=== PATIENT | female | born 1935 | race African-American/Black ===

== ENCOUNTER 2016-11-17 16:37 | Inpatient (IN) | payer OTHER ==
[~2016-11-17] VITALS: Ht 154.9 cm; Wt 58.5 kg
[~2016-11-17 16:37] MED LIST: BRIM5DRO11 EACHEYE; BUPR150T10 PO; INSU100C7 SQ; INSU100I4 SQ; LEVO75TA7 PO; METO-302 PO; RAMI5CAP PO
--- NOTE | 2016-11-17 16:37 | NUR ---
PT BBRA FROM HOME FOR INCREASED WEAKNESS. NAD NOTED. PT AAO X2, FORGETFUL AT TIMES, FOLLOWS COMMANDS. HR NOTED AT 35 AT THIS TIME. MD AT BEDSIDE FOR EVAL. PACER PADS PLACED. PT PLACED IN GOWN AND MONITOR. CONTINUE TO MONITOR CLOSELY
[2016-11-17] MEDS ORDERED: ATROPINE SULFATE INJ 1 MG/ML VIAL ONE (16:56)
[2016-11-17] MEDS ORDERED: IV NS 0.9% 500 ML BAG IV ONE (17:00)
[2016-11-17] MEDS ORDERED: ATROPINE SULFATE 1 MG/10 ML DISP.SYRIN IV ONE (17:00)
[2016-11-17 17:05] LABS: BASOPHILS % (AUTO) 0.3 % (0.0-2.0); EOSINOPHILS % (AUTO) 0.8 % (0.0-6.0); HEMATOCRIT 34 % (33-45); HEMOGLOBIN 11.3 g/dL (11.5-14.8); LYMPHOCYTES # (AUTO) 0.9 /CMM (0.8-4.8); LYMPHOCYTES % (AUTO) 16.5 % (20.0-44.0); MEAN CORPUSCULAR HEMOGLOBIN 29 PG (26.0-33.0); MEAN CORPUSCULAR HGB CONC 34 g/dl (31.0-36.0); MEAN CORPUSCULAR VOLUME 86 fL (82-100); MONOCYTES # (AUTO) 0.3 /CMM (0.1-1.30); MONOCYTES % (AUTO) 6.2 % (2.0-12.0); NEUTROPHILS # (AUTO) 4.4 /CMM (1.8-8.9); NEUTROPHILS % (AUTO) 76.2 % (43.0-81.0); PLATELET COUNT (AUTO) 121 /CMM (150-450); RDW COEFFICIENT OF VARIATION 13.6 (11.5-15.0); RED BLOOD CELL COUNT(AUTO) 3.92 MIL/uL (4.0-5.2); WHITE BLOOD COUNT (AUTO) 5.6 K/uL (4.3-11.0)
--- NOTE | 2016-11-17 17:10 | NUR ---
ATROPINE GIVEN PER MD ORDER, CONTINUE TO MONITOR CLOSELY.
[2016-11-17 17:14] LABS: CALCIUM, SERUM 8.7 mg/dL (8.5-10.1); CARBON DIOXIDE 32 mmol/L (21-32); CHLORIDE 116 mmol/L (98-107); CREATININE 0.8 mg/dL (0.6-1.3); GLUCOSE 163 mg/dL (74-106); POTASSIUM 3.9 mmol/L (3.5-5.1); SODIUM SERUM 150 mmol/L (136-145); UREA NITROGEN, BLOOD 36 mg/dL (7-18)
[2016-11-17 17:20] LABS: INR 0.99 (0.87-1.13); PROTHROMBIN TIME 10.4 SECS (9.5-12.7)
[2016-11-17 17:26] LABS: TROPONIN I < 0.017 ng/mL (0.00-0.056)
[2016-11-17 17:29] LABS: B-TYPE NATRIURETIC PEPTIDE 367 PG/ML (0-125)
--- NOTE | 2016-11-17 17:57 | NUR ---
REPORT GIVEN TO ANI BALDERRAMA RN FOR RUMA
[2016-11-17] MEDS ORDERED: TRAZ-144 PO (18:36)
[2016-11-17] MEDS ORDERED: CLOP75TA2 PO (18:36)
[2016-11-17] MEDS ORDERED: PRED5DRO17 EACHEYE (18:36)
[2016-11-17] MEDS ORDERED: DONE10TA44 PO (18:36)
[2016-11-17] MEDS ORDERED: DORZ10DR11 EACHEYE (18:36)
[2016-11-17] MEDS ORDERED: GABA-532 PO (18:36)
[2016-11-17] MEDS ORDERED: BUPR200T31 PO (18:36)
[2016-11-17] MEDS ORDERED: BRIM5DRO11 EACHEYE (18:36)
[2016-11-17] MEDS ORDERED: LATA2.5D7 EACHEYE (18:36)
[2016-11-17] MEDS ORDERED: BLOO-697 IN (18:38)
[2016-11-17] MEDS ORDERED: INSU10VI SQ ×2 (18:38)
--- NOTE | 2016-11-17 19:00 | NUR ---
REPORT REC'D FROM DIMA GARCIA FOR RUMA. ASSUMED CARE OF PT. PT WAS ON THE BEDPAN. BEDPAN REMOVED AND NEW SHEETS APPLIED. PT IS ON PACER PADS AND IS CURRENTLY ON THE MONITOR/CONTINUOUS PULSE OX.
--- NOTE | 2016-11-17 19:22 | NUR ---
RYLAND PAGED, DR.SAM Wade PROGRAMMER NUMERICAL CONTROL
[2016-11-17] MEDS ORDERED: HYDROCODONE/APAP 5/325MG 1 EACH TABLET PO PRN (20:00)
[2016-11-17] MEDS ORDERED: ATROPINE SULFATE INJ 1 MG/ML VIAL IV PRN (20:00)
[2016-11-17] MEDS ORDERED: Z GUARD REMEDY 2 OZ OINT TP PRN (20:00)
[2016-11-17] MEDS ORDERED: ONDANSETRON HCL/PF 4 MG/2 ML VIAL IVP PRN (20:00)
[2016-11-17] MEDS ORDERED: ZOLPIDEM TARTRATE 5 MG TABLET PO PRN (20:00)
[2016-11-17] MEDS ORDERED: MAGNESIUM HYDROXIDE 30 ML UDC PO PRN (20:00)
[2016-11-17] MEDS ORDERED: MAG HYDROX/AL HYDROX/SIMETH 30 ML UDC PO PRN (20:00)
--- NOTE | 2016-11-17 20:00 | NUR ---
PT PLACED ON 2L O2 VIA NC. PT IS SATURATING AT 92% ON RA.
--- NOTE | 2016-11-17 20:02 | NUR ---
CALLING REPORT TO DIMA GILL
--- NOTE | 2016-11-17 20:02 | NUR ---
RN NOTE RECEIVED REPORT FROM CLIVE CH
--- NOTE | 2016-11-17 20:20 | NUR ---
RN INITIAL NOTE RECEIVED PT WITH BRADYCARDIA ON THE MONITOR. PT IS A/O X 2 AND ABLE TO FOLLOW COMMANDS. PT IS ON O2 VIA NC @ 2LPM AND TOLERATING WELL WITH O2 SAT @ 96%. PT IS ON TELE WITH BRADYCARDIA @ 33 ON THE MONITOR. PT HAS AUDITORY CRACKLES WITH EXCESSIVE PHLEGM THAT WAS SUCTIONED. PT HAS RAC 18G AND LAC 20G THAT ARE BOTH CLEAN DRY INTACT AND PATENT WITH SALINE FLUSH. PT HAS DAUGHTER AT BEDSIDE AND STATED "I AM UPSET THAT SHE ISNT GOING TO ICU". BED IN LOW LOCK POSITION WITH RIALS UP X 2. CALL LIGHT WITHIN REACH AND ALL SAFETY MEASURES ENSURED AND CARRIED OUT. WILL SPEAK WITH DR DE LEON TO GET TRANSFER ORDERS TO ICU.
[2016-11-17] MEDS ORDERED: ATROPINE SULFATE 1 MG/10 ML DISP.SYRIN IV PRN (20:30)
--- NOTE | 2016-11-17 20:33 | NUR ---
RN NOTE SPOKE WITH DR DE LEON AND RECEIVED ORDERS TO TRANSFER TO ICU AND GET A STAT EKG.
[2016-11-17 21:00] VITALS: BP 124/70
--- NOTE | 2016-11-17 21:00 | NUR ---
RN NOTE TRANSFERRED PT TO ICU AND GAVE REPORT TO APPARATUS ENGINEERING TECHNOLOGIST SHANNA FOR CONTINUITY OF CARE.
[2016-11-17] MEDS: ENOXAPARIN SODIUM 40 MG/0.4 ML DISP.SYRIN SQ SCH (21:12)
[2016-11-17] MEDS: GABAPENTIN 100 MG CAPSULE PO SCH (21:13)
[2016-11-17 21:23] VITALS: BP 124/70
[2016-11-17] MEDS ORDERED: DOPamine 400MG/D5W 250ML RTU 250 ML IV ONE (21:40)
[2016-11-17] MEDS ORDERED: IV SET PRIMARY PUMP SET 1 EA INFUS.SET MC ONE (21:40)
--- NOTE | 2016-11-17 21:50 | NUR ---
RELOCATION COORDINATOR DF PT WITH 1 EPISODE OF EMESIS AFTER GIVEN PO MEDICATIONS. PT VOMITED EGGS/RED PEEPERS PER FAMILY PT WAS FED OVER 8 HOURS AGAIN. PT PROTECTED AIRWAY DURING EMESIS ORAL SUCTIONING PROVIDED.NO POST RESPIRATORY DISTRESS NOTED RR OF 18 02 SAT OF 98% ON NASAL CANULA AT 2LPM. PT WITH 1DEGREE HEART BLOCK WITH BRADYCARDIA EKG @ 2048 RESULTS FORWARDED TO MD Isadora LAWSON. PT WITH DECREASED BP (COULD BE 2ND TO CUFF SIZE POSITION/BRADYCARDIA). RATE OF 35BPM TO 43 BPM. PT WITH PACERS PADS CRASH CART AT BEDSIDE WITH EXTERNAL PACING EQUIPMENT. BP NOW 114/56 WITH CORRECT CUFF SIZE POSITION. PT STARTED ON DOPAMINE GTT AT 1MCG/MIN FOR BRADYCARDIA/HYPOTENSION. DAUGHTER AT BEDSIDE UPDATED REGARDING POC. FERNANDEZ CATH INSERTION BY DIMA Arias
[2016-11-17] MEDS ORDERED: DOPamine 400 MG/D5W 250 ML RTU PIGGYBACK IV ONE (22:00)
[2016-11-17 22:01] VITALS: BP 112/47
[2016-11-17] MEDS: BLOOD SUGAR DIAGNOSTIC 1 EACH STRIP IN SCH (22:01)
[2016-11-17] MEDS ORDERED: DOPamine 400 MG/D5W 250 ML RTU PIGGYBACK IV PRN (22:30)
[2016-11-17 22:32] VITALS: BP 124/92
[2016-11-17 23:15] VITALS: BP 111/58
[2016-11-17] MEDS: LATANOPROST EYE DROP 0.005% 2.5 ML BOTTLE EACHEYE SCH (23:15)
--- NOTE | 2016-11-17 23:25 | NUR ---
ADMITTING OFFICER DF PT WITH HX OF DEMENTIA PT AGITATED, RESTLESS OVER LAST HOUR PT ATTEMPTING TO GET OOB THROWING LEGS OVER EDGE OF BED ATTEMPTING TO LIFT BODY OVER SIDE RAILS. PT REMOVING MONITORING EQUIPMENT ATTEMPTING TO REMOVE FERNANDEZ CATH AND IV,S. PT PLACED IN BILATERAL SOFT WRIST RESTRAINTS FOR SAFETY. PT NON COMPLIANT WITH SAFETY INSTRUCTIONS. PER FAMILY PT HAS HX OF DEMENTIA AND PER DAUGHTER JAME PT HASNT SLEPT FOR OVER 24 HOURS AND AGITATION IS INCREASING. I ADMINISTERED 1 AMBIEN 5MG PO FOR INSOMNIA/AGITATION. I WILL MONITOR FOR EFFECT.
[2016-11-17 23:30] VITALS: BP 84/57
[2016-11-18] VITALS (42 sets, daily range): BP systolic 77–148; BP diastolic 25–92
--- NOTE | 2016-11-18 00:47 | NUR ---
PT REMAINS AGITATED DR DE LEON AT BEDSIDE NO ORDERS GIVEN. PT REQUIRED 4 POINT SOFT WRIST RESTRAINTS. PT MOVING BLE OVER SIDE RAIL REPEATEDLY AND ATTEMPTING TO SLIDE SELF OUT OF BED. VSS DOPAMINE AT 4MCG. HEART RATE OF 52BPM.
--- NOTE | 2016-11-18 03:46 | NUR ---
NURSE OBGYN DF BP OF 75/33 DOPAMINE INCREASED TO 6MCG IV.
[2016-11-18 04:48] LABS: BASOPHILS % (AUTO) 0.1 % (0.0-2.0); EOSINOPHILS % (AUTO) 0.1 % (0.0-6.0); HEMATOCRIT 40 % (33-45); HEMOGLOBIN 12.6 g/dL (11.5-14.8); LYMPHOCYTES # (AUTO) 0.5 /CMM (0.8-4.8); LYMPHOCYTES % (AUTO) 9.2 % (20.0-44.0); MEAN CORPUSCULAR HEMOGLOBIN 28 PG (26.0-33.0); MEAN CORPUSCULAR HGB CONC 32 g/dl (31.0-36.0); MEAN CORPUSCULAR VOLUME 87 fL (82-100); MONOCYTES # (AUTO) 0.1 /CMM (0.1-1.30); MONOCYTES % (AUTO) 1.8 % (2.0-12.0); NEUTROPHILS # (AUTO) 4.8 /CMM (1.8-8.9); NEUTROPHILS % (AUTO) 88.8 % (43.0-81.0); PLATELET COUNT (AUTO) 162 /CMM (150-450); RDW COEFFICIENT OF VARIATION 14.4 (11.5-15.0); RED BLOOD CELL COUNT(AUTO) 4.58 MIL/uL (4.0-5.2); WHITE BLOOD COUNT (AUTO) 5.4 K/uL (4.3-11.0)
[2016-11-18 05:12] LABS: CALCIUM, SERUM 9.3 mg/dL (8.5-10.1); CREATININE 0.7 mg/dL (0.6-1.3); MAGNESIUM 2.2 mg/dL (1.8-2.4); PHOSPHORUS 4.3 mg/dL (2.5-4.9)
[2016-11-18 05:13] LABS: THYROID STIMULATING HORMONE 1.862 uIU/mL (0.358-3.74)
--- NOTE | 2016-11-18 05:57 | NUR ---
DEOILING MACHINE OPERATOR DF BP OF 131/55 SINUS MARI RATE OF 55 WITH 1DAVB. DECREASED DOPAMINE TO 4MCG ,PT REMAINS AGITATED PT DOES NOT FOLLOW SAFETY COMMANDS. WHEN UNRESTRAINED PT ATTEMPTS TO REMOVE LINES AND PT IS CONSTANTLY ATTEMPTING TO SLIDE BLE OVER SIDE RAILS AND SLIDE OUT OF THE BED. PT REMAINS WITH BUE/BLE RESTRAINTS FOR SAFETY. AGITATION DISCUSSED WITH MD DE LEON AND NEED FOR 4POINT RESTRAINTS NO ORDERS FOR AGITATION MEDICATION GIVEN. VSS.NAD NOTED.
[2016-11-18] MEDS: PANTOPRAZOLE 40 MG TABLET.DR PO SCH (06:39)
[2016-11-18] MEDS: LEVOTHYROXINE SODIUM 75 MCG TABLET PO SCH (06:39)
[2016-11-18] MEDS ORDERED: DEXTROSE 50%-WATER 50 ML DISP.SYRIN ONE (06:43)
[2016-11-18] MEDS: BLOOD SUGAR DIAGNOSTIC 1 EACH STRIP IN SCH ×4 (06:49→21:45)
--- NOTE | 2016-11-18 06:50 | NUR ---
CUSTOMER RETENTION REPRESENTATIVE DF PT ACCU CHECK OF 55. PT RESPONSIVE AWAKE CONVERSING. 1 AMP D50 ADMIN PER PROTOCOLS/ORDER. PT HAS NO SLIDING SCALE COVERAGE ORDER. PAGED MD DE LEON FOR ORDERS AWAITING CALLBACK.
[2016-11-18] MEDS ORDERED: DOPamine 400 MG in IV D5W 250 ML IV PRN ×2 (07:00→09:00)
[2016-11-18] MEDS ORDERED: DEXTROSE 50%-WATER 50 ML DISP.SYRIN IVP ONE (07:00)
--- NOTE | 2016-11-18 07:15 | NUR ---
RN INITIAL NOTES RECEIVED PT ASLEEP, EASILY AROUSABLE. ON 02 AT 4LPM VIA NC. NO RESPIRATORY DISTRESS NOTED. NO SOB NOTED. HOB ELEVATED. NO SIGNS OF PAIN NOTED. IV LINES IN PLACE. ON DOPAMINE AT 4MCG, HR ON 50S. FC IN PLACE. BLE ELEVATED. WILL CLOSELY MONITOR.
--- NOTE | 2016-11-18 07:15 | NUR ---
DONOR FLOOR TECHNICIAN DF REPORT GIVEN TO DIMA REED. ENDORSED RECHECKING OF GLUCOSE/MIDLINE. NOTED @ 0645 GLUCOSE OF 55 ADMIN 1 AMP D50. PT WILL NEED A MIDLINE IF REMAINS ON DOPAMINE. LEAKING PIV TO RIGHT AC. DOPAMINE INFUSING TO LEFT EXTERNAL JUGULAR IV.
[2016-11-18] MEDS: BRIMONIDINE TARTRATE OPHT SOLN 5 ML BOTTLE EACHEYE SCH ×3 (08:16→17:06)
[2016-11-18] MEDS: INS LISP PROT/INS LISPRO 75/25 100 UNIT/ML VIAL SQ SCH ×3 (08:17→17:28)
--- NOTE | 2016-11-18 08:24 | NUR ---
WOUND CARE CONSULT PATIENT SEEN AND SKIN INTEGRITY ASSESSMENT DONE. PLEASE SEE HOME HOSPICE RN ASSESSMENT IN [facility] FOR TODAY ALONG WITH ALL RECOMMENDATIONS. PATIENT WITH CURRENT CARMINE AT 15, ABLE TO MOVE ALL EXTREMITIES AND TRYING TO GET OOB. PATIENT DOES NOT EASILY FOLLOW COMMANDS. RECOMMEND TURNING SCHED TO ASSIST WITH REPOSITIONING AND BILATERAL HEEL FLOATING. RECOMMEND PODIATRY CONSULT FOR THE BILATERAL LOWER EXTREMITY ULCERATIONS. RECOMMEND CONT USE OF Z GUARD FOR SKIN/MOISTURE MANAGEMENT. ALL DISCUSSED WITH NURSING STAFF AT THE BEDSIDE. PATIENT ON PROSimity COMFORT GEL PRESSURE REDISTRIBUTION MATTRESS AT THIS TIME. Addendum: 11/18/16 at 0829 by RADAMES HICKS WNDNU Amended: Links added.
--- NOTE | 2016-11-18 08:30 | NUR ---
RN NOTES SEEN AND EXAMINED BY DR. CAICEDO. AWARE OF HR ON 50S. SBP 0N 110S. ON DOPAMINE DRIP AT 4MCG. NO ADDITIONAL ORDER.
[2016-11-18] MEDS: prednisoLONE ACETATE 1% SUSP 5 ML BOTTLE RIGHTEYE SCH (08:35)
[2016-11-18] MEDS ORDERED: prednisoLONE ACETATE 1% SUSP 5 ML BOTTLE EACHEYE SCH (09:00)
[2016-11-18] MEDS ORDERED: TIMOLOL MAL/DORZOLAM HCL OPHTH 10 ML BOTTLE EACHEYE SCH (09:00)
[2016-11-18] MEDS ORDERED: BRIMONIDINE TARTRATE OPHT SOLN 5 ML BOTTLE EACHEYE SCH (09:00)
[2016-11-18] MEDS: buPROPion SR 100 MG TABLET.ER PO SCH (09:39)
[2016-11-18] MEDS: HYDROGEL DRESSING 90 GM TUBE TP SCH (09:39)
[2016-11-18] MEDS: RAMIPRIL 5 MG CAPSULE PO SCH (09:39)
--- NOTE | 2016-11-18 10:00 | NUR ---
RN NOTES SEEN AND EXAMINED BY DR. VALLECILLO. AWARE OF OF LAB RESULTS. ON DOPAMINE DRIP AT 4MCG. HR ON 50S AND SBP ON 110S. NOTIFIED THAT PT WAS SEEN BY DR. CAICEDO. PER , KEEP DOPAMINE DRIP FOR NOW.
[2016-11-18] MEDS ORDERED: IV SET PRIMARY PUMP SET 1 EA INFUS.SET MC ONE (10:09)
[2016-11-18] MEDS: IV D5/0.45 NACL 1,000 ML IV PRN ×2 (10:12→20:28)
[2016-11-18] MEDS: CLOPIDOGREL BISULFATE 75 MG TABLET PO SCH (17:05)
--- NOTE | 2016-11-18 18:49 | NUR ---
RN CLOSING NOTES NO SIGNIFICANT CHANGE NOTED. KEPT COMFORTABLE. NO RESPIRATORY DISTRESS NOTED. NO SOB NOTED. NO SIGNS OF PAIN NOTED. IV LINES IN PLACE. ON IVF. ON DOPAMINE DRIP. BP AND HR CLOSELY MONITORED. FC IN PLACE. KEPT CLEAN AND DRY. REPOSITIONED Q2. WILL ENDORSE FOR CONTINUITY OF CARE.
--- NOTE | 2016-11-18 19:09 | NUR ---
Spoke with daughter Rafael [phone], patient lives with her daughter in a multilevel apartment that has no elevator access.Prior to admission- patient ambulates with a walker. She requires min-mod assist with adl's. Patient was prior getting therapy as outpt. Pamela is requesting SNF placement upon discharge. For any dc planning needs on weekend , need to call and coordinate with [facility] career services manager [phone]. Addendum: 11/18/16 at 1909 by MOLINA MONTESINOS RN Amended: Links added.
--- NOTE | 2016-11-18 19:15 | NUR ---
MED ASST: PT RECEIVED WT EYES CLOSED. ABLE TO OPEN EYES. 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 ON 4L 02 VIA NC WT 02 SAT 94% AND ABOVE. NOTED WT COARSE BREATH SOUNDS AND OCCASIONAL COUGHING. ORALLY SUCTIONED WT MODERATE AMT. OF [place] TO PINK-TINGED SECRETIONS. HOB ON HIGH-BEY'S. TOLERATING D5 1/2 NS AT 100ML/HR AND DOPAMINE DRIP AT 2MCG/KG/MIN WT NO S/S OF IV INFILTRATION. SR ON REAL ESTATE PROFESSOR. CHARGE NURSE ED AND INFORMATION SECURITY CONSULTANT OTILIA MADE AWARE OF MID LINE INSERTION. STILL AWAITING FOR MID LINE NURSE. F/C PATENT AND INTACT DRAINING YELLOW URINE TO GRAVITY. BILAT. SOFT WRIST RESTRAINTS IN PLACE PER PROTOCOL WT NO SKIN BREAKDOWN AND GOOD CIRCULATION WHEN RESTRAINTS WERE RELEASED AND CHECKED. SAFETY PRECAUTION NOTED. WILL CONTINUE TO MONITOR.
[2016-11-18] MEDS: ENOXAPARIN SODIUM 40 MG/0.4 ML DISP.SYRIN SQ SCH (20:32)
[2016-11-18] MEDS: LATANOPROST EYE DROP 0.005% 2.5 ML BOTTLE EACHEYE SCH (21:06)
[2016-11-18] MEDS: GABAPENTIN 100 MG CAPSULE PO SCH (21:40)
[2016-11-19] VITALS (34 sets, daily range): BP systolic 89–191; BP diastolic 36–90
--- NOTE | 2016-11-19 00:30 | NUR ---
RIVER RAFTING GUIDE: PT HAS NO EPISODE OF TRYING TO REMOVE IV TUBINGS FOR THE PAST HOUR. COOPERATIVE WT CARE. BILAT. SOFT WRIST RESTRAINTS COMPLETED AT THIS TIME. DOPAMINE DECREASED TO 1 MCG/KG/MIN WT BP AND HR WNL. ORALLY SUCTIONED DUE TO EPISODES OF WEAK COUGHING AND COARSE BREATH SOUNDS WT MODERATE AMT. OF [place] TO PINK-TINGED SECRETIONS. HOB ON SEMI-BEY'S. SAFETY PRECAUTION NOTED. WILL CONTINUE TO MONITOR.
--- NOTE | 2016-11-19 01:30 | NUR ---
FIELD REVIEWER: GIVEN BED BATH AND ONCE HOB WAS DOWN, TOLERATED POORLY M/B DESATURATION IN THE 80s. PLACED ON SIMPLE MASK AT 6L 02. HOB KEPT AT HIGH BEY'S IMMEDIATELY AFTER BATH AND 02 SAT IMPROVED AT 97%. WILL CONTINUE TO MONITOR.
--- NOTE | 2016-11-19 03:00 | NUR ---
MARKET CONSULTANT: DOPAMINE STOPPED AT THIS TIME WT MM=286/64, HR=85.
[2016-11-19 04:30] LABS: EOSINOPHILS % (AUTO) 0.1 % (0.0-6.0); HEMATOCRIT 34 % (33-45); HEMOGLOBIN 10.9 g/dL (11.5-14.8); LYMPHOCYTES # (AUTO) 0.7 /CMM (0.8-4.8); LYMPHOCYTES % (AUTO) 8.9 % (20.0-44.0); MEAN CORPUSCULAR HEMOGLOBIN 28 PG (26.0-33.0); MEAN CORPUSCULAR HGB CONC 32 g/dl (31.0-36.0); MEAN CORPUSCULAR VOLUME 87 fL (82-100); MONOCYTES # (AUTO) 0.2 /CMM (0.1-1.30); MONOCYTES % (AUTO) 2.3 % (2.0-12.0); NEUTROPHILS # (AUTO) 7.4 /CMM (1.8-8.9); NEUTROPHILS % (AUTO) 88.7 % (43.0-81.0); PLATELET COUNT (AUTO) 132 /CMM (150-450); RDW COEFFICIENT OF VARIATION 14.3 (11.5-15.0); RED BLOOD CELL COUNT(AUTO) 3.94 MIL/uL (4.0-5.2); WHITE BLOOD COUNT (AUTO) 8.3 K/uL (4.3-11.0)
[2016-11-19 04:46] LABS: CALCIUM, SERUM 8.4 mg/dL (8.5-10.1); CREATININE 0.9 mg/dL (0.6-1.3); MAGNESIUM 1.8 mg/dL (1.8-2.4); PHOSPHORUS 3.3 mg/dL (2.5-4.9); POTASSIUM 3.7 mmol/L (3.5-5.1)
--- NOTE | 2016-11-19 05:05 | NUR ---
VIOLIN REPAIRER: GLUCOSE FROM LAB. DRAW CRRNP=512. RECHECKED BS VIA GLUCOMETER WT 334 RESULT. CHARGE NURSE ED MADE AWARE. NO SIGNIFICANT RUMA. REMAINED VERBALLY RESPONSIVE AND ABLE TO FOLLOW SIMPLE COMMANDS. PLACED BACK ON 4L 02 VIA NC WT 02 SAT 96%. WILL CONTINUE TO MONITOR.
[2016-11-19] MEDS: IV D5/0.45 NACL 1,000 ML IV PRN (07:15)
[2016-11-19] MEDS: LEVOTHYROXINE SODIUM 75 MCG TABLET PO SCH (07:30)
[2016-11-19] MEDS: PANTOPRAZOLE 40 MG TABLET.DR PO SCH (07:30)
--- NOTE | 2016-11-19 07:45 | NUR ---
ICU/RN - Initial Notes Received pt in bed attempting to get out of bed, confused. Reorientation provided to pt. Alert and oriented to name. Able to follow simple commands. Legally blind left eye. On O2 @ 4lpm via nasal cannula, with O2 saturation 95%. Congested with productive cough, pink tinged/roberts secretions suctioned out orally. Bilateral breath sounds noted with crackles. On tele reading SR 70's. IVF infusing well. Chaves catheter intact draining urine to gravity. HOB semi oconnor's. Safety and comfort measures in place. Will continue to monitor pt closely.
[2016-11-19] MEDS ORDERED: FUROSEMIDE 20 MG/2 ML VIAL IV SCH (08:00)
[2016-11-19] MEDS: RAMIPRIL 5 MG CAPSULE PO SCH (08:31)
[2016-11-19] MEDS: HYDROGEL DRESSING 90 GM TUBE TP SCH (08:31)
[2016-11-19] MEDS: buPROPion SR 100 MG TABLET.ER PO SCH (08:31)
[2016-11-19] MEDS: BLOOD SUGAR DIAGNOSTIC 1 EACH STRIP IN SCH ×4 (08:31→21:28)
[2016-11-19] MEDS: prednisoLONE ACETATE 1% SUSP 5 ML BOTTLE RIGHTEYE SCH (08:32)
[2016-11-19] MEDS: BRIMONIDINE TARTRATE OPHT SOLN 5 ML BOTTLE EACHEYE SCH ×3 (08:33→16:38)
[2016-11-19] MEDS: INS LISP PROT/INS LISPRO 75/25 100 UNIT/ML VIAL SQ SCH ×2 (08:35→17:18)
[2016-11-19] MEDS ORDERED: IV NS 0.9% 250 ML IV ONE (08:49)
--- NOTE | 2016-11-19 08:50 | NUR ---
ICU/RN - Notes Dr Bailey at bedside for evaluation with new orders. Will carry out MD orders.
--- NOTE | 2016-11-19 11:15 | NUR ---
ICU/RN - Notes Pt seen and examined by Dr Angel. Updates provided to MD with new orders noted. Will carry out MD orders. Pt calm and cooperative at this time. Coughing out thick pink tinged secretions, orally suctioned.
[2016-11-19] MEDS ORDERED: SECONDARY IV SET 1 EA INFUS.SET MC ONE (11:56)
[2016-11-19] MEDS ORDERED: CLINDAMYCIN IV RTU IN D5W 900 MG/50 ML PIGGYBACK IV SCH (12:00)
[2016-11-19] MEDS: CLINDAMYCIN 900 MG in IV D5W 50 ML IV SCH ×2 (12:19→21:31)
[2016-11-19] MEDS: LEVOFLOXACIN 750 MG /D5W 150ML 750 MG in PREMIX 1 EA IV SCH (12:53)
[2016-11-19 13:48] LABS: ABG BASE EXCESS 1.7 mmol/L; ABG OXYGEN SATURATION 94.6 % (92.0-98.5); ABG PH 7.382 (7.350-7.450); ABG PO2 85.7 mmHg (75.0-100.0); ABG TOTAL HEMOGLOBIN 11.3 G/dL (12.0-16.0); AaDO2 116.5 mmHg; COHb 0.2 % (0.5-1.5); MetHb 0.2 % (0.0-1.5); O2Hb 94.2 % (94.0-97.0); SITE, ABG Right Radial; VENT MODE, BG NASAL CANNULA
[2016-11-19] MEDS: IPRATROPIUM NEB FS 0.5 MG/2.5 ML AMPUL.NEB NEB SCH ×2 (15:22→19:20)
[2016-11-19] MEDS: ALBUTEROL HALF STRENGTH 1.25 MG/3 ML VIAL.NEB NEB SCH ×2 (15:22→19:20)
--- NOTE | 2016-11-19 16:25 | NUR ---
ICU/RN - Notes Oral care and bed bath provided for pt. Pt orally suctioned as pt cough and expectorates sputum. Pt calm and cooperative with daughter, Rafael at bedside.
[2016-11-19] MEDS: CLOPIDOGREL BISULFATE 75 MG TABLET PO SCH (16:38)
--- NOTE | 2016-11-19 20:00 | NUR ---
RAMP AGENT - NOTES - PT RECEIVED AWAKE ALERT, CONFUSED. 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 ON 4L 02 VIA NC WT 02 SAT 94% AND ABOVE. NOTED WT COARSE BREATH SOUNDS AND OCCASIONAL COUGHING. ORALLY SUCTIONED WT MODERATE AMT. OF [place] TO PINK-TINGED SECRETIONS. HOB IN HIGH-BEY'S. NO S/S OF IV INFILTRATION. SR ON PAID INTERNSHIP. F/C PATENT AND INTACT DRAINING YELLOW URINE TO GRAVITY. SAFETY PRECAUTION NOTED. WILL CONTINUE TO MONITOR.
--- NOTE | 2016-11-19 20:30 | NUR ---
PT HAD A LARGE FORMED BOWEL MOVEMENT ON THE BED MURPHY
[2016-11-19] MEDS: LATANOPROST EYE DROP 0.005% 2.5 ML BOTTLE EACHEYE SCH (21:32)
[2016-11-19] MEDS: GABAPENTIN 100 MG CAPSULE PO SCH (21:33)
[2016-11-19] MEDS: ENOXAPARIN SODIUM 40 MG/0.4 ML DISP.SYRIN SQ SCH (21:37)
[2016-11-20] VITALS (33 sets, daily range): BP systolic 108–171; BP diastolic 55–98
[2016-11-20] MEDS: ALBUTEROL HALF STRENGTH 1.25 MG/3 ML VIAL.NEB NEB SCH ×4 (02:41→19:39)
[2016-11-20] MEDS: IPRATROPIUM NEB FS 0.5 MG/2.5 ML AMPUL.NEB NEB SCH ×4 (02:41→19:39)
--- NOTE | 2016-11-20 04:00 | NUR ---
PT NT SUCTIONED. PT SOUNDS VERY CONGESTED, 02SAT DROPPED TO 90%, PT HAS VERY WEAK COUGH. LARGE AMOUNT OF THINK STRAW COLORED SECRETIONS. O2SAT GOES UP TO 99%, PT SOUNDS AND STATES SHE FEELS BETTER
[2016-11-20 04:40] LABS: BASOPHILS % (AUTO) 0.3 % (0.0-2.0); EOSINOPHILS % (AUTO) 0.2 % (0.0-6.0); HEMATOCRIT 34 % (33-45); HEMOGLOBIN 10.9 g/dL (11.5-14.8); LYMPHOCYTES # (AUTO) 0.8 /CMM (0.8-4.8); LYMPHOCYTES % (AUTO) 11.6 % (20.0-44.0); MEAN CORPUSCULAR HEMOGLOBIN 28 PG (26.0-33.0); MEAN CORPUSCULAR HGB CONC 32 g/dl (31.0-36.0); MEAN CORPUSCULAR VOLUME 86 fL (82-100); MONOCYTES # (AUTO) 0.3 /CMM (0.1-1.30); MONOCYTES % (AUTO) 4.3 % (2.0-12.0); NEUTROPHILS # (AUTO) 5.7 /CMM (1.8-8.9); NEUTROPHILS % (AUTO) 83.6 % (43.0-81.0); PLATELET COUNT (AUTO) 127 /CMM (150-450); RED BLOOD CELL COUNT(AUTO) 3.92 MIL/uL (4.0-5.2); WHITE BLOOD COUNT (AUTO) 6.8 K/uL (4.3-11.0)
[2016-11-20 04:55] LABS: MAGNESIUM 1.6 mg/dL (1.8-2.4); PHOSPHORUS 2.6 mg/dL (2.5-4.9); POTASSIUM 3.8 mmol/L (3.5-5.1)
[2016-11-20] MEDS: CLINDAMYCIN 900 MG in IV D5W 50 ML IV SCH ×3 (05:29→20:30)
--- NOTE | 2016-11-20 08:00 | NUR ---
NEAR EAST ARCHEOLOGY PROFESSOR; ASSESSMENT RECEIVED PT AWAKE AND ORIENTED TO SELF. PT ON NASAL CANULA 5L/MIN. PT RHONCHI THROUGH OUT. NASAL-TRACHEAL SUCTION DONE MOD AMOUNT OF THICK [place] WITH BLOOD TINGE SECRETIONS NOTED. FERNANDEZ CATH INTACT DRAINING TO GRAVITY. CLEAR YELLOW URINE NOTED. NO ACUTE DISTRESS NOTED WILL CONTINUE TO MONITOR CLOSELY.
[2016-11-20] MEDS: BLOOD SUGAR DIAGNOSTIC 1 EACH STRIP IN SCH ×4 (08:19→22:02)
[2016-11-20] MEDS: buPROPion SR 100 MG TABLET.ER PO SCH (08:20)
[2016-11-20] MEDS: PANTOPRAZOLE 40 MG TABLET.DR PO SCH (08:20)
[2016-11-20] MEDS: LEVOTHYROXINE SODIUM 75 MCG TABLET PO SCH (08:20)
[2016-11-20] MEDS: RAMIPRIL 5 MG CAPSULE PO SCH (08:20)
[2016-11-20] MEDS: prednisoLONE ACETATE 1% SUSP 5 ML BOTTLE RIGHTEYE SCH (08:21)
[2016-11-20] MEDS: BRIMONIDINE TARTRATE OPHT SOLN 5 ML BOTTLE EACHEYE SCH ×3 (08:22→18:23)
[2016-11-20] MEDS: INS LISP PROT/INS LISPRO 75/25 100 UNIT/ML VIAL SQ SCH ×2 (08:23→18:21)
[2016-11-20] MEDS: HYDROGEL DRESSING 90 GM TUBE TP SCH (08:24)
[2016-11-20] MEDS: FUROSEMIDE 20 MG/2 ML VIAL IV SCH ×2 (11:08→18:14)
[2016-11-20] MEDS ORDERED: IV SET PRIMARY PUMP SET 1 EA INFUS.SET MC ONE (11:35)
[2016-11-20] MEDS: Magnesium 1GM/D5W 100ML PREMIX 100 ML IV SCH ×2 (11:42→12:32)
[2016-11-20] MEDS: ACETYLCYSTEINE 10% SOLN 400 MG/4 ML VIAL NEB SCH ×2 (13:18→15:30)
[2016-11-20] MEDS ORDERED: FUROSEMIDE 20 MG/2 ML VIAL IV SCH (17:00)
[2016-11-20] MEDS: IV NS 0.9% 250 ML IV PRN (18:14)
[2016-11-20] MEDS: CLOPIDOGREL BISULFATE 75 MG TABLET PO SCH (18:14)
--- NOTE | 2016-11-20 20:00 | NUR ---
MICROBIOLOGY INSTRUCTOR - NOTES - PT RECEIVED AWAKE ALERT, CONFUSED. DAUGHTER AQUILINO AT BEDSIDE. PT IS ON NASAL CANULA 3L/MIN, RHONCHI THROUGH OUT WT 02 SAT 94% AND ABOVE. NOTED WT COARSE BREATH SOUNDS AND OCCASIONAL COUGHING. ORALLY SUCTIONED WT MODERATE AMT. OF [place] TO PINK-TINGED SECRETIONS. HOB IN HIGH-BEY'S. NO S/S OF IV INFILTRATION. SR ON DROP WIRE ALIGNER. F/C PATENT AND INTACT DRAINING YELLOW URINE TO GRAVITY. SAFETY PRECAUTION NOTED. WILL CONTINUE TO MONITOR.
[2016-11-20] MEDS: ENOXAPARIN SODIUM 40 MG/0.4 ML DISP.SYRIN SQ SCH (20:31)
[2016-11-20] MEDS: GABAPENTIN 100 MG CAPSULE PO SCH (21:24)
[2016-11-20] MEDS: LATANOPROST EYE DROP 0.005% 2.5 ML BOTTLE EACHEYE SCH (21:25)
[2016-11-21] VITALS (26 sets, daily range): BP systolic 102–154; BP diastolic 32–89
[2016-11-21] MEDS: IPRATROPIUM NEB FS 0.5 MG/2.5 ML AMPUL.NEB NEB SCH ×4 (01:10→19:31)
[2016-11-21] MEDS: ALBUTEROL HALF STRENGTH 1.25 MG/3 ML VIAL.NEB NEB SCH ×4 (01:10→19:31)
[2016-11-21] MEDS: ACETYLCYSTEINE 10% SOLN 400 MG/4 ML VIAL NEB SCH ×4 (01:10→22:59)
[2016-11-21] MEDS: CLINDAMYCIN 900 MG in IV D5W 50 ML IV SCH ×3 (04:07→21:15)
[2016-11-21 04:49] LABS: BASOPHILS % (AUTO) 0.1 % (0.0-2.0); EOSINOPHILS % (AUTO) 0.2 % (0.0-6.0); HEMATOCRIT 33 % (33-45); HEMOGLOBIN 10.6 g/dL (11.5-14.8); LYMPHOCYTES # (AUTO) 1.1 /CMM (0.8-4.8); MEAN CORPUSCULAR HEMOGLOBIN 28 PG (26.0-33.0); MEAN CORPUSCULAR HGB CONC 32 g/dl (31.0-36.0); MEAN CORPUSCULAR VOLUME 86 fL (82-100); MONOCYTES # (AUTO) 0.4 /CMM (0.1-1.30); MONOCYTES % (AUTO) 5.9 % (2.0-12.0); NEUTROPHILS # (AUTO) 4.8 /CMM (1.8-8.9); NEUTROPHILS % (AUTO) 76.8 % (43.0-81.0); PLATELET COUNT (AUTO) 131 /CMM (150-450); RDW COEFFICIENT OF VARIATION 14.5 (11.5-15.0); RED BLOOD CELL COUNT(AUTO) 3.84 MIL/uL (4.0-5.2); WHITE BLOOD COUNT (AUTO) 6.2 K/uL (4.3-11.0)
[2016-11-21 05:13] LABS: CALCIUM, SERUM 8.7 mg/dL (8.5-10.1); CREATININE 1.1 mg/dL (0.6-1.3); MAGNESIUM 1.8 mg/dL (1.8-2.4); PHOSPHORUS 3.2 mg/dL (2.5-4.9); POTASSIUM 3.5 mmol/L (3.5-5.1)
[2016-11-21] MEDS: PANTOPRAZOLE 40 MG TABLET.DR PO SCH (07:30)
[2016-11-21] MEDS: LEVOTHYROXINE SODIUM 75 MCG TABLET PO SCH (07:30)
--- NOTE | 2016-11-21 07:40 | NUR ---
ICU/RN: PT RECEIVED IN BED EYES CLOSED, EASY TO AROUSE, RESPONDS TO NAME AND TOUCH, REFUSES TO ANSWER QUESTIONS AND ATTEMPTS TO HIT STAFF WHEN TURNED AND REPOSITIONED FOR ASSESSMENT. L EJ FLUSHED, PATENT AND INTACT. TELE READING NSR 90'S. REMAINS OFF PRESSORS.
[2016-11-21] MEDS: RAMIPRIL 5 MG CAPSULE PO SCH (08:06)
[2016-11-21] MEDS: BLOOD SUGAR DIAGNOSTIC 1 EACH STRIP IN SCH ×4 (08:06→22:36)
[2016-11-21] MEDS: buPROPion SR 100 MG TABLET.ER PO SCH (08:07)
[2016-11-21] MEDS: prednisoLONE ACETATE 1% SUSP 5 ML BOTTLE RIGHTEYE SCH (08:08)
[2016-11-21] MEDS: HYDROGEL DRESSING 90 GM TUBE TP SCH (08:10)
[2016-11-21] MEDS: INS LISP PROT/INS LISPRO 75/25 100 UNIT/ML VIAL SQ SCH ×2 (08:12→17:35)
[2016-11-21] MEDS: BRIMONIDINE TARTRATE OPHT SOLN 5 ML BOTTLE EACHEYE SCH ×3 (08:13→16:08)
--- NOTE | 2016-11-21 08:50 | NUR ---
ICU/RN: DR SHERRIE ODEN, NOTIFIED OF MENTAL STATUS, PT IS FEBRILE, OFF PRESSORS. NEW ORDERS NOTED AND CARRIED OUT. PER MD OK TO DOWNGRADE TO KELI IF CLEARED BY PULMO AND CARDIO.
[2016-11-21] MEDS: ACETAMINOPHEN 650 MG/SUPP.RECT RC PRN ×2 (09:18→15:58)
--- NOTE | 2016-11-21 09:20 | NUR ---
ICU/RN: DR LLOYD AT THE BEDSIDE; UPDATED ON PT STATUS, RESP STATUS, PLAN FOR SWALLOW EVAL AND ABN LABS DISCUSSED. PT MORE LETHARGIC COMPARED TO BASELINE AND FEBRILE. ORDERS FOR ABG NOTED AND CARRIED OUT.
--- NOTE | 2016-11-21 09:30 | NUR ---
ICU/RN: NT SUCTIONING PERFORMED, RT AT THE BEDSIDE. WITH MODERATE AMOUNT OF THICK WHITE SECRETIONS NOTED. HOB ELEVATED. WILL CONT TO MONITOR PT
[2016-11-21 09:55] LABS: ABG BASE EXCESS 4.4 mmol/L; ABG OXYGEN SATURATION 92.6 % (92.0-98.5); ABG PCO2 39.3 mmHg (35.0-45.0); ABG PH 7.474 (7.350-7.450); ABG PO2 68.2 mmHg (75.0-100.0); ABG TOTAL HEMOGLOBIN 10.8 G/dL (12.0-16.0); AaDO2 91.9 mmHg; COHb 0.2 % (0.5-1.5); MetHb 0.2 % (0.0-1.5); O2Hb 92.2 % (94.0-97.0); SITE, ABG Right Radial
[2016-11-21] MEDS: LEVOFLOXACIN 750 MG /D5W 150ML 750 MG in PREMIX 1 EA IV SCH (10:32)
--- NOTE | 2016-11-21 11:00 | NUR ---
ICU/RN: PT REMAINS PASSIVE TO CARE, PT AND ST IN TO SEE PT HOWEVER REFUSES TO FOLLOW COMMANDS AND ATTEMPTS TO STRIKE AT STAFF SAYING "LEAVE ME ALONE. I WANT TO SLEEP." WILL ATTEMPT AGAIN AT LATER TIME.
[2016-11-21 11:53] LABS: APPEARANCE,URINE CLEAR (CLEAR); BILIRUBIN,URINE NEGATIVE (NEGATIVE); BLOOD, URINE 3+ Ery/uL (NEGATIVE); COLOR,URINE YELLOW (YELLOW); KETONES,URINE 1+ (NEGATIVE); LEUKOCYTE ESTERASE ,URINE NEGATIVE (NEGATIVE); NITRITE, URINE NEGATIVE (NEGATIVE); PROTEIN,URINE TRACE mg/dl (NEGATIVE); UGLUCOSE NEGATIVE (NEGATIVE); UROBILINOGEN,URINE 0.2 EU/dL (0.2)
[2016-11-21 12:04] LABS: ADD URINE CULTURE NO; BACTERIA,URINE Few /HPF (None Seen); HYALINE CASTS, URINE Moderate /LPF (None Seen); MUCUS,URINE Moderate /LPF (None Seen); RBC,URINE TOO NUMEROUS TO COUN /HPF (0-2); SQUAMOUS EPITHELIAL CELL,UR Moderate /HPF (None Seen); WBC,URINE 0-2 /HPF (0-3)
--- NOTE | 2016-11-21 13:00 | NUR ---
ICU/RN: BLOOD CX, RESPIRATORY AND URINE CX COLLECTED. LAB NOTIFIED FOR SPECIMEN TENNIS CENTRE MANAGER.
[2016-11-21] MEDS: CLOPIDOGREL BISULFATE 75 MG TABLET PO SCH (16:08)
--- NOTE | 2016-11-21 19:14 | NUR ---
ICU/RN: PT REMAINS COMFORTABLE ON O2 3L/MIN VIA NC; AIRWAYS CLEARED FOR SECRETION, HOB ELEVATED, DR MARTINS AT THE BEDSIDE, UPDATED ON PT STATUS. PT DENIES PAIN AND DISCOMFORT. FC DRAINING WELL TO GRAVITY. IV HL PATENT AND INTACT. CARE ENDORSED TO PM RN FOR RUMA.
--- NOTE | 2016-11-21 20:00 | NUR ---
LANDSCAPE PHOTOGRAPHER: RECEIVED PT AAO X 1, LETHARGIC, LUNG SOUNDS ARE VERY CONGESTED NEEDS FREQUENT SUCTIONING FOR CLEARING UP. ON 3 L NASAL CANNULA SATURATING 99%. NO DISTRESS. NPO , SWALLOW TET IN AM. TURN AND REPOSITIONED FOR COMFORT. PT'S DAUGHTER AT BEDSIDE, CONDITION UPDATED. ONGOING MONITORING..
[2016-11-21] MEDS: ENOXAPARIN SODIUM 40 MG/0.4 ML DISP.SYRIN SQ SCH (21:16)
[2016-11-21] MEDS: GABAPENTIN 100 MG CAPSULE PO SCH (21:16)
[2016-11-21] MEDS: LATANOPROST EYE DROP 0.005% 2.5 ML BOTTLE EACHEYE SCH (22:37)
--- NOTE | 2016-11-21 22:40 | NUR ---
COLLECTIONS AGENT:" PT COMFORTABLY SLEEPING, NO DISTRESS, NO S/S OF PAIN. V/S STABLE. KEEP MONITORING.
[2016-11-22] VITALS (26 sets, daily range): BP systolic 100–139; BP diastolic 51–86
[2016-11-22] MEDS: IPRATROPIUM NEB FS 0.5 MG/2.5 ML AMPUL.NEB NEB SCH ×4 (01:36→19:28)
[2016-11-22] MEDS: ALBUTEROL HALF STRENGTH 1.25 MG/3 ML VIAL.NEB NEB SCH ×4 (01:36→19:28)
[2016-11-22 04:38] LABS: BASOPHILS % (AUTO) 0.1 % (0.0-2.0); HEMATOCRIT 32 % (33-45); HEMOGLOBIN 10.3 g/dL (11.5-14.8); LYMPHOCYTES # (AUTO) 0.9 /CMM (0.8-4.8); LYMPHOCYTES % (AUTO) 12.6 % (20.0-44.0); MEAN CORPUSCULAR HEMOGLOBIN 28 PG (26.0-33.0); MEAN CORPUSCULAR HGB CONC 32 g/dl (31.0-36.0); MEAN CORPUSCULAR VOLUME 86 fL (82-100); MONOCYTES # (AUTO) 0.4 /CMM (0.1-1.30); MONOCYTES % (AUTO) 6.3 % (2.0-12.0); NEUTROPHILS # (AUTO) 5.6 /CMM (1.8-8.9); PLATELET COUNT (AUTO) 128 /CMM (150-450); RDW COEFFICIENT OF VARIATION 14.4 (11.5-15.0); RED BLOOD CELL COUNT(AUTO) 3.72 MIL/uL (4.0-5.2); WHITE BLOOD COUNT (AUTO) 6.9 K/uL (4.3-11.0)
[2016-11-22 05:09] LABS: CALCIUM, SERUM 8.6 mg/dL (8.5-10.1); CREATININE 1.2 mg/dL (0.6-1.3); PHOSPHORUS 4.3 mg/dL (2.5-4.9); POTASSIUM 3.6 mmol/L (3.5-5.1)
[2016-11-22] MEDS: CLINDAMYCIN 900 MG in IV D5W 50 ML IV SCH ×3 (05:19→21:30)
[2016-11-22] MEDS: IV NS 0.9% 250 ML IV PRN (06:06)
--- NOTE | 2016-11-22 07:10 | NUR ---
RN INITIAL NOTES RECEIVED PT ASLEEP, LETHARGIC. AROUSABLE BY LIGHT TO DEEP PAIN. ON 02 AT 2LPM VIA NC. NO RESPIRATORY DISTRESS NOTED. HOB ELEVATED. NO SIGNS OF PAIN NOTED. PT KEPT ON NPO. FOR SWALLOW EVAL TODAY. IV LINES IN PLACE. FLUSHED WITH NS. FC IN PLACE. WILL MONITOR FOR OUTPUT. WILL CONTINUE TO MONITOR
[2016-11-22] MEDS: LEVOTHYROXINE SODIUM 75 MCG TABLET PO SCH (07:30)
[2016-11-22] MEDS: PANTOPRAZOLE 40 MG TABLET.DR PO SCH (07:30)
[2016-11-22] MEDS: BLOOD SUGAR DIAGNOSTIC 1 EACH STRIP IN SCH ×4 (08:03→23:25)
[2016-11-22] MEDS: buPROPion SR 100 MG TABLET.ER PO SCH (08:04)
[2016-11-22] MEDS: INS LISP PROT/INS LISPRO 75/25 100 UNIT/ML VIAL SQ SCH (08:04)
[2016-11-22] MEDS: RAMIPRIL 5 MG CAPSULE PO SCH (08:04)
[2016-11-22] MEDS: HYDROGEL DRESSING 90 GM TUBE TP SCH (08:05)
[2016-11-22] MEDS: prednisoLONE ACETATE 1% SUSP 5 ML BOTTLE RIGHTEYE SCH (08:06)
[2016-11-22] MEDS: BRIMONIDINE TARTRATE OPHT SOLN 5 ML BOTTLE EACHEYE SCH ×3 (08:07→17:01)
[2016-11-22] MEDS: ACETYLCYSTEINE 10% SOLN 400 MG/4 ML VIAL NEB SCH ×3 (08:25→23:58)
--- NOTE | 2016-11-22 08:45 | NUR ---
RN NOTES SEEN AND EXAMINE BY DR. LLOYD. AWARE OF CURRENT LAB RESULTS. PT LETHARGIC, AROUSABLE TO PAIN. EYES OPEN WHEN NAME IS CALLED. MD ORDERED ABG. PT ON 02 AT 2LPM VIA NC. NOTED AND CARRIED OUT.
[2016-11-22 09:29] LABS: ABG BASE EXCESS -5.2 mmol/L; ABG OXYGEN SATURATION 92.9 % (92.0-98.5); ABG PCO2 31.2 mmHg (35.0-45.0); ABG PH 7.396 (7.350-7.450); ABG PO2 73.9 mmHg (75.0-100.0); ABG TOTAL HEMOGLOBIN 11.2 G/dL (12.0-16.0); AaDO2 88.9 mmHg; MetHb 0.1 % (0.0-1.5); O2Hb 91.9 % (94.0-97.0); SITE, ABG Right Radial; VENT MODE, BG NASAL CANNULA
--- NOTE | 2016-11-22 12:55 | NUR ---
RN NOTES SEEN AND EXAMINED BY DR. BALDERAS. AWARE OF CURRENT LAB AND ABG RESULTS. AWARE THAT PT ON NPO. MD ORDERED D5 AT 70ML/HR, INSULIN ORDER ADJUSTED AND LABS IN AM. NOTED AND CARRIED OUT.
[2016-11-22] MEDS ORDERED: IV D5W 1,000 ML IV ONE (13:00)
--- NOTE | 2016-11-22 13:30 | NUR ---
RN NOTES SEEN AND EXAMINED BY DR. CHRISTIAN JUAN. AWARE OF CURRENT LAB RESULT. ORDERED D5 AT 40ML/HR. NOTIFIED THAT DR. BALDERAS ORDERED D5 AT 70ML/HR. PER , FOLLOW D5 AT 40ML/HR PER [facility] RECOMMENDATION. DR. BALDERAS AWARE.
[2016-11-22] MEDS: CLOPIDOGREL BISULFATE 75 MG TABLET PO SCH (16:32)
[2016-11-22] MEDS ORDERED: INS LISP PROT/INS LISPRO 75/25 100 UNIT/ML VIAL SQ SCH (18:00)
--- NOTE | 2016-11-22 18:55 | NUR ---
RN CLOSING NOTES PT ASLEEP, AROUSABLE. NO RESPIRATORY DISTRESS NOTED. NO SIGNS OF PAIN NOTED. NO CONGESTION NOTED. KEPT HOB ELEVATED. IV LINES IN PLACE. ON IVF. FC IN PLACE. KEPT CLEAN AND DRY. TX PROVIDED ORDERED. REPOSITIONED Q2. KEPT COMFORTABLE. WILL ENDORSE FOR CONTINUITY OF CARE.
[2016-11-22] MEDS: IV D5W 1,000 ML IV PRN (19:35)
--- NOTE | 2016-11-22 20:00 | NUR ---
TIME CYCLE OPERATOR: RECEIVED PT ASLEEP, LETHARGIC. AROUSAL BY LIGHT TO DEEP PAIN. ON 02 AT 2LPM VIA NC. NO RESPIRATORY DISTRESS NOTED. HOB ELEVATED. NO SIGNS OF PAIN NOTED. PT KEPT ON NPO. . IV LINES IN PLACE ONGOING D5W AT 40 CC/HR DUE TO HYPERNATREMIA. FC IN PLACE. V/S STABLE. ONGOING MONITORING...
[2016-11-22] MEDS: LATANOPROST EYE DROP 0.005% 2.5 ML BOTTLE EACHEYE SCH (21:31)
[2016-11-22] MEDS: ENOXAPARIN SODIUM 40 MG/0.4 ML DISP.SYRIN SQ SCH (21:31)
[2016-11-22] MEDS: GABAPENTIN 100 MG CAPSULE PO SCH (21:31)
[2016-11-23] VITALS (27 sets, daily range): BP systolic 88–139; BP diastolic 34–75
[2016-11-23] MEDS: ALBUTEROL HALF STRENGTH 1.25 MG/3 ML VIAL.NEB NEB SCH ×4 (01:47→19:44)
[2016-11-23] MEDS: IPRATROPIUM NEB FS 0.5 MG/2.5 ML AMPUL.NEB NEB SCH ×4 (01:47→19:44)
[2016-11-23] MEDS: CLINDAMYCIN 900 MG in IV D5W 50 ML IV SCH ×3 (05:00→20:46)
[2016-11-23 05:04] LABS: BASOPHILS % (AUTO) 0.3 % (0.0-2.0); EOSINOPHILS % (AUTO) 0.1 % (0.0-6.0); HEMATOCRIT 31 % (33-45); HEMOGLOBIN 10.2 g/dL (11.5-14.8); LYMPHOCYTES # (AUTO) 1.1 /CMM (0.8-4.8); LYMPHOCYTES % (AUTO) 9.6 % (20.0-44.0); MEAN CORPUSCULAR HEMOGLOBIN 28 PG (26.0-33.0); MEAN CORPUSCULAR HGB CONC 32 g/dl (31.0-36.0); MEAN CORPUSCULAR VOLUME 87 fL (82-100); MONOCYTES # (AUTO) 0.6 /CMM (0.1-1.30); MONOCYTES % (AUTO) 5.3 % (2.0-12.0); NEUTROPHILS # (AUTO) 9.9 /CMM (1.8-8.9); NEUTROPHILS % (AUTO) 84.7 % (43.0-81.0); PLATELET COUNT (AUTO) 129 /CMM (150-450); RDW COEFFICIENT OF VARIATION 14.2 (11.5-15.0); RED BLOOD CELL COUNT(AUTO) 3.61 MIL/uL (4.0-5.2); WHITE BLOOD COUNT (AUTO) 11.7 K/uL (4.3-11.0)
[2016-11-23 05:33] LABS: CALCIUM, SERUM 8.3 mg/dL (8.5-10.1); CREATININE 1.2 mg/dL (0.6-1.3); MAGNESIUM 1.8 mg/dL (1.8-2.4); PHOSPHORUS 3.2 mg/dL (2.5-4.9); POTASSIUM 3.6 mmol/L (3.5-5.1)
[2016-11-23] MEDS: BLOOD SUGAR DIAGNOSTIC 1 EACH STRIP IN SCH ×3 (05:34→17:31)
[2016-11-23 06:07] LABS: BAND % (MANUAL) 4 % (0.0-5.0); LYMPHOCYTES % (MANUAL) 10 % (16-48); MONOCYTES % (MANUAL) 5 % (0-11.0); NEUTROPHILS % (MANUAL) 81 (42-76)
[2016-11-23 06:08] LABS: PLATELET ESTIMATE DECREASED
[2016-11-23] MEDS: PANTOPRAZOLE 40 MG TABLET.DR PO SCH (07:30)
[2016-11-23] MEDS: LEVOTHYROXINE SODIUM 75 MCG TABLET PO SCH (07:30)
--- NOTE | 2016-11-23 08:00 | NUR ---
SALES REPRESENTATIVE MEATS NOTE: RECEIVED PATIENT SLEEPING LETHARGIC SR ON MONITOR WITH 1ST DEGREE AV BLOCK. ON 2L O2 VIA NC. NO DISTRESS NOTED. PATIENT NOTED WITH FERNANDEZ, LEAKING NOTED. PATIENT CLEANED, FERNANDEZ CATHETER ADJUSTED AND NOTED TO BE DRAINING WELL. PATIENT NOTED WITH BILATERAL LOWER EXTREMITY ULCERS AND SACRAL SKIN ISSUES. RAC 20g AND LEJ 20G PATENT AND INTACT INFUSING D5W AT 40ML/HR. DR. BALDERAS AT BEDSIDE, INFORMED THAT BS ARE RANGING IN 300'S RECEIVED ORDER FOR MODERATE SLIDING SCALE AND Q6H ACCUCHECK. PATIENT CLEANED, TURNED AND REPOSITIONED AND EXTREMITIES OFFLOADED. ONGOING MONITORING
[2016-11-23] MEDS: ACETYLCYSTEINE 10% SOLN 400 MG/4 ML VIAL NEB SCH ×3 (08:25→23:27)
[2016-11-23] MEDS ORDERED: INS LISP PROT/INS LISPRO 75/25 100 UNIT/ML VIAL SQ SCH (09:00)
[2016-11-23] MEDS: buPROPion SR 100 MG TABLET.ER PO SCH (09:00)
[2016-11-23] MEDS: RAMIPRIL 5 MG CAPSULE PO SCH (09:00)
[2016-11-23] MEDS: prednisoLONE ACETATE 1% SUSP 5 ML BOTTLE RIGHTEYE SCH (09:45)
[2016-11-23] MEDS: INS LISP PROT/INS LISPRO 75/25 100 UNIT/ML VIAL SQ SCH ×2 (09:47→17:33)
[2016-11-23] MEDS: BRIMONIDINE TARTRATE OPHT SOLN 5 ML BOTTLE EACHEYE SCH ×3 (09:48→16:15)
[2016-11-23] MEDS: HYDROGEL DRESSING 90 GM TUBE TP SCH (09:49)
--- NOTE | 2016-11-23 11:30 | NUR ---
FIRST LEVELER NOTE: DR. CHRISTIAN JUAN AT BEDSIDE, RECEIVED ORDER TO INCREASE D5W TO 70ML/HR. ORDERS VERIFIED AND CARRIED OUT. NO FLUID OVERLOAD NOTED. ONGOING MONITORING
[2016-11-23] MEDS: LEVOFLOXACIN 750 MG /D5W 150ML 750 MG in PREMIX 1 EA IV SCH (11:59)
[2016-11-23] MEDS: INSULIN REGULAR, HUMAN 100 UNIT/ML 3 ML VIAL SQ PRN ×2 (12:06→17:33)
--- NOTE | 2016-11-23 14:30 | NUR ---
COMPACTING MACHINE OPERATOR/TENDER NOTE: PATIENT TOLERATED PT EVAL, HOWEVER DURING SWALLOW EVAL SHE BECAME VERY LETHARGIC. DAUGHTER AT BEDSIDE. UNABLE TO PERFORM SWALLOW EVAL. DR. BALDERAS MADE AWARE AND RECEIVED TELEPHONE ORDER TO INSERT NGTUBE AND START GLYTROL FEEDING AT 20ML/HR WITH GOAL OF 50ML/HR. ORDERS READ BACK AND VERIFIED. ONGOING MONITORING
[2016-11-23] MEDS: IV D5W 1,000 ML IV PRN (16:14)
[2016-11-23] MEDS: CLOPIDOGREL BISULFATE 75 MG TABLET PO SCH (17:31)
[2016-11-23] MEDS: GLYTROL 1,000 ML BAG GT PRN (17:35)
--- NOTE | 2016-11-23 18:00 | NUR ---
IRON PELLET TESTER NOTE: NGTUBE PLACED IN RIGHT NARE, PATIENT TOLERATED WELL, PLACEMENT CHECK VIA CHEST XRAY, GLYTROL STARTED AT 20ML/HR PER ORDER WILL ENDORSE TO RECHECK RESIDUAL AND . PATIENT NOTED ATTEMPTING TO PULL NGTUBE, DAUGHTER AT BEDSIDE, REORIENTED PATIENT. HOWEVER DAUGHTER EXPRESSED THAT SHE WOULD LIKE PATIENT IN RESTRAINTS IF SHE ATTEMPTS TO PULL NGTUBE AGAIN. CLOSE MONITORING.
--- NOTE | 2016-11-23 19:00 | NUR ---
MODEL TECHNICIAN NOTE: PATIENT KEPT CLEAN AND DRY, WOUND CARE RENDERED. NO DISTRESS NOTED. VS STABLE. ALL MEDS ADMINISTERED ALL NEEDS RENDERED. ONGOING MONITORING.
--- NOTE | 2016-11-23 20:00 | NUR ---
PROJECT MANAGER: RECEIVED PT LETHARGIC, ON 2 L NC SATURATING 99%, NO DISTRESS. NGT FEEDING ONGOING AT 20 CC/HR. REPOSITIONED FOR COMFORT. ALL NEEDS ATTENDED. ONGOING MONITORING...
[2016-11-23] MEDS: GABAPENTIN 100 MG CAPSULE PO SCH (20:46)
[2016-11-23] MEDS: LATANOPROST EYE DROP 0.005% 2.5 ML BOTTLE EACHEYE SCH (20:47)
[2016-11-23] MEDS: ENOXAPARIN SODIUM 40 MG/0.4 ML DISP.SYRIN SQ SCH (20:47)
--- NOTE | 2016-11-23 23:34 | NUR ---
SPEECH AND LANGUAGE SPECIALIST: PT COMFORTABLY SLEEPING, NO DISTRESS, V/S STABLE. NGT FEEDING RUNNING INCREASED TO 30 ML/HR, THE GOAL RATE IS 50 ML/HR WILL INCREASE LITTLE BY LITTLE DEPENDS ON TOLERANCE. NO RESIDUAL NOTED.
[2016-11-24] VITALS (23 sets, daily range): BP systolic 83–108; BP diastolic 30–59
[2016-11-24] MEDS: BLOOD SUGAR DIAGNOSTIC 1 EACH STRIP IN SCH ×5 (00:49→23:38)
[2016-11-24] MEDS: INSULIN REGULAR, HUMAN 100 UNIT/ML 3 ML VIAL SQ PRN ×5 (00:51→23:43)
[2016-11-24] MEDS: ALBUTEROL HALF STRENGTH 1.25 MG/3 ML VIAL.NEB NEB SCH ×4 (01:30→20:00)
[2016-11-24] MEDS: IPRATROPIUM NEB FS 0.5 MG/2.5 ML AMPUL.NEB NEB SCH ×4 (01:30→20:00)
[2016-11-24 05:08] LABS: BASOPHILS % (AUTO) 0.1 % (0.0-2.0); EOSINOPHILS # (AUTO) 0.1 /CMM (0.0-0.7); EOSINOPHILS % (AUTO) 0.7 % (0.0-6.0); HEMATOCRIT 31 % (33-45); LYMPHOCYTES # (AUTO) 1.2 /CMM (0.8-4.8); LYMPHOCYTES % (AUTO) 9.2 % (20.0-44.0); MEAN CORPUSCULAR HEMOGLOBIN 28 PG (26.0-33.0); MEAN CORPUSCULAR HGB CONC 32 g/dl (31.0-36.0); MEAN CORPUSCULAR VOLUME 87 fL (82-100); MONOCYTES # (AUTO) 0.5 /CMM (0.1-1.30); NEUTROPHILS # (AUTO) 10.9 /CMM (1.8-8.9); PLATELET COUNT (AUTO) 129 /CMM (150-450); RDW COEFFICIENT OF VARIATION 14.1 (11.5-15.0); RED BLOOD CELL COUNT(AUTO) 3.52 MIL/uL (4.0-5.2); WHITE BLOOD COUNT (AUTO) 12.6 K/uL (4.3-11.0)
[2016-11-24 05:13] LABS: CALCIUM, SERUM 8.4 mg/dL (8.5-10.1); CREATININE 1.1 mg/dL (0.6-1.3); MAGNESIUM 1.9 mg/dL (1.8-2.4); PHOSPHORUS 2.8 mg/dL (2.5-4.9); POTASSIUM 3.5 mmol/L (3.5-5.1)
[2016-11-24] MEDS: CLINDAMYCIN 900 MG in IV D5W 50 ML IV SCH ×3 (05:20→21:09)
[2016-11-24] MEDS: IV D5W 1,000 ML IV PRN (06:46)
[2016-11-24] MEDS: ACETYLCYSTEINE 10% SOLN 400 MG/4 ML VIAL NEB SCH ×2 (07:47→14:49)
--- NOTE | 2016-11-24 08:00 | NUR ---
fire fighter crash fire and rescue NOTE: RECEIVED PATIENT SLEEPING LETHARGIC SR ON MONITOR. ON 2L O2 VIA NC. NO DISTRESS NOTED. PATIENT NOTED WITH FERNANDEZ, NOTED TO BE DRAINING WELL TO GRAVITY. PATIENT NOTED WITH BILATERAL LOWER EXTREMITY ULCERS AND SACRAL SKIN ISSUES, PHOTO WILL BE TAKEN AND WOUND CARE CONSULT ORDERED. RAC 20g AND LEJ 20G PATENT AND INTACT INFUSING D5W AT 70ML/HR. NO OVERLOAD NOTED. RIGHT NARE NGT PLACEMENT CHECKED AND VERIFIED. RUNNING GLYTROL AT 40ML/HR NO RESIDUAL NOTED INCREASED TO 50ML/HR GOAL RATE. PATIENT CLEANED, TURNED AND REPOSITIONED AND EXTREMITIES OFFLOADED. CALL LIGHT WITHIN REACH. ONGOING MONITORING
[2016-11-24] MEDS: PANTOPRAZOLE 40 MG/PACK PACK GT SCH (08:10)
[2016-11-24] MEDS: LEVOTHYROXINE SODIUM 75 MCG TABLET PO SCH (08:10)
[2016-11-24] MEDS: buPROPion SR 100 MG TABLET.ER PO SCH (08:11)
[2016-11-24] MEDS: RAMIPRIL 5 MG CAPSULE PO SCH (08:11)
[2016-11-24] MEDS: BRIMONIDINE TARTRATE OPHT SOLN 5 ML BOTTLE EACHEYE SCH ×3 (08:12→17:49)
[2016-11-24] MEDS: prednisoLONE ACETATE 1% SUSP 5 ML BOTTLE RIGHTEYE SCH (08:12)
[2016-11-24] MEDS: HYDROGEL DRESSING 90 GM TUBE TP SCH (08:12)
[2016-11-24] MEDS: INS LISP PROT/INS LISPRO 75/25 100 UNIT/ML VIAL SQ SCH ×2 (08:13→17:32)
[2016-11-24] MEDS ORDERED: INS LISP PROT/INS LISPRO 75/25 100 UNIT/ML VIAL SQ SCH (09:00)
--- NOTE | 2016-11-24 12:00 | NUR ---
TITLE I PARAPROFESSIONAL NOTE: DR. BALDERAS AT BEDSIDE. MD MADE AWARE OF BORDERLINE BP IN HIGH 80'S. RECEIVED ORDER FOR TRANSFER TO TELEMETRY, PATIENT IN STABLE CONDITION, VS STABLE. OK TO TRANSFER TO TELE PER DR. LLOYD AND DR. BALDERAS.
--- NOTE | 2016-11-24 12:30 | NUR ---
WARDROBE ATTENDANT NOTE: PATIENT NOTED WITH NEW ISSUE IN SACRUM, PHOTO TAKEN, CHARTING UPDATED. WOUND CARE NURSE RADAMES MADE AWARE. WOUND CARE CONSULT ORDERED. PHOTO TAKEN AND PLACED IN CHART. ALSO INFORMED DAUGHTER AQUILINO WHO IS AWARE. PATIENT KEPT CLEAN AND DRY, TURNED AND REPOSITIONED Q2H, EXTREMITIES OFFLOADED. ORAL CARE RENDERED.
[2016-11-24] MEDS: ENOXAPARIN SODIUM 30 MG/0.3 ML DISP.SYRIN SQ SCH (15:31)
[2016-11-24] MEDS: CLOPIDOGREL BISULFATE 75 MG TABLET PO SCH (17:31)
[2016-11-24] MEDS: GLYTROL 1,000 ML BAG GT PRN (17:31)
[2016-11-24] MEDS: LACTOBACILLUS RHAMNOSUS GG 1 EACH CAP.SPRINK PO SCH (17:31)
--- NOTE | 2016-11-24 18:37 | NUR ---
MIDDLE SCHOOL TUTOR NOTE: PATIENT ABLE TO SIT UP AND INTERACT WITH DAUGHTER OPENING EYES AND PERFORMING RANGE OF MOTION EXERCISES. RIGHT NARE NGT RUNNING GLYTROL AT 50ML/HR NO RESIDUAL NOTED. IV SITES PATENT AND INTACT RUNNING D5W AT 70ML/HR. NO OVERLOAD NOTED. FERNANDEZ DRAINING TO GRAVITY. PATIENT KEPT CLEAN AND DRY, TURNED AND REPOSITIONED AND EXTREMITIES OFFLOADED. SKIN CARE RENDERED. PATIENT COMFORTABLE. ALL MEDS GIVEN, ALL CARE RENDERED. ONGOING MONITORING.
--- NOTE | 2016-11-24 19:21 | NUR ---
SENIOR SOLUTIONS ARCHITECT NOTE: CALL MADE TO DIMA SWAN IN [facility] TO TRANSFER PATIENT TO [facility] FOR TELEMETRY. PATIENT ENDORSED FOR CONTINUITY OF CARE. WILL BE TRANSFERED BY AIRPLANE PILOT HELPER POLYSILICON PREPARATION WORKER.
--- NOTE | 2016-11-24 19:30 | NUR ---
WATCH ENGINEERPUBLIC HEALTH NUTRITIONIST NOTE RECEIVED PT COMING FROM ICU, AWAKE BUT NON VERBAL WHICH IS PT'S BASELINE, NO GRIMACING OR RESPIRATORY DISTRESS NOTED DURING PHYSICAL ASSESSMENT, RECEIVING ENTERAL FEEDING (GLYTROL AT 50ML/HR), WELL TOLERATED WITH NO RESIDUAL FOUND, FERNANDEZ CATHETER IN PLACE AND INTACT, DRAINING ADEQUATELY, RIGHT AC 20G INTACT AND INFUSING D5NS@70ML/HR, MEDS TO BE CRUSHED AND GIVEN THROUGH NGT, WOUND CONSULT REQUESTED PER ICU NURSE, WILL BE PERFORMED TOMORROW, PT TO SEE PT TOMORROW WELL, SAFETY MEASURES IN PLACE, NEEDS WILL BE ANTICIPATED AND ATTENDED TO DURING HOURLY ROUNDS AND NEEDED.
[2016-11-24] MEDS: GABAPENTIN 100 MG CAPSULE PO SCH (21:09)
[2016-11-24] MEDS: LATANOPROST EYE DROP 0.005% 2.5 ML BOTTLE EACHEYE SCH (21:13)
[2016-11-25] VITALS (8 sets, daily range): BP systolic 104–120; BP diastolic 49–68
[2016-11-25] MEDS: ACETYLCYSTEINE 10% SOLN 400 MG/4 ML VIAL NEB SCH ×4 (00:29→23:30)
[2016-11-25] MEDS: IPRATROPIUM NEB FS 0.5 MG/2.5 ML AMPUL.NEB NEB SCH ×4 (00:31→19:16)
[2016-11-25] MEDS: ALBUTEROL HALF STRENGTH 1.25 MG/3 ML VIAL.NEB NEB SCH ×4 (00:31→19:16)
[2016-11-25] MEDS: IV D5W 1,000 ML IV PRN ×2 (02:04→21:24)
[2016-11-25] MEDS: CLINDAMYCIN 900 MG in IV D5W 50 ML IV SCH ×3 (04:00→21:09)
[2016-11-25] MEDS: BLOOD SUGAR DIAGNOSTIC 1 EACH STRIP IN SCH ×4 (05:17→21:09)
[2016-11-25] MEDS: INSULIN REGULAR, HUMAN 100 UNIT/ML 3 ML VIAL SQ PRN ×4 (05:25→21:13)
--- NOTE | 2016-11-25 06:55 | NUR ---
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
--- NOTE | 2016-11-25 07:25 | NUR ---
RN OPEN NOTES PATIENT IS IN BED. NO VERBAL. OPEN HER EYES FOR LIGHT TOUCH. NG TUBE IS CURRENTLY RUNNING GLYTROL AT 50ML/HR. IV SITE IS PATENT AND INTACT CURRENTLY RUNNING AT 70 ML/HR. BED IS LOW AND IN LOCKED POSITION, 2 SIDE RAILS ARE UP. WILL CONTINUE TO ASSESS AND MONITOR THE PATIENT
[2016-11-25 08:15] LABS: BASOPHILS % (AUTO) 0.1 % (0.0-2.0); EOSINOPHILS # (AUTO) 0.2 /CMM (0.0-0.7); HEMATOCRIT 29 % (33-45); HEMOGLOBIN 9.5 g/dL (11.5-14.8); MEAN CORPUSCULAR HEMOGLOBIN 28 PG (26.0-33.0); MEAN CORPUSCULAR HGB CONC 32 g/dl (31.0-36.0); MEAN CORPUSCULAR VOLUME 86 fL (82-100); MONOCYTES # (AUTO) 0.6 /CMM (0.1-1.30); MONOCYTES % (AUTO) 5.4 % (2.0-12.0); NEUTROPHILS # (AUTO) 9.7 /CMM (1.8-8.9); NEUTROPHILS % (AUTO) 83.5 % (43.0-81.0); PLATELET COUNT (AUTO) 129 /CMM (150-450); RDW COEFFICIENT OF VARIATION 13.9 (11.5-15.0); WHITE BLOOD COUNT (AUTO) 11.6 K/uL (4.3-11.0)
[2016-11-25 08:26] LABS: CALCIUM, SERUM 7.9 mg/dL (8.5-10.1); CREATININE 0.9 mg/dL (0.6-1.3); MAGNESIUM 1.8 mg/dL (1.8-2.4); PHOSPHORUS 3.4 mg/dL (2.5-4.9); POTASSIUM 3.4 mmol/L (3.5-5.1)
[2016-11-25] MEDS ORDERED: METHYLPHENIDATE HCL (10MG) 10 MG TABLET PO SCH (09:00)
[2016-11-25] MEDS ORDERED: SECONDARY IV SET 1 EA INFUS.SET MC ONE ×3 (09:28→12:04)
[2016-11-25] MEDS: Magnesium 1GM/D5W 100ML PREMIX 100 ML IV SCH ×2 (09:35→11:26)
[2016-11-25] MEDS: buPROPion 100 MG TABLET NG SCH (09:36)
[2016-11-25] MEDS: LEVOTHYROXINE SODIUM 75 MCG TABLET PO SCH (09:36)
[2016-11-25] MEDS: METHYLPHENIDATE HCL (10MG) 10 MG TABLET PO SCH (09:36)
[2016-11-25] MEDS: LACTOBACILLUS RHAMNOSUS GG 1 EACH CAP.SPRINK PO SCH ×2 (09:36→16:49)
[2016-11-25] MEDS: HYDROGEL DRESSING 90 GM TUBE TP SCH (09:39)
[2016-11-25] MEDS: PANTOPRAZOLE 40 MG/PACK PACK GT SCH (09:51)
[2016-11-25] MEDS: prednisoLONE ACETATE 1% SUSP 5 ML BOTTLE RIGHTEYE SCH (09:52)
[2016-11-25] MEDS: BRIMONIDINE TARTRATE OPHT SOLN 5 ML BOTTLE EACHEYE SCH ×3 (09:53→16:49)
[2016-11-25] MEDS: INS LISP PROT/INS LISPRO 75/25 100 UNIT/ML VIAL SQ SCH ×2 (10:00→17:41)
[2016-11-25] MEDS ORDERED: IV SET PRIMARY PUMP SET 1 EA INFUS.SET MC ONE ×2 (10:25→10:27)
[2016-11-25] MEDS ORDERED: IV NS 0.9% 250 ML IV ONE (10:26)
[2016-11-25] MEDS: POTASSIUM CL. PREMIX PERIPHER. 50 ML IV SCH ×2 (10:31→11:45)
[2016-11-25] MEDS: LEVOFLOXACIN 750 MG /D5W 150ML 750 MG in PREMIX 1 EA IV SCH (12:41)
[2016-11-25] MEDS: ENOXAPARIN SODIUM 30 MG/0.3 ML DISP.SYRIN SQ SCH (15:57)
[2016-11-25] MEDS: GLYTROL 1,000 ML BAG GT PRN (16:43)
[2016-11-25] MEDS: CLOPIDOGREL BISULFATE 75 MG TABLET PO SCH (16:49)
[2016-11-25] MEDS: ACETAMINOPHEN 325 MG TABLET PO PRN (17:14)
--- NOTE | 2016-11-25 19:00 | NUR ---
NEEDLE GRADER OPENING NOTES RECEIVED PATIENT IN BED AWAKE AND EASILY AWAKEN. IN STABLE CONDITION, NO S/S OF DISTRESS, IV SITE INTACT WITH S/S OF INFILTRATION. NO S/S OF DISTRESS NO SOB, NO CHEST PAIN. NO COMPLAINS OF PAIN, SAFE FREE ENVIRONMENT PROVIDED FREE OF CLUTTERS, WILL CONTINUE TO MONITOR, ON LOW BED TO ENSURE SAFETY, CALL LIGHT WITHIN REACH..
--- NOTE | 2016-11-25 19:07 | NUR ---
SUPERVISOR CHEMICAL CLOSING NOTE GAVE REPORT TO ADMINISTRATIVE SUPERVISOR NURSE. PATIENT REMAINED STABLE DURING DAY SHIFT. PER DAUGHTER, PATIENT IS MORE ALERT AND ORIENTED TODAY. PATIENT PASSED SWALLOW TEST AND ADVANCED TO PUREE DIET. PUREE DIET WAS GIVEN FOR DINNER AND TOLERATED VERY WELL. MADE AWARE, WAITING FOR INSTRUCTION HOW TO CONTINUE WITH THE NG TUBE. CURRENTLY GLYTEROL IS RUNNING AT 50ML/HR. PT REPOSITIONED EVERY 2 HOURS TO PREVENT SKIN BREAK DOWN. SACRAL DRESSING CHANGED. LEGS ULCER DRESSING CHANGED. SR ON THE TELE MONITOR, RIGHT AC RUNNING D5W AT 70ML/HR AND TOLERATED WELL. IV IS POTENT AND INTACT. BED IS IN LOW POSITION AND LOCKED, SIDE RAILS X2 UP. DAUGHTER IS AT THE BEDSIDE.
--- NOTE | 2016-11-25 19:30 | NUR ---
PATIENT FEEDING NOT ON HOLD PER FAMILY, PATIENT NOT EATING FOR NOW. MD MADE AWARE.
[2016-11-25] MEDS: LATANOPROST EYE DROP 0.005% 2.5 ML BOTTLE EACHEYE SCH (21:09)
[2016-11-25] MEDS: GABAPENTIN 100 MG CAPSULE PO SCH (21:10)
[2016-11-26] VITALS: BP 104/50
[2016-11-26] MEDS: ALBUTEROL HALF STRENGTH 1.25 MG/3 ML VIAL.NEB NEB SCH ×4 (01:01→19:50)
[2016-11-26] MEDS: IPRATROPIUM NEB FS 0.5 MG/2.5 ML AMPUL.NEB NEB SCH ×4 (01:01→19:50)
--- NOTE | 2016-11-26 01:30 | NUR ---
RT WAS NOT AWARE OF PT Q8 TX MUCOMYST. WILL CONTINUE ON FOLLOWING SCHEDULED TIME. NO SOB OR RESP DISTRESS NOTED AT TIME OF Q6 TX.
[2016-11-26 04:00] VITALS: BP 114/47
[2016-11-26] MEDS: CLINDAMYCIN 900 MG in IV D5W 50 ML IV SCH ×3 (04:48→21:01)
[2016-11-26] MEDS: BLOOD SUGAR DIAGNOSTIC 1 EACH STRIP IN SCH ×4 (05:10→23:24)
--- NOTE | 2016-11-26 05:10 | NUR ---
MANAGER RADIATION NOTES BLOOD SUGAR WAS TAKEN AT 0510 RESULT WAS 410 MG/DL PROTOCOL INITIATED MD WAS NOTIFIED 15 UNITS INSULIN WAS GIVEN, NNO, PATIENT HAD 2 APPLE SAUCE AND SNACKS 3 AM PER PATIENT SHE WAS HUNGRY, HEALTH EDUCATION PROVIDED. WILL RE CHECK BLOOD SUGAR IN FEW MINUTES
[2016-11-26] MEDS: INSULIN REGULAR, HUMAN 100 UNIT/ML 3 ML VIAL SQ PRN ×3 (05:16→23:29)
--- NOTE | 2016-11-26 06:28 | NUR ---
BRUISE TRIMMER CLOSING NOTES PATIENT COMFORTABLY IN BED ASLEEP AND EASILY AWAKEN, ON ATB WITH NO A/R NOTED. ALERT AND VERBALLY X 1 RESPONSIVE DENIES PAIN OR DISTRESS, RESPONDS APPROPRIATELY TO VERBAL STIMULI, RESPIRATIONS EVEN UNLABORED BREATH SOUNDS. GT FEEDING INFUSING WITH NO COMPLICATIONS TOLERATED WELL. APICAL PULSE REGULAR; NO S/S OF HYPO/HYPERGLYCEMIA. RECHECKED BLOOD SUGAR 0559 389 MG/DL NO INSULIN WAS GIVEN PER MD. MD AWARE OF THE RESULT. FAMILY MADE AWARE. NO S/S OF BLEEDING NOTED. TREATMENT ORDERED. GOOD SKIN CARE PROVIDED. PATIENT IN STABLE CONDITION WITH NO SOB NO S/S OF DISTRESS NO NAUSEA AND VOMITING NO HEADACHE NO PAIN, NO COMPLAIN OF CHEST PAIN SAFETY ENVIRONMENT PROVIDED. FREE OF CLUTTERS, SAFE HAZARD FREE ENVIRONMENT. NEEDS ATTENDED AND ANTICIPATED, NURSING CARE RENDERED, KEPT CLEAN AND DRY AND COMFORTABLE. ALL DUE MEDS WAS GIVEN. STRICTLY REPOSITIONED Q2H FOR COMFORT AND SKIN MGT. CALL LIGHT IN REACH, BED LOWERED AND LOCKED, SR X2 FOR SAFETY AND WILL ENDORSE CONTINUE PLAN OF CARE.
[2016-11-26 06:34] LABS: EOSINOPHILS # (AUTO) 0.1 /CMM (0.0-0.7); HEMATOCRIT 28 % (33-45); HEMOGLOBIN 9.1 g/dL (11.5-14.8); LYMPHOCYTES # (AUTO) 0.9 /CMM (0.8-4.8); LYMPHOCYTES % (AUTO) 7.3 % (20.0-44.0); MEAN CORPUSCULAR HEMOGLOBIN 28 PG (26.0-33.0); MEAN CORPUSCULAR HGB CONC 33 g/dl (31.0-36.0); MEAN CORPUSCULAR VOLUME 87 fL (82-100); MONOCYTES # (AUTO) 0.7 /CMM (0.1-1.30); MONOCYTES % (AUTO) 5.4 % (2.0-12.0); NEUTROPHILS # (AUTO) 10.4 /CMM (1.8-8.9); NEUTROPHILS % (AUTO) 86.3 % (43.0-81.0); PLATELET COUNT (AUTO) 133 /CMM (150-450); RDW COEFFICIENT OF VARIATION 13.4 (11.5-15.0); RED BLOOD CELL COUNT(AUTO) 3.23 MIL/uL (4.0-5.2); WHITE BLOOD COUNT (AUTO) 12.1 K/uL (4.3-11.0)
[2016-11-26 07:01] LABS: CALCIUM, SERUM 7.7 mg/dL (8.5-10.1); CREATININE 0.9 mg/dL (0.6-1.3); MAGNESIUM 2.1 mg/dL (1.8-2.4); POTASSIUM 4.4 mmol/L (3.5-5.1)
--- NOTE | 2016-11-26 07:28 | NUR ---
RN OPEN NOTES RECEIVED REPORT FROM HEAD REFRIGERATION ENGINEER NURSE. PATIENT IS IN BED, ALERT AND ORIENTED X 3. BED IS LOCKED, IN LOW POSITION. 2 SIDE RAILS ARE UP. NO SIGN AND SYMPTOMS OF DISTRESS. IV SITES ARE POTENT AND INTACT, D5W IS CURRENTLY RUNNING AT 70ML/HR. NG FEEDING IS ON HOLD. PATIENT PULLED OUT HER NG TUBE, WILL NOTIFY THE DOCTOR IF PATIENT CAN TOLERATE PUREE BREAKFAST. BLOOD SUGAR WAS ELEVATED DUE TO NG TUBE FEEDING AT 50ML/HR. PATIENT DENIED PAIN. WILL CONTINUE TO MONITOR AND ASSESS PATIENT.
[2016-11-26] MEDS: ACETYLCYSTEINE 10% SOLN 400 MG/4 ML VIAL NEB SCH ×3 (07:44→22:46)
--- NOTE | 2016-11-26 08:00 | NUR ---
DIMA NOTES NG TUBE PATIENT PULLED UP HER NG TUBE. PATIENT CONSUME 75% OF HER MORNING BREAKFAST. WILL NOTIFY ALTHEA DE LA ROSA Addendum: 11/26/16 at 1013 by PRIYA SOSA RN NO RJ MADE AWARE OF HER NG TUBE DC'S BY PATIENT. PER RJ, NO NEEDS FOR NG TUBE
[2016-11-26 08:11] VITALS: BP 120/56
[2016-11-26] MEDS: buPROPion 100 MG TABLET NG SCH (08:19)
[2016-11-26] MEDS: LEVOTHYROXINE SODIUM 75 MCG TABLET PO SCH (08:19)
[2016-11-26] MEDS: PANTOPRAZOLE 40 MG/PACK PACK GT SCH (08:19)
[2016-11-26] MEDS: METHYLPHENIDATE HCL (10MG) 10 MG TABLET PO SCH (08:20)
[2016-11-26] MEDS: LACTOBACILLUS RHAMNOSUS GG 1 EACH CAP.SPRINK PO SCH ×2 (08:20→17:34)
[2016-11-26] MEDS: BRIMONIDINE TARTRATE OPHT SOLN 5 ML BOTTLE EACHEYE SCH ×3 (08:21→17:33)
[2016-11-26] MEDS: HYDROGEL DRESSING 90 GM TUBE TP SCH (08:21)
[2016-11-26] MEDS: prednisoLONE ACETATE 1% SUSP 5 ML BOTTLE RIGHTEYE SCH (08:22)
[2016-11-26] MEDS: INS LISP PROT/INS LISPRO 75/25 100 UNIT/ML VIAL SQ SCH ×2 (08:27→17:36)
--- NOTE | 2016-11-26 10:13 | NUR ---
RN NOTE DRESSING CHANGE SACRAL DRESSING CHANGED. WOUNDS IS HEALING.
--- NOTE | 2016-11-26 10:14 | NUR ---
RN NOTES D5W AVIATION ENGINEER RJ MADE AWARE OF THE PATIENT FLUID D5W AND HER BLOOD GLUCOSE LEVEL BEING HIGH. NEW ORDERS RECEIVED AND CARRY OUT. DC'S D5W FLUID
--- NOTE | 2016-11-26 10:15 | NUR ---
RN NOTE TELE DC'S TELE PER ORDERS
[2016-11-26] MEDS ORDERED: IV D5W 1,000 ML IV PRN (10:16)
[2016-11-26] MEDS: ENOXAPARIN SODIUM 30 MG/0.3 ML DISP.SYRIN SQ SCH (15:00)
[2016-11-26 16:00] VITALS: BP 112/62
[2016-11-26] MEDS: CLOPIDOGREL BISULFATE 75 MG TABLET PO SCH (17:33)
--- NOTE | 2016-11-26 19:00 | NUR ---
MS RN OPENING NOTES RECEIVED PATIENT IN BED AWAKE AND EASILY AWAKEN. NO G TUBE IN PLACE. FAMILY AT BEDSIDE. IN STABLE CONDITION, NO S/S OF DISTRESS, IV SITE INTACT WITH S/S OF INFILTRATION. NO S/S OF DISTRESS NO SOB, NO CHEST PAIN. NO COMPLAINS OF PAIN, SAFE FREE ENVIRONMENT PROVIDED FREE OF CLUTTERS, WILL CONTINUE TO MONITOR, ON LOW BED TO ENSURE SAFETY, CALL LIGHT WITHIN REACH.
[2016-11-26 20:00] VITALS: BP 133/63
--- NOTE | 2016-11-26 20:14 | NUR ---
RN CLOSING NOTES GAVE REPORT TO NIGHT NURSE SHIFT. PATIENT IS IN STABLE CONDITION. NO SIGN AND SYMPTOMS OF DISTRESS. LOW IS IN LOW POSITION, LOCKED, 2 SIDE RAILS ARE UP. NO RUNNING FLUID. IV SITE IS INTACT AND POTENT. WAITING ON CONFIRMATION FROM PPA TEACHER RJ TO START D5W 70 ML/HR. FERNANDEZ OUTPUT IS YELLOW AND CLEAR.
[2016-11-26] MEDS ORDERED: IV D5W 1,000 ML IV ONE ×2 (21:00→21:04)
[2016-11-26] MEDS: LATANOPROST EYE DROP 0.005% 2.5 ML BOTTLE EACHEYE SCH (21:01)
[2016-11-26] MEDS: GABAPENTIN 100 MG CAPSULE PO SCH (21:02)
[2016-11-26] MEDS: IV D5W 1,000 ML IV PRN (21:08)
[2016-11-27] MEDS: IPRATROPIUM NEB FS 0.5 MG/2.5 ML AMPUL.NEB NEB SCH ×4 (01:11→20:12)
[2016-11-27] MEDS: ALBUTEROL HALF STRENGTH 1.25 MG/3 ML VIAL.NEB NEB SCH ×4 (01:11→20:12)
[2016-11-27] MEDS: CLINDAMYCIN 900 MG in IV D5W 50 ML IV SCH ×3 (04:05→20:33)
[2016-11-27] MEDS: BLOOD SUGAR DIAGNOSTIC 1 EACH STRIP IN SCH ×3 (05:25→17:38)
[2016-11-27] MEDS: INSULIN REGULAR, HUMAN 100 UNIT/ML 3 ML VIAL SQ PRN ×2 (05:28→12:24)
--- NOTE | 2016-11-27 06:35 | NUR ---
MS RN CLOSING NOTES PATIENT COMFORTABLY IN BED ASLEEP AND EASILY AWAKEN, BREATHING TREATMENT TOLERATED WELL. ON ATB WITH NO A/R NOTED. ALERT AND VERBALLY X 1 RESPONSIVE DENIES PAIN OR DISTRESS, RESPONDS APPROPRIATELY TO VERBAL STIMULI, RESPIRATIONS EVEN UNLABORED BREATH SOUNDS. APICAL PULSE REGULAR; NO S/S OF HYPO/HYPERGLYCEMIA. TREATMENT ORDERED. GOOD SKIN CARE PROVIDED. PATIENT IN STABLE CONDITION WITH NO SOB NO S/S OF DISTRESS NO NAUSEA AND VOMITING NO HEADACHE NO PAIN, NO COMPLAIN OF CHEST PAIN SAFETY ENVIRONMENT PROVIDED. FREE OF CLUTTERS, SAFE HAZARD FREE ENVIRONMENT. NEEDS ATTENDED AND ANTICIPATED, NURSING CARE RENDERED, KEPT CLEAN AND DRY AND COMFORTABLE. ALL DUE MEDS WAS GIVEN. STRICTLY REPOSITIONED Q2H FOR COMFORT AND SKIN MGT. CALL LIGHT IN REACH, BED LOWERED AND LOCKED, SR X2 FOR SAFETY AND WILL ENDORSE CONTINUE PLAN OF CARE.
--- NOTE | 2016-11-27 07:20 | NUR ---
RN OPEN NOTES RECEIVED REPORT FROM CARDIAC CATHETERIZATION TECHNOLOGIST NURSE. PATIENT WAS STABLE DURING THE NIGHT. PATIENT S CURRENTLY IN BED. DENIED PAIN. NO SIGNS AND SYMPTOMS OF DISTRESS. BED IS LOCKED IN LOW POSITION, 2 SIDE RAILS ARE UP. IV SITE IS POTENT AND INTACT. D5W IS CURRENTLY RUNNING AT 70ML/HR. WILL CONTINUE TO MONITOR AND ASSESS PATIENT THROUGH OUT MY SHIFT
[2016-11-27 08:00] VITALS: BP 133/58
[2016-11-27] MEDS: HYDROGEL DRESSING 90 GM TUBE TP SCH (09:00)
[2016-11-27] MEDS: ACETYLCYSTEINE 10% SOLN 400 MG/4 ML VIAL NEB SCH ×3 (09:24→22:42)
[2016-11-27] MEDS: BRIMONIDINE TARTRATE OPHT SOLN 5 ML BOTTLE EACHEYE SCH ×3 (10:00→17:43)
[2016-11-27] MEDS: LACTOBACILLUS RHAMNOSUS GG 1 EACH CAP.SPRINK PO SCH ×2 (10:01→17:43)
[2016-11-27] MEDS: buPROPion 100 MG TABLET NG SCH (10:01)
[2016-11-27] MEDS: METHYLPHENIDATE HCL (10MG) 10 MG TABLET PO SCH (10:01)
[2016-11-27] MEDS: prednisoLONE ACETATE 1% SUSP 5 ML BOTTLE RIGHTEYE SCH (10:01)
[2016-11-27] MEDS: PANTOPRAZOLE 40 MG/PACK PACK GT SCH (10:01)
[2016-11-27] MEDS: LEVOTHYROXINE SODIUM 75 MCG TABLET PO SCH (10:01)
[2016-11-27] MEDS: HYDROGEL DRESSING 90 GM TUBE TP PRN (10:02)
[2016-11-27] MEDS: INS LISP PROT/INS LISPRO 75/25 100 UNIT/ML VIAL SQ SCH ×2 (10:05→17:53)
[2016-11-27] MEDS ORDERED: SECONDARY IV SET 1 EA INFUS.SET MC ONE ×2 (10:39→12:10)
[2016-11-27] MEDS: LEVOFLOXACIN 750 MG /D5W 150ML 750 MG in PREMIX 1 EA IV SCH (10:44)
--- NOTE | 2016-11-27 13:19 | NUR ---
RT Patient is on 2L, NC and SpO2 95%. Breath sounds equal. Patient received breathing Tx. as ordered. No adverse reactions . Ambu bag at the bed side.
[2016-11-27] MEDS ORDERED: IV SET PRIMARY PUMP SET 1 EA INFUS.SET MC ONE (14:39)
[2016-11-27] MEDS: IV D5W 1,000 ML IV PRN (14:53)
[2016-11-27 16:00] VITALS: BP 107/47
--- NOTE | 2016-11-27 16:00 | NUR ---
RN NOTES DRESSING CHANGED PER HOSPITAL POLICY AND WOUND CONSULT.
[2016-11-27] MEDS: CLOPIDOGREL BISULFATE 75 MG TABLET PO SCH (17:43)
[2016-11-27] MEDS: ENOXAPARIN SODIUM 30 MG/0.3 ML DISP.SYRIN SQ SCH (17:46)
--- NOTE | 2016-11-27 19:02 | NUR ---
RN CLOSING NOTES PATIENT IS IN BED. ALERT AND ORIENTED X3. PATIENT'S IV SITE IS INTACT AND POTENT. D5W IS CURRENTLY RUNNING AT 70 ML/HR. BED IS IN LOW POSITION, LOCKED AND 2 SIDE RAILS ARE UP. TANDEM MILL ROLLER RJ SAW THE PATIENT TODAY, PATIENT IS POSSIBLE DISCHARGE TOMORROW. DAUGHTER, AQUILINO, IS ACTIVELY LOOKING FOR A REHAB PLACEMENT FOR HER MOTHER. PATIENT VITAL SIGNS ARE WITHIN ACCEPTABLE LEVEL. CBC, BNP ORDERS FOR 11/28. WILL ENDORSE TO BRAKE DRUM MOLDER NURSE.
--- NOTE | 2016-11-27 19:30 | NUR ---
MS RN INITIAL NOTE RECEIVED PT SLEEPING BUT EASILY AROUSED, DAUGHTER AT BEDSIDE, NO PAIN OR RESPIRATORY DISTRESS NOTED DURING PHYSICAL ASSESSMENT, FERNANDEZ CATHETER IS INTACT AND DRAINING ADEQUATELY, ON PUREED DIET AND TOLERATING IT WELL, WILL REPOSITION EVERY 2 HOURS TO PREVENT SKIN BREAKDOWN, DAUGHTER OF PT SPOKE TO RJ PUGH AND THEY AGREED ON WAITING FOR D/C UNTIL SHE FINDS PLACEMENT WHICH SHE IS ACTIVELY LOOKING FOR, PT IS CLEAN/DRY AND COMFORTABLE, SAFETY MEASURES ARE IN PLACE, WILL MONITOR HOURLY AND NEEDED.
[2016-11-27 20:00] VITALS: BP 111/54
[2016-11-27] MEDS: GABAPENTIN 100 MG CAPSULE PO SCH (21:17)
[2016-11-27] MEDS: LATANOPROST EYE DROP 0.005% 2.5 ML BOTTLE EACHEYE SCH (21:17)
[2016-11-27 22:06] VITALS: BP 111/54
[2016-11-28] MEDS: IPRATROPIUM NEB FS 0.5 MG/2.5 ML AMPUL.NEB NEB SCH ×4 (00:34→19:22)
[2016-11-28] MEDS: ALBUTEROL HALF STRENGTH 1.25 MG/3 ML VIAL.NEB NEB SCH ×4 (00:34→19:22)
[2016-11-28] MEDS: BLOOD SUGAR DIAGNOSTIC 1 EACH STRIP IN SCH ×5 (01:12→23:35)
[2016-11-28] MEDS: CLINDAMYCIN 900 MG in IV D5W 50 ML IV SCH ×3 (04:03→21:11)
[2016-11-28] MEDS: INSULIN REGULAR, HUMAN 100 UNIT/ML 3 ML VIAL SQ PRN ×4 (05:15→23:54)
--- NOTE | 2016-11-28 06:53 | NUR ---
MS RN CLOSING NOTE PT REMAINED STABLE DURING JACKHAMMER SPLITTER OPERATOR, NO SIGNIFICANT CHANGES NOTED DURING NIGHT, NO PAIN OR RESPIRATORY DISTRESS NOTED, PT REPOSITIONED EVERY TWO HOURS TO PREVENT SKIN BREAKDOWN, WOUND CONSULT INITIATED DUE TO PT SHOWING SOME CHANGES ON SACRAL WOUND, PT KEPT CLEAN/DRY AND COMFORTABLE, ALL NEEDS ANTICIPATED AND ATTENDED TO, SAFETY MEASURES KEPT IN PLACE, WILL ENDORSE TO INCOMING NURSE FOR RUMA.
[2016-11-28] MEDS: ACETYLCYSTEINE 10% SOLN 400 MG/4 ML VIAL NEB SCH ×3 (07:20→23:30)
[2016-11-28 07:35] LABS: EOSINOPHILS # (AUTO) 0.2 /CMM (0.0-0.7); EOSINOPHILS % (AUTO) 1.8 % (0.0-6.0); HEMATOCRIT 28 % (33-45); HEMOGLOBIN 9.1 g/dL (11.5-14.8); LYMPHOCYTES # (AUTO) 0.7 /CMM (0.8-4.8); MEAN CORPUSCULAR HEMOGLOBIN 28 PG (26.0-33.0); MEAN CORPUSCULAR HGB CONC 33 g/dl (31.0-36.0); MEAN CORPUSCULAR VOLUME 86 fL (82-100); MONOCYTES # (AUTO) 0.6 /CMM (0.1-1.30); MONOCYTES % (AUTO) 5.5 % (2.0-12.0); NEUTROPHILS # (AUTO) 9.9 /CMM (1.8-8.9); NEUTROPHILS % (AUTO) 86.7 % (43.0-81.0); PLATELET COUNT (AUTO) 287 /CMM (150-450); RDW COEFFICIENT OF VARIATION 13.1 (11.5-15.0); RED BLOOD CELL COUNT(AUTO) 3.21 MIL/uL (4.0-5.2); WHITE BLOOD COUNT (AUTO) 11.4 K/uL (4.3-11.0)
[2016-11-28 07:55] LABS: CALCIUM, SERUM 7.7 mg/dL (8.5-10.1); CREATININE 0.8 mg/dL (0.6-1.3); POTASSIUM 4.2 mmol/L (3.5-5.1)
[2016-11-28 08:00] VITALS: BP 110/47
--- NOTE | 2016-11-28 08:20 | NUR ---
MS RN RECEIVED ON BED, AWAKE,ALERT,ORIENTED X3,NOT IN ANY FORM OF DISTRESS, RESPIRATIONS EVEN AND UNLABORED,NO SOB NOTED.
--- NOTE | 2016-11-28 08:24 | NUR ---
WOUND CARE CONSULT: PT SEEN FOR SACRAL AREA WHICH HAS DEEP TISSUE INJURY IN EVOLUTION OVER SACRAL SCARRING. SACRAL SCARRING WAS NOTED TO BE PRESENT ON ADMISSION. RECOMMENDATIONS MADE FOR WOUND CARE AND SKIN PROTECTION. DISCUSSED WITH NURSING STAFF. PT ON ISOFLEX LOW AIRLOSS BED AT THIS TIME. RECOMMEND FIRST STEP MATTRESS. IN AGREEMENT WITH PLAN OF CARE. Addendum: 11/28/16 at 3402 by RAVINDRA GAMEZ WNDNU Amended: Links added.
--- NOTE | 2016-11-28 08:35 | NUR ---
MS RN WAS SEEN BY DR. BALDERAS W/ ORDERS MADE AND CARRIED OUT.
[2016-11-28] MEDS: INS LISP PROT/INS LISPRO 75/25 100 UNIT/ML VIAL SQ SCH ×2 (09:00→17:18)
[2016-11-28] MEDS: HYDROGEL DRESSING 90 GM TUBE TP SCH (09:00)
--- NOTE | 2016-11-28 09:00 | NUR ---
MS RN BREAKFAST SERVED,DUE MEDS GIVEN,TOLERATED WELL. HUMALOG 12 UNITS,NOT GIVEN,DUE TO PATIENT HAS BS OF 62 LAST NIGHT.
[2016-11-28] MEDS: buPROPion 100 MG TABLET NG SCH (10:09)
[2016-11-28] MEDS: LEVOTHYROXINE SODIUM 75 MCG TABLET PO SCH (10:10)
[2016-11-28] MEDS: LACTOBACILLUS RHAMNOSUS GG 1 EACH CAP.SPRINK PO SCH ×2 (10:10→17:03)
[2016-11-28] MEDS: PANTOPRAZOLE 40 MG/PACK PACK GT SCH (10:10)
[2016-11-28] MEDS: METHYLPHENIDATE HCL (10MG) 10 MG TABLET PO SCH (10:35)
[2016-11-28] MEDS: prednisoLONE ACETATE 1% SUSP 5 ML BOTTLE RIGHTEYE SCH (10:37)
[2016-11-28] MEDS: HYDROGEL DRESSING 90 GM TUBE TP PRN (10:39)
[2016-11-28] MEDS: BRIMONIDINE TARTRATE OPHT SOLN 5 ML BOTTLE EACHEYE SCH ×3 (10:50→17:04)
--- NOTE | 2016-11-28 12:40 | NUR ---
MS RN BS - 434 - 15 UNITS OF REGULAR INSULIN GIVEN,CALLED TO DR. BALDERAS ,NO ORDER AT THIS TIME, JUST GIVE COVERAGE.
--- NOTE | 2016-11-28 15:00 | NUR ---
MS RN WAS SEEN BY PT,SEATED ON A CHAIR,DAUGHTER AT BEDSIDE.
[2016-11-28 16:00] VITALS: BP_SYST 118; BP_DIAS 50; BP_DIAS 59
[2016-11-28] MEDS: CLOPIDOGREL BISULFATE 75 MG TABLET PO SCH (17:03)
[2016-11-28] MEDS: ENOXAPARIN SODIUM 30 MG/0.3 ML DISP.SYRIN SQ SCH (17:05)
--- NOTE | 2016-11-28 18:00 | NUR ---
MS CH BS - 255- 9 UNITS OF REGULAR INSULIN GIVEN.
--- NOTE | 2016-11-28 19:35 | NUR ---
MS RN ON BED, NO CHANGE OF CONDITION.
--- NOTE | 2016-11-28 19:40 | NUR ---
RN OPENING NOTES RECEIVED REPORT FROM MARSHA RN. FOUND Pt ASLEEP, RESTING IN BED, WITH BREATHING TREATMENT ON. DTR AQUILINO VISITING AT BEDSIDE. A/OX3. NO S/S OF ACUTE DISTRESS OR SOB NOTED. NO SIGNS OF PAIN. IV ACCESS ON LAC #22G. IVF D5W @70ML/HR. SAFETY MEASURES IN PLACE. BED LOW, LOCKED, HOB ELEVATED, SIDE RAILS UP, BED ALARM ON, CALL LIGHT WITHIN REACH. WILL CONTINUE TO MONITOR Pt THROUGHOUT THE NIGHT.
[2016-11-28 20:00] VITALS: BP 96/50
[2016-11-28 22:00] VITALS: BP 96/50
[2016-11-28] MEDS: LATANOPROST EYE DROP 0.005% 2.5 ML BOTTLE EACHEYE SCH (23:34)
[2016-11-28] MEDS: GABAPENTIN 100 MG CAPSULE PO SCH (23:34)
--- NOTE | 2016-11-29 | NUR ---
ACCUCHECK @0000 BG 188. ADMINISTERED 3UN OF INSULIN PER SLIDING SCALE.
[2016-11-29] MEDS ORDERED: diphenhydrAMINE HCL 25 MG CAPSULE PO PRN (00:30)
[2016-11-29] MEDS: IPRATROPIUM NEB FS 0.5 MG/2.5 ML AMPUL.NEB NEB SCH ×4 (01:20→20:39)
[2016-11-29] MEDS: ALBUTEROL HALF STRENGTH 1.25 MG/3 ML VIAL.NEB NEB SCH ×4 (01:20→20:39)
[2016-11-29] MEDS: CLINDAMYCIN 900 MG in IV D5W 50 ML IV SCH ×3 (05:01→21:10)
[2016-11-29] MEDS: BLOOD SUGAR DIAGNOSTIC 1 EACH STRIP IN SCH ×4 (05:01→23:25)
[2016-11-29] MEDS: INSULIN REGULAR, HUMAN 100 UNIT/ML 3 ML VIAL SQ PRN ×5 (05:21→23:27)
--- NOTE | 2016-11-29 05:27 | NUR ---
ACCUCHECK BG 147. ADMINISTERED 2UN OF INSULIN PER SLIDING SCALE.
--- NOTE | 2016-11-29 06:28 | NUR ---
RN CLOSING NOTES NO SIGNIFICANT CHANGES DURING THE SHIFT. NO S/S OF ACUTE DISTRESS OR SOB NOTED. ALL NEEDS MET AND ATTENDED TO. SAFETY MEASURES IN PLACE. WILL ENDORSE TO DAYSHIFT RN FOR Pt's RUMA.
[2016-11-29] MEDS: IV D5W 1,000 ML IV PRN (06:47)
[2016-11-29 07:01] LABS: BASOPHILS % (AUTO) 0.2 % (0.0-2.0); EOSINOPHILS # (AUTO) 0.3 /CMM (0.0-0.7); EOSINOPHILS % (AUTO) 2.3 % (0.0-6.0); HEMATOCRIT 26 % (33-45); HEMOGLOBIN 8.6 g/dL (11.5-14.8); MEAN CORPUSCULAR HEMOGLOBIN 28 PG (26.0-33.0); MEAN CORPUSCULAR HGB CONC 33 g/dl (31.0-36.0); MEAN CORPUSCULAR VOLUME 86 fL (82-100); MONOCYTES # (AUTO) 0.8 /CMM (0.1-1.30); MONOCYTES % (AUTO) 6.4 % (2.0-12.0); NEUTROPHILS # (AUTO) 10.5 /CMM (1.8-8.9); NEUTROPHILS % (AUTO) 83.1 % (43.0-81.0); PLATELET COUNT (AUTO) 392 /CMM (150-450); RDW COEFFICIENT OF VARIATION 13.4 (11.5-15.0); RED BLOOD CELL COUNT(AUTO) 3.04 MIL/uL (4.0-5.2); WHITE BLOOD COUNT (AUTO) 12.6 K/uL (4.3-11.0)
[2016-11-29 07:21] LABS: CALCIUM, SERUM 7.8 mg/dL (8.5-10.1); CREATININE 0.8 mg/dL (0.6-1.3); POTASSIUM 4.1 mmol/L (3.5-5.1)
[2016-11-29] MEDS: LEVOTHYROXINE SODIUM 75 MCG TABLET PO SCH ×2 (07:30→09:25)
[2016-11-29 08:00] VITALS: BP 107/69
--- NOTE | 2016-11-29 08:00 | NUR ---
MS/RN AM NOTES RECEIVED PATIENT IN BED, SLEEPING COMFORTABLY, WITHOUT SOB. NO S/SX OF PAIN, BED IN LOW POSITION BOTH SIDE RAILS UP, CALL LIGHT WITHIN EASY REACH. WILL CONTINUE TO MONITOR ACCORDINGLY
[2016-11-29] MEDS: ACETYLCYSTEINE 10% SOLN 400 MG/4 ML VIAL NEB SCH ×2 (08:08→14:30)
[2016-11-29] MEDS: buPROPion 100 MG TABLET NG SCH ×2 (09:00→09:26)
[2016-11-29] MEDS: PANTOPRAZOLE 40 MG/PACK PACK GT SCH ×2 (09:00→09:40)
[2016-11-29] MEDS: METHYLPHENIDATE HCL (10MG) 10 MG TABLET PO SCH ×2 (09:00→09:26)
[2016-11-29] MEDS: INS LISP PROT/INS LISPRO 75/25 100 UNIT/ML VIAL SQ SCH ×2 (09:00→18:36)
[2016-11-29] MEDS: LACTOBACILLUS RHAMNOSUS GG 1 EACH CAP.SPRINK PO SCH ×3 (09:00→16:21)
--- NOTE | 2016-11-29 09:18 | NUR ---
UNABLE TO GIVE MORNING MEDICATIONS, PATIENT REMAINS SLEEPING. ROUTINE INSULIN COVERAGE NOT GIVEN. PATIENT DID NOT EAT BREAKFAST
[2016-11-29] MEDS: BRIMONIDINE TARTRATE OPHT SOLN 5 ML BOTTLE EACHEYE SCH ×3 (09:21→16:23)
[2016-11-29] MEDS: prednisoLONE ACETATE 1% SUSP 5 ML BOTTLE RIGHTEYE SCH (09:25)
[2016-11-29] MEDS: HYDROGEL DRESSING 90 GM TUBE TP SCH (09:46)
[2016-11-29] MEDS ORDERED: NITROGLYCERIN 0.4 MG/TAB BOTTLE SL PRN (11:00)
[2016-11-29] MEDS: LEVOFLOXACIN 750 MG /D5W 150ML 750 MG in PREMIX 1 EA IV SCH (12:16)
[2016-11-29] MEDS: ENOXAPARIN SODIUM 30 MG/0.3 ML DISP.SYRIN SQ SCH (15:23)
[2016-11-29 16:00] VITALS: BP 110/71
--- NOTE | 2016-11-29 16:00 | NUR ---
PT APPEARS LETHARGIC AND PALE.REFUSED TO EAT LUNCH AND BREAKFAST INSPITE OF ENCOURAGEMENTS.RECHECKED BLOOD SUGAR AND WAS 401.NOTIFIED DR BALDERAS AND GAVE SLIDING SCALE ORDERED AND CARRIED OUT ORDERS TO DC DEXTROSE IV WHICH INCREASES PT'S BLOOD SUGAR IN ADDITION TO HER POOR FOOD INTAKE OF 20-30%.GLYTROL GT FEEDING HAS BEEN DC'D WELL.
[2016-11-29] MEDS: CLOPIDOGREL BISULFATE 75 MG TABLET PO SCH (16:21)
--- NOTE | 2016-11-29 16:28 | NUR ---
RECHECKED PT'S BLOOD SUGAR AND WAS 421.DR BALDERAS AWARE.HUMULIN SL SCALE OF 15 UNITS WAS GIVEN EARLIER.WILL RECHECK BLOOD SUGAR AGAIN LATER.
[2016-11-29] MEDS ORDERED: IV NS 0.9% 1,000 ML BAG IV SCH (17:30)
--- NOTE | 2016-11-29 17:48 | NUR ---
RECHECKED BLOOD SUGAR PRIOR TO DINNER WITH 372 RESULT.WILL GIVE NOVOLOG AND HUMULIN SLIDING SCALE ORDERED.
[2016-11-29] MEDS ORDERED: IV SET PRIMARY PUMP SET 1 EA INFUS.SET MC ONE (17:57)
[2016-11-29] MEDS: IV NS 0.9% 1,000 ML IV PRN (18:20)
--- NOTE | 2016-11-29 18:50 | NUR ---
MS/RN CLOSING NOTES PATIENT IS IN BED, AWAKE, ALERT, DAUGHTER AT THE BEDSIDE, NO SOB, NO CHEST PAIN, O2 IN PLACE VIA NASAL CANULA 2L/M M PATIENT RESTING COMFORTABLY, IV LINE PATENT WITH NS ORDERED. KEPT CLEAN DRY, COMFORTABLE PT AND FAMILY NEEDS MET IN TIMELY MANNER, WITH CALL LIGHT WITHIN EASY REACH. WILL ENDORSE TO THE MANNEQUIN COLORING ARTIST NURSE ACCORDINGLY
--- NOTE | 2016-11-29 19:30 | NUR ---
MS RN INITIAL NOTE RECEIVED PT CURRENTLY SLEEPING BUT EASILY AROUSED, ORIENTED X3, NO COMPLAIN OF PAIN OR RESPIRATORY DISTRESS NOTED DURING PHYSICAL ASSESSMENT, PT'S BLOOD SUGAR LEVEL WERE HIGH DURING AM SHIFT, D5W WAS D/C CURRENTLY RECEIVING NS @ 50ML/HR, WILL MONITOR CLOSELY FOR S/S OF HYPO OR HYPERGLYCEMIA, PT'S DAUGHTER ACTIVELY LOOKING FOR PLACEMENT, SCIENTIFIC INFORMATICS LEADER RJ HULL AWARE AND IN AGREEMENT WITH SITUATION, PT IS CLEAN/DRY AND COMFORTABLE, SAFETY MEASURES WILL BE MAINTAINED, PT WILL BE REPOSITIONED EVERY TWO HOURS TO PREVENT SKIN BREAKDOWN, NEEDS WILL BE ANTICIPATED AND ATTENDED TO DURING HOURLY ROUNDS AND NEEDED.
[2016-11-29 19:55] VITALS: BP 107/45
[2016-11-29 20:00] VITALS: BP 107/45
[2016-11-29] MEDS: GABAPENTIN 100 MG CAPSULE PO SCH (22:16)
[2016-11-29] MEDS: LATANOPROST EYE DROP 0.005% 2.5 ML BOTTLE EACHEYE SCH (22:16)
[2016-11-30] MEDS: IPRATROPIUM NEB FS 0.5 MG/2.5 ML AMPUL.NEB NEB SCH ×4 (01:46→19:29)
[2016-11-30] MEDS: ACETYLCYSTEINE 10% SOLN 400 MG/4 ML VIAL NEB SCH ×3 (01:46→14:16)
[2016-11-30] MEDS: ALBUTEROL HALF STRENGTH 1.25 MG/3 ML VIAL.NEB NEB SCH ×4 (01:46→19:29)
[2016-11-30] MEDS: ACETAMINOPHEN 325 MG TABLET PO PRN (02:29)
--- NOTE | 2016-11-30 03:00 | NUR ---
PT HAS A LEFT AC #22, PT UNABLE TO MAINTAIN ARM STRAIGHT IV FLUIDS NOT RUNNING ADEQUATELY, NEW IV ACCESS STARTED ON LEFT FOREARM TO ENSURE ADEQUATE HYDRATION,WILL CONTINUE TO MONITOR.
[2016-11-30] MEDS: CLINDAMYCIN 900 MG in IV D5W 50 ML IV SCH ×2 (05:02→12:30)
[2016-11-30] MEDS: BLOOD SUGAR DIAGNOSTIC 1 EACH STRIP IN SCH ×4 (05:02→23:09)
[2016-11-30] MEDS: INSULIN REGULAR, HUMAN 100 UNIT/ML 3 ML VIAL SQ PRN ×3 (05:07→23:13)
--- NOTE | 2016-11-30 07:05 | NUR ---
MS RN CLOSING NOTE PT REMAINED STABLE DURING ACREAGE REPORTER, COMPLAINT OF MILD PAIN ON BILATERAL UPPER EXTREMITIES, TYLENOL PROVIDED FOR THE PAIN, FERNANDEZ CATHETER INTACT AND DRAINING ADEQUATELY, PT CLEAN/DRY AND COMFORTABLE, SAFETY MEASURES MAINTAINED, WILL ENDORSE TO INCOMING NURSE FOR RUMA.
[2016-11-30 08:00] VITALS: BP_SYST 101; BP_SYST 110; BP_DIAS 52
--- NOTE | 2016-11-30 08:10 | NUR ---
MS/RN AM NOTES RECEIVED PATIENT IN BED, AWAKE ALERT, WITHOUT SOB, O2 IN PLACE VIA N/C DELIVERING 2L/M, TOLERATING WELL. NO S/SX OF PAIN, I LINE PATENT ON LAC, WITH NO REDNESS NOTED. BED IN LOW POSITION, 2 SR UP FOR SAFETY, WITH CALL LIGHT WITHIN EASY REACH. WILL CONTINUE TO MONITOR ACCORDINGLY
[2016-11-30] MEDS: PANTOPRAZOLE 40 MG/PACK PACK GT SCH (08:34)
[2016-11-30] MEDS: BRIMONIDINE TARTRATE OPHT SOLN 5 ML BOTTLE EACHEYE SCH ×3 (08:34→17:29)
[2016-11-30] MEDS: prednisoLONE ACETATE 1% SUSP 5 ML BOTTLE RIGHTEYE SCH (08:34)
[2016-11-30] MEDS: METHYLPHENIDATE HCL (10MG) 10 MG TABLET PO SCH (08:35)
[2016-11-30] MEDS: LACTOBACILLUS RHAMNOSUS GG 1 EACH CAP.SPRINK PO SCH ×2 (08:35→17:28)
[2016-11-30] MEDS: LEVOTHYROXINE SODIUM 75 MCG TABLET PO SCH (08:35)
[2016-11-30] MEDS: buPROPion 100 MG TABLET NG SCH (08:35)
[2016-11-30] MEDS: INS LISP PROT/INS LISPRO 75/25 100 UNIT/ML VIAL SQ SCH ×2 (08:36→17:37)
[2016-11-30] MEDS: HYDROGEL DRESSING 90 GM TUBE TP SCH (08:38)
--- NOTE | 2016-11-30 14:01 | NUR ---
PATIENT SEEN AND EXAMINED BY DR. MATA. PATIENT IS AWAKE, ALERT, BREAKFAST AND LUNCH TOLERATED WELL. WILL CONTINUE TO MONITOR ACCORDINGLY
[2016-11-30] MEDS: ENOXAPARIN SODIUM 30 MG/0.3 ML DISP.SYRIN SQ SCH (15:05)
[2016-11-30] MEDS: IV NS 0.9% 1,000 ML IV PRN (15:20)
[2016-11-30 15:57] VITALS: BP 98/48
[2016-11-30 16:00] VITALS: BP 99/48
[2016-11-30] MEDS: SOD FERRIC GLUC 125 MG in IV NS 0.9% 100 ML IV SCH (17:15)
[2016-11-30] MEDS ORDERED: SECONDARY IV SET 1 EA INFUS.SET MC ONE (17:16)
[2016-11-30] MEDS: CLOPIDOGREL BISULFATE 75 MG TABLET PO SCH (17:28)
--- NOTE | 2016-11-30 18:55 | NUR ---
MS/RN CLOSING NOTES PATIENT IN BED, WITHOUT SOB, NO CHEST PAIN, WITH OXYGEN 2L/M N/C, TOLERATING WELL. IV LINE LAC INTACT NO REDNESS, NO S/SX INFILTRATION, NO REDNESS. HOB 35 DEGREE ELEVATED FOR COMFORT, TURNED AND REPOSITIONED PATIENT ACCORDINGLY, WOUND CLEANED AND DRESSING APPLIED, DENIES PAIN. BREAKFAST, LUNCH AND DINNER TOLERATED WELL, MEDS GIVEN WITH NO SIDE EFFECTS NOTED. KEPT CLEAN DRY COMFORTABLE, WITH CALL LIGHT WITHIN EASY REACH. WILL ENDORSE TO FURNACE FIRER NURSE
--- NOTE | 2016-11-30 19:00 | NUR ---
MS RN OPENING NOTES RECEIVED PATIENT IN BED AWAKE AND EASILY AWAKEN. HEAD OF BED ELEVATED FOR BETTER CIRCULATION AND LUNG EXPANSION. IN STABLE CONDITION, NO S/S OF DISTRESS, IV SITE INTACT WITH S/S OF INFILTRATION. NO S/S OF DISTRESS NO SOB, NO CHEST PAIN. NO COMPLAINS OF PAIN, SAFE FREE ENVIRONMENT PROVIDED FREE OF CLUTTERS, WILL CONTINUE TO MONITOR, ON LOW BED TO ENSURE SAFETY, CALL LIGHT WITHIN REACH.
[2016-11-30 20:00] VITALS: BP 95/41
[2016-11-30] MEDS: LATANOPROST EYE DROP 0.005% 2.5 ML BOTTLE EACHEYE SCH (21:01)
[2016-11-30] MEDS: GABAPENTIN 100 MG CAPSULE PO SCH (21:01)
[2016-12-01] MEDS: ALBUTEROL HALF STRENGTH 1.25 MG/3 ML VIAL.NEB NEB SCH ×4 (00:53→19:46)
[2016-12-01] MEDS: ACETYLCYSTEINE 10% SOLN 400 MG/4 ML VIAL NEB SCH ×3 (00:53→14:32)
[2016-12-01] MEDS: IPRATROPIUM NEB FS 0.5 MG/2.5 ML AMPUL.NEB NEB SCH ×4 (00:53→19:46)
[2016-12-01] MEDS: BLOOD SUGAR DIAGNOSTIC 1 EACH STRIP IN SCH ×4 (05:30→23:21)
--- NOTE | 2016-12-01 06:39 | NUR ---
MS RN CLOSING NOTES PATIENT COMFORTABLY IN BED ASLEEP AND EASILY AWAKEN, HEAD OF BED ELEVATED FOR BETTER LUNG EXPANSION AND BETTER CIRCULATION, ALERT AND VERBALLY X 2 RESPONSIVE DENIES PAIN OR DISTRESS, RESPONDS APPROPRIATELY TO VERBAL STIMULI, RESPIRATIONS EVEN UNLABORED BREATH SOUNDS. APICAL PULSE REGULAR; NO S/S OF HYPO/HYPERGLYCEMIA. TREATMENT ORDERED. GOOD SKIN CARE PROVIDED. PATIENT IN STABLE CONDITION WITH NO SOB NO S/S OF DISTRESS NO NAUSEA AND VOMITING NO HEADACHE NO PAIN, NO COMPLAIN OF CHEST PAIN SAFETY ENVIRONMENT PROVIDED. FREE OF CLUTTERS, SAFE HAZARD FREE ENVIRONMENT. NEEDS ATTENDED AND ANTICIPATED, NURSING CARE RENDERED, KEPT CLEAN AND DRY AND COMFORTABLE. ALL DUE MEDS WAS GIVEN. STRICTLY REPOSITIONED Q2H FOR COMFORT AND SKIN MGT. ABLE TO GIVE SNACKS AT 06:00 AM WITH ORANGE JUICE. CONSUMED 8 OZ OF OJ. CALL LIGHT IN REACH, BED LOWERED AND LOCKED, SR X2 FOR SAFETY AND WILL ENDORSE CONTINUE PLAN OF CARE.
[2016-12-01 06:49] LABS: BASOPHILS # (AUTO) 0.1 /CMM (0.0-0.2); BASOPHILS % (AUTO) 0.8 % (0.0-2.0); EOSINOPHILS # (AUTO) 0.3 /CMM (0.0-0.7); EOSINOPHILS % (AUTO) 3.1 % (0.0-6.0); HEMATOCRIT 26 % (33-45); HEMOGLOBIN 8.4 g/dL (11.5-14.8); LYMPHOCYTES # (AUTO) 1.4 /CMM (0.8-4.8); LYMPHOCYTES % (AUTO) 14.8 % (20.0-44.0); MEAN CORPUSCULAR HEMOGLOBIN 28 PG (26.0-33.0); MEAN CORPUSCULAR HGB CONC 32 g/dl (31.0-36.0); MEAN CORPUSCULAR VOLUME 87 fL (82-100); MONOCYTES # (AUTO) 0.8 /CMM (0.1-1.30); MONOCYTES % (AUTO) 8.4 % (2.0-12.0); NEUTROPHILS # (AUTO) 6.8 /CMM (1.8-8.9); NEUTROPHILS % (AUTO) 72.9 % (43.0-81.0); PLATELET COUNT (AUTO) 555 /CMM (150-450); RDW COEFFICIENT OF VARIATION 13.5 (11.5-15.0); RED BLOOD CELL COUNT(AUTO) 3.04 MIL/uL (4.0-5.2); WHITE BLOOD COUNT (AUTO) 9.3 K/uL (4.3-11.0)
[2016-12-01 07:00] LABS: CALCIUM, SERUM 7.7 mg/dL (8.5-10.1); CREATININE 0.7 mg/dL (0.6-1.3); POTASSIUM 4.1 mmol/L (3.5-5.1)
--- NOTE | 2016-12-01 07:29 | NUR ---
RN AM NOTES PATIENT RECEIVED ASLEEP, BUT AROUSABLE. RESTING IN BED, NO SOB, DISTRESS OR COMPLAINTS OF PAIN. DAUGHTER WILL BE COMING TO VISIT LATER TODAY. WILL CONTINUE TO MONITOR.
[2016-12-01 07:55] VITALS: BP 113/51
--- NOTE | 2016-12-01 08:00 | NUR ---
BLOOD GTZNO=[id number], COVERAGE GIVEN 12UNITS ROUTINE ORDERED. BLOOD SUGAR ESPERANZAE TURNED OFF TOO QUICKLY.
[2016-12-01] MEDS: HYDROGEL DRESSING 90 GM TUBE TP SCH (08:09)
[2016-12-01] MEDS: LACTOBACILLUS RHAMNOSUS GG 1 EACH CAP.SPRINK PO SCH ×2 (08:10→16:16)
[2016-12-01] MEDS: prednisoLONE ACETATE 1% SUSP 5 ML BOTTLE RIGHTEYE SCH (08:10)
[2016-12-01] MEDS: buPROPion 100 MG TABLET NG SCH (08:10)
[2016-12-01] MEDS: PANTOPRAZOLE 40 MG/PACK PACK GT SCH (08:10)
[2016-12-01] MEDS: LEVOTHYROXINE SODIUM 75 MCG TABLET PO SCH (08:10)
[2016-12-01] MEDS: METHYLPHENIDATE HCL (10MG) 10 MG TABLET PO SCH (08:26)
[2016-12-01] MEDS: INS LISP PROT/INS LISPRO 75/25 100 UNIT/ML VIAL SQ SCH ×2 (08:32→17:37)
[2016-12-01] MEDS: BRIMONIDINE TARTRATE OPHT SOLN 5 ML BOTTLE EACHEYE SCH ×3 (08:39→16:16)
--- NOTE | 2016-12-01 09:35 | NUR ---
SPOKE TO DAUGHTER JAME, SHE WILL BE BY THIS AFTERNOON, CALLED PT TO FOLLOW UP ON PT TIMES, NO ANSWER, WILL CALL BACK LATER
--- NOTE | 2016-12-01 11:00 | NUR ---
RECONFIRMED WITH PHYSICAL THERAPIST, PATIENT AMBULATED WITH WALKER AND FULL ASSIST 20 FEET. WILL CONTINUE TO MONITOR. DAUGHTER AWARE
[2016-12-01] MEDS: INSULIN REGULAR, HUMAN 100 UNIT/ML 3 ML VIAL SQ PRN ×2 (11:53→23:24)
--- NOTE | 2016-12-01 12:17 | NUR ---
INFORMED DR BALDERAS ABOUT LAB RESULTS, WITH NO NEW ORDER AT THIS TIME. WILL CONTINUE TO MONITOR
--- NOTE | 2016-12-01 13:13 | NUR ---
DISCHARGE ORDER NOTED. COMPLETED DISCHARGE PAPERWORK, WAITING FOR REST OF MD ORDERS TO FINALIZE. DISCHARGE PENDING SNF PLACEMENT. RELIGIOUS ACTIVITIES DIRECTOR WORKING WITH DAUGHTER TO FIND APPROPRIATE SNF COVERED BY INSURANCE. DAUGHTER TO VISIT SNFS TODAY, WILL BE COMING IN LATER IN AFTERNOON
[2016-12-01] MEDS: ENOXAPARIN SODIUM 30 MG/0.3 ML DISP.SYRIN SQ SCH (14:10)
[2016-12-01] MEDS: SOD FERRIC GLUC 125 MG in IV NS 0.9% 100 ML IV SCH (14:27)
--- NOTE | 2016-12-01 14:56 | NUR ---
PATIENT TOLERATING BREATHING TREATMENT AND IV INFUSION WELL. NO DISTRESS NOTED. WILL CONTINUE TO MONITOR.
[2016-12-01 16:00] VITALS: BP 107/51
[2016-12-01] MEDS: CLOPIDOGREL BISULFATE 75 MG TABLET PO SCH (16:17)
--- NOTE | 2016-12-01 18:14 | NUR ---
RN PM NOTES PATIENT RESTING IN BED AWAKE IN STABLE CONDITION, WITH DAUGHTER AT BEDSIDE. DAUGHTER STILL LOOKING FOR A SNF FOR HER MOTHER. PATIENT WITH NO SOB, DISTRESS OR PAIN. DRESSINGS CLEAN AND DRY, BLE OFFLOADED. WILL ENDORSE TO NEXT SHIFT.
[2016-12-01 19:59] VITALS: BP 110/58
[2016-12-01 20:00] VITALS: BP 110/58
--- NOTE | 2016-12-01 20:00 | NUR ---
RECEIVED PATIENT IN BED, ALERT AND ORIENTED X3, CALM, HARD OF HEARING, NO RESPIRATORY DISTRESS, TOLERATING 2LPM VIA NC, 02 SAT 98%, NOT IN APPARENT PAIN, NO FACIAL GRIMACING, NO RESTLESSNESS, LEFT AC #22 GAUGE IS INFUSING WELL WITH NS AT 50 CC/HR, FERNANDEZ CATHETER IS DRAINING WELL OF TEA COLORED URINE, BILATERAL LOWER EXTREMETIES EDEMA AND WOUND, DRESSING INTACT. REPOSITIONED FOR COMFORT, CALL LIGHT WITHIN REACH.
[2016-12-01] MEDS: GABAPENTIN 100 MG CAPSULE PO SCH (21:23)
[2016-12-01] MEDS: LATANOPROST EYE DROP 0.005% 2.5 ML BOTTLE EACHEYE SCH (21:24)
[2016-12-01] MEDS: ACETAMINOPHEN 650 MG/SUPP.RECT RC PRN (22:24)
--- NOTE | 2016-12-01 22:31 | NUR ---
GIVEN TYLENOL 650 MG SUPPOSITORY FOR ORAL TEMP OF 99.1F, AXILLARY TEMP 98.1, REPOSITIONED FOR COMFORT, PROVIDED FLUIDS, WILL CONTINUE TO MONITOR.
--- NOTE | 2016-12-01 23:25 | NUR ---
BG 86 MG/DL, NO INSULIN COVERAGE , PROVIDED SNACKS
[2016-12-02] MEDS: ACETYLCYSTEINE 10% SOLN 400 MG/4 ML VIAL NEB SCH ×3 (01:13→14:30)
[2016-12-02] MEDS: IPRATROPIUM NEB FS 0.5 MG/2.5 ML AMPUL.NEB NEB SCH ×4 (01:13→20:15)
[2016-12-02] MEDS: ALBUTEROL HALF STRENGTH 1.25 MG/3 ML VIAL.NEB NEB SCH ×4 (01:14→20:15)
--- NOTE | 2016-12-02 02:55 | NUR ---
CHECKED TEMPERATURE ORALLY, 98.1F, PERFORMED WOUND CARE TO PREET LOWER EXT. MADE COMFORTABLE, CALL LIGHT WITHIN REACH.
--- NOTE | 2016-12-02 05:00 | NUR ---
BG 73 MG/DL, NO INSULIN COVERAGE, WILL GIVE ORANGE JUICE TO INCREASE BLOOD SUGAR LEVEL
[2016-12-02] MEDS: BLOOD SUGAR DIAGNOSTIC 1 EACH STRIP IN SCH ×4 (05:13→23:17)
--- NOTE | 2016-12-02 06:15 | NUR ---
RE-CHECKED BG 113 MG/DL, NO INSULIN COVERAGE
[2016-12-02] MEDS: INSULIN REGULAR, HUMAN 100 UNIT/ML 3 ML VIAL SQ PRN ×3 (06:17→23:19)
--- NOTE | 2016-12-02 06:20 | NUR ---
PATIENT IS RESTING, AROUSEABLE BY VOICE AND TOUCH. NO SOB, NO DISTRESS NOTED. NO RESTLESSNESS, NO FACIAL GRIMACING. NO ADVERSE CHANGE OF CONDITION DURING SHIFT, SLEPT FOR 5 HOURS. ALL DUE MEDICATIONS GIVEN, CALL LIGHT WITHIN REACH.
[2016-12-02] MEDS: LEVOTHYROXINE SODIUM 75 MCG TABLET PO SCH ×2 (07:30→09:45)
--- NOTE | 2016-12-02 07:30 | NUR ---
m/s business professor: notes received pt in bed with eyes close, appears lethargic, but arousable. no s/s of discomfort. hob elevated. remains on oxygen at 2l/min via n/c. for d'c planning today, awaiting snf placement by family. will continue to monitor.
[2016-12-02 08:00] VITALS: BP 141/64
[2016-12-02] MEDS: BRIMONIDINE TARTRATE OPHT SOLN 5 ML BOTTLE EACHEYE SCH ×3 (08:34→17:37)
[2016-12-02] MEDS: INS LISP PROT/INS LISPRO 75/25 100 UNIT/ML VIAL SQ SCH ×2 (08:35→17:46)
[2016-12-02] MEDS: METHYLPHENIDATE HCL (10MG) 10 MG TABLET PO SCH ×2 (08:35→09:00)
[2016-12-02] MEDS: LACTOBACILLUS RHAMNOSUS GG 1 EACH CAP.SPRINK PO SCH ×3 (08:35→17:37)
[2016-12-02] MEDS: buPROPion 100 MG TABLET NG SCH ×2 (08:35→09:00)
[2016-12-02] MEDS: PANTOPRAZOLE 40 MG/PACK PACK GT SCH ×2 (08:35→09:00)
[2016-12-02] MEDS: prednisoLONE ACETATE 1% SUSP 5 ML BOTTLE RIGHTEYE SCH (08:37)
--- NOTE | 2016-12-02 09:00 | NUR ---
m/s expense clerk: notes pt remains sleepy, but arousable. held am meds due to condition. will continue to monitor.
--- NOTE | 2016-12-02 10:15 | NUR ---
WOUND CARE FOLLOW UP: PATIENT SEEN AND SKIN ASSESSMENT DONE. SEE TODAY'S SKIN ASSESSMENT IN PCS ALONG WITH RECOMMENDATIONS TO CONTINUE CURRENT TREATMENT. SACRAL SCARRING WAS NOTED TO BE PRESENT ON ADMISSION. 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 RECOMMENDATIONS DISCUSSED WITH NURSING STAFF. SKIN PROTECTION AND SKIN CARE IN PLACE. PATIENT CURRENTLY ON BENEDICTO ISOFLEX CIERRA BED. IN AGREEMENT WITH PLAN OF CARE. Addendum: 12/02/16 at 1019 by AMOS COLÓN WNDNU Amended: Links added.
[2016-12-02] MEDS: HYDROGEL DRESSING 90 GM TUBE TP SCH (10:47)
--- NOTE | 2016-12-02 12:05 | NUR ---
m/s interactive web developer: notes dr. grant here and informed md re: swelling right hand/fingers, md at bedside and assessed and per md the nurse told him yesterday about it and just put some ice pack as stated. pt remains sleepy, md aware. will continue to monitor.
--- NOTE | 2016-12-02 13:30 | NUR ---
m/s transport technician: notes p.t. in room with pt for tx at this time.
[2016-12-02] MEDS: IV NS 0.9% 1,000 ML IV PRN (13:31)
--- NOTE | 2016-12-02 14:10 | NUR ---
m/s photo printer: md visit seen and examined by sonido ayala ([facility]) at this time. pt for d'c planning to snf today, awaiting for daughter to make snf choices. case management is involved. will continue to monitor.
[2016-12-02] MEDS: ENOXAPARIN SODIUM 30 MG/0.3 ML DISP.SYRIN SQ SCH (15:15)
[2016-12-02 16:00] VITALS: BP 119/58
[2016-12-02] MEDS ORDERED: SECONDARY IV SET 1 EA INFUS.SET MC ONE (16:20)
--- NOTE | 2016-12-02 16:20 | NUR ---
m/s furniture builder: notes called екатерина (pharmacist) re: ferrlecit 125 ivpb bag here dose #3 is here, but no schedule for today, stated, "just give it unscheduled administration now, it's okay to give." rn covering made aware and dose #3 administered per pharmacist.
[2016-12-02] MEDS: SOD FERRIC GLUC 125 MG in IV NS 0.9% 100 ML IV SCH (16:22)
--- NOTE | 2016-12-02 16:39 | NUR ---
PER SHERRON/DELVIN HE SPOKE TO NATE/RX REGARDING FERRLECIT TIMING OF ADMINISTRATION, PER NATE/RX OK TO GIVE FERRLECIT DOSE TODAY AND SHE WILL FIX TIMING OF FERRLECIT ADMINISTRATION. FERRLECIT 125MG IV 3RD BAG ADMINISTERED PER PHARMACIST/ NATE.
--- NOTE | 2016-12-02 17:30 | NUR ---
m/s offensive coordinator: notes bs check 130. daughter at bedside. assisted pt to chair for dinner, kept comfortable. daughter will assist with meal. held humalog due to bs and poor appetite. will continue to monitor.
[2016-12-02] MEDS: CLOPIDOGREL BISULFATE 75 MG TABLET PO SCH (17:37)
--- NOTE | 2016-12-02 18:16 | NUR ---
m/s purification supervisor: notes pt remains up in chair for dinner. daughter still assisting. needs attended. no apparent distress noted. will continue to monitor. call light within reach.
--- NOTE | 2016-12-02 19:00 | NUR ---
MS RN OPENING NOTES RECEIVED PATIENT IN BED AWAKE AND EASILY AWAKEN. HEAD OF BED ELEVATED FOR BETTER CIRCULATION AND LUNG EXPANSION. DAUGHTER AT BEDSIDE, IN STABLE CONDITION, NO S/S OF DISTRESS, IV SITE INTACT WITH S/S OF INFILTRATION. NO S/S OF DISTRESS NO SOB, NO CHEST PAIN. NO COMPLAINS OF PAIN, SAFE FREE ENVIRONMENT PROVIDED FREE OF CLUTTERS, WILL CONTINUE TO MONITOR, ON LOW BED TO ENSURE SAFETY, CALL LIGHT WITHIN REACH.
[2016-12-02 20:00] VITALS: BP 107/51
[2016-12-02] MEDS: GABAPENTIN 100 MG CAPSULE PO SCH (21:05)
[2016-12-02] MEDS: LATANOPROST EYE DROP 0.005% 2.5 ML BOTTLE EACHEYE SCH (21:05)
--- NOTE | 2016-12-02 21:54 | NUR ---
FAX TO CASE MANAGEMENT AFTER HOURS FACE SHEET AND H/P CURRENT MEDICATIONS BY POPEYE [phone]
[2016-12-03] MEDS: ACETYLCYSTEINE 10% SOLN 400 MG/4 ML VIAL NEB SCH ×4 (01:50→23:59)
[2016-12-03] MEDS: ALBUTEROL HALF STRENGTH 1.25 MG/3 ML VIAL.NEB NEB SCH ×5 (01:50→23:59)
[2016-12-03] MEDS: IPRATROPIUM NEB FS 0.5 MG/2.5 ML AMPUL.NEB NEB SCH ×5 (01:50→23:59)
[2016-12-03] MEDS: BLOOD SUGAR DIAGNOSTIC 1 EACH STRIP IN SCH ×4 (05:26→23:07)
[2016-12-03] MEDS: INSULIN REGULAR, HUMAN 100 UNIT/ML 3 ML VIAL SQ PRN ×2 (05:28→11:52)
--- NOTE | 2016-12-03 06:40 | NUR ---
IN BED ASLEEP AND EASILY AWAKEN, SEMI FOWLERS POSITION, SKIN WARM AND DRY TO TOUCH, AFEBRILE, ALL NURSING CARE NEEDS PROVIDED AND RENDERED, NEEDS ATTENDED AND ANTICIPATED, KEPT CLEAN AND DRY AND COMFORTABLE, BLADDER NOT DISTENDED, CONTINUE WITH CURRENT MEDICATION ORDERED, NO LATE ADVERSE REACTION NOTED/REPORTED. FLUIDS PROVIDED ORDERED. COOPERATIVE TO HER PLAN OF CARE. SAFE HAZARD FREE ENVIRONMENT MAINTAINED. GOOD EYE CARE PROVIDED. REPOSITIONED EVERY 2 HOURS FOR SKIN MANAGEMENT AND COMFORT. TREATMENT ORDERED, GOOD SKIN CARE PROVIDED. ALL DUE MEDS WAS GIVEN. IV FLUIDS ONGOING IV SITE NO S/S OF INFILTRATION NOTED. KEPT AT LOW BED. FREQUENT VISUAL CHECK FOR SAFETY. PLAN OF CARE ORDERED. CALL LIGHT ATTENDED PROMPTLY AND KEPT AT EASY REACH. WILL ENDORSE TO THE NEXT SHIFT CONTINUE PLAN OF CARE. NO S/S OF HYPO/HYPERGLYCEMIA.
--- NOTE | 2016-12-03 07:10 | NUR ---
RN MS NOTES PATIENT IN BED, SLEEPING BUT EASILY AROUSABLE, NO S/SX OF PAIN OR DISCOMFORT AT THIS TIME, PIV ON LAC PATENT AND INTACT WITH NS RUNNING AT 50CC/HR, SAFETY MEASURES IN PLACED, LOW BED/LOCKED POSITION, SIDERAILS X2 UP, CALL LIGHT WITHIN REACH, WILL CONTINUE TO MONITOR.
[2016-12-03 08:00] VITALS: BP 117/58
[2016-12-03] MEDS: LEVOTHYROXINE SODIUM 75 MCG TABLET PO SCH (08:21)
[2016-12-03] MEDS: prednisoLONE ACETATE 1% SUSP 5 ML BOTTLE RIGHTEYE SCH (08:22)
[2016-12-03] MEDS: buPROPion 100 MG TABLET NG SCH (08:23)
[2016-12-03] MEDS: HYDROGEL DRESSING 90 GM TUBE TP SCH (08:23)
[2016-12-03] MEDS: METHYLPHENIDATE HCL (10MG) 10 MG TABLET PO SCH (08:24)
[2016-12-03] MEDS: PANTOPRAZOLE 40 MG/PACK PACK GT SCH (08:24)
[2016-12-03] MEDS: LACTOBACILLUS RHAMNOSUS GG 1 EACH CAP.SPRINK PO SCH ×2 (08:24→16:56)
[2016-12-03] MEDS: INS LISP PROT/INS LISPRO 75/25 100 UNIT/ML VIAL SQ SCH ×2 (08:30→17:29)
--- NOTE | 2016-12-03 08:33 | NUR ---
RN MS NOTES RITALIN 5MG (0.5 TAB) WASTED, WITNESSED BY LALITA CH.
[2016-12-03] MEDS: BRIMONIDINE TARTRATE OPHT SOLN 5 ML BOTTLE EACHEYE SCH ×3 (09:40→16:56)
[2016-12-03] MEDS: IV NS 0.9% 1,000 ML IV PRN (09:40)
[2016-12-03] MEDS ORDERED: SECONDARY IV SET 1 EA INFUS.SET MC ONE (13:44)
[2016-12-03] MEDS: SOD FERRIC GLUC 125 MG in IV NS 0.9% 100 ML IV SCH (14:00)
[2016-12-03] MEDS: ENOXAPARIN SODIUM 30 MG/0.3 ML DISP.SYRIN SQ SCH (14:52)
--- NOTE | 2016-12-03 14:54 | NUR ---
RN MS NOTES ALL DUE MEDICATIONS ADMINISTERED, TURNED AND REPOSITIONED SCHEDULED, WOUND TREATMENT RENDERED, RECEIVED A CALL FROM [facility] AND STATED PATIENT MAY HAVE A SNF PLACEMENT TODAY, CALL LIGHT WITHIN REACH, WILL CONTINUE TO MONITOR.
[2016-12-03 16:00] VITALS: BP 113/50
[2016-12-03] MEDS: CLOPIDOGREL BISULFATE 75 MG TABLET PO SCH (16:56)
--- NOTE | 2016-12-03 18:41 | NUR ---
RN MS NOTES PATIENT ALERT AND ORIENTED, HARD OF HEARING, SITTING ON THE CHAIR, EATING DINNER, NO S/SX OF DISTRESS NOTED, NO SOB, NO S/SX OF HYPO OR HYPERGLYCEMIA NOTED, VITAL SIGNS STABLE, TURNED AND REPOSITIONED, TREATMENT RENDERED, DAUGHTER AT BEDSIDE AND STATED STILL LOOKING FOR SNF PLACEMENT, IV HYDRATION RUNNING AND TOLERATING WELL, SAFETY MEASURES IN PLACED, CALL LIGHT WITHIN REACH, WILL ENDORSE TO EXIT BOOTH AGENT FOR RUMA.
--- NOTE | 2016-12-03 19:00 | NUR ---
MS RN OPENING NOTES RECEIVED PATIENT IN CHAIR. DAUGHTER AT BEDSIDE, IN STABLE CONDITION, NO S/S OF DISTRESS, IV SITE INTACT WITH S/S OF INFILTRATION. NO S/S OF DISTRESS NO SOB, NO CHEST PAIN. NO COMPLAINS OF PAIN, SAFE FREE ENVIRONMENT PROVIDED FREE OF CLUTTERS, WILL CONTINUE TO MONITOR, ON LOW BED TO ENSURE SAFETY, CALL LIGHT WITHIN REACH.
[2016-12-03 20:00] VITALS: BP 102/54
[2016-12-03] MEDS: LATANOPROST EYE DROP 0.005% 2.5 ML BOTTLE EACHEYE SCH (21:26)
[2016-12-03] MEDS: GABAPENTIN 100 MG CAPSULE PO SCH (21:27)
[2016-12-03] MEDS: DEXTROSE 50%-WATER 50 ML DISP.SYRIN IV PRN (23:09)
--- NOTE | 2016-12-03 23:18 | NUR ---
MS RN NOTES ON 2300 BLOOD SUGAR WAS TAKEN RESULT WAS 28 MG/DL PROTOCOL INITIATED, PATIENT STILL AWAKE ALERT AND ORIENTED X 3, STILL SMILING CAN ABLE TO TALK 'PER PATIENT IM OK" DEXTROSE 50% 50 ML INJECTION VIA IV WAS GIVEN ORDERED. WILL RECHECK, CHARGE NURSE MADE AWARE, MADE AWARE. FAMILY DTR MADE AWARE.
--- NOTE | 2016-12-04 00:34 | NUR ---
MS RN NOTES BLOOD SUGAR WAS RE TAKEN AT HOUR 23:35 AT 12/03/16 RESULT WAS 135 MG/DL PATIENT STABLE NO S/S OF DISTRESS NOTED, PATIENT WENT BACK TO SLEEP
[2016-12-04] MEDS: IV NS 0.9% 1,000 ML IV PRN (05:09)
[2016-12-04] MEDS: BLOOD SUGAR DIAGNOSTIC 1 EACH STRIP IN SCH ×4 (05:24→23:07)
[2016-12-04] MEDS: INSULIN REGULAR, HUMAN 100 UNIT/ML 3 ML VIAL SQ PRN ×3 (05:26→17:09)
--- NOTE | 2016-12-04 06:40 | NUR ---
MS RN CLOSING NOTES PATIENT COMFORTABLY ASLEEP AND EASILY AWAKEN, HEAD OF BED 35 FOR BETTER LUNG EXPANSION ON 3L NC, BREATHING TREATMENT TOLERATED WELL. IV HYDRATION ONGOING NS AT 50 CC, IV SITE NO S/S OF INFILTRATED, PATIENT DENIES PAIN AT THIS TIME. 0/10 RESPIRATIONS EVEN AND UNLABORED. LUNG SOUNDS CLEAR UPON AUSCULTATION, NO S/S OF ACUTE DISTRESS, NO SOB, NO COUGH, NO CONGESTION, SKIN WARM AND DRY TO TOUCH, AFEBRILE, ALL NURSING CARE NEEDS PROVIDED AND RENDERED, NEEDS ATTENDED AND ANTICIPATED, KEPT CLEAN AND DRY AND COMFORTABLE, BLADDER NOT DISTENDED, TREATMENT ORDERED. GOOD SKIN ARE PROVIDED. ABDOMEN SOFT AND NON TENDER. NO C/O OF CONSTIPATION. ALL DUE MEDS WAS GIVEN TOLERATED. FREQUENT VISUAL CHECK DONE FOR SAFETY EVERY 2 HOURS. REPOSITIONED EVERY 2 HOURS FOR COMFORT AND SKIN MGT. SAFE HAZARD FREE ENVIRONMENT PROVIDED. CALL LIGHT WITHIN EASY TO REACH, ON LOW BED AT ALL TIMES TO ENSURE SAFETY, WILL ENDORSE TO THE NEXT SHIFT CONTINUE PLAN OF CARE. NO S/S OF HYPO/HYPERGLYCEMIA, F/C INTACT DRAINING YELLOW VIA GRAVITY WITH NO SEDIMENTS, NO HEMATURIA, NO CLOUDINESS. GOOD FC CARE PROVIDED.
[2016-12-04] MEDS: ACETYLCYSTEINE 10% SOLN 400 MG/4 ML VIAL NEB SCH ×2 (07:33→14:30)
[2016-12-04] MEDS: IPRATROPIUM NEB FS 0.5 MG/2.5 ML AMPUL.NEB NEB SCH ×3 (07:33→20:57)
[2016-12-04] MEDS: ALBUTEROL HALF STRENGTH 1.25 MG/3 ML VIAL.NEB NEB SCH ×3 (07:33→19:30)
[2016-12-04] MEDS: LEVOTHYROXINE SODIUM 75 MCG TABLET PO SCH (07:51)
[2016-12-04 08:00] VITALS: BP 144/74
--- NOTE | 2016-12-04 08:00 | NUR ---
MS RN NOTE RECHECKED BLOOD SUGAR, IT WAS 242. PT. ATE BREAKFAST 100%. INSULIN 12UNITS SQ ORDERED. PT. AWAKE, ALERT AND CONFUSED. DENIED PAIN AND SOB. SIDE RAILS UP. CALL LIGHT WITHIN REACH. MONITOR CLOSELY.
[2016-12-04] MEDS: INS LISP PROT/INS LISPRO 75/25 100 UNIT/ML VIAL SQ SCH ×2 (08:27→17:54)
[2016-12-04] MEDS: prednisoLONE ACETATE 1% SUSP 5 ML BOTTLE RIGHTEYE SCH (08:29)
[2016-12-04] MEDS: BRIMONIDINE TARTRATE OPHT SOLN 5 ML BOTTLE EACHEYE SCH ×3 (08:29→17:03)
[2016-12-04] MEDS: LACTOBACILLUS RHAMNOSUS GG 1 EACH CAP.SPRINK PO SCH ×2 (08:30→17:01)
[2016-12-04] MEDS: METHYLPHENIDATE HCL (10MG) 10 MG TABLET PO SCH (08:30)
[2016-12-04] MEDS: buPROPion 100 MG TABLET NG SCH (08:30)
[2016-12-04] MEDS: PANTOPRAZOLE 40 MG/PACK PACK GT SCH (08:30)
[2016-12-04] MEDS: HYDROGEL DRESSING 90 GM TUBE TP SCH (08:32)
--- NOTE | 2016-12-04 10:00 | NUR ---
PT. IS SITTING ON A CHAIR WITHOUT ANY DISTRESS.
[2016-12-04] MEDS: SOD FERRIC GLUC 125 MG in IV NS 0.9% 100 ML IV SCH (14:31)
[2016-12-04] MEDS: ENOXAPARIN SODIUM 30 MG/0.3 ML DISP.SYRIN SQ SCH (14:34)
[2016-12-04 16:00] VITALS: BP 130/61
[2016-12-04] MEDS: CLOPIDOGREL BISULFATE 75 MG TABLET PO SCH (17:01)
--- NOTE | 2016-12-04 18:35 | NUR ---
CLOSING NOTE. PT. WAS SITTING ON A CHAIR DURING HAVING A DINNER. PT. HAD DINNER 100%. PT. AWAKE, ALERT AND CONFUSED. BUT VERY COOPERATED. DENIED PAIN AND SOB. FERNANDEZ CATH IN PLACED.FAMILY AT THE BEDSIDE. SIDE RAILS UP. CALL LIGHT WITHIN REACH. MONITOR CLOSELY.
--- NOTE | 2016-12-04 19:30 | NUR ---
LISA DAUGHTER AT BEDSIDE, SPOKE TO DAUGHTER REGARDING HER CONCERNS ABOUT FINDING PLACEMENT. NO BEDS AVAILABLE AT THIS TIME, DAUGHTER WILL NEED TO SPEAK TO CM TOMORROW FOR FOLLOW UP.. PATIENT FULLY AWAKE, APPEARS TIRED, REPOSITIONED FOR COMFORT. ALL NEEDS MADE. CLOSELY WATCHED.
[2016-12-04 20:00] VITALS: BP 105/53
--- NOTE | 2016-12-04 23:00 | NUR ---
MSRN DUE MEDS ADMINISTERED, SNACKS PROVIDED, ATE 50%. REPOSITIONED FOR COMFORT. 02 MAINTAINED NO SOB. IV SITE RESTARTED 22 GAUGE ON LEFT WRIST WITH GOOD BLOOD RETURN. IVF CONTINUED.
[2016-12-04] MEDS: LATANOPROST EYE DROP 0.005% 2.5 ML BOTTLE EACHEYE SCH (23:07)
[2016-12-04] MEDS: GABAPENTIN 100 MG CAPSULE PO SCH (23:07)
[2016-12-04] MEDS: DEXTROSE 50%-WATER 50 ML DISP.SYRIN IV PRN (23:28)
--- NOTE | 2016-12-04 23:39 | NUR ---
MSRN BS 44, D50 ADMINISTERED. WILL RECHECK BS. PATIENT RESPONSIVE, COOPERATIVE.
--- NOTE | 2016-12-05 00:08 | NUR ---
MSRN BS THIS TIME 126. WENT BACK TO SLEEP.
[2016-12-05] MEDS: IPRATROPIUM NEB FS 0.5 MG/2.5 ML AMPUL.NEB NEB SCH ×4 (01:50→20:09)
[2016-12-05] MEDS: ALBUTEROL HALF STRENGTH 1.25 MG/3 ML VIAL.NEB NEB SCH ×4 (01:50→20:09)
[2016-12-05] MEDS: ACETYLCYSTEINE 10% SOLN 400 MG/4 ML VIAL NEB SCH ×4 (01:50→23:43)
--- NOTE | 2016-12-05 06:54 | NUR ---
LISA BS 96. NO COVERAGE.
[2016-12-05] MEDS: BLOOD SUGAR DIAGNOSTIC 1 EACH STRIP IN SCH ×4 (07:09→23:53)
--- NOTE | 2016-12-05 07:37 | NUR ---
RN OPEN NOTES RECEIVED REPORT FROM PLACE CHANGE ROOF BOLTER NURSE. PATIENT IS IN BED, SLEEPING, EASILY AROUSE WHEN CALLED HER NAME. IN SITE IS INTACT AND POTENT (NEW IV SITE), PER PLACE CHANGE ROOF BOLTER NURSE, THE PREVIOUS IV SITE WAS INFILTRATE. FERNANDEZ IS DRAINING AND URINE COLOR IS YELLOW AND CLEAR. WILL ASSESS SKIN CONDITION AND WILL TAKE PICTURES. WILL MONITOR PATIENT BLOOD SUGAR PER PLACE CHANGE ROOF BOLTER NURSE, HER BLOOD SUGAR WAS LOW LAST NIGHT (44), AND 96 THIS MORNING. WILL CONTINUE TO ASSESS AND MONITOR PATIENT CONDITION.
[2016-12-05 08:00] VITALS: BP 127/57
[2016-12-05] MEDS: HYDROGEL DRESSING 90 GM TUBE TP SCH (08:05)
[2016-12-05] MEDS: LEVOTHYROXINE SODIUM 75 MCG TABLET PO SCH (08:05)
[2016-12-05] MEDS: buPROPion 100 MG TABLET NG SCH (08:06)
[2016-12-05] MEDS: LACTOBACILLUS RHAMNOSUS GG 1 EACH CAP.SPRINK PO SCH ×2 (08:06→16:41)
[2016-12-05] MEDS: METHYLPHENIDATE HCL (10MG) 10 MG TABLET PO SCH (08:06)
[2016-12-05] MEDS: BRIMONIDINE TARTRATE OPHT SOLN 5 ML BOTTLE EACHEYE SCH ×3 (08:06→16:41)
[2016-12-05] MEDS: prednisoLONE ACETATE 1% SUSP 5 ML BOTTLE RIGHTEYE SCH (08:06)
[2016-12-05] MEDS: PANTOPRAZOLE 40 MG/PACK PACK GT SCH (08:09)
[2016-12-05] MEDS: INS LISP PROT/INS LISPRO 75/25 100 UNIT/ML VIAL SQ SCH ×2 (09:00→16:54)
[2016-12-05] MEDS ORDERED: IV SET PRIMARY PUMP SET 1 EA INFUS.SET MC ONE (09:03)
[2016-12-05] MEDS ORDERED: SET RED CAP 1 EA INFUS.SET MC ONE (09:03)
--- NOTE | 2016-12-05 09:28 | NUR ---
RN NOTES 0900 INSULIN INSULIN HELD DUE TO LOW BLOOD SUGAR LAST NIGHT AND THIS MORNING. MD MADE AWARE. WAITING FOR MD REPLY
--- NOTE | 2016-12-05 10:00 | NUR ---
RN NOTES DRESSING CHANGED PER HOSPITAL PROTOCOL. PICTURES WERE TAKEN AND PLACED IN THE CHART.
[2016-12-05] MEDS: IV NS 0.9% 1,000 ML IV PRN (10:46)
[2016-12-05] MEDS: INSULIN REGULAR, HUMAN 100 UNIT/ML 3 ML VIAL SQ PRN (12:03)
[2016-12-05] MEDS: ENOXAPARIN SODIUM 30 MG/0.3 ML DISP.SYRIN SQ SCH (14:58)
[2016-12-05 16:00] VITALS: BP 114/52
[2016-12-05] MEDS: CLOPIDOGREL BISULFATE 75 MG TABLET PO SCH (16:41)
--- NOTE | 2016-12-05 18:49 | NUR ---
RN CLOSING NOTES PATIENT IS IN BED, ALERT AND ORIENTED X2. DAUGHTER IS AT BED SIDE. BLOOD SUGAR WAS NOT LOWER THAN 110 AT 1200 OR 1700 (PLEASE SEE LABS FOR RESULTS). IV SITE IS POTENT AND INTACT, IV IS CURRENTLY RUNNING AT 50 ML/HR. BED IS IN LOW POSITION, LOCKED AND 2 SIDE RAILS ARE UP. WILL ENDORSE TO POLICE ARTIST NURSE FOR CONTINUUM OF CARE.
--- NOTE | 2016-12-05 19:30 | NUR ---
RN NOTES: UPON ENDORSEMENT PATIENT IS LYING COMFORTABLY IN BED WITH HER DAUGHTER AT THE BED SIDE, ALERT AND ORRIENTEDX2, FERNANDEZ CATH IS DRAINING INTO YELLOWISH COLORED URINE. WILL CONTINUE TO ASSESS AND MONITOR FOR SIGN OF HYPER/HYPOGLYCEMIA.ON CLOSE VISUAL CHECK, INSTRUCT MAIL DISTRIBUTION SCHEME EXAMINER TO GIVE SNACK AT AROUND 2200;NO SIGN OF RESPIRATORY DISTRESS OR DISCOMFORT,UNIVERSAL, FALL AND SAFETY PRECAUTION OBSERVE.CALL LIGHT WITH IN REACH, BED LOW AND LOCKED.
[2016-12-05 20:00] VITALS: BP 114/50
[2016-12-05 20:08] VITALS: BP 114/48
[2016-12-05] MEDS: GABAPENTIN 100 MG CAPSULE PO SCH (21:58)
[2016-12-05] MEDS: LATANOPROST EYE DROP 0.005% 2.5 ML BOTTLE EACHEYE SCH (21:58)
--- NOTE | 2016-12-05 22:00 | NUR ---
RN NOTES: DUE MEDICATION GIVEN,PATIENT GIVEN SNACK OF VANILLA PUDDING, KEPT UPRIGHT POSITION, EAT WELL, ASPIRATION PRECAUTION OBSERVE.
[2016-12-06] MEDS: INSULIN REGULAR, HUMAN 100 UNIT/ML 3 ML VIAL SQ PRN ×3 (01:39→17:34)
--- NOTE | 2016-12-06 01:48 | NUR ---
RN NOTES: 0000 BLOOD SUGAR CHECK-143, INSULIN GIVEN PER SCALE, WILL CONTINUE TO MONITOR FOR SIGN OF HYPER/HYPOGLYCEMIA.TURNING AND REPOSITIONING DONE,IVF OF N/S AT 50ML/HR ONGOING VIA PUMP, CALL LIGHT WITHIN REACH.BED LOW AND LOCKED.FALL PRECAUTION OBSERVED.
[2016-12-06] MEDS: IPRATROPIUM NEB FS 0.5 MG/2.5 ML AMPUL.NEB NEB SCH ×4 (02:10→20:49)
[2016-12-06] MEDS: ALBUTEROL HALF STRENGTH 1.25 MG/3 ML VIAL.NEB NEB SCH ×4 (02:10→20:49)
--- NOTE | 2016-12-06 02:50 | NUR ---
RN NOTES: KEEP ON CLOSE VISUAL CHECK, PATIENT ABLE TO REST AND SLEEP, TURNING AND REPOSITIONING DONE, KEEP ON HIGH FOWLERS POSITION.CALL LIGHT WITHIN REACH.
[2016-12-06 04:52] VITALS: BP 132/57
[2016-12-06] MEDS: BLOOD SUGAR DIAGNOSTIC 1 EACH STRIP IN SCH ×3 (05:35→17:30)
--- NOTE | 2016-12-06 05:38 | NUR ---
RN NOTES: BLOOD SUGAR CHECK-100, NO INSULIN GIVEN PER SCALE,MORNING CARE RENDERED,GET BACK TO SLEEP.CALL LIGHT WITHIN REACH.
--- NOTE | 2016-12-06 06:38 | NUR ---
RN NOTES: PATIENT STILL ASLEEP,LATEST V/S T-98.7 UT-76 RR-20 BP-132/57,IV CANNULA IS LEAKING, RECITED TO LEFT HAND G#22.IVF CONTINUE NS AT 50ML/HR.NO SIGN OF RESPIRATORY DISTRESS, SPO2-98%, CALL LIGHT WITHIN REACH, ENDORSE FOR CONTINUITY OF CARE.
[2016-12-06 08:00] VITALS: BP 115/64
--- NOTE | 2016-12-06 08:14 | NUR ---
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 PT WAS NOTED TO HAVE SACRAL SCARRING PRESENT ON ADMISSION. PT ON BENEDICTO ISOFLEX LOW AIRLOSS BED. PT TO BE TURNED AND REPOSITIONED EVERY 2 HRS PT CONDITION PERMITS, HEELS FLOATED. CONTINUE ALL SKIN PROTECTION MEASURES AND WOUND CARE CURRENTLY ORDERED. DISCUSSED WITH NURSING STAFF. IN AGREEMENT WITH PLAN OF CARE. Addendum: 12/06/16 at 0817 by RAVINDRA GAMEZ WNDNU Amended: Links added.
[2016-12-06] MEDS: ACETYLCYSTEINE 10% SOLN 400 MG/4 ML VIAL NEB SCH ×2 (08:15→14:30)
[2016-12-06] MEDS: INS LISP PROT/INS LISPRO 75/25 100 UNIT/ML VIAL SQ SCH ×2 (09:00→17:34)
[2016-12-06] MEDS: PANTOPRAZOLE 40 MG/PACK PACK GT SCH (10:40)
[2016-12-06] MEDS: buPROPion 100 MG TABLET NG SCH (10:41)
[2016-12-06] MEDS: LACTOBACILLUS RHAMNOSUS GG 1 EACH CAP.SPRINK PO SCH ×2 (10:41→17:30)
[2016-12-06] MEDS: LEVOTHYROXINE SODIUM 75 MCG TABLET PO SCH (10:41)
[2016-12-06] MEDS: METHYLPHENIDATE HCL (10MG) 10 MG TABLET PO SCH (10:42)
[2016-12-06] MEDS: prednisoLONE ACETATE 1% SUSP 5 ML BOTTLE RIGHTEYE SCH (10:42)
[2016-12-06] MEDS: HYDROGEL DRESSING 90 GM TUBE TP SCH (10:45)
[2016-12-06] MEDS: BRIMONIDINE TARTRATE OPHT SOLN 5 ML BOTTLE EACHEYE SCH ×3 (11:13→17:30)
--- NOTE | 2016-12-06 11:19 | NUR ---
MS RN NOTE UNABLE TO SCAN [facility] INFORMED.
[2016-12-06] MEDS: IV NS 0.9% 1,000 ML IV PRN (12:31)
[2016-12-06 15:00] VITALS: BP 117/81
[2016-12-06 16:00] VITALS: BP 117/81
[2016-12-06] MEDS: ENOXAPARIN SODIUM 30 MG/0.3 ML DISP.SYRIN SQ SCH (17:35)
[2016-12-06] MEDS: CLOPIDOGREL BISULFATE 75 MG TABLET PO SCH (17:36)
--- NOTE | 2016-12-06 19:00 | NUR ---
RN NOTES PT REMAINED STABLE DURING THE SHIFT, PHYS THERAPY WAS DONE PT WAS OUT OF BED IN CHAIR FOR DINNER, URINE OUTPUT ADEQUATE. SAFETY MAINTAINED, CALL LIGHT WITHIN REACH, WILL ENDORSE TO NETWORK/TELECOM ENGINEER.
--- NOTE | 2016-12-06 19:20 | NUR ---
RN NOTES RECEIVED PATIENT RESTING IN BED WITH DAUGHTER AT BEDSIDE. A/O X2. NO SIGNS OF DISTRESS OR DISCOMFORT. BREATHING EVEN AND UNLABORED. ON 2LPM O2 VIA NC. FERNANDEZ IN INTACT WITH CLEAR YELLOW FLUID NOTED. IV ACCESS IN R HAND PATENT AND INTACT. NO SIGNS OF REDNESS OR INFILTRATION. BED IN LOW LOCKED POSITION WITH SIDE RAILS X2. CALL LIGHT WITHIN REACH. WILL CONTINUE TO MONITOR.
[2016-12-06 20:00] VITALS: BP 116/57
[2016-12-06] MEDS: GABAPENTIN 100 MG CAPSULE PO SCH (22:50)
[2016-12-06] MEDS: LATANOPROST EYE DROP 0.005% 2.5 ML BOTTLE EACHEYE SCH (22:50)
[2016-12-07] MEDS: ALBUTEROL HALF STRENGTH 1.25 MG/3 ML VIAL.NEB NEB SCH ×3 (00:39→15:16)
[2016-12-07] MEDS: ACETYLCYSTEINE 10% SOLN 400 MG/4 ML VIAL NEB SCH ×3 (00:39→15:16)
[2016-12-07] MEDS: IPRATROPIUM NEB FS 0.5 MG/2.5 ML AMPUL.NEB NEB SCH ×3 (00:39→15:16)
--- NOTE | 2016-12-07 01:00 | NUR ---
RN NOTES REPEAT BS 24. PATIENT AWAKE AND ALERT, NO SIGNS OF HYPOGLYCEMIA. ADMINISTERED DEXTROSE 50% 50ML ORDERED. CHARGE NURSE MADE AWARE. WILL CONTINUE TO MONITOR.
[2016-12-07] MEDS: BLOOD SUGAR DIAGNOSTIC 1 EACH STRIP IN SCH ×4 (01:02→17:32)
[2016-12-07] MEDS: DEXTROSE 50%-WATER 50 ML DISP.SYRIN IV PRN (01:13)
--- NOTE | 2016-12-07 01:20 | NUR ---
RN NOTES RECHECK BS NOW 124. PATIENT HAS GONE BACK TO SLEEP BUT EASILY AROUSABLE. WILL CONTINUE TO MONITOR.
[2016-12-07 07:57] LABS: BASOPHILS # (AUTO) 0.1 /CMM (0.0-0.2); BASOPHILS % (AUTO) 0.8 % (0.0-2.0); EOSINOPHILS # (AUTO) 0.2 /CMM (0.0-0.7); HEMATOCRIT 29 % (33-45); HEMOGLOBIN 9.4 g/dL (11.5-14.8); LYMPHOCYTES # (AUTO) 1.9 /CMM (0.8-4.8); LYMPHOCYTES % (AUTO) 25.6 % (20.0-44.0); MEAN CORPUSCULAR HEMOGLOBIN 28 PG (26.0-33.0); MEAN CORPUSCULAR HGB CONC 32 g/dl (31.0-36.0); MEAN CORPUSCULAR VOLUME 88 fL (82-100); MONOCYTES # (AUTO) 0.8 /CMM (0.1-1.30); MONOCYTES % (AUTO) 10.4 % (2.0-12.0); NEUTROPHILS # (AUTO) 4.5 /CMM (1.8-8.9); NEUTROPHILS % (AUTO) 60.2 % (43.0-81.0); PLATELET COUNT (AUTO) 577 /CMM (150-450); RDW COEFFICIENT OF VARIATION 14.4 (11.5-15.0); WHITE BLOOD COUNT (AUTO) 7.5 K/uL (4.3-11.0)
[2016-12-07 07:58] LABS: CALCIUM, SERUM 7.8 mg/dL (8.5-10.1); CREATININE 0.6 mg/dL (0.6-1.3); POTASSIUM 3.8 mmol/L (3.5-5.1)
[2016-12-07 08:00] VITALS: BP 131/62
--- NOTE | 2016-12-07 08:02 | NUR ---
RN CLOSING NOTES PATIENT RESTING IN BED. A/O X2. NO SIGNS OF DISTRESS OR DISCOMFORT. BREATHING EVEN AND UNLABORED. ON 2LPM O2 VIA NC. FERNANDEZ IN INTACT WITH CLEAR YELLOW FLUID NOTED. IV ACCESS IN R HAND PATENT AND INTACT WITH NS INFUSING. NO SIGNS OF REDNESS OR INFILTRATION. NO SIGNIFICANT CHANGES THROUGH THE NIGHT. PATIENT KEPT CLEAN DRY AND COMFORTABLE. BED IN LOW LOCKED POSITION WITH SIDE RAILS X2. CALL LIGHT WITHIN REACH. ENDORSED TO AM SHIFT FOR RUMA.
--- NOTE | 2016-12-07 08:10 | NUR ---
ms rn received on be,very sleepy, arousable,not in any form of distress, received report to night nurse that patient bs was 24 last night, i might as well held the am humalog.
[2016-12-07] MEDS: INS LISP PROT/INS LISPRO 75/25 100 UNIT/ML VIAL SQ SCH (08:46)
[2016-12-07] MEDS: LACTOBACILLUS RHAMNOSUS GG 1 EACH CAP.SPRINK PO SCH ×2 (08:52→17:30)
[2016-12-07] MEDS: buPROPion 100 MG TABLET NG SCH (08:52)
[2016-12-07] MEDS: LEVOTHYROXINE SODIUM 75 MCG TABLET PO SCH (08:52)
[2016-12-07] MEDS: PANTOPRAZOLE 40 MG/PACK PACK GT SCH (08:52)
[2016-12-07] MEDS: BRIMONIDINE TARTRATE OPHT SOLN 5 ML BOTTLE EACHEYE SCH ×3 (08:54→17:27)
[2016-12-07] MEDS: prednisoLONE ACETATE 1% SUSP 5 ML BOTTLE RIGHTEYE SCH (08:55)
[2016-12-07] MEDS: METHYLPHENIDATE HCL (10MG) 10 MG TABLET PO SCH (08:57)
[2016-12-07] MEDS ORDERED: INS LISP PROT/INS LISPRO 75/25 100 UNIT/ML VIAL SQ SCH ×2 (09:00→18:00)
--- NOTE | 2016-12-07 09:00 | NUR ---
ms rn, breakfast served,due meds given,tolerated well.all needs attended, am insulin held.
--- NOTE | 2016-12-07 12:00 | NUR ---
ms toni bs -234 - held insulin per md, decreased humalog at this time w/ order.
--- NOTE | 2016-12-07 14:00 | NUR ---
ms rn patient will be discharge to [facility] today.
[2016-12-07 16:00] VITALS: BP 124/58
[2016-12-07] MEDS: HYDROGEL DRESSING 90 GM TUBE TP SCH (16:42)
[2016-12-07] MEDS: ENOXAPARIN SODIUM 30 MG/0.3 ML DISP.SYRIN SQ SCH (16:45)
--- NOTE | 2016-12-07 17:00 | NUR ---
ms rn bs -374 - 15 units of regular insulin give for coverage, daughter refused humalog as scheduled.
[2016-12-07] MEDS: CLOPIDOGREL BISULFATE 75 MG TABLET PO SCH (17:30)
[2016-12-07] MEDS: INSULIN REGULAR, HUMAN 100 UNIT/ML 3 ML VIAL SQ PRN (17:31)
--- NOTE | 2016-12-07 18:00 | NUR ---
ms rn patient discharged to , report given to Drew muñoz,all needs attended, went w./ gandara cath intact and draining.
== END 2016-12-07 18:44 | DRG 871 ==
LOC: ER 16:38 → ICU 18:09 → TELE-TD 19:55 → ICU 20:59 → MED 11-24 19:30 → TELE 11-24 19:57 → MED 11-26 09:30
PROVIDERS: ADMIT Nurse Practitioner Acute Care; ATTEND Legal Medicine
DX: A41.9 Sepsis, unspecified organism (principal); J69.0 Pneumonitis due to inhalation of food and vomit; N17.0 Acute kidney failure with tubular necrosis; G93.40 Encephalopathy, unspecified; I50.33 Acute on chronic diastolic (congestive) heart failure; J96.01 Acute respiratory failure with hypoxia; R57.1 Hypovolemic shock; E87.0 Hyperosmolality and hypernatremia; Z86.73 Personal history of transient ischemic attack (TIA), and cerebral infarction without residual deficits; F03.90 Unspecified dementia, unspecified severity, without behavioral disturbance, psychotic disturbance, mood disturbance, and anxiety; D64.9 Anemia, unspecified; E03.9 Hypothyroidism, unspecified; E11.65 Type 2 diabetes mellitus with hyperglycemia; R13.10 Dysphagia, unspecified; Z88.0 Allergy status to penicillin; F32.9 Major depressive disorder, single episode, unspecified; H91.10 Presbycusis, unspecified ear; F09 Unspecified mental disorder due to known physiological condition; I95.9 Hypotension, unspecified; R65.20 Severe sepsis without septic shock; I11.0 Hypertensive heart disease with heart failure
CPT/HCPCS: 31720; 36415; 36600; 70450-TC; 71010-TC; 80048-TC; 80061-TC; 81000-TC; 82962-TC; 83540-TC; 83735-TC; 83880; 84100-TC; 84443-TC; 84484-TC; 85025-TC; 85652-TC; 85730-TC; 86850-TC; 87040-TC; 87070-TC; 87081-TC; 92526; 92611-TC; 93307-TC; 94760-TC; 94799-TC; 97001-TC; 97110-TC; 97112-TC; 97116-TC; 97530-TC; A4216; A4606; A4624; A6248; A6402; A6403; J0461; J1265; J1650; J1815; J1940; J1956; J2405; J2916; J3475; J3480; J3490; J7030; J7050; J7060; J7070; Q0163; Z7610

== ENCOUNTER 2017-06-04 00:14 | Inpatient (IN) | payer OTHER ==
[2017-06-04] VITALS (7 sets, daily range): BP systolic 119–131; BP diastolic 54–69
[~2017-06-04] VITALS: Ht 154.9 cm; Wt 44.0 kg
[~2017-06-04 00:14] MED LIST changes: +BLOO-697 IN; -BUPR150T10 PO; +BUPR200T31 PO; +CLOP75TA2 PO; +DONE10TA44 PO; +DORZ10DR11 EACHEYE; +GABA-532 PO; -INSU100C7 SQ; -INSU100I4 SQ; +INSU10VI SQ; +LATA2.5D7 EACHEYE; +PRED5DRO17 EACHEYE; +TRAZ-144 PO
--- NOTE | 2017-06-04 00:24 | NUR ---
LUZ MARINA FROM HOME ST WITNESSED SYNCOPAL EPISODE. PATIENT RECEIVED AAO2. PER PATIENT SHE FELT DIZZY AND WEAK, DTR ASSISTED HER TO THE COUCH. PATIENT APPEARS IN NO APPARENT DISTRESS, RESPIRATION EVEN AND UNLABORED. SKIN IS WARM TO TOUCH AND NON DIAPHORETIC. AFEBRILE. VSS. IV ON LAC 18.
--- NOTE | 2017-06-04 00:27 | NUR ---
EKG IN PROGRESS
--- NOTE | 2017-06-04 00:36 | NUR ---
DAUGHTER AT BEDSIDE
[2017-06-04 00:40] LABS: BASOPHILS % (AUTO) 0.4 % (0.0-2.0); EOSINOPHILS # (AUTO) 0.1 /CMM (0.0-0.7); EOSINOPHILS % (AUTO) 0.6 % (0.0-6.0); HEMATOCRIT 31 % (33-45); HEMOGLOBIN 9.9 g/dL (11.5-14.8); LYMPHOCYTES # (AUTO) 2.4 /CMM (0.8-4.8); LYMPHOCYTES % (AUTO) 28.3 % (20.0-44.0); MEAN CORPUSCULAR HEMOGLOBIN 27 PG (26.0-33.0); MEAN CORPUSCULAR HGB CONC 32 g/dl (31.0-36.0); MEAN CORPUSCULAR VOLUME 86 fL (82-100); MONOCYTES # (AUTO) 0.5 /CMM (0.1-1.30); MONOCYTES % (AUTO) 5.8 % (2.0-12.0); NEUTROPHILS # (AUTO) 5.4 /CMM (1.8-8.9); NEUTROPHILS % (AUTO) 64.9 % (43.0-81.0); PLATELET COUNT (AUTO) 226 /CMM (150-450); RED BLOOD CELL COUNT(AUTO) 3.64 MIL/uL (4.0-5.2); WHITE BLOOD COUNT (AUTO) 8.3 K/uL (4.3-11.0)
[2017-06-04 00:55] LABS: CALCIUM, SERUM 8.5 mg/dL (8.5-10.1); CARBON DIOXIDE 26 mmol/L (21-32); CHLORIDE 113 mmol/L (98-107); CREATININE 0.9 mg/dL (0.6-1.3); GLUCOSE 158 mg/dL (74-106); POTASSIUM 3.6 mmol/L (3.5-5.1); SODIUM SERUM 147 mmol/L (136-145); UREA NITROGEN, BLOOD 26 mg/dL (7-18)
[2017-06-04 01:01] LABS: PROTHROMBIN TIME 10.7 SECS (9.5-12.7)
[2017-06-04 01:02] LABS: ALANINE AMINOTRANSFERASE 31 U/L (12-78); ALBUMIN 3.2 g/dL (3.4-5.0); ALKALINE PHOSPHATASE 68 U/L (46-116); ASPARTATE AMINOTRANSFERASE 17 U/L (15-37); BILIRUBIN,DIRECT 0.1 mg/dL (0.0-0.2); BILIRUBIN,TOTAL 0.2 mg/dL (0.2-1.0); TOTAL PROTEIN, SERUM 6.2 g/dL (6.4-8.2)
[2017-06-04 01:03] LABS: TROPONIN I < 0.017 ng/mL (0.00-0.056)
[2017-06-04] MEDS ORDERED: INSU100V27 SQ (01:25)
[2017-06-04] MEDS ORDERED: LEVO75TA7 PO (01:25)
[2017-06-04] MEDS ORDERED: DORZ10DR8 EACHEYE (01:25)
[2017-06-04] MEDS ORDERED: CLOP75TA2 PO (01:25)
[2017-06-04] MEDS ORDERED: INSU3INS6 SUBCUT (01:25)
[2017-06-04] MEDS ORDERED: METH5TAB16 PO (01:25)
[2017-06-04] MEDS ORDERED: BUPR200T PO (01:25)
[2017-06-04] MEDS ORDERED: FURO20TA4 PO (01:25)
[2017-06-04] MEDS ORDERED: GABA-532 PO (01:25)
[2017-06-04] MEDS ORDERED: RAMI5CAP PO (01:25)
[2017-06-04] MEDS ORDERED: BRIM5DRO11 OP (01:25)
[2017-06-04] MEDS ORDERED: PRED5DRO7 EACHEYE (01:25)
[2017-06-04] MEDS ORDERED: POTA-10 PO (01:25)
[2017-06-04] MEDS ORDERED: DONE10TA44 PO (01:25)
[2017-06-04 01:38] LABS: APPEARANCE,URINE CLEAR (CLEAR); BILIRUBIN,URINE NEGATIVE (NEGATIVE); BLOOD, URINE NEGATIVE Ery/uL (NEGATIVE); COLOR,URINE YELLOW (YELLOW); KETONES,URINE NEGATIVE (NEGATIVE); LEUKOCYTE ESTERASE ,URINE NEGATIVE (NEGATIVE); NITRITE, URINE NEGATIVE (NEGATIVE); PROTEIN,URINE TRACE mg/dl (NEGATIVE); UGLUCOSE 1+ mg/dL (NEGATIVE); UROBILINOGEN,URINE 0.2 EU/dL (0.2)
[2017-06-04 01:53] LABS: RBC,URINE NONE SEEN /HPF (0-2); WBC,URINE 0-2 /HPF (0-3)
[2017-06-04 01:54] LABS: BACTERIA,URINE None seen /HPF (None Seen)
[2017-06-04 01:55] LABS: HYALINE CASTS, URINE Rare /LPF (None Seen); SQUAMOUS EPITHELIAL CELL,UR Rare /HPF (None Seen)
--- NOTE | 2017-06-04 02:20 | NUR ---
REPORT GIVEN TO FLOOR NURSE FOR CONTINUITY OF CARE
--- NOTE | 2017-06-04 02:44 | NUR ---
PATIENT TRANSPORTED TO TELE. S
--- NOTE | 2017-06-04 04:07 | NUR ---
MS RN ADMITTING NOTES RECEIVE PATIENT FROM Sydni TIAN AT 0247 ACLS PROTOCOL, A/OX 2. NO S/S OF DISTRESS OR SOB NOTED. TOLERATING ROOM AIR 100% HEAD TOE ASSESSMENT IS DONE, PATIENT COOPERATIVE WITH HER PLAN OF CARE,. ATTACH TO TELE MONITOR, DAUGHTER AT BEDSIDE, SAFETY MEASURES IN PLACE, ON LOW BED TO ENSURE SAFETY. CALL LIGHT WITHIN REACH. WILL CONTINUE TO MONITOR.
--- NOTE | 2017-06-04 06:43 | NUR ---
ENTRY REP CLOSING NOTES PATIENT COMFORTABLY ASLEEP AND EASILY AWAKEN, HEAD OF BED ELEVATED. NO S/S OF HYPO/HYPERGLYCEMIA. ATTACH TO TELE MONITOR, WITH 60'S HR. D5 1/2 NS RUNNING AND INFUSING AT 75CC/HR. LAC 18 G PATENT AND INTACT WITH NO S/S OF INFILTRATION NOTED. APPEARS NOT IN DISTRESS. RESPIRATIONS EVEN AND UNLABORED, TOLERATING ROOM AIR 02 SAT 100% FREQUENT VISUAL CHECK DONE FOR SAFETY EVERY 2 HOURS. PATIENT ASSISTED REPOSITIONED EVERY 2 HOURS FOR SKIN MGT. NURSING CARE RENDERED, NEEDS ATTENDED AND ANTICIPATED, KEPT CLEAN AND DRY AND COMFORTABLE, GOOD SKIN CARE PROVIDED. OFFLOAD AT ALL TIMES. SAFE HAZARD FREE ENVIRONMENT PROVIDED. CALL LIGHT WITHIN EASY TO REACH, ON LOW BED AT ALL TIMES TO ENSURE SAFETY, WILL ENDORSE TO THE NEXT SHIFT CONTINUE PLAN OF CARE
--- NOTE | 2017-06-04 07:20 | NUR ---
RN NOTES RECEIVED PATIENT AWAKE ALERT AND VERBALLY RESPONSIVE, ABLE TO MAKE NEEDS KNOWN RESPIRATIONS EVEN AND UNLABORED, DENIES ANY PAIN OR DISCOMFORT AT THIS TIME. IV ACCESS PATENT AND INTACT NO REDNESS OR INFILTRATION NOTED. SAFETY MEASURES IN PLACE, CALL LIGHT WITHIN EASY REACH, WILL CONTINUE TO MONITOR
--- NOTE | 2017-06-04 19:35 | NUR ---
RN NOTES PATIENT AWAKE ALERT AND VERBALLY RESPONSIVE, ABLE TO MAKE NEEDS KNOWN RESPIRATIONS EVEN AND UNLABORED, DENIES ANY PAIN OR DISCOMFORT AT THIS TIME. IV ACCESS PATENT AND INTACT NO REDNESS OR INFILTRATION NOTED. SAFETY MEASURES IN PLACE, CALL LIGHT WITHIN EASY REACH, ARMAMENT MECHANIC Juana CAMACHO MADE AWARE OF MED RECON, WILL REVIEW AMMUNITION ASSEMBLY I LABORER MADE AWARE,ENDORSED TO NEXT SHIFT FOR CONTINUITY OF CARE
--- NOTE | 2017-06-04 19:45 | NUR ---
FUR GRADER INITIAL NOTES PT IS OUT OF BED WALKING WITH DAUGHTER WITH THE AID OF A WALKER. NO SIGNS OF SOB OR DISTRESS. BREATHING EVENLY AND UNLABORED ON ROOM AIR. NEW IV ACCESS WAS STARTED ON LEFT FA #22. BED IS IN LOW AND LOCKED POSITION, CALL LIGHT WITHIN REACH. WILL CONTINUE TO MONITOR PT.
[2017-06-05] VITALS (7 sets, daily range): BP systolic 101–134; BP diastolic 50–66
--- NOTE | 2017-06-05 06:46 | NUR ---
TUBE SIZER OPERATOR CLOSING NOTES PT IS RESTING IN BED. NO SIGNS OF SOB OR DISTRESS. IV ACCESS IS INTACT AND PATENT. ORTHOSTATIC BLOOD PRESSURE WAS TAKEN. ALL NEEDS WERE ANTICIPATED AND MET. WILL ENDORSE TO DAY SHIFT
[2017-06-05 07:01] LABS: BASOPHILS % (AUTO) 0.2 % (0.0-2.0); EOSINOPHILS % (AUTO) 0.6 % (0.0-6.0); HEMATOCRIT 34 % (33-45); HEMOGLOBIN 11.2 g/dL (11.5-14.8); LYMPHOCYTES # (AUTO) 2.1 /CMM (0.8-4.8); MEAN CORPUSCULAR HEMOGLOBIN 28 PG (26.0-33.0); MEAN CORPUSCULAR HGB CONC 33 g/dl (31.0-36.0); MEAN CORPUSCULAR VOLUME 85 fL (82-100); MONOCYTES # (AUTO) 0.5 /CMM (0.1-1.30); MONOCYTES % (AUTO) 6.4 % (2.0-12.0); NEUTROPHILS # (AUTO) 4.8 /CMM (1.8-8.9); NEUTROPHILS % (AUTO) 64.8 % (43.0-81.0); PLATELET COUNT (AUTO) 225 /CMM (150-450); RDW COEFFICIENT OF VARIATION 14.1 (11.5-15.0); RED BLOOD CELL COUNT(AUTO) 3.96 MIL/uL (4.0-5.2); WHITE BLOOD COUNT (AUTO) 7.5 K/uL (4.3-11.0)
[2017-06-05 07:04] LABS: INR 0.99 (0.87-1.13); PROTHROMBIN TIME 10.6 SECS (9.5-12.7)
[2017-06-05 07:30] LABS: ALANINE AMINOTRANSFERASE 22 U/L (12-78); ALBUMIN 2.8 g/dL (3.4-5.0); ALKALINE PHOSPHATASE 63 U/L (46-116); ASPARTATE AMINOTRANSFERASE 17 U/L (15-37); BILIRUBIN,TOTAL 0.4 mg/dL (0.2-1.0); CALCIUM, SERUM 8.5 mg/dL (8.5-10.1); CARBON DIOXIDE 24 mmol/L (21-32); CHLORIDE 110 mmol/L (98-107); CREATININE 0.9 mg/dL (0.6-1.3); GLUCOSE 334 mg/dL (74-106); MAGNESIUM 1.9 mg/dL (1.8-2.4); PHOSPHORUS 2.9 mg/dL (2.5-4.9); POTASSIUM 4.5 mmol/L (3.5-5.1); SODIUM SERUM 142 mmol/L (136-145); TOTAL PROTEIN, SERUM 5.7 g/dL (6.4-8.2); UREA NITROGEN, BLOOD 18 mg/dL (7-18)
--- NOTE | 2017-06-05 07:30 | NUR ---
CHIEF I DISPATCHER OPENING RECEIVED PATIENT A/OX2 SLEEPING AWAKE TO LIGHT TOUCH. PATIENT DENIES SOB, DIFFICULTY BREATHING OR PAIN AT THIS TIME. ALL NEEDS IN REACH, BED LOWERED AND LOCKED, RAILS HSY4ISA SAFETY WILL ROUND Q2H OR LESS PER NEEDS
--- NOTE | 2017-06-05 08:01 | NUR ---
MS RN NOTES PATIENT REFUSING ANY PO MEDICATIONS OR SQ INSULIN OR LOVENOX AT THIS TIME. WILL ATTEMPT AGAIN
[2017-06-05 08:56] LABS: IRON, SERUM 128 ug/dl (50-175); TOTAL IRON BINDING CAPACITY 213 ug/dl (250-450)
--- NOTE | 2017-06-05 08:57 | NUR ---
MS RN NOTES PATIENT CONTINUES TO REFUSE PO MEDICATIONS OR SQ SHOTS. WILL NOT EAT BREAKFAST AT THIS TIME. WILL ATTEMPT AGAIN FOR PATIENT
[2017-06-05 09:04] LABS: CHOLESTEROL 217 mg/dL (<200); HDL CHOLESTEROL 80 mg/dL (40-60); LDL 132 mg/dL (0-99); PREALBUMIN 15.2 MG/DL (18.0-35.7); THYROID STIMULATING HORMONE 1.607 uIU/mL (0.358-3.74); TRIGLYCERIDES 47 mg/dL (30-150)
--- NOTE | 2017-06-05 09:51 | NUR ---
MS RN NOTES PATIENT REFUSING ALL PO MEDICATIONS AT THIS TIME. ALLOWED LOVENOX AND SUGAR CHECK PATIENT IS REFUSING TO EAT AT THIS TIME INSULINE NON ADMIN.
--- NOTE | 2017-06-05 10:14 | NUR ---
MS RN NOTES WOUND DIMA WAITE AT BEDSIDE
--- NOTE | 2017-06-05 10:17 | NUR ---
WOUND CARE CONSULT: PT PRESENTS WITH INTACT BLISTER TO LEFT BUTTOCK, PRESENT ON ADMISSION. CURRENT CARMINE SCORE IS 17. SACRAL SCARRING NOTED. ALL SKIN PROTECTION MEASURES IN PLACE AND DISCUSSED WITH NURSING STAFF. WILL SEE PRN. MOORE IN AGREEMENT WITH PLAN OF CARE. Addendum: 06/05/17 at 1019 by RAVINDRA GAMEZ WNDNU Amended: Links added.
--- NOTE | 2017-06-05 13:00 | NUR ---
MS RN NOTES PATIENT BLOOD SUGAR 38 REPEAT 45. PATIENT ABLE TO TOLERATE PO SUGAR AND ACCEPTED. EDUCATED PATIENT ON IMPORTANCE OF BLOOD SUGAR MANAGEMENT AND GOOD ORAL INTAKE. PATIENT IS AGREEING TO EAT LUNCH AT THIS TIME. SANDY CEE AT BEDSIDE FOR ASSISTANCE. PATIENT TOLERATING DIET WELL.
--- NOTE | 2017-06-05 14:30 | NUR ---
MS RN NOTES OT EVAL AT BEDSIDE. PATIENT MIN ASSIST OK FOR HOME PER OT
--- NOTE | 2017-06-05 17:00 | NUR ---
MS RN NOTES PATIENT EYES APPEAR MORE RED AND PUFFY PICTURE TAKEN.
--- NOTE | 2017-06-05 17:13 | NUR ---
MS RN NOTES PATIENT EYE DROPS TIMOLOL NOT ON FLOOR CALLED PHARMACY TO BRING
--- NOTE | 2017-06-05 17:14 | NUR ---
MS RN NOTES GAVE PATIENT SNACKS WITH INSULIN. PATIENT EATING DINNER AT THIS TIME WITH ASSISTANCE
--- NOTE | 2017-06-05 18:30 | NUR ---
MS RN CLOSING PATIENT DAUGHTER AT BEDSIDE AND PATIENT SITTING IN CHAIR AT THIS TIME. ALL DUE MEDS GIVEN AND ALL NEEDS MET. PATIENT STABLE AT THIS TIME. WILL ENDORSE CARE TO RN FOR RUMA
--- NOTE | 2017-06-05 19:32 | NUR ---
MS RN INITIAL NOTES PT IS SITTING UP IN CHAIR WITH DAUGHTER AT BEDSIDE. ALERT AND RESPONSIVE. NO SIGNS OF SOB OR DISTRESS, BREATHING EVENLY AND UNLABORED ON ROOM AIR. DENIES PAIN. BED IS IN LOW AND LOCKED POSITION. WILL CONTINUE TO MONITOR
--- NOTE | 2017-06-06 06:22 | NUR ---
MS RN CLOSING NOTES PT IS RESTING IN BED. NO SIGNS OF SOB OR DISTRESS. BREATHING EVENLY AND UNLABORED. BED IS IN LOW AND LOCKED POSITION, CALL LIGHT IS WITHIN REACH. ALL NEEDS WERE ANTICIPATED AND MET. WILL ENDORSE TO DAY SHIFT
--- NOTE | 2017-06-06 07:30 | NUR ---
MS RN OPENING RECEIVED PATIENT A.OX4 DENIES SOB, DIFFICULTY BREATHING OR PAIN AT THIS TIME. ALL NEEDS IN REACH, PATIENT REPOSITIONED SELF AND ASSISTED WITH OFFLOADING HEELS AND ELBOWS. PATIENT APPEARS STABLE AT THIS TIME. WILL ROUND Q2H OR LESS PER NEEDS. BED LOWERED AND LOCKED, RAILS UPX3 FOR SAFETY AND BED ALARM ON
[2017-06-06 08:00] VITALS: BP 128/56
--- NOTE | 2017-06-06 08:15 | NUR ---
MS RN NOTES PATIENT ASSISTED TO CHAIR FOR BREAKFAST. TOLERATED ALL DUE MEDICATIONS.
[2017-06-06 08:54] VITALS: BP 128/56
--- NOTE | 2017-06-06 11:29 | NUR ---
MS RN NOTES DR BALDERAS AT BEDSIDE. MED RECON PRINTED FOR
--- NOTE | 2017-06-06 12:35 | NUR ---
MS RN NOTES PER PATIENT AND DAUGHTER REQUEST FAXED OVER ECHO AND EKG RESULTS TO PATIENT SIDEWALK REPAIRER
[2017-06-06 16:00] VITALS: BP 97/57
--- NOTE | 2017-06-06 19:31 | NUR ---
MS VOTATOR MACHINE OPERATOR PATIENT DAUGHTER AT BEDSIDE AND EDUCATED ON DISCHARGE MATERIAL AND SIGNED DC PAPERWORK FOR PATIENT. ALL DUE MEDS GIVEN AND ALL NEEDS MET. IV REMOVED WITH PRESSURE AND DRESSING APPLIED NO BLEEDING NOTED. PATIENT ASSISTED TO CAR BY SANDY KINGSLEY IN STABLE CONDITION NO COMPLICATIONS NOTED. ALL QUESTIONS ANSWERED AND ALL BELONGINGS ACCOUNTED FOR.
== END 2017-06-06 19:20 | disposition home or self-care (01) | DRG 73 ==
LOC: ER 00:16 → TELE 02:18 → MED 06-05 08:30
PROVIDERS: ADMIT Internal Medicine; ATTEND Nurse Practitioner Acute Care
DX: G90.8 Other disorders of autonomic nervous system (principal); G93.41 Metabolic encephalopathy; E87.0 Hyperosmolality and hypernatremia; E10.319 Type 1 diabetes mellitus with unspecified diabetic retinopathy without macular edema; F03.90 Unspecified dementia, unspecified severity, without behavioral disturbance, psychotic disturbance, mood disturbance, and anxiety; Z86.73 Personal history of transient ischemic attack (TIA), and cerebral infarction without residual deficits; Z79.4 Long term (current) use of insulin; Z79.899 Other long term (current) drug therapy; Z88.0 Allergy status to penicillin; Z79.84 Long term (current) use of oral hypoglycemic drugs
CPT/HCPCS: 36415; 70450-TC; 71010-TC; 80048-TC; 80053-TC; 80061-TC; 80076-TC; 81000-TC; 82553-TC; 82746; 82962-TC; 83540-TC; 83735-TC; 83880; 84100-TC; 84134-TC; 84443-TC; 84484-TC; 85025-TC; 85652-TC; 85730-TC; 87040-TC; 87081-TC; 90732; 93307-TC; A4606; J1650; J1815; J3490; Z7610

== ENCOUNTER 2018-09-26 01:42 | Inpatient (IN) | payer OTHER ==
[~2018-09-26] VITALS: Ht 167.6 cm; Wt 45.8 kg
[~2018-09-26 01:42] MED LIST changes: +BRIM5DRO11 OP; +BUPR200T PO; +BUPR200T31 GT; -BUPR200T31 PO; +CLOP75TA15 GT; +CLOP75TA15 PO; -CLOP75TA2 PO; +DONE10TA44 GT; +DORZ10DR10 EACHEYE; +FURO20TA4 PO; +GABA-532 GT; +INSU100V27 SQ; +INSU3INS6 SQ; +LEVO75TA7 GT; +METH5TAB16 PO; -METO-302 PO; +POTA-10 PO; +PRED5DRO16 EACHEYE; -PRED5DRO17 EACHEYE; +PRED5DRO17 LEFTEYE; -RAMI5CAP PO; +RAMI5CAP66 GT; +RAMI5CAP66 PO; -TRAZ-144 PO
--- NOTE | 2018-09-26 02:00 | NUR ---
Pt brought in by daughter via ambulance due to cough and congestion. Pt is taking Azithromycin for it without much relief per daughter. daughter also reports slurred speech noting weakness on the pt's right lower extremity. Pt is awake, hard of hearing, verbally responsive, appears weak. Awaiting MD at BS for eval.
--- NOTE | 2018-09-26 02:15 | NUR ---
HL 20g placed by DIMA Miller, to [facility]. Labs were drawn.
[2018-09-26] MEDS ORDERED: ALBUTEROL FS 2.5 MG/0.5 ML VIAL.NEB ONE (02:26)
[2018-09-26] MEDS ORDERED: ALBUTEROL FS 2.5 MG/0.5 ML VIAL.NEB NEB ONE (02:30)
[2018-09-26 03:08] LABS: BASOPHILS # (AUTO) 0.1 /CMM (0.0-0.2); BASOPHILS % (AUTO) 0.9 % (0.0-2.0); EOSINOPHILS % (AUTO) 0.7 % (0.0-6.0); HEMATOCRIT 42 % (33-45); HEMOGLOBIN 13.7 g/dL (11.5-14.8); LYMPHOCYTES # (AUTO) 0.9 /CMM (0.8-4.8); LYMPHOCYTES % (AUTO) 11.4 % (20.0-44.0); MEAN CORPUSCULAR HGB CONC 33 g/dl (31.0-36.0); MEAN CORPUSCULAR VOLUME 86 fL (82-100); MONOCYTES # (AUTO) 0.4 /CMM (0.1-1.30); MONOCYTES % (AUTO) 5.4 % (2.0-12.0); NEUTROPHILS # (AUTO) 6.2 /CMM (1.8-8.9); NEUTROPHILS % (AUTO) 81.6 % (43.0-81.0); PLATELET COUNT (AUTO) 103 /CMM (150-450); WHITE BLOOD COUNT (AUTO) 7.6 K/uL (4.3-11.0)
--- NOTE | 2018-09-26 03:12 | NUR ---
Pt transported to Radiology for Ct of Head.
--- NOTE | 2018-09-26 03:20 | NUR ---
Urine collected and sent to lab
[2018-09-26 03:43] LABS: APPEARANCE,URINE SL CLOUDY (CLEAR); BILIRUBIN,URINE NEGATIVE (NEGATIVE); BLOOD, URINE NEGATIVE Ery/uL (NEGATIVE); COLOR,URINE YELLOW (YELLOW); KETONES,URINE NEGATIVE (NEGATIVE); LEUKOCYTE ESTERASE ,URINE NEGATIVE (NEGATIVE); NITRITE, URINE NEGATIVE (NEGATIVE); PH,URINE 5.5 (5.0-8.0); PROTEIN,URINE NEGATIVE (NEGATIVE); UGLUCOSE 3+ mg/dL (NEGATIVE); UROBILINOGEN,URINE 0.2 EU/dL (0.2)
--- NOTE | 2018-09-26 03:50 | NUR ---
Pt asleep, arousable. Daughter at BS.
[2018-09-26 03:52] LABS: CALCIUM, SERUM 9.4 mg/dL (8.5-10.1); CARBON DIOXIDE 29 mmol/L (21-32); CHLORIDE 113 mmol/L (98-107); CREATININE 0.8 mg/dL (0.6-1.3); GLUCOSE 254 mg/dL (74-106); POTASSIUM 4.1 mmol/L (3.5-5.1); SODIUM SERUM 148 mmol/L (136-145); UREA NITROGEN, BLOOD 33 mg/dL (7-18)
[2018-09-26 03:52] LABS: BACTERIA,URINE Few /HPF (None Seen); SQUAMOUS EPITHELIAL CELL,UR Few /HPF (None Seen)
[2018-09-26 03:58] LABS: ALANINE AMINOTRANSFERASE 409 U/L (12-78); ALBUMIN 2.3 g/dL (3.4-5.0); ALKALINE PHOSPHATASE 313 U/L (46-116); ASPARTATE AMINOTRANSFERASE 155 U/L (15-37); BILIRUBIN,TOTAL 0.2 mg/dL (0.2-1.0); TOTAL PROTEIN, SERUM 6.2 g/dL (6.4-8.2)
[2018-09-26] MEDS ORDERED: FUROSEMIDE 20 MG/2 ML VIAL IV ONE (04:30)
[2018-09-26] MEDS ORDERED: GENTAMICIN 80 MG in IV D5W 50 ML IV ONE (05:00)
[2018-09-26] MEDS ORDERED: AZITHROMYCIN 500 MG in IV D5W 250 ML IV ONE (05:00)
[2018-09-26] MEDS ORDERED: AZTREONAM 2 G in IV NS 0.9% 100 ML IV ONE (05:00)
--- NOTE | 2018-09-26 05:20 | NUR ---
Pt will be admitted to [facility] floor for observation. Daughter notified.
[2018-09-26] MEDS ORDERED: FUROSEMIDE 20 MG/2 ML VIAL ONE (05:31)
[2018-09-26] MEDS ORDERED: GENTAMICIN 80 MG/2 ML VIAL ONE (05:38)
[2018-09-26] MEDS ORDERED: AZITHROMYCIN 500 MG VIAL ONE (05:38)
--- NOTE | 2018-09-26 05:50 | NUR ---
Pt will be admitted to Rm 313. Pt and daughter aware.
[2018-09-26] MEDS ORDERED: AZTREONAM 1 G VIAL ONE (05:51)
--- NOTE | 2018-09-26 06:19 | NUR ---
report given to DIMA Hendricks.
--- NOTE | 2018-09-26 06:45 | NUR ---
COMMUNITY OUTREACH SPECIALIST OPENING NOTES RECEIVED PATIENT FROM ER VIA GURNEY TRANSPORTED TO BED SAFELY, AWAKE ALERT AND ORIENTED X 1-2, RESPIRATIONS EVEN AND UNLABORED WITH EQUAL RISE AND FALL OF CHEST, NO RESPIRATORY DISTRESS PRESENT, APPEARS TO BE COMFORTABLE, DENIES PAIN, IV SITE TO RIGHT FA #20G INTACT AND PATENT, CURRENTLY HAS ZITHROMAX 250ML IN D5W RUNNING WILL CONTINUE TO INFUSE. PLACED ON INSPECTOR GOVERNMENT PROPERTY, SINUS MARI AT 50BPM. NO DISTRESS PRESENT. CURRENT VITAL SIGNS WNL 134/75,98%RA,97.4, HR 50, RESP 18 WARM BLANKETS PLACED, WILL CONTINUE TO MONITOR AND ENDORSE TO NEXT SHIFT FOR ADMISSION AND CONTINUITY OF CARE.
--- NOTE | 2018-09-26 07:30 | NUR ---
MS RN OPENING NOTE RECEIVED PATIENT IN BED. SLEEPING, EASILY AROUSED WITH VERBAL STIMULI. DISORIENTED, CONFUSED. ON ROOM AIR, TOLERATING WELL. IN NO APPARENT DISTRESS OR DISCOMFORT AT THIS TIME. RESPIRATIONS EVEN AND UNLABORED. PATIENT IS UNABLE TO COMMUNICATE NEEDS. RIGHT FA 20G IVC SL, PATENT AND INTACT. KEPT CLEAN AND COMFORTABLE. PATIENT IS STABLE. ADMITTED IN THE UNIT AT 0645. SAFETY MEASURES IN PLACE, BED IN LOW LOCKED POSITION, SIDE RAILS UP X2, ALARM ON, CALL LIGHT WITHIN EASY REACH. WILL CARRY OUT ADMISSION ORDERS AND CONTINUE TO MONITOR.
[2018-09-26 09:00] VITALS: BP 134/61
[2018-09-26] MEDS ORDERED: DEXTROSE 50%-WATER 50 ML DISP.SYRIN IV PRN ×2 (09:00→23:00)
[2018-09-26] MEDS ORDERED: ONDANSETRON HCL/PF 4 MG/2 ML VIAL IV PRN (09:00)
[2018-09-26] MEDS ORDERED: METHYLPHENIDATE HCL (5MG) 5 MG TABLET PO SCH (09:00)
[2018-09-26] MEDS ORDERED: LEVOFLOXACIN 500 MG /D5W 100ML 500 MG in PREMIX 1 EA IV SCH (09:00)
[2018-09-26] MEDS ORDERED: ACETAMINOPHEN 325 MG TABLET PO PRN (09:00)
[2018-09-26] MEDS ORDERED: RAMIPRIL 5 MG CAPSULE PO SCH (09:00)
[2018-09-26] MEDS: prednisoLONE ACETATE 1% SUSP 5 ML BOTTLE LEFTEYE SCH (10:00)
[2018-09-26] MEDS ORDERED: IV NS 0.9% 1,000 ML IV PRN (10:30)
[2018-09-26] MEDS ORDERED: IV NS 0.9% 1,000 ML BAG IV PRN (10:30)
[2018-09-26] MEDS: DORZOLAMIDE OPTH 2% 10 ML BOTTLE EACHEYE SCH ×3 (10:43→16:48)
[2018-09-26] MEDS: BRIMONIDINE TARTRATE OPHT SOLN 5 ML BOTTLE EACHEYE SCH ×3 (10:43→16:48)
[2018-09-26] MEDS: buPROPion SR 100 MG TABLET.ER PO SCH ×2 (10:44→16:47)
[2018-09-26] MEDS: LEVOFLOXACIN 750 MG /D5W 150ML 750 MG in PREMIX 1 EA IV SCH (10:44)
[2018-09-26] MEDS: INSULIN GLARGINE, 100 UNIT/ML CARTRIDGE SQ SCH (10:45)
[2018-09-26] MEDS: ENOXAPARIN SODIUM 30 MG/0.3 ML DISP.SYRIN SQ SCH (10:46)
[2018-09-26] MEDS: PANTOPRAZOLE 40 MG TABLET.DR PO SCH (10:50)
[2018-09-26] MEDS ORDERED: BLOOD SUGAR DIAGNOSTIC 1 EACH STRIP IN SCH (12:00)
[2018-09-26] MEDS ORDERED: ALBUTEROL FS 2.5 MG/0.5 ML VIAL.NEB NEB PRN (12:30)
[2018-09-26] MEDS ORDERED: IPRATROPIUM NEB FS 0.5 MG/2.5 ML AMPUL.NEB NEB PRN (13:00)
--- NOTE | 2018-09-26 13:00 | NUR ---
PATIENT WITH BLOOD SUGAR OF 339. NO COVERAGE ORDERED. REPORTED TO DR. BALDERAS. ORDER RECEIVED FOR MILD SLIDING SCALE COVERAGE AT THIS TIME. NOTED AND CARRIED OUT. Addendum: 09/26/18 at 1506 by BENY URIARTE RN BLOOD SUGAR [id number]
[2018-09-26] MEDS: INSULIN REGULAR, HUMAN 100 UNIT/ML 3 ML VIAL SQ PRN ×2 (15:09→16:53)
[2018-09-26] MEDS: BLOOD SUGAR DIAGNOSTIC 1 EACH STRIP IN SCH ×4 (15:10→22:57)
[2018-09-26 16:01] VITALS: BP 109/63
[2018-09-26] MEDS: DONEPEZIL 5 MG TABLET PO SCH (16:47)
[2018-09-26] MEDS: CLOPIDOGREL BISULFATE 75 MG TABLET PO SCH (16:47)
--- NOTE | 2018-09-26 18:00 | NUR ---
PATIENT WAS TURNED AND REPOSITIONED PER PROTOCOL EVERY 2 HOURS.
--- NOTE | 2018-09-26 19:28 | NUR ---
MS RN CLOSING NOTE PATIENT IN BED. SLEEPING, EASILY AROUSED WITH VERBAL STIMULI. CONFUSED, ORIENTED TO SELF ONLY, ON ROOM AIR, TOLERATING WELL. IN NO APPARENT DISTRESS OR DISCOMFORT AT THIS TIME. RESPIRATIONS EVEN AND UNLABORED. PATIENT IS UNABLE TO COMMUNICATE NEEDS BUT ABLE TO FOLLOW COMMANDS. RIGHT FA 20G IVC WITH FLUIDS RUNNING AT 70ML/HR, PATENT AND INTACT. KEPT CLEAN AND COMFORTABLE. ALL NEEDS ATTENDED, ORDERS RENDERED, PATIENT IS STABLE. SAFETY MEASURES IN PLACE, BED IN LOW LOCKED POSITION, SIDE RAILS UP X2, ALARM ON, CALL LIGHT WITHIN EASY REACH. WILL ENDORSE TO PM NURSE FOR RUMA.
--- NOTE | 2018-09-26 19:30 | NUR ---
RN NOTES PATIENT RECEIVED SLEEPING IN BED. BREATHING EVEN AND UNLABORED. ON ROOM AIR, NOT IN ANY DISTRESS. PERIPHERAL IV ON RFA G20 WITH NS AT 70ML/HR. SAFETY MEASURES IN PLACE: CALL MORSE WITHIN REACH. BED IN LOW, LOCKED POSITION. WILL MONITOR ACCORDINGLY
[2018-09-26 20:00] VITALS: BP 92/46
[2018-09-26] MEDS: IPRATROPIUM NEB FS 0.5 MG/2.5 ML AMPUL.NEB NEB SCH (20:34)
[2018-09-26] MEDS: ALBUTEROL FS 2.5 MG/0.5 ML VIAL.NEB NEB SCH (20:34)
[2018-09-26 20:35] VITALS: BP 97/46
--- NOTE | 2018-09-26 20:40 | NUR ---
RN NOTE PATIENT NOTED HAVING BOUTS OF COUGH, RT AT BEDSIDE. PATIENT SUCTIONED BY RT PATIENT VERY CONGESTED. O2 AT 2LPM VIA NC SATURATING 92%. PATIENT OPENS EYES ON TACTILE STIMULATION. V/S CHECKED: BP- 97/46, HR-72
--- NOTE | 2018-09-26 21:35 | NUR ---
RN NOTES BSL CHECKED, CRITICALLY LOW, <10. RECHECKED AGAIN, BSL 16. DEXTROSE 50% WATER GIVEN. CHARGE NURSE MADE AWARE.
[2018-09-26] MEDS: DEXTROSE 50%-WATER 50 ML DISP.SYRIN IV PRN (21:36)
[2018-09-26 21:50] VITALS: BP 79/41
--- NOTE | 2018-09-26 21:50 | NUR ---
RN NOTES LOW BP- 79/41 MMHG. O2 SAT- 72%, ON 100% NON-REBREATHER- 92%. RAPID RESPONSE CALLED.
--- NOTE | 2018-09-26 21:55 | NUR ---
RN NOTE RAPID RESPONSE TEAM AT BEDSIDE. STAT ORDER ABG's AND CXR, 250ML NS BOLUS GIVEN. DEEP SUCTIONING DONE BY RT, THICK, BLOOD TINGED SECRETIONS NOTED.
[2018-09-26] MEDS: GABAPENTIN 100 MG CAPSULE PO SCH (22:00)
[2018-09-26] MEDS: LATANOPROST EYE DROP 0.005% 2.5 ML BOTTLE EACHEYE SCH (22:00)
[2018-09-26 22:02] LABS: ABG BASE EXCESS -0.7 mmol/L; ABG OXYGEN SATURATION 93.1 % (92.0-98.5); ABG PCO2 45.5 mmHg (35.0-45.0); ABG PH 7.358 (7.350-7.450); ABG PO2 77.8 mmHg (75.0-100.0); AaDO2 589.7 mmHg; COHb 0.5 % (0.5-1.5); MetHb 0.3 % (0.0-1.5); O2Hb 92.4 % (94.0-97.0); SITE, ABG Left Radial; VENT MODE, BG NRB 100%
[2018-09-26 22:15] VITALS: BP 111/54
--- NOTE | 2018-09-26 22:15 | NUR ---
RN NOTES PATIENT MORE RESPONSIVE. O2 SAT ON 100% VIA NC ON 4LPM. BP- 111/54 MMHG
--- NOTE | 2018-09-26 22:18 | NUR ---
RN NOTES NOTIFIED DR. BALDERAS OF THE RAPID RESPONSE. ORDERS ARE THE FOLLOWING: D5NS @ 35ML/HR. DEEP SUCTION Q 4HRS, ACCUCHECK Q2HRS UNTIL STABLE, UPGRADE MS PATIENT TO TELE, 4L O2 TO KEEP SATURATION >92%
[2018-09-26] MEDS ORDERED: IV D5/ 0.9% NACL 1,000 ML IV PRN (22:30)
--- NOTE | 2018-09-26 22:39 | NUR ---
RN NOTES EYEDROPS NOT GIVEN- NOT AVAILABLE IN THE UNIT. GABAPENTIN NOT GIVEN, PATIENT IS LETHARGIC- RISK FOR ASPIRATION.
[2018-09-26] MEDS ORDERED: INSULIN REGULAR, HUMAN 100 UNIT/ML 3 ML VIAL SQ PRN (23:00)
[2018-09-27] VITALS: BP 112/61
[2018-09-27] MEDS: BLOOD SUGAR DIAGNOSTIC 1 EACH STRIP IN SCH ×7 (00:26→22:50)
--- NOTE | 2018-09-27 00:30 | NUR ---
RN NOTES BSL CHECKED, 42MG/DL. D50 Addendum: 09/27/18 at 0101 by KAYODE HERNANDEZ RN ADDITIONAL NOTES DEXTROSE INJECTION IN 50% WATER GIVEN ORDERED. BSL CHECKED- 174MG/DL. VITAL SIGNS CHECKED: BP- 112/61, HR- 61, SPO2-97% VIA NC
[2018-09-27] MEDS: DEXTROSE 50%-WATER 50 ML DISP.SYRIN IV PRN ×2 (00:33→16:55)
[2018-09-27] MEDS: IPRATROPIUM NEB FS 0.5 MG/2.5 ML AMPUL.NEB NEB SCH ×4 (02:23→19:40)
[2018-09-27] MEDS: ALBUTEROL FS 2.5 MG/0.5 ML VIAL.NEB NEB SCH ×4 (02:23→19:40)
[2018-09-27 04:00] VITALS: BP 133/73
[2018-09-27] MEDS: INSULIN REGULAR, HUMAN 100 UNIT/ML 3 ML VIAL SQ PRN (06:35)
--- NOTE | 2018-09-27 06:35 | NUR ---
RN NOTES BSL CHECKED- 81MG/DL. PATIENT STABLE OF THIS TIME.
[2018-09-27 07:14] LABS: BASOPHILS % (AUTO) 0.4 % (0.0-2.0); EOSINOPHILS % (AUTO) 0.1 % (0.0-6.0); HEMATOCRIT 40 % (33-45); HEMOGLOBIN 12.9 g/dL (11.5-14.8); LYMPHOCYTES # (AUTO) 0.9 /CMM (0.8-4.8); MEAN CORPUSCULAR HGB CONC 32 g/dl (31.0-36.0); MEAN CORPUSCULAR VOLUME 87 fL (82-100); MONOCYTES # (AUTO) 0.8 /CMM (0.1-1.30); MONOCYTES % (AUTO) 7.2 % (2.0-12.0); NEUTROPHILS # (AUTO) 9.1 /CMM (1.8-8.9); NEUTROPHILS % (AUTO) 84.3 % (43.0-81.0); PLATELET COUNT (AUTO) 92 /CMM (150-450); RED BLOOD CELL COUNT(AUTO) 4.65 MIL/uL (4.0-5.2); WHITE BLOOD COUNT (AUTO) 10.8 K/uL (4.3-11.0)
[2018-09-27 07:36] LABS: CALCIUM, SERUM 8.6 mg/dL (8.5-10.1); CARBON DIOXIDE 27 mmol/L (21-32); CHLORIDE 116 mmol/L (98-107); CREATININE 1.1 mg/dL (0.6-1.3); GLUCOSE 98 mg/dL (74-106); MAGNESIUM 1.8 mg/dL (1.8-2.4); POTASSIUM 4.1 mmol/L (3.5-5.1); SODIUM SERUM 151 mmol/L (136-145); UREA NITROGEN, BLOOD 31 mg/dL (7-18)
--- NOTE | 2018-09-27 07:43 | NUR ---
RECOVERY COORDINATOR CLOSING NOTES PATIENT IN BED, WITH HEAD OF BED ELEVATED. PATIENT ABLE TO ANSWER QUESTIONS. ON O2 AT 2LPM VIA NC SATURATING 99%. NOT IN ANY DISTRESS. TELE MONITOR IN PLACE, SR 83. PERIPHERAL IV INFUSING AT 35ML/HR. ALL NEEDS ATTENDED TO.ALL DUE MEDS GIVEN ORDERED. PATIENT STABLE OF THIS TIME. ENDORSED RUMA TO AM RN
--- NOTE | 2018-09-27 08:04 | NUR ---
FRONT OFFICE CLERK NOTES PATIENT RECEIVED RESTING INSIDE ROOM. AWAKE, ALERT AND ORIENTED TO SELF, PATIENT CONFUSED, REORIENTED TO PLACE AND PLAN OF CARE. PATIENT BREATHING EVEN AND UNLABORED. NO ACUTE DISTRESS. DENIES ANY PAIN OR DISCOMFORT. ON OXYGEN AT 2L/MIN VIA NC. IVF INFUSING WELL. WILL CONTINUE TO MONITOR. BED LOCKED AND IN LOW POSITION. BILATERAL UPPER SIDE RAILS UP AND LOCKED. CALL LIGHT WITHIN EASY REACH
[2018-09-27 08:10] VITALS: BP 132/63
[2018-09-27] MEDS: INSULIN GLARGINE, 100 UNIT/ML CARTRIDGE SQ SCH (09:00)
[2018-09-27] MEDS: ENOXAPARIN SODIUM 30 MG/0.3 ML DISP.SYRIN SQ SCH (09:02)
[2018-09-27] MEDS: DONEPEZIL 5 MG TABLET PO SCH ×2 (09:03→17:40)
[2018-09-27] MEDS: LISINOPRIL (10MG) 10 MG TABLET PO SCH (09:03)
[2018-09-27] MEDS: LEVOTHYROXINE SODIUM 75 MCG TABLET PO SCH (09:03)
[2018-09-27] MEDS: PANTOPRAZOLE 40 MG TABLET.DR PO SCH (09:03)
[2018-09-27] MEDS: DORZOLAMIDE OPTH 2% 10 ML BOTTLE EACHEYE SCH ×3 (09:05→17:40)
[2018-09-27] MEDS: BRIMONIDINE TARTRATE OPHT SOLN 5 ML BOTTLE EACHEYE SCH ×3 (09:05→17:40)
[2018-09-27] MEDS: buPROPion SR 100 MG TABLET.ER PO SCH ×2 (09:05→17:52)
--- NOTE | 2018-09-27 09:07 | NUR ---
SALES AND SERVICE CONSULTANT NOTES PLACED CALL TO DR. BALDERAS AND MADE AWARE OF PATIENT CONDITION. PATIENT PO INTAKE 25% WITH BREAKFAST. PER DR. BALDERAS, HOLD LANTUS AT THIS TIME. NOTED AND CARRIED OUT. PATIENT MADE AWARE AND VERBALIZED UNDERSTANDING. WILL CONTINUE TO MONITOR
[2018-09-27] MEDS: prednisoLONE ACETATE 1% SUSP 5 ML BOTTLE LEFTEYE SCH (09:50)
[2018-09-27] MEDS: IV D5/0.45 NACL 1,000 ML IV SCH ×3 (12:15→17:39)
[2018-09-27 16:04] VITALS: BP 119/51
--- NOTE | 2018-09-27 17:11 | NUR ---
MS RN NOTES PATIENT WITH FSBS INITIAL RESULT OF 45, RECHECKED WITH RESULT OF 49. PROTOCOL INITIATED. DEXTROSE 50% 50CC IV GIVEN ORDERED PRN. PATIENT ASYMPTOMATIC. CONTINUES TO ANSWER QUESTIONS. VS TAKEN FOLLOWS: BP 113/52, HR 92, RR 18, T 98.8, 97% IN 2L/MIN VIA NC. DR. BALDERAS MADE AWARE. WITH NEW ORDER TO INCREASE IVF OF D5 1/2 NS TO 65CC/HR. ORDER NOTED AND CARRIED OUT, CHARGE NURSE AWARE. WILL CONTINUE TO MONITOR
[2018-09-27] MEDS: CLOPIDOGREL BISULFATE 75 MG TABLET PO SCH (17:40)
--- NOTE | 2018-09-27 17:45 | NUR ---
MS RN NOTES FSBS RECHECKED WITH RESULT OF 155. DR. BALDERAS MADE AWARE. NO NEW ORDERS AT THIS TIME. WILL CONTINUE TO MONITOR
--- NOTE | 2018-09-27 18:57 | NUR ---
MS RN NOTES PATIENT RESTING INSIDE ROOM. AWAKE, ALERT AND ORIENTED, VERBALLY RESPONSIVE AND RESPONDS TO VERBAL AND TACTILE STIMULI. BREATHING EVEN AND UNLABORED. NO ACUTE DISTRESS. DENIES ANY PAIN OR DISCOMFORT. DAUGHTER, AQUILINO, AT BEDSIDE. ALL NURSING NEEDS ATTENDED AND MET. PATIENT KEPT CLEAN, DRY AND COMFORTABLE. IVF INFUSING WELL. WILL ENDORSE TO INCOMING SHIFT FOR RUMA. BED LOCKED AND IN LOW POSITION. BILATERAL UPPER SIDE RAILS UP AND LOCKED. CALL LIGHT WITHIN EASY REACH
--- NOTE | 2018-09-27 19:20 | NUR ---
TELE/RN OPENING NOTES PT RECEIVED WITH HOB ELEVATED FOR ASPIRATION PRECAUTIONS. HARD OF HEARING. ABLE TO NOD YES/NO, OPENS EYES. ON 2L O2 VIA NC, BREATHING EVEN AND UNLABORED. NO S/S OF SOB OR PAIN, IN NO ACUTE DISTRESS. IV TO RFA PATENT AND INTACT RUNNING D5 1/2NS @ 65ML/HR. ON TELE MONITOR SHOWING SR WITH SLIGHT ST DEPRESSION, HR 85. BED IN LOW/LOCKED POSITION WITH CALL LIGHT IN REACH, SIDE RAILS UPX3. BED ALARM ON FOR SAFETY. WILL CONTINUE TO MONITOR
[2018-09-27 20:00] VITALS: BP_SYST 101; BP_SYST 143; BP_DIAS 48; BP_DIAS 75
[2018-09-27] MEDS: GABAPENTIN 100 MG CAPSULE PO SCH (21:43)
[2018-09-27] MEDS: LATANOPROST EYE DROP 0.005% 2.5 ML BOTTLE EACHEYE SCH (21:43)
--- NOTE | 2018-09-27 21:50 | NUR ---
TELE/RN NOTES LATANOPROST EYE DROPS NOT AVAILABLE IN CASSETTE.
--- NOTE | 2018-09-27 22:52 | NUR ---
TELE/RN NOTES BLOOD SUGAR AT 2130= 254 NOW 244. HELD INSULIN. PT WITH POOR PO INTAKE.
[2018-09-28] VITALS (7 sets, daily range): BP systolic 117–159; BP diastolic 53–78
[2018-09-28] MEDS: IPRATROPIUM NEB FS 0.5 MG/2.5 ML AMPUL.NEB NEB SCH ×4 (01:08→19:41)
[2018-09-28] MEDS: ALBUTEROL FS 2.5 MG/0.5 ML VIAL.NEB NEB SCH ×4 (01:08→19:42)
--- NOTE | 2018-09-28 01:28 | NUR ---
RT NOTE PT NT SUCTIONED: BLOODY/PALE YELLOW/WHITE THICK SECRETIONS. RN NOTIFIED AND AWARE. PT PLACED BACK ON NC 2L.
[2018-09-28] MEDS: BLOOD SUGAR DIAGNOSTIC 1 EACH STRIP IN SCH ×4 (06:32→22:00)
[2018-09-28] MEDS: IV D5/0.45 NACL 1,000 ML IV SCH ×2 (06:48→08:38)
--- NOTE | 2018-09-28 07:00 | NUR ---
TELE/RN CLOSING NOTES PT WITH EYES CLOSED. HARD OF HEARING. OPENS EYES TO NAME, ABLE TO NOD YES/NO TO SOME QUESTIONS. REMAINS ON 2L O2 VIA NC, BREATHING EVEN AND UNLABORED, WITH CONGESTION AND UNABLE TO EXPEL SECRETIONS. SUCTION AT BEDSIDE. IN NO ACUTE DISTRESS. SPO2 SHOWS 97%. NO FACIAL GRIMACING OR SIGNS OF PAIN. IV TO LFA PATENT AND INTACT RUNNING IVF ORDERED. ACHS ACCUCHECKS DONE WITH NO INSULIN COVERAGE, PT REMAINS WITH POOR PO INTAKE. FEEDER. ASPIRATION PRECAUTIONS IMPLEMENTED, HOB ELEVATED. DEEP SUCTIONS PERFORMED, PT TOLERATED WELL. ON CUTTING MACHINE TENDER HELPER SHOWING SR 80'S. NO SIGNIFICANT CHANGES OVERNIGHT. CLOSE MONITORING. TURNED/ REPOSITIONED Q2H, HEELS OFFLOADED. KEPT CLEAN AND DRY. BED REMAINS IN LOW/LOCKED POSITION WITH CALL LIGHT IN REACH, SIDE RAILS UPX3. ENDORSED TO DAY SHIFT DIMA HENDRIX.
[2018-09-28 07:10] LABS: BASOPHILS % (AUTO) 0.1 % (0.0-2.0); HEMATOCRIT 34 % (33-45); LYMPHOCYTES # (AUTO) 1.1 /CMM (0.8-4.8); LYMPHOCYTES % (AUTO) 11.5 % (20.0-44.0); MEAN CORPUSCULAR HGB CONC 33 g/dl (31.0-36.0); MEAN CORPUSCULAR VOLUME 85 fL (82-100); MONOCYTES # (AUTO) 0.6 /CMM (0.1-1.30); MONOCYTES % (AUTO) 6.1 % (2.0-12.0); NEUTROPHILS # (AUTO) 7.6 /CMM (1.8-8.9); NEUTROPHILS % (AUTO) 82.3 % (43.0-81.0); PLATELET COUNT (AUTO) 88 /CMM (150-450); RED BLOOD CELL COUNT(AUTO) 3.96 MIL/uL (4.0-5.2); WHITE BLOOD COUNT (AUTO) 9.2 K/uL (4.3-11.0)
--- NOTE | 2018-09-28 07:20 | NUR ---
radiotelegraph operator, pt received able to open eyes to touch. pt with o2 via nc at 2lpm, spo2 wnl and cont pulse ox at bedside, pt with audible secretions, auscultated with rhonchi throughout. rt with recent deep suction and bloody secretions. pt without obvious s/s of distress or discomfort. md present for rv- verbal request to hold lantus and lovenox. pt bed in lowest locked position with handrailsx4 and call pelayo within reach. pt assisted with repositioning. pt without obvious distress, will reorientate pt as needed/possible.
[2018-09-28 07:22] LABS: CALCIUM, SERUM 8.3 mg/dL (8.5-10.1); CARBON DIOXIDE 24 mmol/L (21-32); CHLORIDE 114 mmol/L (98-107); CREATININE 1.4 mg/dL (0.6-1.3); GLUCOSE 257 mg/dL (74-106); MAGNESIUM 1.7 mg/dL (1.8-2.4); POTASSIUM 3.5 mmol/L (3.5-5.1); SODIUM SERUM 146 mmol/L (136-145); UREA NITROGEN, BLOOD 29 mg/dL (7-18)
[2018-09-28] MEDS: INSULIN GLARGINE, 100 UNIT/ML CARTRIDGE SQ SCH (08:28)
[2018-09-28] MEDS ORDERED: FUROSEMIDE 20 MG/2 ML VIAL IV ONE (08:30)
[2018-09-28] MEDS: DONEPEZIL 5 MG TABLET PO SCH ×2 (08:39→17:04)
[2018-09-28] MEDS: LISINOPRIL (10MG) 10 MG TABLET PO SCH (08:40)
[2018-09-28] MEDS: ENOXAPARIN SODIUM 30 MG/0.3 ML DISP.SYRIN SQ SCH (08:40)
[2018-09-28] MEDS: buPROPion SR 100 MG TABLET.ER PO SCH ×2 (08:40→17:04)
[2018-09-28] MEDS: prednisoLONE ACETATE 1% SUSP 5 ML BOTTLE LEFTEYE SCH (08:41)
[2018-09-28] MEDS: DORZOLAMIDE OPTH 2% 10 ML BOTTLE EACHEYE SCH ×3 (08:41→17:05)
[2018-09-28] MEDS: LEVOTHYROXINE SODIUM 75 MCG TABLET PO SCH (08:44)
[2018-09-28] MEDS: PANTOPRAZOLE 40 MG TABLET.DR PO SCH (08:44)
[2018-09-28 09:09] LABS: LYMPHOCYTES % (MANUAL) 7 % (16-48); MONOCYTES % (MANUAL) 2 % (0-11.0); NEUTROPHILS % (MANUAL) 91 (42-76)
[2018-09-28] MEDS: Magnesium 1GM/D5W 100ML PREMIX 100 ML IV SCH ×2 (09:12→13:03)
--- NOTE | 2018-09-28 10:00 | NUR ---
pt DTR updated on poc and pt status.
[2018-09-28] MEDS: LEVOFLOXACIN 750 MG /D5W 150ML 750 MG in PREMIX 1 EA IV SCH (10:29)
[2018-09-28] MEDS: BRIMONIDINE TARTRATE OPHT SOLN 5 ML BOTTLE EACHEYE SCH ×2 (12:27→17:05)
--- NOTE | 2018-09-28 12:30 | NUR ---
MSRN. PT WITH POOR PO INTAKE, HELD INSULIN.
--- NOTE | 2018-09-28 16:45 | NUR ---
DTR AT BEDSIDE TO HELP FEED PT.
[2018-09-28] MEDS: INSULIN REGULAR, HUMAN 100 UNIT/ML 3 ML VIAL SQ PRN ×2 (17:01→23:32)
[2018-09-28] MEDS: CLOPIDOGREL BISULFATE 75 MG TABLET PO SCH (17:04)
[2018-09-28] MEDS: GLUCERNA SHAKE 237 ML CAN PO SCH (17:37)
--- NOTE | 2018-09-28 18:19 | NUR ---
MSRN, PT REMAINS EYES OPEN TO LITE TOUCH, PT WITH O23 VIA NC 2LPM, SPO2 STABLE DURING SHIFT >96, REMAINS CONGESTED WITH RHONCHI, NON PRODUCTIVE COUGH AND SIGNIFICANT DIFFICULTY MANAGING SECRETIONS AND CLEARING AIRWAY. PT TELE D/C. PT WITHOUT OBVIOUS S/S OF DISTRESS OR DISCOMFORT. PT REPO AND OFFLOADING Q2HR OR SOONER. PT BED IN LOWEST LOCKED POSITION WITH HANDRILASX3 AND CALL MORSE WITHIN REACH, ALL DAY NURSE DUTIES ATTENDED TO. WILL ENDORSE TO NIGHT NURSE AT BEDSIDE FOR RUMA. PT AND DTR WITHOUT CONCERN OR COMPLAINT AT THIS TIME.
[2018-09-28] MEDS: GABAPENTIN 100 MG CAPSULE PO SCH ×2 (21:38→22:00)
[2018-09-28] MEDS: LATANOPROST EYE DROP 0.005% 2.5 ML BOTTLE EACHEYE SCH (22:00)
[2018-09-29] MEDS: ALBUTEROL FS 2.5 MG/0.5 ML VIAL.NEB NEB SCH ×3 (00:30→13:58)
[2018-09-29] MEDS: IPRATROPIUM NEB FS 0.5 MG/2.5 ML AMPUL.NEB NEB SCH ×3 (00:30→13:58)
--- NOTE | 2018-09-29 07:00 | NUR ---
NO CHANGE IN NUERO STATUS, COMBATIVE AT TIMES WHEN ANY CARE WAS GIVEN. KEPT CLEAN/DRY TURNED Q 2HRS.
[2018-09-29] MEDS: BLOOD SUGAR DIAGNOSTIC 1 EACH STRIP IN SCH ×2 (07:14→11:49)
[2018-09-29] MEDS: INSULIN REGULAR, HUMAN 100 UNIT/ML 3 ML VIAL SQ PRN ×2 (07:15→11:48)
[2018-09-29 07:16] LABS: CALCIUM, SERUM 8.6 mg/dL (8.5-10.1); CARBON DIOXIDE 28 mmol/L (21-32); CHLORIDE 114 mmol/L (98-107); CREATININE 1.1 mg/dL (0.6-1.3); GLUCOSE 102 mg/dL (74-106); MAGNESIUM 2.1 mg/dL (1.8-2.4); POTASSIUM 3.3 mmol/L (3.5-5.1); SODIUM SERUM 148 mmol/L (136-145); UREA NITROGEN, BLOOD 20 mg/dL (7-18)
[2018-09-29 08:00] VITALS: BP 142/55
--- NOTE | 2018-09-29 08:00 | NUR ---
MS RN NOTES PATIENT IN BED SLEEPING NO SOB OR ACUTE DISTRESS NOTED. PATIENT CONFUSED. WITH PERIPHERAL IV ON LEFT FOREARM INTACT PATENT. BED IN LOW LOCKED POSITION. CALL LIGHT WITHIN REACH. WILL CONTINUE TO MONITOR.
[2018-09-29] MEDS: INSULIN GLARGINE, 100 UNIT/ML CARTRIDGE SQ SCH (09:00)
[2018-09-29] MEDS: ENOXAPARIN SODIUM 30 MG/0.3 ML DISP.SYRIN SQ SCH (09:00)
[2018-09-29] MEDS: GLUCERNA SHAKE 237 ML CAN PO SCH ×2 (09:09→11:49)
[2018-09-29] MEDS: buPROPion SR 100 MG TABLET.ER PO SCH (09:09)
[2018-09-29] MEDS: DORZOLAMIDE OPTH 2% 10 ML BOTTLE EACHEYE SCH ×2 (09:10→12:58)
[2018-09-29] MEDS: prednisoLONE ACETATE 1% SUSP 5 ML BOTTLE LEFTEYE SCH (09:11)
[2018-09-29] MEDS: BRIMONIDINE TARTRATE OPHT SOLN 5 ML BOTTLE EACHEYE SCH ×2 (09:11→12:58)
[2018-09-29] MEDS: LEVOTHYROXINE SODIUM 75 MCG TABLET PO SCH (09:13)
[2018-09-29] MEDS: LISINOPRIL (10MG) 10 MG TABLET PO SCH (09:14)
[2018-09-29] MEDS: DONEPEZIL 5 MG TABLET PO SCH (09:14)
[2018-09-29] MEDS: PANTOPRAZOLE 40 MG TABLET.DR PO SCH (09:14)
[2018-09-29] MEDS: IV D5/0.45 NACL 1,000 ML IV SCH (09:27)
[2018-09-29] MEDS ORDERED: POTASSIUM CHLORIDE 20 MEQ TAB.PRT.SR PO SCH (11:00)
[2018-09-29] MEDS: POTASSIUM CL. PREMIX PERIPHER. 50 ML IV SCH ×2 (11:17→12:58)
--- NOTE | 2018-09-29 15:14 | NUR ---
MS RN NOTES PATIENT BEING TRANSFERED TO [facility] DUE TO INSURANCE REPORT GIVEN TO CÉSAR CH AT [facility].
[2018-09-29 16:00] VITALS: BP 116/57
--- NOTE | 2018-09-29 17:30 | NUR ---
MS RN NOTES PATIENT TRANSFERRED TO [facility] ALERT, ORIENTED X1 CONFUSED DAUGHTER AT BEDSIDE. APPEARS IN NO DISTRESS. PATIENT/DAUGHTER REFUSED DISCHARGE PHOTOS. PERIPHERAL IV LEFT IN PLACE, INTACT PATENT. ALL BELONGINGS ACCOUNTED FOR, BELONGING LIST SIGNED. PATIENT TRANSFERRED VIA AMBULANCE.
== END 2018-09-29 17:35 | disposition short-term general hospital (02) | DRG 871 ==
LOC: ER 01:43 → TELE 05:45 → MED 09:39 → TELE 22:35 → MED 09-27 10:31 → TELE 09-28 01:12 → MED 09-28 09:19
PROVIDERS: ADMIT Legal Medicine; ATTEND Legal Medicine
DX: A41.9 Sepsis, unspecified organism (principal); G93.41 Metabolic encephalopathy; J18.9 Pneumonia, unspecified organism; J96.01 Acute respiratory failure with hypoxia; I11.0 Hypertensive heart disease with heart failure; I50.9 Heart failure, unspecified; Z86.73 Personal history of transient ischemic attack (TIA), and cerebral infarction without residual deficits; Z88.0 Allergy status to penicillin; E11.40 Type 2 diabetes mellitus with diabetic neuropathy, unspecified; E11.65 Type 2 diabetes mellitus with hyperglycemia; Z79.4 Long term (current) use of insulin; Z79.899 Other long term (current) drug therapy; Z79.01 Long term (current) use of anticoagulants; F03.90 Unspecified dementia, unspecified severity, without behavioral disturbance, psychotic disturbance, mood disturbance, and anxiety; I10 Essential (primary) hypertension
CPT/HCPCS: 31720; 36415; 36600; 70450-TC; 71045-TC; 80048-TC; 80076-TC; 81000-TC; 82962-TC; 83605-TC; 83735-TC; 83880; 84484-TC; 85025-TC; 85730-TC; 87040-TC; 87081-TC; 87086-TC; 87400; 92521; 94799-TC; 97110-TC; 97530-TC; A4216; G0378; J0456; J1580; J1650; J1815; J1940; J1956; J3475; J3480; J3490; J7030; J7042; J7060

== ENCOUNTER 2018-10-13 02:02 | Inpatient (IN) | payer OTHER ==
[~2018-10-13] VITALS: Ht 154.9 cm; Wt 55.3 kg
[~2018-10-13 02:02] MED LIST changes: -BRIM5DRO11 OP; -BUPR200T PO; -CLOP75TA15 PO; -DONE10TA44 PO; -DORZ10DR11 EACHEYE; -GABA-532 PO; -INSU10VI SQ; -LEVO75TA7 PO; -PRED5DRO16 EACHEYE; -RAMI5CAP66 PO
--- NOTE | 2018-10-13 02:09 | NUR ---
PT BIBRA c/o hypoglycemia in the field of around 20s, pt was given D50 IV enroute to the emergency room. Pt blood sugar en route was 236. Pt responsive to commands, respirations even and unlabored. Pt put on the monitor and pulse ox. Pt HR in the 40s, BP 90/40. ER Aware.
--- NOTE | 2018-10-13 02:10 | NUR ---
BS 216, ER NOTIFIED.
--- NOTE | 2018-10-13 02:20 | NUR ---
Digital Computer Operator at bedside, IV 18G started in R AC. Labs sent.
[2018-10-13 02:38] LABS: BASOPHILS % (AUTO) 0.3 % (0.0-2.0); EOSINOPHILS % (AUTO) 0.3 % (0.0-6.0); HEMATOCRIT 33 % (33-45); HEMOGLOBIN 10.5 g/dL (11.5-14.8); LYMPHOCYTES # (AUTO) 1.1 /CMM (0.8-4.8); LYMPHOCYTES % (AUTO) 7.3 % (20.0-44.0); MEAN CORPUSCULAR HGB CONC 32 g/dl (31.0-36.0); MEAN CORPUSCULAR VOLUME 88 fL (82-100); MONOCYTES # (AUTO) 0.7 /CMM (0.1-1.30); MONOCYTES % (AUTO) 4.8 % (2.0-12.0); NEUTROPHILS # (AUTO) 12.6 /CMM (1.8-8.9); NEUTROPHILS % (AUTO) 87.3 % (43.0-81.0); PLATELET COUNT (AUTO) 312 /CMM (150-450); RED BLOOD CELL COUNT(AUTO) 3.75 MIL/uL (4.0-5.2); WHITE BLOOD COUNT (AUTO) 14.5 K/uL (4.3-11.0)
--- NOTE | 2018-10-13 02:45 | NUR ---
PT taken to CT.
[2018-10-13 02:50] LABS: CALCIUM, SERUM 8.4 mg/dL (8.5-10.1); CARBON DIOXIDE 31 mmol/L (21-32); CHLORIDE 114 mmol/L (98-107); GLUCOSE 210 mg/dL (74-106); POTASSIUM 3.7 mmol/L (3.5-5.1); SODIUM SERUM 148 mmol/L (136-145); UREA NITROGEN, BLOOD 32 mg/dL (7-18)
[2018-10-13 02:51] LABS: APPEARANCE,URINE SL CLOUDY (CLEAR); BILIRUBIN,URINE NEGATIVE (NEGATIVE); BLOOD, URINE NEGATIVE Ery/uL (NEGATIVE); COLOR,URINE YELLOW (YELLOW); KETONES,URINE NEGATIVE (NEGATIVE); LEUKOCYTE ESTERASE ,URINE 1+ (NEGATIVE); NITRITE, URINE NEGATIVE (NEGATIVE); PROTEIN,URINE NEGATIVE (NEGATIVE); UGLUCOSE 1+ mg/dL (NEGATIVE); UROBILINOGEN,URINE 0.2 EU/dL (0.2)
[2018-10-13 02:55] LABS: ALANINE AMINOTRANSFERASE 31 U/L (12-78); ALBUMIN 1.7 g/dL (3.4-5.0); ALKALINE PHOSPHATASE 124 U/L (46-116); ASPARTATE AMINOTRANSFERASE 15 U/L (15-37); BILIRUBIN,DIRECT 0.1 mg/dL (0.0-0.2); BILIRUBIN,TOTAL 0.2 mg/dL (0.2-1.0); TOTAL PROTEIN, SERUM 4.8 g/dL (6.4-8.2)
--- NOTE | 2018-10-13 02:56 | NUR ---
PT back from CT, put on the monitor.
[2018-10-13 02:57] LABS: BACTERIA,URINE Few /HPF (None Seen); RBC,URINE 0-2 /HPF (0-2); SQUAMOUS EPITHELIAL CELL,UR Few /HPF (None Seen); WBC,URINE 21-50 /HPF (0-3); YEAST,URINE Many /HPF (None Seen)
[2018-10-13] MEDS ORDERED: IV NS 0.9% 1,000 ML BAG IV ONE (03:00)
--- NOTE | 2018-10-13 03:02 | NUR ---
Pt family at bedside. Pt being monitored.
--- NOTE | 2018-10-13 03:16 | NUR ---
MARGOT MOORE AT BEDSIDE FOR RE-EVAL.
[2018-10-13] MEDS ORDERED: CIPROFLOXACIN IV RTU 200 ML IV ONE (03:19)
[2018-10-13] MEDS ORDERED: CIPROFLOXACIN IV RTU 400 MG in PREMIX 1 EA IV SCH (03:30)
--- NOTE | 2018-10-13 03:33 | NUR ---
Soapstoner at [facility] for Lab draw.
--- NOTE | 2018-10-13 03:43 | NUR ---
Pt hypotensive in the monitor and bradycardic. ER MD AWARE. Pt easily arousable and oxygen saturation in high 90s. Pt family at bedside.
[2018-10-13] MEDS ORDERED: ARGI1POW13 PO (03:49)
[2018-10-13] MEDS ORDERED: MAGN400O21 PO (03:49)
[2018-10-13] MEDS ORDERED: LEVO750T21 PO (03:49)
[2018-10-13] MEDS ORDERED: HEPA0.5D3 SQ (03:49)
[2018-10-13] MEDS ORDERED: INSU100V7 SQ (03:49)
[2018-10-13] MEDS ORDERED: CHOL200026 PO (03:49)
[2018-10-13] MEDS ORDERED: IPRA3AMP23 IH (03:49)
[2018-10-13] MEDS ORDERED: NA P133E RC (03:49)
[2018-10-13] MEDS ORDERED: [UNRECOGNIZED DRUG - REMARK] PO (03:49)
[2018-10-13] MEDS ORDERED: ZINC220C6 GT (03:49)
[2018-10-13] MEDS ORDERED: BISA10SU61 RC (03:49)
[2018-10-13] MEDS ORDERED: TUBE5VIA2 ID (03:49)
[2018-10-13] MEDS ORDERED: MULT-1185 GT (03:49)
[2018-10-13] MEDS ORDERED: FURO40TA5 PO (03:49)
[2018-10-13] MEDS ORDERED: CHOL200026 GT (03:49)
[2018-10-13] MEDS ORDERED: ASCO500T9 GT (03:49)
[2018-10-13] MEDS ORDERED: PRED5TAB48 PO (03:49)
[2018-10-13] MEDS ORDERED: TYL2T GT (03:49)
[2018-10-13] MEDS ORDERED: CRAN3875 PO (03:49)
[2018-10-13] MEDS ORDERED: PRED20TA PO (03:49)
--- NOTE | 2018-10-13 04:23 | NUR ---
Report given to Carlotta Taylor for RUMA.
--- NOTE | 2018-10-13 04:40 | NUR ---
CHRONOMETER TESTERTALENT DEVELOPMENT DIRECTOR NOTES Patient came to unit via gurney, answers to name. Breathing even and unlabored. Not in any distress. Tolerating room air. On tele monitor, sinus alin 41. Patient's daughter came, history obtained. As per daughter, patient had her pneumonia and flu shot August 2018. Skin assessment done. Multiple discolorations on arms and legs and sacral discoloration and old scar noted. Pictures attached to chart. Wound care consult done. IV site on L wrist intact and patent, S/L. Peripheral IV RAC g#18 infusing at 75mL.hr. Blood sugar checked. Safety measures in place; call pelayo placed within reach. Bed in low, locked position. Will monitor accordingly
[2018-10-13 04:45] VITALS: BP 113/42
[2018-10-13] MEDS ORDERED: ONDANSETRON HCL/PF 4 MG/2 ML VIAL IV PRN (05:30)
[2018-10-13] MEDS ORDERED: ACETAMINOPHEN 325 MG TABLET PO PRN ×2 (05:30→11:00)
[2018-10-13] MEDS: IV D5/ 0.9% NACL 1,000 ML IV PRN (05:37)
--- NOTE | 2018-10-13 07:03 | NUR ---
ASSEMBLY CLEANER NOTES Called Dr. Angel to clarify regarding antibiotic Rocephin- patient is allergic to penicillin, Novolog- patient came in for hypoglycemia, and POLST- DNR but no physician's signature. Waiting for callback
--- NOTE | 2018-10-13 07:47 | NUR ---
SCREW EYE ASSEMBLER CLOSING NOTES Patient resting in bed. Breathing even and unlabored. Not in any distress. Peripheral IV infusing at 75mL/hr. On tele monitor- sinus alin 45. All needs attended to. Safety measures in place. Bed in low, locked position. Endorsed RUMA to DIMA Savage
[2018-10-13] MEDS: BLOOD SUGAR DIAGNOSTIC 1 EACH STRIP IN SCH ×6 (07:53→21:18)
--- NOTE | 2018-10-13 07:53 | NUR ---
RELIGION INSTRUCTOR OPENING NOTES RECEIVED PT RESTING COMFORTABLY IN BED. PT IS A/O X1, AROUSABLE TO TACTILE STIMULI. RESPIRATIONS ARE EVEN AND UNLABORED, NOT IN ANY ACUTE DISTRESS NOTED. NO FACIAL GRIMACING OR MOANING NOTED. IV SITE TO RAC INTACT, NO INFILTRATION NOTED. DRESSING KEPT CLEAN AND DRY. IV FLUIDS RUNNING AT 75ML/HR AND TOLERATING WELL. SAFETY MEASURES ARE IN PLACE. WILL MONITOR THROUGHOUT SHIFT FOR CONTINUITY OF CARE.
[2018-10-13] MEDS ORDERED: POTA10TA15 GT (07:58)
[2018-10-13] MEDS ORDERED: DORZ10DR11 EACHEYE (07:58)
[2018-10-13] MEDS ORDERED: MAGN400O6 GT (07:58)
[2018-10-13] MEDS ORDERED: AMIN30LI27 GT (07:58)
[2018-10-13 08:00] VITALS: BP 116/54
[2018-10-13] MEDS: PANTOPRAZOLE 40 MG TABLET.DR PO SCH (08:40)
[2018-10-13] MEDS ORDERED: INSULIN ASPART/LISPRO 100 UNIT/ML CARTRIDGE SQ SCH (09:00)
[2018-10-13] MEDS ORDERED: MAGNESIUM HYDROXIDE 30 ML UDC PO PRN (11:00)
[2018-10-13] MEDS ORDERED: NA PHOS,M-B/NA PHOS,DI-BA 1 EA ENEMA RC PRN (11:00)
[2018-10-13] MEDS ORDERED: BISACODYL SUPP (10 MG) 10 MG/SUPP.RECT SUPP.RECT RC PRN (11:00)
--- NOTE | 2018-10-13 11:00 | NUR ---
MS RN NOTES-- PT SEEN AND EXAMINED BY DR. BALDERAS, MED RECON REVIEW DONE.
[2018-10-13] MEDS: CHOLECALCIFEROL 1,000 UNIT TABLET (VIT D3) PO SCH (11:56)
[2018-10-13] MEDS ORDERED: BLOOD SUGAR DIAGNOSTIC 1 EACH STRIP IN SCH (12:00)
[2018-10-13] MEDS: BRIMONIDINE TARTRATE OPHT SOLN 5 ML BOTTLE EACHEYE SCH ×2 (12:03→16:21)
[2018-10-13] MEDS: TIMOLOL MAL/DORZOLAM HCL OPHTH 10 ML BOTTLE EACHEYE SCH ×2 (12:03→16:21)
[2018-10-13] MEDS: buPROPion SR 100 MG TABLET.ER PO SCH ×2 (12:17→21:07)
[2018-10-13] MEDS: CEFTRIAXONE 1 G in IV D5W 50 ML IV SCH (13:07)
--- NOTE | 2018-10-13 13:30 | NUR ---
MS RN NOTES-- RECEIVED NEW ORDERS PER DR. BALDERAS FOR MILD SLIDING SCALE ACHS.
[2018-10-13 15:57] VITALS: BP 119/61
[2018-10-13] MEDS: ASCORBIC ACID 500 MG TABLET PO SCH (16:20)
[2018-10-13] MEDS: CLOPIDOGREL BISULFATE 75 MG TABLET PO SCH (16:20)
[2018-10-13] MEDS: FUROSEMIDE 40 MG TABLET PO SCH (16:20)
[2018-10-13] MEDS: DONEPEZIL 5 MG TABLET PO SCH (16:20)
[2018-10-13] MEDS: INSULIN REGULAR, HUMAN 100 UNIT/ML 3 ML VIAL SQ PRN ×2 (16:38→21:21)
--- NOTE | 2018-10-13 18:32 | NUR ---
MS RN CLOSING NOTES ALL DUE MEDS GIVEN, NEEDS MET AND ANTICIPATED. PT IS MORE ALERT, A/O X2, AFEBRILE. RESPIRATIONS ARE EVEN AND UNLABORED, NOT IN ANY ACUTE DISTRESS NOTED. DENIES ANY PAIN AT THIS TIME, NO C/O SOB, N/V. IV SITE TO RAC INTACT, NO INFILTRATION NOTED. DRESSINGS KEPT CLEAN AND DRY. SAFETY MEASURES ARE IN PLACE. DTR AT BEDSIDE. REMINDED PT TO USE CALL LIGHT WHEN ASSISTANCE IS NEEDED, CALL LIGHT IS LEFT WITHIN REACH. WILL ENDORSE TO NEXT SHIFT FOR CONTINUITY OF CARE.
--- NOTE | 2018-10-13 19:48 | NUR ---
RN MS OPENING NOTES RECEIVED PT IN BED, WAKE ALERT ORIENTEDX 2, DAUGHTER AT BED SIDE. BREATHING EVEN AND UNLABORED ON ROOM AIR, NO COB NOTED, NO COUGH OR CONGESTION. IN NO APPARENT PAIN OR DISCOMFORT AT THE MOMENT. IV ACCESS ON THE L WRIST G24 AND R AC 18G WITH D5 NS @35ML/HR. BED IN LOWEST LOCKED POSITION, CALL LIGHT WITHIN REACH AT ALL TIMES. WILL CONTINUE TO MONITOR
[2018-10-13 20:00] VITALS: BP 103/55
[2018-10-13] MEDS: LATANOPROST EYE DROP 0.005% 2.5 ML BOTTLE EACHEYE SCH (21:07)
[2018-10-13] MEDS: GABAPENTIN 100 MG CAPSULE PO SCH (21:07)
[2018-10-14] MEDS: IV D5/ 0.9% NACL 1,000 ML IV PRN (04:42)
--- NOTE | 2018-10-14 06:22 | NUR ---
RN MS CLOSING NOTES PT REMAINS IN BED, WAKE ALERT ORIENTED X 2. BREATHING EVEN AND UNLABORED ON ROOM AIR, NO SOB NOTED, NO COUGH OR CONGESTION. IN NO APPARENT PAIN OR DISCOMFORT AT THE MOMENT. IV ACCESS ON THE L WRIST G24 AND R AC 18G WITH D5 NS @35ML/HR. BED IN LOWEST LOCKED POSITION, CALL LIGHT WITHIN REACH AT ALL TIMES. WILL WILL ENDORSE TO DAY NURSE FOR RUMA
[2018-10-14 06:30] LABS: BASOPHILS % (AUTO) 0.2 % (0.0-2.0); EOSINOPHILS % (AUTO) 0.7 % (0.0-6.0); HEMATOCRIT 33 % (33-45); HEMOGLOBIN 10.5 g/dL (11.5-14.8); LYMPHOCYTES # (AUTO) 1.3 /CMM (0.8-4.8); LYMPHOCYTES % (AUTO) 11.6 % (20.0-44.0); MEAN CORPUSCULAR HGB CONC 32 g/dl (31.0-36.0); MEAN CORPUSCULAR VOLUME 88 fL (82-100); MONOCYTES # (AUTO) 0.7 /CMM (0.1-1.30); MONOCYTES % (AUTO) 5.9 % (2.0-12.0); NEUTROPHILS # (AUTO) 9.2 /CMM (1.8-8.9); NEUTROPHILS % (AUTO) 81.6 % (43.0-81.0); PLATELET COUNT (AUTO) 293 /CMM (150-450); RED BLOOD CELL COUNT(AUTO) 3.74 MIL/uL (4.0-5.2); WHITE BLOOD COUNT (AUTO) 11.2 K/uL (4.3-11.0)
[2018-10-14 06:37] LABS: CALCIUM, SERUM 7.8 mg/dL (8.5-10.1); CARBON DIOXIDE 29 mmol/L (21-32); CHLORIDE 111 mmol/L (98-107); CREATININE 0.8 mg/dL (0.6-1.3); GLUCOSE 55 mg/dL (74-106); MAGNESIUM 2.1 mg/dL (1.8-2.4); POTASSIUM 4.2 mmol/L (3.5-5.1); SODIUM SERUM 144 mmol/L (136-145); UREA NITROGEN, BLOOD 20 mg/dL (7-18)
[2018-10-14] MEDS: DEXTROSE 50%-WATER 50 ML DISP.SYRIN IV PRN (06:37)
--- NOTE | 2018-10-14 07:15 | NUR ---
MS RN Opening Note Patient awake, resting in bed. Alert and oriented x2, able to make needs known verbally. Respirations even and unlabored on room air, no shortness of breath or congestion noted. No complaints of pain or discomfort at this time. Currently without peripheral IV access, multiple attempts at shift change but with no luck of reinsertion. Will ask MD for midline order. Current BS of 107. Fall and Safety precautions in place: bed in lowest and locked position, side rails up x2, bed alarm on, call light and personal possessions within reach. Reviewed plan of care and safety measures with patient, verbalized understanding. Will continue to monitor and intervene as needed.
[2018-10-14] MEDS: BLOOD SUGAR DIAGNOSTIC 1 EACH STRIP IN SCH ×4 (07:28→22:41)
--- NOTE | 2018-10-14 07:31 | NUR ---
BG OF 58, TRIED TO ADMINISTER DEXTROSE, BUT BOTH IV'S PULLED OUT, AFTER MULTIPLE ATTEMPTS, REINSERTION WAS UNSUCCESSFUL, GAVE PT ORANGE JUICE, RECHECK WAS 107. ENDORSE TO DAY NURSE THAT PT MAY REQUIRE MIDLINE, DAY NURSE TO OBTAIN MD ORDER.
[2018-10-14 08:00] VITALS: BP 108/60
[2018-10-14] MEDS: INSULIN GLARGINE, 100 UNIT/ML CARTRIDGE SQ SCH (08:00)
[2018-10-14] MEDS: RAMIPRIL 1.25 MG CAPSULE PO SCH (09:00)
[2018-10-14] MEDS: POTASSIUM CHLORIDE 10 MEQ TABLET.SA PO SCH (09:00)
[2018-10-14] MEDS ORDERED: METHYLPHENIDATE HCL (5MG) 5 MG TABLET PO SCH (09:00)
[2018-10-14] MEDS: BRIMONIDINE TARTRATE OPHT SOLN 5 ML BOTTLE EACHEYE SCH ×3 (09:05→17:39)
[2018-10-14] MEDS: TIMOLOL MAL/DORZOLAM HCL OPHTH 10 ML BOTTLE EACHEYE SCH ×3 (09:05→17:39)
[2018-10-14] MEDS: PANTOPRAZOLE 40 MG TABLET.DR PO SCH (09:06)
[2018-10-14] MEDS: MULTIVIT W/MINERALS 1 TAB TABLET PO SCH (09:06)
[2018-10-14] MEDS: ASCORBIC ACID 500 MG TABLET PO SCH ×2 (09:06→17:40)
[2018-10-14] MEDS: ZINC SULFATE 220 MG CAPSULE PO SCH (09:06)
[2018-10-14] MEDS: LEVOTHYROXINE SODIUM 75 MCG TABLET PO SCH (09:06)
[2018-10-14] MEDS: prednisoLONE ACETATE 1% SUSP 5 ML BOTTLE LEFTEYE SCH (09:13)
[2018-10-14] MEDS: buPROPion SR 100 MG TABLET.ER PO SCH ×2 (09:16→21:25)
[2018-10-14] MEDS: DONEPEZIL 5 MG TABLET PO SCH ×2 (09:16→17:35)
[2018-10-14] MEDS: FUROSEMIDE 40 MG TABLET PO SCH ×2 (09:17→17:35)
[2018-10-14] MEDS: CHOLECALCIFEROL 1,000 UNIT TABLET (VIT D3) PO SCH (09:17)
[2018-10-14] MEDS: INSULIN REGULAR, HUMAN 100 UNIT/ML 3 ML VIAL SQ PRN ×2 (11:57→17:34)
[2018-10-14 16:00] VITALS: BP 115/53
[2018-10-14] MEDS: CLOPIDOGREL BISULFATE 75 MG TABLET PO SCH (17:34)
[2018-10-14] MEDS: CEFTRIAXONE 1 G in IV D5W 50 ML IV SCH (17:56)
--- NOTE | 2018-10-14 18:30 | NUR ---
MS RN Closing Note Patient awake, resting in bed. Alert and oriented x2, able to make needs known verbally. Respirations even and unlabored on room air, no shortness of breath or congestion noted. No complaints of pain or discomfort at this time. Midline to the left upper arm 18 gauge, intact, patent and currently infusing Zosyn as ordered. Mild sliding scale insulin administered AC as ordered, monitored blood sugar throughout shift. Patient on bedpan x 3 this shift, no BM yet. Gave prune juice per the family to help assist in going. Patient currently clean, dry and comfortable. Fall and Safety precautions in place: bed in lowest and locked position, side rails up x2, bed alarm on, call light and personal possessions within reach. Reviewed plan of care and safety measures with patient and family, verbalized understanding. Family present at bedside. Will endorse to mining detail draftsperson RN for continuity of care.
[2018-10-14 20:00] VITALS: BP 117/61
--- NOTE | 2018-10-14 20:15 | NUR ---
RN MS OPENING NOTES RECEIVED PT IN BED, WAKE ALERT ORIENTEDX 2, DAUGHTER AT BED SIDE. BREATHING EVEN AND UNLABORED ON ROOM AIR, NO SOB NOTED, NO COUGH OR CONGESTION. IN NO APPARENT PAIN OR DISCOMFORT AT THE MOMENT. L UA MIDLINE #18 WITH D5 NS @35ML/HR. BED IN LOWEST LOCKED POSITION, CALL LIGHT WITHIN REACH AT ALL TIMES. WILL CONTINUE TO MONITOR
[2018-10-14] MEDS: GABAPENTIN 100 MG CAPSULE PO SCH (21:24)
[2018-10-14] MEDS: LATANOPROST EYE DROP 0.005% 2.5 ML BOTTLE EACHEYE SCH (22:41)
[2018-10-15] MEDS: BLOOD SUGAR DIAGNOSTIC 1 EACH STRIP IN SCH ×4 (06:22→21:50)
[2018-10-15] MEDS: INSULIN REGULAR, HUMAN 100 UNIT/ML 3 ML VIAL SQ PRN ×5 (06:36→22:09)
--- NOTE | 2018-10-15 07:24 | NUR ---
RN MS OPENING NOTES RECEIVED PATIENT AWAKE IN BED IN NO ACUTE SIGNS OF DISTRESS. HOB ELEVATED. A/O X2. [place] OF PICURIS AND THAI SPEAKING, DENIES PAIN OR ANY DISCOMFORTS AT THIS TIME. ON ROOM AIR, BREATHING EVEN AND UNLABORED. FLOR MIDLINE INTACT AND PATENT. ALL SAFETY MEASURES IN PLACE. BED IN LOWEST LOCKED POSITION WITH SR UP X2. CALL LIGHT WITHIN REACH. WILL CONTINUE TO MONITOR ACCORDINGLY
[2018-10-15] MEDS: PANTOPRAZOLE 40 MG TABLET.DR PO SCH (07:38)
[2018-10-15] MEDS: LEVOTHYROXINE SODIUM 75 MCG TABLET PO SCH (07:38)
[2018-10-15 07:46] LABS: BASOPHILS # (AUTO) 0.1 /CMM (0.0-0.2); BASOPHILS % (AUTO) 0.6 % (0.0-2.0); EOSINOPHILS % (AUTO) 0.5 % (0.0-6.0); HEMATOCRIT 34 % (33-45); LYMPHOCYTES # (AUTO) 1.4 /CMM (0.8-4.8); LYMPHOCYTES % (AUTO) 12.1 % (20.0-44.0); MEAN CORPUSCULAR HGB CONC 32 g/dl (31.0-36.0); MEAN CORPUSCULAR VOLUME 88 fL (82-100); MONOCYTES # (AUTO) 0.6 /CMM (0.1-1.30); NEUTROPHILS # (AUTO) 9.5 /CMM (1.8-8.9); NEUTROPHILS % (AUTO) 81.8 % (43.0-81.0); PLATELET COUNT (AUTO) 274 /CMM (150-450); RED BLOOD CELL COUNT(AUTO) 3.92 MIL/uL (4.0-5.2); WHITE BLOOD COUNT (AUTO) 11.6 K/uL (4.3-11.0)
[2018-10-15 08:00] VITALS: BP 98/53
[2018-10-15 08:05] LABS: CALCIUM, SERUM 8.2 mg/dL (8.5-10.1); CARBON DIOXIDE 30 mmol/L (21-32); CHLORIDE 104 mmol/L (98-107); CREATININE 1.1 mg/dL (0.6-1.3); POTASSIUM 4.5 mmol/L (3.5-5.1); SODIUM SERUM 139 mmol/L (136-145); UREA NITROGEN, BLOOD 21 mg/dL (7-18)
[2018-10-15 08:16] LABS: GLUCOSE 380 mg/dL (74-106)
[2018-10-15] MEDS: INSULIN GLARGINE, 100 UNIT/ML CARTRIDGE SQ SCH ×3 (08:18→17:00)
[2018-10-15] MEDS: RAMIPRIL 1.25 MG CAPSULE PO SCH (09:00)
[2018-10-15] MEDS: POTASSIUM CHLORIDE 10 MEQ TABLET.SA PO SCH (09:00)
[2018-10-15] MEDS: ASCORBIC ACID 500 MG TABLET PO SCH ×2 (09:00→16:51)
[2018-10-15] MEDS: DONEPEZIL 5 MG TABLET PO SCH ×2 (09:01→16:51)
[2018-10-15] MEDS: FUROSEMIDE 40 MG TABLET PO SCH ×2 (09:01→16:51)
[2018-10-15] MEDS: MULTIVIT W/MINERALS 1 TAB TABLET PO SCH (09:01)
[2018-10-15] MEDS: CHOLECALCIFEROL 1,000 UNIT TABLET (VIT D3) PO SCH (09:01)
[2018-10-15] MEDS: buPROPion SR 100 MG TABLET.ER PO SCH ×2 (09:02→21:49)
[2018-10-15] MEDS: TIMOLOL MAL/DORZOLAM HCL OPHTH 10 ML BOTTLE EACHEYE SCH ×3 (09:02→16:52)
[2018-10-15] MEDS: BRIMONIDINE TARTRATE OPHT SOLN 5 ML BOTTLE EACHEYE SCH ×3 (09:02→16:51)
[2018-10-15] MEDS: prednisoLONE ACETATE 1% SUSP 5 ML BOTTLE LEFTEYE SCH (09:03)
--- NOTE | 2018-10-15 09:18 | NUR ---
RN NOTES INFORMED DR BALDERAS REGARDING CRITICAL HIGH BLOOD SUGAR LEVEL OF 380. HE CAME TO UNIT TO ASSESSED AND TALKED TO PT WITH ORDER TO GIVE ANOTHER 6U OF LANTUS @ 0900 AND CHECKED BLOOD SUGAR AGAIN AND WAS 288MG/DL. HE SAID TO GIVE COVERAGE PER SLIDING SCALE. 6U OF HUMULIN R ADMINISTERED. WILL CONTINUE TO MONITOR.
[2018-10-15] MEDS: ZINC SULFATE 220 MG CAPSULE PO SCH (09:23)
[2018-10-15] MEDS ORDERED: FEE PK DOSING 1 MIN EA MC ONE (11:45)
[2018-10-15] MEDS: NYSTATIN/TRIAMCIN CREAM 15 GM TUBE TP SCH (12:52)
[2018-10-15] MEDS ORDERED: VANCOMYCIN 0.75 GM in IV D5W 250 ML IV SCH (13:00)
[2018-10-15 16:00] VITALS: BP 101/56
[2018-10-15] MEDS: CLOPIDOGREL BISULFATE 75 MG TABLET PO SCH (16:51)
--- NOTE | 2018-10-15 17:01 | NUR ---
RN NOTES PT FOR DISCHARGE WILTONIGHT TO [facility], CALLED AND REPORT GIVEN TO NURSE TRICOT KNITTER DANIA AND STATED THE PT WILL GO TO RM 22A. PT'S DAUGHTER AQUILINO OLVERA CALLED AND INFORMED THAT HER MOM WILL BE TRANSFERRED BACK TO [facility] AT 1999. WILL CONTINUE TO MONITOR.
[2018-10-15] MEDS: DEXTROSE 50%-WATER 50 ML DISP.SYRIN IV PRN (17:27)
--- NOTE | 2018-10-15 17:57 | NUR ---
RN NOTES PATIENT NIOTED THIS AFTERNOON WITH LOW B/S 25mg/dl, RECHECKED AND WAS 41mg/dL. D 50 IV ADMINISTERED AND GAVE PT'S HER DINNER TRAY. RECCHECKED BS AGAIN AND NOW 275 mg/dl. CALLED AND LEFT MESSAGE TO DR CHACON. AWAITING FOR RESPONSE. PT REMAINS ALERT WITH NO S/S OF HYPOGLYCEMIA. WILL CONTINUE TO MONITOR.
--- NOTE | 2018-10-15 18:33 | NUR ---
RN NOTES DR BALDERAS CALLED BACK AND INFORMED HIM OF PT'S CURRENT B/S AND STATUS WITH ORDER TO HOLD DISCHARGE TONIGHT TO [facility]. DAUGHTER AQUILINO CALLED/INFORMED AND VERBALIZED UNDERSTANDING. WILL CONTINUE TO MONITOR.
--- NOTE | 2018-10-15 18:57 | NUR ---
MS RN CLOSING NOTES PATIENT AWAKE AND RESTING COMFORTABLY AT MODERATE HIGH BACKREST POSITION. A/O X2. [place] AND OCCITAN SPEAKING. DIABETIC STATUS CLOSELY MONITORED. ON ROOM AIR, BREATHING EVEN AND UNLABORED. FLOR MIDLINE INTACT AND PATENT. ALL NEEDS AND CARE ATTENDED WELL. ALL SAFETY MEASURES KEPT IN PLACE. BED IN LOWEST LOCKED POSITION WITH SR UP X2. CALL LIGHT WITHIN REACH. WILL ENDORSE TO RAILROAD REPAIRER NURSE FOR RUMA.
--- NOTE | 2018-10-15 19:30 | NUR ---
MS/RN OPENING NOTES PT RESTING COMFORTABLY IN BED. HOB ELEVATED. DAUGHTER AT BEDSIDE. ON ROOM AIR, BREATHING EVEN AND UNLABORED. IN NO ACUTE DISTRESS. FLOR MIDLINE PATENT AND INTACT. DC HELD TODAY DUE TO BLOOD SUGAR DROPPING IN AFTERNOON. DAUGHTER AWARE. BED IN LOW/LOCKED POSITION WITH CALL LIGHT IN REACH, SIDE RAILS UPX2. WILL CONTINUE TO MONITOR
[2018-10-15 20:00] VITALS: BP_SYST 110; BP_SYST 111; BP_DIAS 50; BP_DIAS 56
--- NOTE | 2018-10-15 21:14 | NUR ---
MS/RN NOTES PT MOVED TO ROOM 321-2 IN STABLE CONDITION. AQUILINO (DAUGHTER) AT BEDSIDE
[2018-10-15] MEDS: LATANOPROST EYE DROP 0.005% 2.5 ML BOTTLE EACHEYE SCH (21:50)
[2018-10-15] MEDS: GABAPENTIN 100 MG CAPSULE PO SCH (21:50)
--- NOTE | 2018-10-15 22:09 | NUR ---
ANITA FROM [facility] CALLING REGARDING PT AND REASON WHY PT IS NOT ANTICIPATED TO BE DISCHARGED THERESE. INFORMED HER THAT PLAN WAS TO DISCHARGE TODAY HOWEVER PT HAD A CHANGE OF CONDITION IN THE AFTERNOON AND WAS ASKED TO BE KEPT OVERNIGHT PER MD.
[2018-10-16] MEDS: NYSTATIN/TRIAMCIN CREAM 15 GM TUBE TP SCH ×2 (00:51→12:12)
--- NOTE | 2018-10-16 05:57 | NUR ---
MS/RN NOTES DR. BALDERAS AT BEDSIDE FOR ASSESSMENT. AWARE OF INSULIN BEING HELD LAST NIGHT. PT OKAY TO BE DISCHARGED TODAY. WILL PRESCRIBE ORAL BACTRIM FOR MRSA URINE AND CHANGE DOSE OF LANTUS.
[2018-10-16] MEDS ORDERED: SULFAMETH/TRIMETH 800/160 MG 1 UDTAB TABLET PO SCH ×2 (06:00→18:00)
[2018-10-16] MEDS: BLOOD SUGAR DIAGNOSTIC 1 EACH STRIP IN SCH ×3 (06:32→17:07)
--- NOTE | 2018-10-16 06:58 | NUR ---
WOUND CARE CONSULT WOUND CARE RECEIVED CONSULT FOR SKIN ISSUES. WOUND CARE WILL DEFER CONSULT AND TREATMENT PLANS TO PLASTIC SURGICAL TEAM WHO ARE CURRENTLY FOLLOWING THIS PATIENT. PATIENT WITH CARMINE AT 14, ALL PRESSURE ULCER PREVENTION MEASURES ARE CURRENTLY IN PLACE. WILL SEE PRN.
[2018-10-16] MEDS ORDERED: Z GUARD REMEDY 2 OZ OINT TP PRN (07:00)
[2018-10-16] MEDS: INSULIN REGULAR, HUMAN 100 UNIT/ML 3 ML VIAL SQ PRN ×3 (07:02→18:00)
--- NOTE | 2018-10-16 07:30 | NUR ---
MS/RN CLOSING NOTES PT RESTING COMFORTABLY IN BED. ON ROOM AIR, BREATHING EVEN AND UNLABORED. IN NO ACUTE DISTRESS. FLOR MIDLINE PATENT AND INTACT. SLEPT WELL DURING SHIFT. NO SIGNIFICANT CHANGES OVERNIGHT. PLAN FOR DC TODAY. BED IN LOW/LOCKED POSITION WITH CALL LIGHT IN REACH, SIDE RAILS UPX2. ENDORSED TO DAY SHIFT RN RUMA.
--- NOTE | 2018-10-16 07:31 | NUR ---
MS/RN OPENING NOTE PATIENT IN BED IN STABLE CONDITION. A/O X 2. NO SIGNS OF ACUTE DISTRESS. NO COMPLAIN OF PAIN OR DISCOMFORT. ALL NEEDS ATTENDED TO. CALL LIGHT WITHIN REACH. WILL CONTINUE TO MONITOR TO ENSURE SAFETY.
[2018-10-16 07:50] LABS: CALCIUM, SERUM 8.3 mg/dL (8.5-10.1); CARBON DIOXIDE 33 mmol/L (21-32); CHLORIDE 105 mmol/L (98-107); GLUCOSE 251 mg/dL (74-106); POTASSIUM 4.2 mmol/L (3.5-5.1); SODIUM SERUM 141 mmol/L (136-145); UREA NITROGEN, BLOOD 17 mg/dL (7-18)
[2018-10-16] MEDS: TIMOLOL MAL/DORZOLAM HCL OPHTH 10 ML BOTTLE EACHEYE SCH ×3 (08:23→17:07)
[2018-10-16] MEDS: BRIMONIDINE TARTRATE OPHT SOLN 5 ML BOTTLE EACHEYE SCH ×3 (08:23→17:06)
[2018-10-16] MEDS: FUROSEMIDE 40 MG TABLET PO SCH ×2 (08:24→17:07)
[2018-10-16] MEDS: DONEPEZIL 5 MG TABLET PO SCH ×2 (08:24→17:07)
[2018-10-16] MEDS: LEVOTHYROXINE SODIUM 75 MCG TABLET PO SCH (08:24)
[2018-10-16] MEDS: CHOLECALCIFEROL 1,000 UNIT TABLET (VIT D3) PO SCH (08:24)
[2018-10-16] MEDS: prednisoLONE ACETATE 1% SUSP 5 ML BOTTLE LEFTEYE SCH (08:24)
[2018-10-16] MEDS: RAMIPRIL 1.25 MG CAPSULE PO SCH (08:24)
[2018-10-16] MEDS: MULTIVIT W/MINERALS 1 TAB TABLET PO SCH (08:25)
[2018-10-16] MEDS: ASCORBIC ACID 500 MG TABLET PO SCH ×2 (08:25→17:07)
[2018-10-16] MEDS: buPROPion SR 100 MG TABLET.ER PO SCH (08:25)
[2018-10-16] MEDS: POTASSIUM CHLORIDE 10 MEQ TABLET.SA PO SCH (08:25)
[2018-10-16] MEDS: PANTOPRAZOLE 40 MG TABLET.DR PO SCH (08:25)
[2018-10-16] MEDS: ZINC SULFATE 220 MG CAPSULE PO SCH (08:25)
[2018-10-16] MEDS: INSULIN GLARGINE, 100 UNIT/ML CARTRIDGE SQ SCH ×2 (08:38→17:19)
[2018-10-16] MEDS ORDERED: Z GUARD REMEDY 2 OZ OINT TP SCH (09:00)
[2018-10-16 17:04] VITALS: BP 117/79
[2018-10-16] MEDS: CLOPIDOGREL BISULFATE 75 MG TABLET PO SCH (17:07)
--- NOTE | 2018-10-16 18:36 | NUR ---
MS/MAILROOM ASSOCIATE PATIENT DISCHARGE TO [facility] IN STABLE CONDITION. A/O X 2, [place]. NO SIGNS OF ACUTE DISTRESS. NO COMPLAIN OF PAIN OR DISCOMFORT. DISCHARGE EDUCATION AND TEACHINGS PROVIDED, UNABLE TO COMPREHEND. REPORT GIVEN TO DANIA CH FROM SNF. NAME BAND AND IV LINE REMOVED. ALL NEEDS ATTENDED TO. DAUGHTER AT BEDSIDE LEFT IN STABLE CONDITION ACCOMPANIED BY 2 ADVERTISING SALES ASSOCIATE [employer]IA [employer].
== END 2018-10-16 18:30 | DRG 637 ==
LOC: ER 02:04 → TELE 04:20 → MED 10:53
PROVIDERS: ADMIT Legal Medicine; ATTEND Legal Medicine
PROC: 05H633Z Insertion of Infusion Device into Left Subclavian Vein, Percutaneous Approach (ICD-10-PCS; principal; 2018-10-14)
PROC: B547ZZA Ultrasonography of Left Subclavian Vein, Guidance (ICD-10-PCS; 2018-10-14)
DX: E11.649 Type 2 diabetes mellitus with hypoglycemia without coma (principal); G93.41 Metabolic encephalopathy; N39.0 Urinary tract infection, site not specified; L30.4 Erythema intertrigo; S50.812A Abrasion of left forearm, initial encounter; F02.80 Dementia in other diseases classified elsewhere, unspecified severity, without behavioral disturbance, psychotic disturbance, mood disturbance, and anxiety; G30.9 Alzheimer's disease, unspecified; E11.40 Type 2 diabetes mellitus with diabetic neuropathy, unspecified; I11.0 Hypertensive heart disease with heart failure; I50.9 Heart failure, unspecified
CPT/HCPCS: 36415; 36569; 70450-TC; 71045-TC; 80048-TC; 80076-TC; 80305; 81000-TC; 82947-TC; 82962-TC; 83605-TC; 83735-TC; 84484-TC; 85025-TC; 87040-TC; 87081-TC; 87086-TC; 97110-TC; 97116-TC; 97530-TC; A4216; G0378; J0696; J0744; J1815; J3370; J7030; J7042; J7060

== ENCOUNTER 2018-11-09 18:37 | Inpatient (IN) | payer OTHER ==
[~2018-11-09] VITALS: Ht 165.1 cm; Wt 52.6 kg
[2018-11-09] VITALS (8 sets, daily range): BP systolic 67–179; BP diastolic 38–66
[~2018-11-09 18:37] MED LIST changes: +AMIN30LI27 GT; +ARGI1POW13 PO; +ASCO500T9 GT; +BISA10SU61 RC; +CHOL200026 GT; +CHOL200026 PO; +CRAN3875 PO; -DORZ10DR10 EACHEYE; +DORZ10DR11 EACHEYE; -FURO20TA4 PO; +FURO40TA5 PO; +HEPA0.5D3 SQ; +INSU100V7 SQ; +IPRA3AMP23 IH; +LEVO750T21 PO; +MAGN400O6 GT; +MULT-1185 GT; +NA P133E RC; -POTA-10 PO; +POTA10TA15 GT; +PRED20TA PO; +PRED5TAB48 PO; +TYL2T GT; +ZINC220C6 GT
[2018-11-09] MEDS ORDERED: METO-295 GT (19:19)
[2018-11-09] MEDS ORDERED: ONDA4TAB5 PO (19:19)
[2018-11-09] MEDS ORDERED: PANT40TA2 PO (19:19)
--- NOTE | 2018-11-09 19:19 | NUR ---
PT LUZ MARINA FROM HOME, PER REPORT LETHARGIC AND MORE ALTERED SINCE D/C FROM REHAB 3 DAYS AGO. BG 362 CANNERY WORKER. PT AOX0. NAD NOTED. PT UNABLE TO VERBALIZE NEEDS. PT ON MONITOR IN BED 8 WITH DAUGHTER AT BEDSIDE. WILL CONTINUE TO MONITOR.
--- NOTE | 2018-11-09 19:20 | NUR ---
BLOOD DRAWN AND GIVEN TO LAB
--- NOTE | 2018-11-09 19:22 | NUR ---
TECH AT BEDSIDE FOR EKG
[2018-11-09 19:28] LABS: BASOPHILS % (AUTO) 0.4 % (0.0-2.0); LYMPHOCYTES # (AUTO) 1.1 /CMM (0.8-4.8); MONOCYTES # (AUTO) 0.5 /CMM (0.1-1.30)
[2018-11-09] MEDS ORDERED: IV NS 0.9% 1,000 ML BAG IV ONE ×2 (19:30→20:00)
[2018-11-09 19:31] LABS: EOSINOPHILS % (AUTO) 0.3 % (0.0-6.0); HEMATOCRIT 37 % (33-45); HEMOGLOBIN 11.2 g/dL (11.5-14.8); LYMPHOCYTES % (AUTO) 12.3 % (20.0-44.0); MEAN CORPUSCULAR HGB CONC 31 g/dl (31.0-36.0); MEAN CORPUSCULAR VOLUME 93 fL (82-100); MONOCYTES % (AUTO) 5.8 % (2.0-12.0); NEUTROPHILS # (AUTO) 7.2 /CMM (1.8-8.9); NEUTROPHILS % (AUTO) 81.2 % (43.0-81.0); PLATELET COUNT (AUTO) 168 /CMM (150-450); RED BLOOD CELL COUNT(AUTO) 3.91 MIL/uL (4.0-5.2); WHITE BLOOD COUNT (AUTO) 8.9 K/uL (4.3-11.0)
[2018-11-09] MEDS ORDERED: ATROPINE SULFATE INJ 1 MG/ML VIAL ONE (19:36)
[2018-11-09] MEDS ORDERED: ATROPINE SULFATE 1 MG/10 ML DISP.SYRIN ONE (19:38)
[2018-11-09 19:46] LABS: ALANINE AMINOTRANSFERASE 45 U/L (12-78); ALKALINE PHOSPHATASE 186 U/L (46-116); ASPARTATE AMINOTRANSFERASE 35 U/L (15-37); BILIRUBIN,TOTAL 0.1 mg/dL (0.2-1.0); CALCIUM, SERUM 9.2 mg/dL (8.5-10.1); CARBON DIOXIDE 28 mmol/L (21-32); CREATININE 1.4 mg/dL (0.6-1.3); GLUCOSE 252 mg/dL (74-106); POTASSIUM 4.8 mmol/L (3.5-5.1); TOTAL PROTEIN, SERUM 5.6 g/dL (6.4-8.2); UREA NITROGEN, BLOOD 72 mg/dL (7-18)
--- NOTE | 2018-11-09 19:46 | NUR ---
CALLED FOR ICU BED
[2018-11-09 19:49] LABS: CHLORIDE 129 mmol/L (98-107); SODIUM SERUM 162 mmol/L (136-145)
[2018-11-09] MEDS ORDERED: LORAZEPAM INJ 2 MG/ML VIAL ONE (19:51)
[2018-11-09] MEDS ORDERED: NOREPINEPHRINE 8 MG in IV D5W 500 ML IV ONE (20:00)
[2018-11-09] MEDS ORDERED: ATROPINE SULFATE 1 MG/10 ML DISP.SYRIN IV ONE (20:00)
[2018-11-09 20:02] LABS: T4 (THYROXINE) 8.3 ug/dL (4.7-13.3); THYROID STIMULATING HORMONE 3.019 uIU/mL (0.358-3.74)
--- NOTE | 2018-11-09 20:02 | NUR ---
CALLED SHER[facility]E [phone] ---> CALL EPIC
[2018-11-09] MEDS ORDERED: VANCOMYCIN 1 GM VIAL ONE (20:13)
[2018-11-09] MEDS ORDERED: VANCOMYCIN 1 GM in IV D5W 250 ML IV ONE (20:30)
--- NOTE | 2018-11-09 20:30 | NUR ---
BED 256
--- NOTE | 2018-11-09 20:45 | NUR ---
PICCLINE NURSE AT BEDSIDE
[2018-11-09] MEDS ORDERED: LORAZEPAM INJ 2 MG/ML VIAL IV ONE (21:00)
[2018-11-09] MEDS ORDERED: IV NS 0.9% 1,000 ML IV PRN (21:17)
[2018-11-09] MEDS ORDERED: DEXTROSE 50%-WATER 50 ML DISP.SYRIN IV PRN (21:30)
[2018-11-09] MEDS ORDERED: ACETAMINOPHEN 650 MG/SUPP.RECT RC PRN (21:30)
[2018-11-09] MEDS ORDERED: ONDANSETRON HCL/PF 4 MG/2 ML VIAL IVP PRN (21:30)
[2018-11-09] MEDS ORDERED: MAG HYDROX/AL HYDROX/SIMETH 30 ML UDC PO PRN (21:30)
--- NOTE | 2018-11-09 22:02 | NUR ---
REPORT GIVEN TO DIMA MCDOWELL FOR RUMA
--- NOTE | 2018-11-09 22:30 | NUR ---
CHEMICAL UNIT OPERATOR: PT ADMITTED FROM ER VIA [facility] FOR DX OF POSSIBLE SEPSIS WT HYPOTENSION AND BRADYCARDIA. PT IS ALERT TO SELF, UNABLE TO TALK CLEARLY OR FOLLOW COMMANDS. SR WT HR IN THE 40s-50s. UNABLE TO GET TEMP VIA ORAL OR RECTAL AND WILL CONTINUE WARMING MEASURES/ WT SHAKIR HUGGER. 02 SAT IS LOW PT IS COLD TO TOUCH WT NOT GOOD WAVEFORM ON MONITOR BUT IN NO DISTRESS ON ROOM AIR. RECEIVED ON LEVOPHED AT4MCG/MIN FOR BP SUPPORT. NO S/S OF PICC LINE COMPLICATIONS/IV SITES INFILTRATIONS. F/C PATENT AND INTACT DRAINING CLOUDY YELLOW URINE TO GRAVITY. WT EPISODES OF RESTLESSNESS, REORIENTED TO REALITY WT MINIMAL HELP. SAFETY PRECAUTION AND FREQUENT VISUAL CHECKS PERFORMED. WILL CONTINUE TO MONITOR.
[2018-11-09 22:37] LABS: APPEARANCE,URINE TURBID (CLEAR); COLOR,URINE YELLOW (YELLOW); PROTEIN,URINE 2+ mg/dl (NEGATIVE)
[2018-11-09 22:38] LABS: BILIRUBIN,URINE NEGATIVE (NEGATIVE); BLOOD, URINE 3+ Ery/uL (NEGATIVE); KETONES,URINE TRACE (NEGATIVE); UGLUCOSE NEGATIVE (NEGATIVE); UROBILINOGEN,URINE 0.2 EU/dL (0.2)
[2018-11-09 22:39] LABS: LEUKOCYTE ESTERASE ,URINE 3+ (NEGATIVE); NITRITE, URINE NEGATIVE (NEGATIVE)
[2018-11-09] MEDS: NOREPINEPHRINE 8 MG in IV D5W 500 ML IV PRN (22:40)
[2018-11-09 22:46] LABS: BACTERIA,URINE 2+ /HPF (None Seen); RBC,URINE 21-50 /HPF (0-2); SQUAMOUS EPITHELIAL CELL,UR Few /HPF (None Seen); WBC,URINE 81-100 /HPF (0-3); YEAST,URINE Many /HPF (None Seen)
--- NOTE | 2018-11-09 23:44 | NUR ---
ENGLISH TUTOR: CLARIFIED WT RJ, CARBURETOR REPAIRER IF STILL WANTS TO CONTINUE WT NS AT 125ML/HR AND STATED "YES, BECAUSE PT IS DRY AND IT'S IN MY NOTES". PHARMACY MADE AWARE.
[2018-11-10] VITALS (76 sets, daily range): BP systolic 77–138; BP diastolic 18–68
[2018-11-10] MEDS: BLOOD SUGAR DIAGNOSTIC 1 EACH STRIP IN SCH ×5 (00:03→23:44)
[2018-11-10] MEDS: INSULIN REGULAR, HUMAN 100 UNIT/ML 3 ML VIAL SQ PRN ×3 (00:09→23:48)
[2018-11-10 05:13] LABS: BASOPHILS % (AUTO) 0.3 % (0.0-2.0); EOSINOPHILS % (AUTO) 0.1 % (0.0-6.0); HEMATOCRIT 31 % (33-45); HEMOGLOBIN 9.9 g/dL (11.5-14.8); LYMPHOCYTES # (AUTO) 0.8 /CMM (0.8-4.8); LYMPHOCYTES % (AUTO) 8.9 % (20.0-44.0); MEAN CORPUSCULAR HGB CONC 32 g/dl (31.0-36.0); MEAN CORPUSCULAR VOLUME 91 fL (82-100); MONOCYTES # (AUTO) 0.5 /CMM (0.1-1.30); NEUTROPHILS # (AUTO) 7.8 /CMM (1.8-8.9); NEUTROPHILS % (AUTO) 85.7 % (43.0-81.0); PLATELET COUNT (AUTO) 158 /CMM (150-450); RED BLOOD CELL COUNT(AUTO) 3.37 MIL/uL (4.0-5.2); WHITE BLOOD COUNT (AUTO) 9.2 K/uL (4.3-11.0)
--- NOTE | 2018-11-10 05:15 | NUR ---
POWER HAMMER OPERATOR: CLARIFIED WT RJ, CHEST PAINTING LEADER IF STILL WANT UA PROFILE SPECIMEN WAS COLLECTED WT RESULTS FROM ER AND STARTED ON VANCO IV. DNP SAID NO NEED TO COLLECT ANOTHER SPECIMEN. [facility] SALES MARKET LEADER MADE AWARE.
[2018-11-10 05:20] LABS: CARBON DIOXIDE 26 mmol/L (21-32); GLUCOSE 55 mg/dL (74-106); MAGNESIUM 2.1 mg/dL (1.8-2.4); PHOSPHORUS 2.2 mg/dL (2.5-4.9); POTASSIUM 4.2 mmol/L (3.5-5.1); UREA NITROGEN, BLOOD 58 mg/dL (7-18)
[2018-11-10 05:22] LABS: SODIUM SERUM 165 mmol/L (136-145)
[2018-11-10 05:23] LABS: CHLORIDE 132 mmol/L (98-107)
[2018-11-10] MEDS: IV D5/0.45 NACL 1,000 ML IV PRN ×3 (06:00→23:45)
--- NOTE | 2018-11-10 06:40 | NUR ---
COGNOS: RELAYED SERUM, PLRW=183 TO RJ, HEALTH SCIENCES DEPARTMENT CHAIR WT NO NEW ORDER AT THIS TIME. PT NOW ON D5 1/2 NS AT 125ML/HR, COLLECTED URINE SPECIMEN AND CALLED LAB FOR URINE, NA AND URINE OSMO. AWAITING FOR ELEMENTARY SUMMER SCHOOL TEACHER. LAST BS RESULT AT 155 AFTER GIVEN D50. STILL ON LEVOPHED AT 6 MCG/MIN FOR BP SUPPORT. SR ON CATTLE BROKER SINCE 0100. REMAINED ON R/A WT NO ACUTE DISTRESS. SAFETY PRECAUTION NOTED AT ALL TIMES.
[2018-11-10] MEDS ORDERED: PANTOPRAZOLE 40 MG VIAL IV SCH (07:30)
--- NOTE | 2018-11-10 07:30 | NUR ---
ICU/RN: Pt received, no distress, breathing even and unlabored, awakens to name and touch. On Rosalino-hugger; removed, pt now normothermic. IVF infusing well. FC draining to gravity. Will cont to monitor pt status.
[2018-11-10] MEDS ORDERED: FEE PK DOSING 1 MIN EA MC ONE (07:51)
[2018-11-10 08:16] LABS: OSMOLALITY,URINE 446 mOS/kg (340-1090)
[2018-11-10] MEDS: HYDROCORTISONE SOD SUCCINATE 100 MG/2 ML VIAL IV SCH ×3 (08:24→17:00)
[2018-11-10 08:27] LABS: URINE SODIUM, RANDOM 14 mmol/l (40-220)
--- NOTE | 2018-11-10 10:00 | NUR ---
ICU/RN: Dr Curt jasso; updated on pt status. New orders noted and carried out.
[2018-11-10] MEDS ORDERED: PIPERACILLIN /TAZOBACTAM 3.375 G in IV D5W 100 ML IV SCH (11:00)
[2018-11-10] MEDS ORDERED: PIPERACILLIN /TAZOBACTAM 3.375 G in IV D5W 50 ML IV SCH (12:00)
[2018-11-10] MEDS: MEROPENEM 500 MG in IV NS 0.9% 100 ML IV SCH (12:42)
[2018-11-10] MEDS: NOREPINEPHRINE 8 MG in IV D5W 500 ML IV PRN (13:21)
[2018-11-10] MEDS ORDERED: DOSE PER PHARMACY MICAFUNGIN 1 EA XX PRN (14:30)
--- NOTE | 2018-11-10 14:30 | NUR ---
ICU/RN: ALTHEA Guerrier at bedside; updated on pt status, per PRODUCTION SUPPORT ANALYST okay to continue eye drops from home. Labs discussed. Informed med rec still pending. Awaiting orders.
[2018-11-10] MEDS: VANCOMYCIN 500 MG in IV D5W 100 ML IV SCH (15:30)
--- NOTE | 2018-11-10 15:30 | NUR ---
ICU/RN: PT HOME MEDS (EYE DROPS) SENT TO PHARMACY
[2018-11-10] MEDS: BRIMONIDINE TARTRATE OPHT SOLN 5 ML BOTTLE EACHEYE SCH (16:30)
[2018-11-10] MEDS: Z GUARD REMEDY 2 OZ OINT TP SCH (16:30)
[2018-11-10] MEDS: POLYVINYL ALCOHOL 15 ML BOTTLE EACHEYE PRN (16:30)
[2018-11-10] MEDS: MICAFUNGIN SODIUM 100 MG in IV NS 0.9% 100 ML IV SCH (17:00)
[2018-11-10] MEDS: TIMOLOL MAL/DORZOLAM HCL OPHTH 10 ML BOTTLE EACHEYE SCH (17:00)
[2018-11-10] MEDS: NYSTATIN/TRIAMCIN CREAM 15 GM TUBE TP SCH (17:13)
--- NOTE | 2018-11-10 19:30 | NUR ---
SALESPERSON BOOKS: RECEIVED PT ALERT TO SELF, UNABLE TO FOLLOW COMMANDS. ON ROOM AIR WT NO ACUTE DISTRESS. NO EVIDENCE OF DISCOMFORT. NSR ON INSURANCE BILLING SPECIALIST. TEMP. WNL. CONTINUE ON LEVOPHED AT 5MCG/MIN FOR BP SUPPORT AND D5 1/2 NS AT 125ML/HR. NO S/S OF PICC LINE COMPLICATIONS OR IV INFILTRATIONS. F/C INTACT AND PATENT DRAINING CLEAR YELLOW URINE TO GRAVITY. HOB ON SEMI-BEY'S, BED LOCKED AND IN LOW POSITION WT UPPER SIDE RAILS UP. WILL CONTINUE TO MONITOR FOR ANY CHANGE OF CONDITION.
[2018-11-10] MEDS: LATANOPROST EYE DROP 0.005% 2.5 ML BOTTLE EACHEYE SCH (21:37)
[2018-11-11] VITALS (97 sets, daily range): BP systolic 77–127; BP diastolic 36–76
[2018-11-11] MEDS: MEROPENEM 500 MG in IV NS 0.9% 100 ML IV SCH ×2 (00:03→12:03)
--- NOTE | 2018-11-11 03:00 | NUR ---
HISTORICAL ARCHEOLOGIST: PLACED BACK ON SHAKIR HUGGER FOR TEMP. 96.3. WILL CONTINUE TO MONITOR. NO ACUTE DISTRESS, NO EVIDENCE OF DISCOMFORT.
[2018-11-11 04:41] LABS: BASOPHILS % (AUTO) 0.1 % (0.0-2.0); HEMATOCRIT 29 % (33-45); HEMOGLOBIN 9.3 g/dL (11.5-14.8); LYMPHOCYTES # (AUTO) 1.1 /CMM (0.8-4.8); LYMPHOCYTES % (AUTO) 6.6 % (20.0-44.0); MEAN CORPUSCULAR HGB CONC 32 g/dl (31.0-36.0); MEAN CORPUSCULAR VOLUME 91 fL (82-100); MONOCYTES # (AUTO) 0.5 /CMM (0.1-1.30); MONOCYTES % (AUTO) 3.2 % (2.0-12.0); NEUTROPHILS # (AUTO) 14.8 /CMM (1.8-8.9); NEUTROPHILS % (AUTO) 90.1 % (43.0-81.0); PLATELET COUNT (AUTO) 137 /CMM (150-450); RED BLOOD CELL COUNT(AUTO) 3.25 MIL/uL (4.0-5.2); WHITE BLOOD COUNT (AUTO) 16.4 K/uL (4.3-11.0)
[2018-11-11 04:56] LABS: CALCIUM, SERUM 7.5 mg/dL (8.5-10.1); CARBON DIOXIDE 22 mmol/L (21-32); CHLORIDE 125 mmol/L (98-107); GLUCOSE 295 mg/dL (74-106); MAGNESIUM 1.9 mg/dL (1.8-2.4); PHOSPHORUS 2.3 mg/dL (2.5-4.9); POTASSIUM 3.3 mmol/L (3.5-5.1); UREA NITROGEN, BLOOD 38 mg/dL (7-18)
[2018-11-11 05:24] LABS: SODIUM SERUM 157 mmol/L (136-145)
[2018-11-11] MEDS: BLOOD SUGAR DIAGNOSTIC 1 EACH STRIP IN SCH (05:46)
[2018-11-11] MEDS: INSULIN REGULAR, HUMAN 100 UNIT/ML 3 ML VIAL SQ PRN ×3 (05:49→17:44)
--- NOTE | 2018-11-11 06:30 | NUR ---
ROOFING APPLICATOR: TEMP. NOW AT 98.1. STILL ON LEVOPHED AT 2MCG/MIN AND D5 1/2 NS AT 125ML/HR. NO SIGNIFICANT RUMA DURING THE SHIFT. ALL NEEDS MET. WILL CONTINUE TO MONITOR.
--- NOTE | 2018-11-11 07:15 | NUR ---
RN INITIAL NOTES: Rec'd pt awake on bed, not in any distress. On room air, not in any respiratory distress. On telemonitor, SR. Has MERON PICC line, 3L, w/ D5 1/2 NS x 125 cc/hr infusing well. Levo drip off at this time but BP noted to be marginal. Has L AC G18, SL. Has FC draining to BSB w/ yellowish UOP. Safety precaution in place w/ bed in lowest & locked pos. Call light w/in reach. Will cont to monitor & attend pt needs. 0815H Pt seen & examined by Dr. James cameron/ orders to initiate CVP readings. 0900H Initial CVP reading of [address] Ramirez w/ NNO. 0930H Per Dr. Contreras, may order swallow evaluation for pt's safety. 1030H Pt seen & examined by Dr. Martinez. Per MD may apply DVT pumps.
[2018-11-11] MEDS ORDERED: ACETAMINOPHEN 325 MG TABLET PO PRN (08:00)
[2018-11-11] MEDS ORDERED: DEXTROSE 50%-WATER 50 ML DISP.SYRIN IV PRN (08:00)
[2018-11-11] MEDS ORDERED: NA PHOS,M-B/NA PHOS,DI-BA 1 EA ENEMA RC PRN (08:00)
[2018-11-11] MEDS ORDERED: BISACODYL SUPP (10 MG) 10 MG/SUPP.RECT SUPP.RECT RC PRN (08:00)
[2018-11-11] MEDS ORDERED: MAGNESIUM HYDROXIDE 30 ML UDC PO PRN (08:00)
[2018-11-11] MEDS: VANCOMYCIN 500 MG in IV D5W 100 ML IV SCH (08:32)
[2018-11-11] MEDS: ZINC SULFATE 220 MG CAPSULE PO SCH (08:33)
[2018-11-11] MEDS: ASCORBIC ACID 500 MG TABLET PO SCH ×2 (08:33→16:07)
[2018-11-11] MEDS: HYDROCORTISONE SOD SUCCINATE 100 MG/2 ML VIAL IV SCH ×3 (08:33→16:08)
[2018-11-11] MEDS: BRIMONIDINE TARTRATE OPHT SOLN 5 ML BOTTLE EACHEYE SCH ×3 (08:33→16:09)
[2018-11-11] MEDS: POLYVINYL ALCOHOL 15 ML BOTTLE EACHEYE PRN (08:33)
[2018-11-11] MEDS: TIMOLOL MAL/DORZOLAM HCL OPHTH 10 ML BOTTLE EACHEYE SCH ×2 (08:33→16:09)
[2018-11-11] MEDS: METOCLOPRAMIDE HCL 10 MG TABLET PO SCH ×2 (08:34→16:07)
[2018-11-11] MEDS: DONEPEZIL 5 MG TABLET PO SCH ×2 (08:40→16:07)
[2018-11-11] MEDS: NYSTATIN/TRIAMCIN CREAM 15 GM TUBE TP SCH ×2 (08:41→16:08)
[2018-11-11] MEDS: Z GUARD REMEDY 2 OZ OINT TP SCH (08:41)
[2018-11-11] MEDS: IV NS 0.9% 1,000 ML IV PRN (08:48)
[2018-11-11] MEDS ORDERED: Medication Not On Formulary EA (Arginine/Ascorbate Sod/Vite AC (Arginaid Powder) 1 EACH) PO SCH (09:00)
[2018-11-11] MEDS ORDERED: RAMIPRIL 5 MG CAPSULE PO SCH (09:00)
[2018-11-11] MEDS ORDERED: POTASSIUM CHLORIDE 20 MEQ POWDER PACKET NG SCH ×2 (09:00→16:00)
[2018-11-11] MEDS ORDERED: Medication Not On Formulary EA (Cran/Vitc/Mannose/Inulin/Brom (Uti-Stat Liquid) 30 ML) PO SCH (09:00)
[2018-11-11] MEDS: PROSTAT (PYXIS) 30 ML UDC PO SCH (09:00)
[2018-11-11] MEDS: CHOLECALCIFEROL 1,000 UNIT TABLET (VIT D3) PO SCH (09:18)
[2018-11-11] MEDS: POTASSIUM CHLORIDE 10 MEQ TABLET.SA PO SCH (09:18)
[2018-11-11] MEDS: RAMIPRIL 1.25 MG CAPSULE PO SCH (10:00)
[2018-11-11] MEDS: BLOOD SUGAR DIAGNOSTIC 1 EACH STRIP VI SCH ×3 (11:43→22:50)
[2018-11-11] MEDS: INSULIN GLARGINE, 100 UNIT/ML CARTRIDGE SQ SCH ×2 (11:46→17:00)
--- NOTE | 2018-11-11 13:30 | NUR ---
Pt seen & examined by ALTHEA Poon. Made aware that RN did bedside swallowing test, pt able to swallow apple sauce w/o difficulty. Ordered swallow & dietary for further eval.
[2018-11-11] MEDS: prednisoLONE ACETATE 1% SUSP 5 ML BOTTLE LEFTEYE SCH (13:35)
[2018-11-11] MEDS: NOREPINEPHRINE 8 MG in IV D5W 500 ML IV PRN (13:56)
--- NOTE | 2018-11-11 14:00 | NUR ---
CT of the head w/o contrast done, transferred via ACLS protocol. Pt tolerated procedure.
--- NOTE | 2018-11-11 15:46 | NUR ---
Klor con 40 meqs x 1 was not given at 9am. Med not delivered. Per pharmacist, will reorder the med.
[2018-11-11] MEDS: MICAFUNGIN SODIUM 100 MG in IV NS 0.9% 100 ML IV SCH (15:47)
[2018-11-11] MEDS: buPROPion SR 100 MG TABLET.ER PO SCH (16:07)
[2018-11-11] MEDS: CLOPIDOGREL BISULFATE 75 MG TABLET PO SCH (16:07)
--- NOTE | 2018-11-11 18:33 | NUR ---
RN CLOSING NOTES: No acute changes noted w/in shift. Pt tolerated room air, not in any respiratory distress. On telemonitor, still SR. MERON PICC line, 3L, w/ NS x 40 cc/hr infusing well. Levo drip off at this time but BP closely monitored. FC kept draining to BSB w/ yellowish UOP. Safety precaution kept in place at all times w/ bed in lowest & locked pos. Call light w/in reach. Will endorse to PM RN for RUMA.
--- NOTE | 2018-11-11 19:30 | NUR ---
ICU/RN RECEIVED PT LETHARGIC,OPENS EYES WHEN NAME CALLED,DOES NOT TRACK,DOES NOT FOLLOW COMMANDS.ON ROOM AIR W/ SAT.OF 100%.MONITOR SHOWS SR W/OUT ECTOPY.
--- NOTE | 2018-11-11 20:10 | NUR ---
ICU/RN DAUGHTER AT BEDSIDE,CONDITION REPORT GIVEN,QUESTIONS ANSWERED SPENT TIME W/ DAUGHTER FOR 40MINUTES.
[2018-11-11] MEDS: LATANOPROST EYE DROP 0.005% 2.5 ML BOTTLE EACHEYE SCH (22:21)
[2018-11-11] MEDS: GABAPENTIN 100 MG CAPSULE PO SCH ×2 (22:21→23:09)
--- NOTE | 2018-11-11 22:23 | NUR ---
ICU/RN BLOOD SUGAR DRAWN FROM HZH=764.PT AWAKE.
--- NOTE | 2018-11-11 22:43 | NUR ---
ICU/RN. D50 IVP GIVEN FOR BLOOD SUGAR OF 28MG/DL 1ST BS WAS 33MG/DL.STAT BLOOD SUGAR DRAWN BY MARITZA Lind
[2018-11-12] VITALS (48 sets, daily range): BP systolic 96–157; BP diastolic 45–80
[2018-11-12] MEDS: MEROPENEM 500 MG in IV NS 0.9% 100 ML IV SCH ×2 (01:18→12:23)
--- NOTE | 2018-11-12 01:33 | NUR ---
ICU/RN WALKED INTO ROOM AND FOUND PT GRABBING IV W/ LT HAND AND JIM W/ RT. HAND.MUMBLING AND SCREAMING,DOES NOT FOLLOW OR UNDERSTAND COMMANDS. Addendum: 11/12/18 at 0746 by JESSICA LORENZO RN TIME [id number]
--- NOTE | 2018-11-12 01:33 | NUR ---
ICU/RN PT ALMOST PULLED IV OUT.RESTRAINTS APPLIED ORDERED.
--- NOTE | 2018-11-12 04:00 | NUR ---
ICU/RN BATHED W/ MUCH RESISTANCE MONITOR SHOWS SR.
[2018-11-12 04:44] LABS: BASOPHILS # (AUTO) 0.1 /CMM (0.0-0.2); BASOPHILS % (AUTO) 0.4 % (0.0-2.0); HEMATOCRIT 29 % (33-45); HEMOGLOBIN 9.1 g/dL (11.5-14.8); LYMPHOCYTES # (AUTO) 1.1 /CMM (0.8-4.8); LYMPHOCYTES % (AUTO) 6.4 % (20.0-44.0); MEAN CORPUSCULAR HGB CONC 32 g/dl (31.0-36.0); MEAN CORPUSCULAR VOLUME 90 fL (82-100); MONOCYTES # (AUTO) 0.4 /CMM (0.1-1.30); MONOCYTES % (AUTO) 2.1 % (2.0-12.0); NEUTROPHILS # (AUTO) 15.8 /CMM (1.8-8.9); NEUTROPHILS % (AUTO) 91.1 % (43.0-81.0); PLATELET COUNT (AUTO) 121 /CMM (150-450); WHITE BLOOD COUNT (AUTO) 17.3 K/uL (4.3-11.0)
[2018-11-12 05:00] LABS: CALCIUM, SERUM 7.6 mg/dL (8.5-10.1); CARBON DIOXIDE 23 mmol/L (21-32); CREATININE 0.8 mg/dL (0.6-1.3); GLUCOSE 124 mg/dL (74-106); PHOSPHORUS 2.2 mg/dL (2.5-4.9); POTASSIUM 3.6 mmol/L (3.5-5.1); UREA NITROGEN, BLOOD 28 mg/dL (7-18)
[2018-11-12 05:32] LABS: CHLORIDE 128 mmol/L (98-107); SODIUM SERUM 159 mmol/L (136-145)
[2018-11-12] MEDS ORDERED: PHENYLEPHRINE 80 MG in IV D5W 250 ML IV PRN (06:00)
--- NOTE | 2018-11-12 06:05 | NUR ---
ICU/RN RESULT OF NA AND CHLORIDE REPORTED TO KURTIS PETERSON NO ORDERS,BUT MD FOR TODAY WILL FOLLOW-UP.ALERT AT TIMES AND USING PROFANITY.REMAINS ON LEVOPHED AT 1MCG/MIN.
[2018-11-12] MEDS: PANTOPRAZOLE 40 MG TABLET.DR PO SCH (07:30)
[2018-11-12] MEDS: LEVOTHYROXINE SODIUM 75 MCG TABLET PO SCH (07:30)
[2018-11-12] MEDS: BLOOD SUGAR DIAGNOSTIC 1 EACH STRIP VI SCH ×4 (08:21→22:05)
[2018-11-12] MEDS: BRIMONIDINE TARTRATE OPHT SOLN 5 ML BOTTLE EACHEYE SCH ×3 (08:23→16:17)
[2018-11-12] MEDS: prednisoLONE ACETATE 1% SUSP 5 ML BOTTLE LEFTEYE SCH (08:23)
[2018-11-12] MEDS: TIMOLOL MAL/DORZOLAM HCL OPHTH 10 ML BOTTLE EACHEYE SCH ×2 (08:23→16:17)
[2018-11-12] MEDS: Z GUARD REMEDY 2 OZ OINT TP SCH (08:27)
[2018-11-12] MEDS: HYDROCORTISONE SOD SUCCINATE 100 MG/2 ML VIAL IV SCH ×3 (08:27→16:15)
[2018-11-12] MEDS: NYSTATIN/TRIAMCIN CREAM 15 GM TUBE TP SCH ×2 (08:27→16:16)
[2018-11-12] MEDS: buPROPion SR 100 MG TABLET.ER PO SCH ×2 (09:00→16:15)
[2018-11-12] MEDS: DONEPEZIL 5 MG TABLET PO SCH ×2 (09:00→16:15)
[2018-11-12] MEDS: ZINC SULFATE 220 MG CAPSULE PO SCH (09:00)
[2018-11-12] MEDS: ASCORBIC ACID 500 MG TABLET PO SCH ×2 (09:00→16:15)
[2018-11-12] MEDS: PROSTAT (PYXIS) 30 ML UDC PO SCH (09:00)
[2018-11-12] MEDS: INSULIN GLARGINE, 100 UNIT/ML CARTRIDGE SQ SCH ×2 (09:00→17:19)
[2018-11-12] MEDS: METOCLOPRAMIDE HCL 10 MG TABLET PO SCH ×2 (09:00→16:15)
[2018-11-12] MEDS: CHOLECALCIFEROL 1,000 UNIT TABLET (VIT D3) PO SCH (09:00)
[2018-11-12] MEDS: POTASSIUM CHLORIDE 10 MEQ TABLET.SA PO SCH (09:00)
[2018-11-12] MEDS: RAMIPRIL 1.25 MG CAPSULE PO SCH (09:00)
--- NOTE | 2018-11-12 09:00 | NUR ---
RN INITIAL NOTES 0715 RECEIVED PT A/O TO VERBAL AND PAIN STIMULI. OPEN EYES SPONTANEOUSLY. NO RESPIRATORY DISTRESS NOTED. NO SOB NOTED. ON ROOM AIR. NO SIGNS OF PAIN NOTED. MERON PICC IN PLACE. IVF INFUSING. FC IN PLACE. BLE ELEVATED. FOR SWALLOW EVAL. WILL MONITOR 0800 SEEN AND EXAMIN[address] GY DR WARREN. AWARE OF LAB VALUES AND IMAGING RESULT. PT OFF LEVO, SBP ON 120S. WILL MONITOR. 0840 SEEN AND EXAMINED BY DR BALDERAS. AWARE OF LAB VALUES: WBC 17.3, HGB 9.1, HCT 29, PLT 121. SODIUM 159, CHLORIDE 128, PHOS 2.2 ALSO AWARE OF IMAGING STUDIES. PT OFF LEVO. ORDERED TO DC CVP. NOTED AND CARRIED OUT.
--- NOTE | 2018-11-12 09:10 | NUR ---
RN NOTES UNABLE TO GIVE MEDS D/T MENTAL STATUS. PT RESPONDS TO VERBAL AND PAIN STIMULI. OPEN EYES, WITH SOME UNCLEAR WORDS. PT NOT FOLLOWING COMMANDS. DR BALDERAS AWARE. WILL MONITOR.
[2018-11-12] MEDS: IV NS 0.9% 1,000 ML IV PRN (10:16)
--- NOTE | 2018-11-12 10:38 | NUR ---
WOUND CARE CONSULT WOUND CARE RECEIVED CONSULT FOR SACRAL WOUND. WOUND CARE WILL DEFER CONSULT AND ALL TREATMENT PLANS TO PLASTIC SURGICAL TEAM INCLUDING DPM THEY ARE ALL FOLLOWING THIS PATIENT. PATIENT WITH CARMINE AT 12, ALL PRESSURE ULCER PREVENTION MEASURES ARE NOTED TO BE IN PLACE. WILL SEE PRN.
[2018-11-12] MEDS: IV D5W 1,000 ML IV PRN (11:32)
[2018-11-12] MEDS: INSULIN REGULAR, HUMAN 100 UNIT/ML 3 ML VIAL SQ PRN ×2 (11:47→17:19)
[2018-11-12] MEDS: FLUCONAZOLE (100 MG) 100 MG TABLET PO SCH (12:24)
[2018-11-12] MEDS: POTASSIUM PHOSPHATE MM 7.5 MMOL in IV D5W 100 ML IV SCH ×2 (14:20→17:21)
[2018-11-12] MEDS: CLOPIDOGREL BISULFATE 75 MG TABLET PO SCH (16:15)
--- NOTE | 2018-11-12 18:51 | NUR ---
RN CLOSING NOTES NO SIGNIFICANT CHANGE NOTED. NO RESPIRATORY DISTRESS NOTED. NO SIGNS OF PAIN NOTED. MERON PICC IN PLACE. IVF INFUSING. FC IN PLACE. TX PROVIDED ORDERED. KEPT CLEAN AND DRY. REPOSITIONED Q2. KEPT COMFORTABLE. WILL ENDORSE FOR CONTINUITY OF CARE.
--- NOTE | 2018-11-12 20:00 | NUR ---
ICU/RN NOTES: RECEIVED REPORT FROM GARDEN LABOURER. PT. IN BED W/ HOB ELEVATED. ON TELE MONITOR W/ SB/SR. W/ SOFT WRIST RESTRAINTS ON BILATERAL. W/ MERON PICC LINE W/ D5W @ 50 ML/HR. ALERT TO SELF. DENIES ANY PAIN . F/C INPLACE DRAINING DARK SETH COLOR URINE. INCONTINENT CARE RENDERED. WILL CONTINUE TO MONITOR.
--- NOTE | 2018-11-12 21:00 | NUR ---
KELI/RN NOTES: RECEIVED PT. FROM ICU. ALERT TO SELF. W/ TELE MONITOR W/ SB. W/ DAUGHTER AT BEDSIDE. PER DAUGHTER " MY MOM WILL PULL OUT THE TUBES. BECAUSE OF HER INFECTION SHE IS NOT HER SELF. " W/ SOFT WRIST RESTRAINT IN PLACE. BEDS LOCKED AND IN LOW POSITION. WILL CONTINUE TO MONITOR.
[2018-11-12] MEDS ORDERED: LATANOPROST EYE DROP 0.005% 2.5 ML BOTTLE ONE (21:57)
[2018-11-12] MEDS: LATANOPROST EYE DROP 0.005% 2.5 ML BOTTLE EACHEYE SCH (22:05)
[2018-11-13] VITALS: BP 127/60
[2018-11-13] MEDS: MEROPENEM 500 MG in IV NS 0.9% 100 ML IV SCH ×2 (01:22→14:12)
[2018-11-13 04:00] VITALS: BP 136/63
[2018-11-13] MEDS: IV D5W 1,000 ML IV PRN (04:30)
[2018-11-13 06:27] LABS: BASOPHILS # (AUTO) 0.1 /CMM (0.0-0.2); BASOPHILS % (AUTO) 0.5 % (0.0-2.0); HEMATOCRIT 30 % (33-45); HEMOGLOBIN 9.8 g/dL (11.5-14.8); LYMPHOCYTES # (AUTO) 1.1 /CMM (0.8-4.8); LYMPHOCYTES % (AUTO) 7.9 % (20.0-44.0); MEAN CORPUSCULAR HGB CONC 32 g/dl (31.0-36.0); MEAN CORPUSCULAR VOLUME 90 fL (82-100); MONOCYTES # (AUTO) 0.3 /CMM (0.1-1.30); MONOCYTES % (AUTO) 2.4 % (2.0-12.0); NEUTROPHILS # (AUTO) 12.1 /CMM (1.8-8.9); NEUTROPHILS % (AUTO) 89.2 % (43.0-81.0); PLATELET COUNT (AUTO) 118 /CMM (150-450); RED BLOOD CELL COUNT(AUTO) 3.39 MIL/uL (4.0-5.2); WHITE BLOOD COUNT (AUTO) 13.5 K/uL (4.3-11.0)
[2018-11-13 06:39] LABS: CALCIUM, SERUM 7.8 mg/dL (8.5-10.1); CARBON DIOXIDE 23 mmol/L (21-32); CHLORIDE 123 mmol/L (98-107); CREATININE 0.6 mg/dL (0.6-1.3); GLUCOSE 84 mg/dL (74-106); POTASSIUM 3.2 mmol/L (3.5-5.1); SODIUM SERUM 155 mmol/L (136-145); UREA NITROGEN, BLOOD 25 mg/dL (7-18)
--- NOTE | 2018-11-13 07:07 | NUR ---
KELI/RN NOTES: REPORT GIVEN TO NEXT SHIFT NURSE FOR RUMA.
[2018-11-13] MEDS: LEVOTHYROXINE SODIUM 75 MCG TABLET PO SCH (07:30)
[2018-11-13] MEDS: PANTOPRAZOLE 40 MG TABLET.DR PO SCH (07:30)
--- NOTE | 2018-11-13 07:30 | NUR ---
RN NOTES RECEIVED PATIENT ASLEEP, AROUSABLE TO VERBAL STIMULANT,ORIENTEDX2-3, NO SOB NOTED AT THIS TIME. BREATHING EVEN & UNLABORED, TOLERATING ROOM AIR WITH SATURATION AT 97%. SINUS MARI WITH HR AT 40'S THIS TIME ON THE MONITOR. BILATERAL SOFT WRIST RESTRAINTS REMOVED AND REPLACE TO CHECK FOR SKIN DISCOLORATION OR BREAKDOWN. SKIN IS NOTED INTACT. JOHNNY PICC LINE IN PLACE AND INTACT, PATENT ON FLUSHING W/ DRESSING CDI, WITH D5W INFUSING WELL AT 50 CC/HR . FERNANDEZ CATH DRAINING TO CLEAR YELLOW URINE VIA GRAVITY. SAFETY MEASURES OBSERVED AND KEPT IN PLACE, HOB AT 35 DEGREE, SIDE RAILS UP, BED ALARM ON. WILL CONTINUE TO MONITOR CLOSELY
[2018-11-13 08:00] VITALS: BP 118/56
--- NOTE | 2018-11-13 08:30 | NUR ---
RN NOTES TRIED FEEDING PATIENT APPLE SAUCE TO ASSESS SWALLOWING SINCE PATIENT IN NPO STATUS IN LIEU TO ADMINISTERING TABLET FORM MEDICATION BUT PATIENT REFUSED, WONT EVEN OPEN MOUTH, "GET AWAY FROM ME". GIVE PATIENT SOME TIME TO REST. WILL TRY AGAIN LATER.
[2018-11-13] MEDS: RAMIPRIL 1.25 MG CAPSULE PO SCH (09:00)
[2018-11-13] MEDS: METOCLOPRAMIDE HCL 10 MG TABLET PO SCH ×2 (09:00→17:00)
[2018-11-13] MEDS: ZINC SULFATE 220 MG CAPSULE PO SCH (09:00)
[2018-11-13] MEDS: INSULIN GLARGINE, 100 UNIT/ML CARTRIDGE SQ SCH ×2 (09:00→17:00)
[2018-11-13] MEDS: ASCORBIC ACID 500 MG TABLET PO SCH ×2 (09:00→17:00)
[2018-11-13] MEDS: buPROPion SR 100 MG TABLET.ER PO SCH ×2 (09:00→17:00)
[2018-11-13] MEDS: CHOLECALCIFEROL 1,000 UNIT TABLET (VIT D3) PO SCH (09:00)
[2018-11-13] MEDS: MULTIVIT W/MINERALS 1 TAB TABLET PO SCH (09:00)
[2018-11-13] MEDS: PROSTAT (PYXIS) 30 ML UDC PO SCH (09:00)
[2018-11-13] MEDS: FLUCONAZOLE (100 MG) 100 MG TABLET PO SCH (09:00)
[2018-11-13] MEDS: POTASSIUM CHLORIDE 10 MEQ TABLET.SA PO SCH (09:00)
[2018-11-13] MEDS: DONEPEZIL 5 MG TABLET PO SCH ×2 (09:00→17:00)
[2018-11-13] MEDS: BLOOD SUGAR DIAGNOSTIC 1 EACH STRIP VI SCH ×4 (09:08→22:42)
[2018-11-13] MEDS: TIMOLOL MAL/DORZOLAM HCL OPHTH 10 ML BOTTLE EACHEYE SCH ×2 (09:09→17:41)
[2018-11-13] MEDS: BRIMONIDINE TARTRATE OPHT SOLN 5 ML BOTTLE EACHEYE SCH ×3 (09:09→17:40)
[2018-11-13] MEDS: HYDROCORTISONE SOD SUCCINATE 100 MG/2 ML VIAL IV SCH ×3 (09:09→17:41)
[2018-11-13] MEDS: prednisoLONE ACETATE 1% SUSP 5 ML BOTTLE LEFTEYE SCH (09:10)
[2018-11-13] MEDS: NYSTATIN/TRIAMCIN CREAM 15 GM TUBE TP SCH ×2 (09:13→17:43)
[2018-11-13] MEDS: Z GUARD REMEDY 2 OZ OINT TP SCH (09:13)
[2018-11-13] MEDS: POTASSIUM CL. PREMIX PERIPHER. 50 ML IV SCH ×4 (09:38→13:24)
--- NOTE | 2018-11-13 10:30 | NUR ---
RN NOTES TRIED TO ASSESS SWALLOWING AGAIN AT THIS TIME TO ADMINISTER ORAL MEDS BUT PATIENT REFUSED TO OPEN MOUTH.
[2018-11-13 12:00] VITALS: BP 122/56
[2018-11-13 16:00] VITALS: BP 109/61
[2018-11-13] MEDS: CLOPIDOGREL BISULFATE 75 MG TABLET PO SCH (17:00)
--- NOTE | 2018-11-13 17:00 | NUR ---
RN NOTES OFFERED FEEDING TO PATIENT AT THIS TIME IN LIEU TO ORAL MEDICATION BUT PATIENT "I DONT WANT TO WAKE UP YET. LET ME SLEEP CAUSE I HAVEN'T SLEEP IN DAYS."
[2018-11-13] MEDS ORDERED: MULTIVIT W/MINERALS 1 TAB TABLET PO SCH (17:30)
--- NOTE | 2018-11-13 17:30 | NUR ---
RN NOTES OFFERED MEDICATION AT THIS TIME, PATIENT REFUSED.
[2018-11-13 19:01] LABS: BASOPHILS # (AUTO) 0.1 /CMM (0.0-0.2); BASOPHILS % (AUTO) 0.6 % (0.0-2.0); HEMATOCRIT 34 % (33-45); HEMOGLOBIN 10.9 g/dL (11.5-14.8); LYMPHOCYTES # (AUTO) 0.8 /CMM (0.8-4.8); LYMPHOCYTES % (AUTO) 7.1 % (20.0-44.0); MEAN CORPUSCULAR HGB CONC 32 g/dl (31.0-36.0); MEAN CORPUSCULAR VOLUME 90 fL (82-100); MONOCYTES # (AUTO) 0.1 /CMM (0.1-1.30); MONOCYTES % (AUTO) 1.1 % (2.0-12.0); NEUTROPHILS # (AUTO) 10.4 /CMM (1.8-8.9); NEUTROPHILS % (AUTO) 91.2 % (43.0-81.0); PLATELET COUNT (AUTO) 109 /CMM (150-450); RED BLOOD CELL COUNT(AUTO) 3.81 MIL/uL (4.0-5.2); WHITE BLOOD COUNT (AUTO) 11.4 K/uL (4.3-11.0)
[2018-11-13 19:07] LABS: CALCIUM, SERUM 7.7 mg/dL (8.5-10.1); CARBON DIOXIDE 20 mmol/L (21-32); CHLORIDE 121 mmol/L (98-107); CREATININE 0.6 mg/dL (0.6-1.3); GLUCOSE 184 mg/dL (74-106); MAGNESIUM 1.9 mg/dL (1.8-2.4); POTASSIUM 3.9 mmol/L (3.5-5.1); SODIUM SERUM 150 mmol/L (136-145); UREA NITROGEN, BLOOD 22 mg/dL (7-18)
--- NOTE | 2018-11-13 19:25 | NUR ---
RN NOTES ENDORSED PATIENT FOR CONTINUITY OF CARE. NO ACUTE CHANGES WITHIN THE SHIFT. NOT ON RESPIRATORY OR CARDIAC DISTRESS. SAFETY MEASURES AND ASPIRATION PRECAUTION IN PLACE AT ALL TIMES.CALL LIGHT WITHIN REACH
[2018-11-13] MEDS: Potassium Chloride 40 MEQ in IV D5W 1,000 ML IV PRN (19:30)
[2018-11-13 20:00] VITALS: BP 112/60
--- NOTE | 2018-11-13 20:00 | NUR ---
TELE/RN NOTES: RECEIVED PT. IN BED W/ HOB ELEVATED. ALERT TO SELF W/ CONFUSION. VERBALLY RESPONSIVE. ABLE TO MAKE SIMPLE NEEDS KNOWN. ON PREET. SOFT WRIST RESTRAINTS. PT. TRYING TO CLIMB OUT THE BED. ON TELE MONITOR W/ SB. PT. IS STILL NPO STATUS. W/ MERON PICC DRESSING C/D/I W/ D5W + 40 KCL AT 50 ML/HR. W/F/C PATENT AND INTACT DRAINING TO YELLOW URINE. CALL LIGHT W/REACH. WILL CONTINUE TO MONITOR.
[2018-11-13] MEDS: GABAPENTIN 100 MG CAPSULE PO SCH (22:00)
[2018-11-13] MEDS: LATANOPROST EYE DROP 0.005% 2.5 ML BOTTLE EACHEYE SCH (22:42)
[2018-11-14] VITALS: BP 121/68
[2018-11-14 04:00] VITALS: BP 133/70
[2018-11-14 07:15] LABS: BASOPHILS % (AUTO) 0.4 % (0.0-2.0); HEMATOCRIT 36 % (33-45); HEMOGLOBIN 11.8 g/dL (11.5-14.8); LYMPHOCYTES # (AUTO) 0.7 /CMM (0.8-4.8); LYMPHOCYTES % (AUTO) 7.5 % (20.0-44.0); MEAN CORPUSCULAR HGB CONC 32 g/dl (31.0-36.0); MEAN CORPUSCULAR VOLUME 90 fL (82-100); MONOCYTES # (AUTO) 0.3 /CMM (0.1-1.30); MONOCYTES % (AUTO) 3.2 % (2.0-12.0); NEUTROPHILS # (AUTO) 8.8 /CMM (1.8-8.9); NEUTROPHILS % (AUTO) 88.9 % (43.0-81.0); PLATELET COUNT (AUTO) 142 /CMM (150-450); RED BLOOD CELL COUNT(AUTO) 4.07 MIL/uL (4.0-5.2); WHITE BLOOD COUNT (AUTO) 9.9 K/uL (4.3-11.0)
--- NOTE | 2018-11-14 07:15 | NUR ---
SAUSAGE MEAT TRIMMER OPENING NOTES REPORT GIVEN BEDSIDE BY MOR RN. PATIENT ASLEEP IN BED NO SIGNS OR SYMPTOMS OF RESPIRATORY DISTRESS OR ACUTE PAIN . BILATERAL RESTRAINTS FOR PULLING AT TUBES IVF RUNNING @ 50ML/HR IN MERON PICC D5W+40MeQ. SINUS RHYTHM /SINUS MARI ON MONITOR 70'S. FERNANDEZ CATH DRAINING CLEAR YELLOW URINE. SAFETY PRECAUTIONS IN PLACE BED IN LOW POSITION CALL LIGHT WITHIN REACH. WILL CONT TO MONITOR
--- NOTE | 2018-11-14 07:16 | NUR ---
TELE/NOTES: REPORT GIVEN TO NEXT SHIFT NURSE FOR RUMA.
[2018-11-14] MEDS: LEVOTHYROXINE SODIUM 75 MCG TABLET PO SCH (07:30)
[2018-11-14] MEDS: PANTOPRAZOLE 40 MG TABLET.DR PO SCH (07:30)
[2018-11-14 07:53] LABS: CALCIUM, SERUM 7.8 mg/dL (8.5-10.1); CARBON DIOXIDE 21 mmol/L (21-32); CHLORIDE 116 mmol/L (98-107); CREATININE 0.8 mg/dL (0.6-1.3); GLUCOSE 342 mg/dL (74-106); POTASSIUM 4.3 mmol/L (3.5-5.1); SODIUM SERUM 148 mmol/L (136-145); UREA NITROGEN, BLOOD 26 mg/dL (7-18)
[2018-11-14 08:00] VITALS: BP 115/77
[2018-11-14] MEDS: BLOOD SUGAR DIAGNOSTIC 1 EACH STRIP VI SCH ×4 (08:28→21:41)
[2018-11-14] MEDS: INSULIN REGULAR, HUMAN 100 UNIT/ML 3 ML VIAL SQ PRN ×2 (08:30→12:25)
[2018-11-14] MEDS: INSULIN GLARGINE, 100 UNIT/ML CARTRIDGE SQ SCH ×2 (08:31→17:59)
--- NOTE | 2018-11-14 08:40 | NUR ---
CHIEF DRAFTER NOTES ALL PO MEDS HELD PER DR BALDERAS PATIENT UNABLE TO HAVE SWALLOW EVAL
[2018-11-14] MEDS: RAMIPRIL 1.25 MG CAPSULE PO SCH (08:44)
[2018-11-14] MEDS: FLUCONAZOLE (100 MG) 100 MG TABLET PO SCH (08:45)
[2018-11-14] MEDS: POTASSIUM CHLORIDE 10 MEQ TABLET.SA PO SCH (08:45)
[2018-11-14] MEDS: DONEPEZIL 5 MG TABLET PO SCH ×2 (08:45→17:00)
[2018-11-14] MEDS: METOCLOPRAMIDE HCL 10 MG TABLET PO SCH ×2 (08:45→17:00)
[2018-11-14] MEDS: PROSTAT (PYXIS) 30 ML UDC PO SCH (08:45)
[2018-11-14] MEDS: MULTIVIT W/MINERALS 1 TAB TABLET PO SCH (08:45)
[2018-11-14] MEDS: buPROPion SR 100 MG TABLET.ER PO SCH ×2 (08:46→17:00)
[2018-11-14] MEDS: ASCORBIC ACID 500 MG TABLET PO SCH ×2 (08:46→17:00)
[2018-11-14] MEDS: ZINC SULFATE 220 MG CAPSULE PO SCH (08:46)
[2018-11-14] MEDS: CHOLECALCIFEROL 1,000 UNIT TABLET (VIT D3) PO SCH (08:46)
[2018-11-14] MEDS: HYDROCORTISONE SOD SUCCINATE 100 MG/2 ML VIAL IV SCH ×3 (08:48→18:01)
[2018-11-14] MEDS: prednisoLONE ACETATE 1% SUSP 5 ML BOTTLE LEFTEYE SCH (08:49)
[2018-11-14] MEDS: BRIMONIDINE TARTRATE OPHT SOLN 5 ML BOTTLE EACHEYE SCH ×3 (08:49→17:56)
[2018-11-14] MEDS: TIMOLOL MAL/DORZOLAM HCL OPHTH 10 ML BOTTLE EACHEYE SCH ×2 (08:49→17:56)
[2018-11-14] MEDS: NYSTATIN/TRIAMCIN CREAM 15 GM TUBE TP SCH ×2 (08:50→17:00)
[2018-11-14] MEDS: Z GUARD REMEDY 2 OZ OINT TP SCH (08:50)
[2018-11-14] MEDS: Potassium Chloride 40 MEQ in IV D5W 1,000 ML IV PRN (16:03)
[2018-11-14] MEDS ORDERED: GLUCERNA 1.5 1,000 ML BOTTLE NG SCH (17:00)
[2018-11-14] MEDS: CLOPIDOGREL BISULFATE 75 MG TABLET PO SCH (17:00)
--- NOTE | 2018-11-14 17:06 | NUR ---
RN MS NOTES NG TUBE PLACE 14 FR AWAITING FOR CXR FOR CONFIRMATION OF PLACEMENT
[2018-11-14 17:49] LABS: CALCIUM, SERUM 8.3 mg/dL (8.5-10.1); CARBON DIOXIDE 18 mmol/L (21-32); CHLORIDE 117 mmol/L (98-107); GLUCOSE 189 mg/dL (74-106); POTASSIUM 4.5 mmol/L (3.5-5.1); SODIUM SERUM 147 mmol/L (136-145); UREA NITROGEN, BLOOD 28 mg/dL (7-18)
[2018-11-14] MEDS: FLUCONAZOLE IN NS 100 MG in PREMIX 1 EA IV SCH ×2 (17:55)
[2018-11-14 18:00] VITALS: BP 122/65
--- NOTE | 2018-11-14 19:09 | NUR ---
INTERIOR DESIGN INSTRUCTOR CLOSING NOTES NO SIGNIFICANT CHANGES NOTED THROUGH OUT SHIFT. PATIENT A/O X0-1 NON VERBAL SCREAMS . NO SIGNS OR SYMPTOM OF RESPIRATORY DISTRESS OR ACUTE PAIN NOTED. IVF RUNNING IN MERON PICC LINE @ 75 ML/HR D5W+40MeQ. NG TUBE PLACED AWAITING FOR CXR FOR PLACEMENT.. FERNANDEZ CATH DRAINING CLEAR YELLOW URINE ALL TREATMENT DONE STOOL SAMPLE NEEDED WILL ENDORSE TO NOC. ASPIRATION AND SAFETY PRECAUTIONS IN PLACE BED IN LOW POSITION CALL LIGHT WITHIN REACH
[2018-11-14] MEDS ORDERED: ACETAMINOPHEN 650 MG/20.3 ML UDC GT PRN (19:30)
[2018-11-14] MEDS ORDERED: PHARMACY TO CHANGE PO MEDS TO GT/NG XX PRN (19:30)
[2018-11-14] MEDS ORDERED: MAG HYDROX/AL HYDROX/SIMETH 30 ML UDC GT PRN (19:42)
[2018-11-14] MEDS ORDERED: MAGNESIUM HYDROXIDE 30 ML UDC GT PRN (19:43)
[2018-11-14 20:00] VITALS: BP_SYST 107; BP_SYST 115; BP_DIAS 70; BP_DIAS 76
--- NOTE | 2018-11-14 20:00 | NUR ---
MS/RN NOTES: RECEIVED PT. IN BED W/ HOB ELEVATED. ALERT TO SELF ONLY. HAD EPISODES OF PULLING OUT TUBES, CATH. ON PREET. SOFT WRIST RESTRAINTS ON. ON MERON PICC LINE W/ D5W + 40 MEQ OF KCL @ 50 CC/HR. HAS AN NGT PLACED IN RIGHT NARE. CHECKED CXR FOR NGT PLACEMENT. INFORMED CHARGE NURSE. INSERTED NGT IN FURTHER. ORDERED STAT CXR. CONFIRMED W/ CHARGE NURSE. CHECKED PLACEMENT VIA ASPIRATING. STARTED GLUCERNA AT 10 ML/HR. INCONTINENT OF B/B. W/ F/C PATENT AND INTACT DRAINING DARK SETH COLOR URINE. DAUGHTER VISITED PT. NO FACIAL GRIMACE OR DISCOMFORT NOTED. BED LOCKED AND IN LOW POSITION. WILL CONTINUE TO MONITOR.
[2018-11-14] MEDS: LATANOPROST EYE DROP 0.005% 2.5 ML BOTTLE EACHEYE SCH (21:40)
[2018-11-14] MEDS: *INSULIN REGULAR(HUMULIN R)HUM 100 UNIT/ML VIAL SQ PRN (21:42)
[2018-11-14] MEDS: GABAPENTIN 100 MG CAPSULE GT SCH (22:13)
[2018-11-15 05:06] VITALS: BP 107/70
[2018-11-15 06:30] LABS: BASOPHILS # (AUTO) 0.1 /CMM (0.0-0.2); BASOPHILS % (AUTO) 0.4 % (0.0-2.0); HEMATOCRIT 37 % (33-45); HEMOGLOBIN 11.7 g/dL (11.5-14.8); LYMPHOCYTES # (AUTO) 0.9 /CMM (0.8-4.8); LYMPHOCYTES % (AUTO) 5.9 % (20.0-44.0); MEAN CORPUSCULAR HGB CONC 32 g/dl (31.0-36.0); MEAN CORPUSCULAR VOLUME 89 fL (82-100); MONOCYTES # (AUTO) 0.4 /CMM (0.1-1.30); MONOCYTES % (AUTO) 2.4 % (2.0-12.0); NEUTROPHILS # (AUTO) 14.4 /CMM (1.8-8.9); NEUTROPHILS % (AUTO) 91.3 % (43.0-81.0); PLATELET COUNT (AUTO) 139 /CMM (150-450); RED BLOOD CELL COUNT(AUTO) 4.11 MIL/uL (4.0-5.2); WHITE BLOOD COUNT (AUTO) 15.8 K/uL (4.3-11.0)
[2018-11-15 06:58] LABS: CALCIUM, SERUM 8.1 mg/dL (8.5-10.1); CARBON DIOXIDE 20 mmol/L (21-32); CHLORIDE 115 mmol/L (98-107); CREATININE 0.9 mg/dL (0.6-1.3); GLUCOSE 157 mg/dL (74-106); POTASSIUM 4.8 mmol/L (3.5-5.1); SODIUM SERUM 145 mmol/L (136-145); UREA NITROGEN, BLOOD 30 mg/dL (7-18)
--- NOTE | 2018-11-15 07:17 | NUR ---
MS/RN NOTES: REPORT GIVEN TO NEXT SHIFT NURSE FOR RUMA.
[2018-11-15 08:00] VITALS: BP 119/59
[2018-11-15] MEDS: BLOOD SUGAR DIAGNOSTIC 1 EACH STRIP VI SCH ×4 (08:55→21:07)
[2018-11-15] MEDS: BRIMONIDINE TARTRATE OPHT SOLN 5 ML BOTTLE EACHEYE SCH ×3 (09:00→17:23)
[2018-11-15] MEDS: prednisoLONE ACETATE 1% SUSP 5 ML BOTTLE LEFTEYE SCH (09:00)
[2018-11-15] MEDS: LEVOTHYROXINE SODIUM 75 MCG TABLET GT SCH (09:01)
[2018-11-15] MEDS: HYDROCORTISONE SOD SUCCINATE 100 MG/2 ML VIAL IV SCH ×3 (09:02→17:21)
[2018-11-15] MEDS: POTASSIUM CHLORIDE 20 MEQ POWDER PACKET GT SCH (09:02)
[2018-11-15] MEDS: ASCORBIC ACID 500 MG TABLET GT SCH ×2 (09:02→17:21)
[2018-11-15] MEDS: CHOLECALCIFEROL 1,000 UNIT TABLET (VIT D3) GT SCH (09:02)
[2018-11-15] MEDS: ZINC SULFATE 220 MG CAPSULE GT SCH (09:02)
[2018-11-15] MEDS: MULTIVIT W/MINERALS 1 TAB TABLET GT SCH (09:02)
[2018-11-15] MEDS: DONEPEZIL 5 MG TABLET GT SCH ×2 (09:03→17:21)
[2018-11-15] MEDS: METOCLOPRAMIDE HCL 10 MG/10 ML UDC GT SCH ×2 (09:03→17:21)
[2018-11-15] MEDS: PROSTAT (PYXIS) 30 ML UDC GT SCH (09:04)
[2018-11-15] MEDS: TIMOLOL MAL/DORZOLAM HCL OPHTH 10 ML BOTTLE EACHEYE SCH ×2 (09:04→17:22)
[2018-11-15] MEDS: buPROPion 100 MG TABLET GT SCH ×2 (09:05→17:23)
[2018-11-15] MEDS: RAMIPRIL 1.25 MG CAPSULE GT SCH (09:06)
[2018-11-15] MEDS: PANTOPRAZOLE 40 MG/PACK PACK NG SCH (09:11)
[2018-11-15] MEDS: INSULIN GLARGINE, 100 UNIT/ML CARTRIDGE SQ SCH ×2 (09:14→17:44)
[2018-11-15] MEDS: INSULIN REGULAR, HUMAN 100 UNIT/ML 3 ML VIAL SQ PRN (09:14)
[2018-11-15] MEDS: Z GUARD REMEDY 2 OZ OINT TP SCH (09:16)
[2018-11-15] MEDS: NYSTATIN/TRIAMCIN CREAM 15 GM TUBE TP SCH ×2 (09:16→17:24)
--- NOTE | 2018-11-15 11:00 | NUR ---
RN MS NOTES LEFT MESSAGE WITH DAUGHTER TO CALL BACK FOR PHONE CONSULT. DR MOYER TO DEBRIDED SACRAL . CONSENT OBTAINED SIGNED BY [address] MOYER AWARE
[2018-11-15 11:50] VITALS: BP 119/59
[2018-11-15] MEDS ORDERED: MEROPENEM 1 G in IV NS 0.9% 100 ML IV ONE (15:00)
[2018-11-15 16:00] VITALS: BP 120/56
--- NOTE | 2018-11-15 16:40 | NUR ---
RN MS NOTES DAUGHTER AT BEDSIDE WITH SPEECH THERAPY FOR SWALLOW EVALUATION. PATIENT TOO LETHARGIC TO PARTICIPATE. WILL TRY AGAIN IN THE AM 11/16
[2018-11-15] MEDS: CLOPIDOGREL BISULFATE 75 MG TABLET GT SCH (17:22)
[2018-11-15] MEDS: FLUCONAZOLE IN NS 100 MG in PREMIX 1 EA IV SCH ×2 (17:23)
[2018-11-15 17:50] LABS: CALCIUM, SERUM 8.2 mg/dL (8.5-10.1); CARBON DIOXIDE 15 mmol/L (21-32); CHLORIDE 116 mmol/L (98-107); CREATININE 1.1 mg/dL (0.6-1.3); GLUCOSE 174 mg/dL (74-106); POTASSIUM 5.5 mmol/L (3.5-5.1); SODIUM SERUM 143 mmol/L (136-145); UREA NITROGEN, BLOOD 36 mg/dL (7-18)
--- NOTE | 2018-11-15 19:27 | NUR ---
FARMWORKER POULTRY CLOSING NOTES REPORT GIVEN BEDSIDE TO MOR RN. PATIENT ASLEEP IN BED NO SIGNS OR SYMPTOMS OF RESPIRATORY DISTRESS OR ACUTE PAIN . BILATERAL RESTRAINTS FOR PULLING AT TUBES MERON PICC PATENT NO FLUIDS AT THIS TIME. NGT PLACEMENT CONFIRMED GLUCERNA 1.2 RUNNING AT GOAL OF 30 ML/HR TOLERATING WITH NO RESIDUAL NOTED FERNANDEZ CATH DRAINING CLEAR YELLOW URINE. ASPIRATION AND SAFETY PRECAUTIONS IN PLACE BED IN LOW POSITION CALL LIGHT WITHIN REACH. WILL ENDORSE TO MOR
--- NOTE | 2018-11-15 19:50 | NUR ---
MS RN NOTE: RECEIVED PT ON BED ASLEEP BUT AROUSES EASILY TO TACTILE STIMULI. NO APPARENT DISTRESS NOTED. NO FACIAL GRIMACING OR ANY SIGNS OF PAIN NOTED. BREATHING EVEN AND UNLABORED WITH NORMAL RESPIRATIONS. NGT ON RIGHT NARE INTACT AND PATENT WITH GLUCERNA FEEDING RUNNING AT 30ML/HR. NO RESIDUAL NOTED AT THIS TIME. RIGHT UPPER ARM PICC LINE INTACT AND PATENT, FLUSHING WELL. KEPT CLEAN, DRY AND COMFORTABLE. SAFETY AND FALL PRECAUTIONS OBSERVED AND MAINTAINED. WILL CONTINUE TO MONITOR PT.
[2018-11-15 20:00] VITALS: BP 95/68
[2018-11-15] MEDS ORDERED: AZTREONAM 1 G in IV NS 0.9% 100 ML IV SCH (21:00)
[2018-11-15] MEDS: GABAPENTIN 100 MG CAPSULE GT SCH (21:07)
[2018-11-15] MEDS: LATANOPROST EYE DROP 0.005% 2.5 ML BOTTLE EACHEYE SCH (21:07)
[2018-11-15] MEDS: *INSULIN REGULAR(HUMULIN R)HUM 100 UNIT/ML VIAL SQ PRN (21:08)
[2018-11-15] MEDS ORDERED: MEROPENEM 1 G VIAL IV ONE (23:13)
[2018-11-15] MEDS: MEROPENEM 1 G in IV NS 0.9% 100 ML IV SCH (23:15)
[2018-11-16] MEDS: GLUCERNA 1.2 1,000 ML BOTTLE NG SCH (02:24)
[2018-11-16 04:00] VITALS: BP 108/57
[2018-11-16 06:32] LABS: CALCIUM, SERUM 7.7 mg/dL (8.5-10.1); CARBON DIOXIDE 21 mmol/L (21-32); CHLORIDE 116 mmol/L (98-107); GLUCOSE 143 mg/dL (74-106); POTASSIUM 4.7 mmol/L (3.5-5.1); SODIUM SERUM 146 mmol/L (136-145); UREA NITROGEN, BLOOD 39 mg/dL (7-18)
[2018-11-16 06:42] LABS: BASOPHILS % (AUTO) 0.1 % (0.0-2.0); HEMATOCRIT 34 % (33-45); LYMPHOCYTES # (AUTO) 0.6 /CMM (0.8-4.8); LYMPHOCYTES % (AUTO) 3.6 % (20.0-44.0); MEAN CORPUSCULAR HGB CONC 32 g/dl (31.0-36.0); MEAN CORPUSCULAR VOLUME 89 fL (82-100); MONOCYTES # (AUTO) 0.7 /CMM (0.1-1.30); NEUTROPHILS # (AUTO) 15.8 /CMM (1.8-8.9); NEUTROPHILS % (AUTO) 92.3 % (43.0-81.0); PLATELET COUNT (AUTO) 127 /CMM (150-450); RED BLOOD CELL COUNT(AUTO) 3.81 MIL/uL (4.0-5.2); WHITE BLOOD COUNT (AUTO) 17.1 K/uL (4.3-11.0)
--- NOTE | 2018-11-16 06:49 | NUR ---
MS RN NOTE: NO CHANGES NOTED THROUGHOUT THE SHIFT. NO ACUTE DISTRESS NOTED. NO FACIAL GRIMACING OR ANY SIGNS OF PAIN NOTED. NO SOB NOTED. RIGHT NARE NGT INTACT AND IN PLACED WITH GLUCERNA FEEDING RUNNING AT 30ML/HR, ABLE TO TOLERATE WELL. FERNANDEZ CATH INTACT AND PATENT, DRAINED 250ML OF URINE OUTPUT. KEPT CLEAN, DRY AND COMFORTABLE. SAFETY AND FALL PRECAUTIONS OBSERVED AND MAINTAINED. WILL ENDORSE TO DAY SHIFT RN FOR CONTINUITY OF CARE.
--- NOTE | 2018-11-16 07:40 | NUR ---
RN OPENING NOTES RECEIVED BEDSIDE REPORT FROM SUPERIOR COURT CLERK RN. PT IS SLEEPING IN BED. NGT PLACEMENT VERIFIED AND RUNNING GLUCERNA @ 30ML/HR. ASPIRATION PRECAUTIONS IN PLACE. PT HAS A FERNANDEZ AND IS DRAINING TO GRAVITY. MERON PICC LINE NOTED. CALL LIGHT WITHIN REACH.
--- NOTE | 2018-11-16 07:42 | NUR ---
STRAND FORMING MACHINE OPERATOR OPENING NOTES REPORT GIVEN BEDSIDE BY MOR RN. PATIENT ASLEEP IN BED NO SIGNS OR SYMPTOMS OF RESPIRATORY DISTRESS OR ACUTE PAIN . BILATERAL RESTRAINTS FOR PULLING AT TUBES MERON PICC PATENT NO FLUIDS AT THIS TIME. NGT PLACEMENT CONFIRMED GLUCERNA 1.2 RUNNING AT GOAL OF 30 ML/HR TOLERATING WITH NO RESIDUAL NOTED FERNANDEZ CATH DRAINING CLEAR YELLOW URINE. ASPIRATION AND SAFETY PRECAUTIONS IN PLACE BED IN LOW POSITION CALL LIGHT WITHIN REACH. WILL CONT TO MONITOR
[2018-11-16 08:00] VITALS: BP 98/52
[2018-11-16] MEDS: LEVOTHYROXINE SODIUM 75 MCG TABLET GT SCH (08:52)
[2018-11-16] MEDS: METOCLOPRAMIDE HCL 10 MG/10 ML UDC GT SCH ×2 (08:52→17:11)
[2018-11-16] MEDS: POTASSIUM CHLORIDE 20 MEQ POWDER PACKET GT SCH (08:53)
[2018-11-16] MEDS: MULTIVIT W/MINERALS 1 TAB TABLET GT SCH (08:53)
[2018-11-16] MEDS: PANTOPRAZOLE 40 MG/PACK PACK NG SCH (08:54)
[2018-11-16] MEDS: CHOLECALCIFEROL 1,000 UNIT TABLET (VIT D3) GT SCH (08:54)
[2018-11-16] MEDS: DONEPEZIL 5 MG TABLET GT SCH ×2 (08:55→17:11)
[2018-11-16] MEDS: RAMIPRIL 1.25 MG CAPSULE GT SCH (08:55)
[2018-11-16] MEDS: ZINC SULFATE 220 MG CAPSULE GT SCH (08:56)
[2018-11-16] MEDS: HYDROCORTISONE SOD SUCCINATE 100 MG/2 ML VIAL IV SCH ×3 (08:56→17:15)
[2018-11-16] MEDS: ASCORBIC ACID 500 MG TABLET GT SCH ×2 (08:56→17:13)
[2018-11-16] MEDS: buPROPion 100 MG TABLET GT SCH ×2 (08:56→17:15)
[2018-11-16] MEDS: INSULIN GLARGINE, 100 UNIT/ML CARTRIDGE SQ SCH ×2 (08:58→17:14)
[2018-11-16] MEDS: BRIMONIDINE TARTRATE OPHT SOLN 5 ML BOTTLE EACHEYE SCH ×3 (08:58→17:16)
[2018-11-16] MEDS: POLYVINYL ALCOHOL 15 ML BOTTLE EACHEYE PRN (08:59)
[2018-11-16] MEDS: prednisoLONE ACETATE 1% SUSP 5 ML BOTTLE LEFTEYE SCH (08:59)
[2018-11-16] MEDS: TIMOLOL MAL/DORZOLAM HCL OPHTH 10 ML BOTTLE EACHEYE SCH ×2 (08:59→17:16)
[2018-11-16] MEDS: NYSTATIN/TRIAMCIN CREAM 15 GM TUBE TP SCH ×2 (09:09→17:17)
[2018-11-16] MEDS: Z GUARD REMEDY 2 OZ OINT TP SCH (09:09)
[2018-11-16] MEDS: PROSTAT (PYXIS) 30 ML UDC GT SCH (09:10)
[2018-11-16] MEDS: BLOOD SUGAR DIAGNOSTIC 1 EACH STRIP VI SCH ×2 (09:11→12:53)
[2018-11-16] MEDS: MEROPENEM 1 G in IV NS 0.9% 100 ML IV SCH ×2 (12:58→23:33)
[2018-11-16 16:00] VITALS: BP 107/60
[2018-11-16] MEDS: FLUCONAZOLE IN NS 100 MG in PREMIX 1 EA IV SCH ×2 (17:15)
[2018-11-16] MEDS: CLOPIDOGREL BISULFATE 75 MG TABLET GT SCH (17:15)
[2018-11-16] MEDS ORDERED: INSULIN REGULAR, HUMAN 100 UNIT/ML 3 ML VIAL SQ PRN (18:00)
[2018-11-16] MEDS: INSULIN REGULAR, HUMAN 100 UNIT/ML 3 ML VIAL SQ PRN (18:05)
[2018-11-16] MEDS: BLOOD SUGAR DIAGNOSTIC 1 EACH STRIP IN SCH ×2 (18:08→23:38)
--- NOTE | 2018-11-16 19:01 | NUR ---
RN CLOSING NOTES GAVE BEDSIDE REPORT TO PHYTOPATHOLOGIST RN. PT IS SLEEPING IN BED. NGT PLACEMENT VERIFIED AND RUNNING GLUCERNA @ 30ML/HR. ASPIRATION PRECAUTIONS IN PLACE. PT HAS A FERNANDEZ AND IS DRAINING TO GRAVITY. MERON PICC LINE NOTED RUNNING NS @ 3ML/HR. CALL LIGHT WITHIN REACH.
--- NOTE | 2018-11-16 19:58 | NUR ---
MS RN NOTES RECEIVED PT ON BED. ON ROOM AIR NO RESPIRATORY DISTRESS NOTED. ON FC DRAINING YELLOW URINE. RIGHT NARE GTUBE FEEDING @ 30CC/HR NO RESIDUAL NOTED, VERIFIED PLACEMENT BY 2N RN, GURGLING SOUND UPON AUSCULTATION. IV ACCESS ON MERON PICC PATENT AND INTACT. HEAD OF BED ELEVATED. SIDE RAILS UP. CALL LIGHT WITHIN REACH. BED ALARM ON. WILL CONTINUE TO MONITOR PT CLOSELY.
[2018-11-16 20:00] VITALS: BP 115/58
[2018-11-16] MEDS: LATANOPROST EYE DROP 0.005% 2.5 ML BOTTLE EACHEYE SCH (21:16)
[2018-11-16] MEDS: GABAPENTIN 100 MG CAPSULE GT SCH (21:16)
--- NOTE | 2018-11-17 01:10 | NUR ---
MS RN NOTES PT PULLED NGT. CHECK O2 SATURATION PT 95% ON ROOM AIR.INSERTED NGT TUBE RIGHT NARE G16. ORDERED CHEST XRAY FOR PLACEMENT VERIFICATION. VERIFIED BY 2RN AND CN PLACEMENT THRU AUSCULTATION WILL MONITOR PT CLOSELY..
--- NOTE | 2018-11-17 01:22 | NUR ---
MS RN NOTES PAGED RADIOLOGY FOR STAT ORDER CHEST XRAY FOR NGT VERIFICATION.
--- NOTE | 2018-11-17 02:37 | NUR ---
MS RN NOTES PAGED RADIOLOGY X2 FOR CXR. PER RADIOLOGY MANY PT IN ER. CHARGE NURSE INFORMED.
[2018-11-17 04:00] VITALS: BP 116/41
--- NOTE | 2018-11-17 04:24 | NUR ---
MS RN NOTES CXR TAKEN. AWAITING RESULTS.
[2018-11-17] MEDS: BLOOD SUGAR DIAGNOSTIC 1 EACH STRIP IN SCH ×3 (05:19→18:59)
--- NOTE | 2018-11-17 06:22 | NUR ---
MS RN NOTES PER DR MENDOZA, FOR CONFIRMATION OF PLACEMENT OF NGT, ORDER KUB. WILL MONITOR PT CLOSELY.
[2018-11-17 06:31] LABS: CARBON DIOXIDE 21 mmol/L (21-32); CHLORIDE 115 mmol/L (98-107); GLUCOSE 72 mg/dL (74-106); SODIUM SERUM 144 mmol/L (136-145); UREA NITROGEN, BLOOD 38 mg/dL (7-18)
--- NOTE | 2018-11-17 07:14 | NUR ---
MS RN NOTES NO ACUTE CHANGES NOTED DURING THE SHIFT. PT PULLED OUT NG TUBE. INSERTED ANOTHER NGT. CHARGE NURSE AND RN VERIFIED PLACEMENT BY AUSCULTATION, ORDERED CXR. DUE MEDS GIVEN, PROVIDED COMFORT AND SAFETY. ENDORSE TO THE AM NURSE FOR CONTINUITY OF CARE.
[2018-11-17 07:20] LABS: BASOPHILS # (AUTO) 0.1 /CMM (0.0-0.2); BASOPHILS % (AUTO) 0.3 % (0.0-2.0); HEMATOCRIT 32 % (33-45); HEMOGLOBIN 10.4 g/dL (11.5-14.8); LYMPHOCYTES # (AUTO) 0.9 /CMM (0.8-4.8); LYMPHOCYTES % (AUTO) 4.8 % (20.0-44.0); MEAN CORPUSCULAR HGB CONC 32 g/dl (31.0-36.0); MEAN CORPUSCULAR VOLUME 89 fL (82-100); MONOCYTES # (AUTO) 0.7 /CMM (0.1-1.30); MONOCYTES % (AUTO) 3.6 % (2.0-12.0); NEUTROPHILS # (AUTO) 16.4 /CMM (1.8-8.9); NEUTROPHILS % (AUTO) 91.3 % (43.0-81.0); PLATELET COUNT (AUTO) 110 /CMM (150-450); RED BLOOD CELL COUNT(AUTO) 3.63 MIL/uL (4.0-5.2)
--- NOTE | 2018-11-17 07:38 | NUR ---
AVIONICS SYSTEMS REPAIRER OPENING NOTES REPORT GIVEN BEDSIDE BY MOR RN. PATIENT AWAKE IN BED NO SIGNS OR SYMPTOMS OF RESPIRATORY DISTRESS OR ACUTE PAIN . BILATERAL RESTRAINTS FOR PULLING AT TUBES MERON PICC PATENT NO FLUIDS AT THIS TIME. NGT REINSERTED AFTER PULLING OUT AWAITING FOR KUB TO CONFIRM PLACEMENT AND RESUME FEEDING. FERNANDEZ CATH DRAINING CLEAR YELLOW URINE. ASPIRATION AND SAFETY PRECAUTIONS IN PLACE BED IN LOW POSITION CALL LIGHT WITHIN REACH. WILL CONT TO MONITOR
--- NOTE | 2018-11-17 07:51 | NUR ---
WHITE KID BUFFER OPENING NOTES RECEIVED BEDSIDE REPORT FROM ENVIRONMENTAL HEALTH PHYSICIAN RN. PATIENT SLEEPING, A/O X 1. NGT PLACEMENT VERIFIED AND RUNNING GLUCERNA @ 30ML/HR. ASPIRATION PRECAUTIONS IN PLACE. PT HAS A FERNANDEZ AND IS DRAINING TO GRAVITY. MERON PICC LINE NOTED. CALL LIGHT WITHIN REACH. SAFETY MEASURES IN PLACE.
[2018-11-17 08:00] VITALS: BP 116/63
[2018-11-17] MEDS: LEVOTHYROXINE SODIUM 75 MCG TABLET GT SCH (08:22)
[2018-11-17] MEDS: HYDROCORTISONE SOD SUCCINATE 100 MG/2 ML VIAL IV SCH ×3 (09:12→17:46)
[2018-11-17] MEDS: BRIMONIDINE TARTRATE OPHT SOLN 5 ML BOTTLE EACHEYE SCH ×3 (09:13→17:46)
[2018-11-17] MEDS: POLYVINYL ALCOHOL 15 ML BOTTLE EACHEYE PRN (09:13)
[2018-11-17] MEDS: TIMOLOL MAL/DORZOLAM HCL OPHTH 10 ML BOTTLE EACHEYE SCH ×2 (09:14→18:00)
[2018-11-17] MEDS: prednisoLONE ACETATE 1% SUSP 5 ML BOTTLE LEFTEYE SCH (09:14)
[2018-11-17] MEDS: INSULIN GLARGINE, 100 UNIT/ML CARTRIDGE SQ SCH ×2 (09:19→18:42)
[2018-11-17] MEDS: METOCLOPRAMIDE HCL 10 MG/10 ML UDC GT SCH ×2 (09:35→17:46)
[2018-11-17] MEDS: CHOLECALCIFEROL 1,000 UNIT TABLET (VIT D3) GT SCH (09:35)
[2018-11-17] MEDS: ASCORBIC ACID 500 MG TABLET GT SCH ×2 (09:35→17:46)
[2018-11-17] MEDS: POTASSIUM CHLORIDE 20 MEQ POWDER PACKET GT SCH (09:36)
[2018-11-17] MEDS: DONEPEZIL 5 MG TABLET GT SCH ×2 (09:36→17:47)
[2018-11-17] MEDS: ZINC SULFATE 220 MG CAPSULE GT SCH (09:38)
[2018-11-17 09:49] LABS: BAND % (MANUAL) 1 % (0.0-5.0); LYMPHOCYTES % (MANUAL) 3 % (16-48); MONOCYTES % (MANUAL) 4 % (0-11.0); MYELOCYTES % 1 % (0-0); NEUTROPHILS % (MANUAL) 91 (42-76)
[2018-11-17] MEDS: buPROPion 100 MG TABLET GT SCH ×2 (09:54→18:04)
[2018-11-17] MEDS: MULTIVIT W/MINERALS 1 TAB TABLET GT SCH (09:54)
[2018-11-17] MEDS: PROSTAT (PYXIS) 30 ML UDC GT SCH (09:55)
[2018-11-17] MEDS: RAMIPRIL 1.25 MG CAPSULE GT SCH (10:04)
[2018-11-17] MEDS: PANTOPRAZOLE 40 MG/PACK PACK NG SCH (10:11)
[2018-11-17] MEDS: NYSTATIN/TRIAMCIN CREAM 15 GM TUBE TP SCH ×2 (10:45→17:58)
[2018-11-17] MEDS: Z GUARD REMEDY 2 OZ OINT TP SCH (10:46)
[2018-11-17 12:00] VITALS: BP 130/69
[2018-11-17] MEDS: INSULIN REGULAR, HUMAN 100 UNIT/ML 3 ML VIAL SQ PRN ×2 (12:50→18:42)
[2018-11-17] MEDS: MEROPENEM 1 G in IV NS 0.9% 100 ML IV SCH (14:28)
[2018-11-17] MEDS: CLOPIDOGREL BISULFATE 75 MG TABLET GT SCH (17:46)
[2018-11-17] MEDS: FLUCONAZOLE IN NS 100 MG in PREMIX 1 EA IV SCH ×2 (18:04)
[2018-11-17] MEDS: GLUCERNA 1.2 1,000 ML BOTTLE NG SCH (19:23)
[2018-11-17 20:00] VITALS: BP 93/52
--- NOTE | 2018-11-17 20:00 | NUR ---
KELI RN OPENING NOTES REPORT GIVEN BEDSIDE BY AM SHIFT RN. PATIENT AWAKE IN BED NO SIGNS OR SYMPTOMS OF RESPIRATORY DISTRESS OR ACUTE PAIN . DAUGHTER AT THE BEDSIDE. BILATERAL SOFT WRIST RESTRAINTS FOR PULLING AT TUBES AND MERON PICC LINE PATENT W/O FLUIDS AT THIS TIME NOTED. NGT IS IN PLACE FOR CONTINUOUS FEEDING @40ML/HR. FERNANDEZ CATH DRAINING CLEAR YELLOW URINE. ASPIRATION AND SAFETY PRECAUTIONS IN PLACE BED IN LOW, LOCKED POSITION CALL LIGHT WITHIN REACH. WILL CONT TO MONITOR PATIENT CLOSELY.
[2018-11-17] MEDS ORDERED: IV NS 0.9% 1,000 ML BAG IV PRN (20:30)
[2018-11-17] MEDS: GABAPENTIN 100 MG CAPSULE GT SCH (21:44)
[2018-11-17] MEDS: LATANOPROST EYE DROP 0.005% 2.5 ML BOTTLE EACHEYE SCH (21:44)
--- NOTE | 2018-11-17 21:45 | NUR ---
RN NOTES CALLED DR MENDOZA FOR PATIENT'S IV FLUIDS BECAUSE PATIENT'S B/P WAS ON THE LOWER SIDE AND PATIENT IS NPO ON NGT FEEDING. NEW ORDER OF 0.9% NS @75ML/HR IS IN PLACE. WILL CONTINUE TO MONITOR PATIENT CLOSELY.
[2018-11-18] MEDS: MEROPENEM 1 G in IV NS 0.9% 100 ML IV SCH ×3 (00:36→23:27)
[2018-11-18] MEDS: BLOOD SUGAR DIAGNOSTIC 1 EACH STRIP IN SCH ×5 (00:36→23:36)
[2018-11-18] MEDS: IV NS 0.9% 1,000 ML IV PRN ×2 (00:38→23:26)
[2018-11-18] MEDS: INSULIN REGULAR, HUMAN 100 UNIT/ML 3 ML VIAL SQ PRN ×5 (00:42→23:37)
[2018-11-18 04:00] VITALS: BP 109/59
[2018-11-18 06:14] LABS: BASOPHILS # (AUTO) 0.1 /CMM (0.0-0.2); BASOPHILS % (AUTO) 0.4 % (0.0-2.0); HEMATOCRIT 33 % (33-45); HEMOGLOBIN 10.6 g/dL (11.5-14.8); LYMPHOCYTES # (AUTO) 0.7 /CMM (0.8-4.8); LYMPHOCYTES % (AUTO) 3.9 % (20.0-44.0); MEAN CORPUSCULAR HGB CONC 32 g/dl (31.0-36.0); MEAN CORPUSCULAR VOLUME 90 fL (82-100); MONOCYTES # (AUTO) 0.6 /CMM (0.1-1.30); MONOCYTES % (AUTO) 3.2 % (2.0-12.0); NEUTROPHILS # (AUTO) 17.6 /CMM (1.8-8.9); NEUTROPHILS % (AUTO) 92.5 % (43.0-81.0); PLATELET COUNT (AUTO) 122 /CMM (150-450); RED BLOOD CELL COUNT(AUTO) 3.65 MIL/uL (4.0-5.2); WHITE BLOOD COUNT (AUTO) 19.1 K/uL (4.3-11.0)
[2018-11-18 06:24] LABS: CALCIUM, SERUM 7.8 mg/dL (8.5-10.1); CARBON DIOXIDE 23 mmol/L (21-32); CHLORIDE 113 mmol/L (98-107); CREATININE 0.8 mg/dL (0.6-1.3); GLUCOSE 187 mg/dL (74-106); MAGNESIUM 2.5 mg/dL (1.8-2.4); PHOSPHORUS 2.8 mg/dL (2.5-4.9); POTASSIUM 4.1 mmol/L (3.5-5.1); SODIUM SERUM 143 mmol/L (136-145); UREA NITROGEN, BLOOD 34 mg/dL (7-18)
--- NOTE | 2018-11-18 07:10 | NUR ---
RN OPENING NOTE RECEIVED PATIENT IN BED ASLEEP BUT EASILY AROUSABLE TO TOUCH. PATIENT ON ROOM AIR SATING GOOD AT 97%. ON BILATERAL SOFT RESTRAINTS. HAS AN NG FEEDING WITH GLUCERNA AT 40ML/HR. PLACEMENT CHECKED. HAS A RIGHT UPPER ARM PICC WITH NS RUNNING AT 75 ML/HR. HAS A FERNANDEZ ON GRAVITY WITH CLEAR AND YELLOW URINE. NO SIGNS OF ANY PAIN OR DISTRESS. BED LOCKED AND ON LOW POSITION. CALL LIGHT WITHIN REACH. WILL CONTINUE TO MONITOR
[2018-11-18 08:00] VITALS: BP 126/65
[2018-11-18] MEDS: DONEPEZIL 5 MG TABLET GT SCH ×2 (08:10→16:39)
[2018-11-18] MEDS: PANTOPRAZOLE 40 MG/PACK PACK NG SCH (08:10)
[2018-11-18] MEDS: LEVOTHYROXINE SODIUM 75 MCG TABLET GT SCH (08:10)
[2018-11-18] MEDS: METOCLOPRAMIDE HCL 10 MG/10 ML UDC GT SCH ×2 (08:10→16:40)
[2018-11-18] MEDS: ASCORBIC ACID 500 MG TABLET GT SCH ×2 (08:10→16:40)
[2018-11-18] MEDS: ZINC SULFATE 220 MG CAPSULE GT SCH (08:10)
[2018-11-18] MEDS: MULTIVIT W/MINERALS 1 TAB TABLET GT SCH (08:10)
[2018-11-18] MEDS: CHOLECALCIFEROL 1,000 UNIT TABLET (VIT D3) GT SCH (08:10)
[2018-11-18] MEDS: HYDROCORTISONE SOD SUCCINATE 100 MG/2 ML VIAL IV SCH ×3 (08:10→16:39)
[2018-11-18] MEDS: buPROPion 100 MG TABLET GT SCH ×2 (08:11→16:42)
[2018-11-18] MEDS: POTASSIUM CHLORIDE 20 MEQ POWDER PACKET GT SCH (08:11)
[2018-11-18] MEDS: TIMOLOL MAL/DORZOLAM HCL OPHTH 10 ML BOTTLE EACHEYE SCH ×2 (08:12→16:43)
[2018-11-18] MEDS: BRIMONIDINE TARTRATE OPHT SOLN 5 ML BOTTLE EACHEYE SCH ×3 (08:12→16:44)
[2018-11-18] MEDS: prednisoLONE ACETATE 1% SUSP 5 ML BOTTLE LEFTEYE SCH (08:13)
[2018-11-18] MEDS: NYSTATIN/TRIAMCIN CREAM 15 GM TUBE TP SCH ×2 (08:16→16:45)
[2018-11-18] MEDS: Z GUARD REMEDY 2 OZ OINT TP SCH (08:17)
[2018-11-18] MEDS: RAMIPRIL 1.25 MG CAPSULE GT SCH (08:20)
[2018-11-18] MEDS: INSULIN GLARGINE, 100 UNIT/ML CARTRIDGE SQ SCH ×2 (08:42→16:50)
[2018-11-18 09:58] LABS: BAND % (MANUAL) 2 % (0.0-5.0); LYMPHOCYTES % (MANUAL) 1 % (16-48); MYELOCYTES % 1 % (0-0); NEUTROPHILS % (MANUAL) 96 (42-76)
[2018-11-18] MEDS: PROSOURCE / PROSTAT (PYXIS) 30 ML UDC GT SCH (11:58)
[2018-11-18 16:00] VITALS: BP 104/68
[2018-11-18] MEDS: LACTOBACILLUS RHAMNOSUS GG 1 EACH CAP.SPRINK PO SCH (16:39)
[2018-11-18] MEDS: CLOPIDOGREL BISULFATE 75 MG TABLET GT SCH (16:39)
[2018-11-18] MEDS: FLUCONAZOLE IN NS 100 MG in PREMIX 1 EA IV SCH ×2 (16:42)
[2018-11-18] MEDS: GLUCERNA 1.2 1,000 ML BOTTLE NG SCH (17:34)
--- NOTE | 2018-11-18 19:34 | NUR ---
RN CLOSING NOTE PATIENT IN BED AWAKE, DAUGHTER AT BEDSIDE. ALL NEEDS MET. NG FEEDING RUNNING AT 40 ML/HR, TOLERATING WELL. HAS FLUIDS RUNNING. REPORT GIVEN TO NOC EFFIE RN.
[2018-11-18 20:00] VITALS: BP 110/63
--- NOTE | 2018-11-18 20:01 | NUR ---
RN MS OPENING NOTES RECEIVED PATIENT IN BED AWAKE, ALERT AND ORIENTED X1, CONFUSED. HARD OF HEARING. DAUGHTER AT BEDSIDE. BREATHING EVEN AND UNLABORED. NO SOB NOTED. TOLERATING ROOM AIR. NO S/S OF PAIN OR DISCOMFORT. NO FACIAL GRIMACING. IV ON RIGHT UPPER ARM PICC LINE IN TACT AND PATENT WITH NS RUNNING AT 75ML/HR. SKIN DRY AND WARM TOUCH. AFEBRILE. ALL OTHER NEEDS ATTENDED TO. SAFETY MEASURES IN PLACE. CALL LIGHT WITHIN REACH. WILL CONTINUE TO MONITOR.
[2018-11-18] MEDS: GABAPENTIN 100 MG CAPSULE GT SCH (21:25)
[2018-11-18] MEDS: LATANOPROST EYE DROP 0.005% 2.5 ML BOTTLE EACHEYE SCH (21:26)
--- NOTE | 2018-11-18 23:49 | NUR ---
RN MS NOTES BLOOD SUGAR 100 - NO COVERAGE NEEDED
[2018-11-19 04:00] VITALS: BP 128/69
[2018-11-19] MEDS: BLOOD SUGAR DIAGNOSTIC 1 EACH STRIP IN SCH ×3 (05:29→18:17)
[2018-11-19] MEDS: INSULIN REGULAR, HUMAN 100 UNIT/ML 3 ML VIAL SQ PRN (05:32)
[2018-11-19 06:12] LABS: BASOPHILS # (AUTO) 0.1 /CMM (0.0-0.2); BASOPHILS % (AUTO) 0.3 % (0.0-2.0); HEMATOCRIT 33 % (33-45); HEMOGLOBIN 10.5 g/dL (11.5-14.8); LYMPHOCYTES # (AUTO) 0.8 /CMM (0.8-4.8); LYMPHOCYTES % (AUTO) 3.9 % (20.0-44.0); MEAN CORPUSCULAR HGB CONC 32 g/dl (31.0-36.0); MEAN CORPUSCULAR VOLUME 90 fL (82-100); MONOCYTES # (AUTO) 0.7 /CMM (0.1-1.30); MONOCYTES % (AUTO) 3.4 % (2.0-12.0); NEUTROPHILS % (AUTO) 92.4 % (43.0-81.0); PLATELET COUNT (AUTO) 147 /CMM (150-450); RED BLOOD CELL COUNT(AUTO) 3.67 MIL/uL (4.0-5.2); WHITE BLOOD COUNT (AUTO) 20.6 K/uL (4.3-11.0)
[2018-11-19 06:47] LABS: CALCIUM, SERUM 7.7 mg/dL (8.5-10.1); CARBON DIOXIDE 24 mmol/L (21-32); CHLORIDE 116 mmol/L (98-107); CREATININE 0.8 mg/dL (0.6-1.3); GLUCOSE 164 mg/dL (74-106); MAGNESIUM 2.4 mg/dL (1.8-2.4); PHOSPHORUS 2.7 mg/dL (2.5-4.9); SODIUM SERUM 148 mmol/L (136-145); UREA NITROGEN, BLOOD 32 mg/dL (7-18)
--- NOTE | 2018-11-19 06:51 | NUR ---
RN MS CLOSING NOTES PATIENT RESTING IN BED. NO ACUTE CHANGES THROUGHOUT SHIFT. BREATHING EVEN AND UNLABORED. NO SOB NOTED. TOLERATING ROOM AIR. NO S/S OF PAIN OR DISCOMFORT. NO FACIAL GRIMACING. IV ON RIGHT UPPER ARM PICC LINE IN TACT AND PATENT WITH NS RUNNING AT 75ML/HR. SKIN DRY AND WARM TOUCH. AFEBRILE. KEPT CLEAN DRY AND COMFORTABLE. DRESSINGS CHANGED. ALL OTHER NEEDS ATTENDED TO. SAFETY MEASURES IN PLACE. CALL LIGHT WITHIN REACH. WILL ENDORSE TO ONCOMING NURSE FOR RUMA. Addendum: 11/19/18 at 0657 by AMAYA YUAN RN FERNANDEZ CATH INTACT AND DRAINING WELL. ON BILATERAL SOFT RESTRAINTS. CHECKED Q2H FOR REDNESS OR ANY ADVERSE REACTIONS - NONE NOTED.
--- NOTE | 2018-11-19 07:10 | NUR ---
RN OPENING NOTE RECEIVED PATIENT IN BED ASLEEP BUT EASILY AROUSABLE TO TOUCH. PATIENT ON ROOM AIR SATING GOOD AT 98%. ON BILATERAL SOFT RESTRAINTS. HAS AN NG FEEDING WITH GLUCERNA 1.2 AT 40ML/HR. PLACEMENT OF NGT CHECKED. HAS A RIGHT UPPER ARM PICC WITH NS RUNNING AT 75 ML/HR. HAS A FERNANDEZ ON GRAVITY WITH CLEAR AND YELLOW URINE. NO SIGNS OF ANY PAIN OR DISTRESS. BED LOCKED AND ON LOW POSITION. CALL LIGHT WITHIN REACH. WILL CONTINUE TO MONITOR
[2018-11-19 07:14] LABS: LYMPHOCYTES % (MANUAL) 3 % (16-48); METAMYELOCYTES % 1 % (0-0); MONOCYTES % (MANUAL) 2 % (0-11.0); MYELOCYTES % 1 % (0-0); NEUTROPHILS % (MANUAL) 93 (42-76)
[2018-11-19] MEDS: LEVOTHYROXINE SODIUM 75 MCG TABLET GT SCH (08:20)
[2018-11-19] MEDS: ASCORBIC ACID 500 MG TABLET GT SCH ×2 (08:20→16:48)
[2018-11-19] MEDS: POTASSIUM CHLORIDE 20 MEQ POWDER PACKET GT SCH (08:20)
[2018-11-19] MEDS: PANTOPRAZOLE 40 MG/PACK PACK NG SCH (08:20)
[2018-11-19] MEDS: CHOLECALCIFEROL 1,000 UNIT TABLET (VIT D3) GT SCH (08:20)
[2018-11-19] MEDS: METOCLOPRAMIDE HCL 10 MG/10 ML UDC GT SCH ×2 (08:21→16:48)
[2018-11-19] MEDS: ZINC SULFATE 220 MG CAPSULE GT SCH (08:21)
[2018-11-19] MEDS: HYDROCORTISONE SOD SUCCINATE 100 MG/2 ML VIAL IV SCH ×2 (08:21→16:47)
[2018-11-19] MEDS: LACTOBACILLUS RHAMNOSUS GG 1 EACH CAP.SPRINK PO SCH ×2 (08:21→16:48)
[2018-11-19] MEDS: buPROPion 100 MG TABLET GT SCH ×2 (08:21→16:48)
[2018-11-19] MEDS: DONEPEZIL 5 MG TABLET GT SCH ×2 (08:21→16:48)
[2018-11-19] MEDS: MULTIVIT W/MINERALS 1 TAB TABLET GT SCH (08:21)
[2018-11-19] MEDS: prednisoLONE ACETATE 1% SUSP 5 ML BOTTLE LEFTEYE SCH (08:27)
[2018-11-19] MEDS: RAMIPRIL 1.25 MG CAPSULE GT SCH (08:27)
[2018-11-19] MEDS: TIMOLOL MAL/DORZOLAM HCL OPHTH 10 ML BOTTLE EACHEYE SCH ×2 (08:28→16:49)
[2018-11-19] MEDS: BRIMONIDINE TARTRATE OPHT SOLN 5 ML BOTTLE EACHEYE SCH ×3 (08:28→16:49)
[2018-11-19] MEDS: INSULIN GLARGINE, 100 UNIT/ML CARTRIDGE SQ SCH ×2 (08:57→16:56)
--- NOTE | 2018-11-19 09:00 | NUR ---
RN NOTE PATIENT PULLED HER NGT A FEW CM OUT. REINSERTED BY CHARGE NURSE. ORDERED A STAT CXR TO CHECK PLACEMENT. WILL HOLD WAX ROOM SUPERVISOR FOR NOW
--- NOTE | 2018-11-19 10:00 | NUR ---
RN NOTE RECEIVED CXR RESULTS. NGT ON CORRECT PLACEMENT. WILL CONTINUE TO ADMINISTER MEDICATIONS VIA NGT
[2018-11-19] MEDS: PROSOURCE / PROSTAT (PYXIS) 30 ML UDC GT SCH (10:11)
[2018-11-19] MEDS: NYSTATIN/TRIAMCIN CREAM 15 GM TUBE TP SCH ×2 (10:11→16:52)
[2018-11-19] MEDS: Z GUARD REMEDY 2 OZ OINT TP SCH (10:12)
[2018-11-19] MEDS: MEROPENEM 1 G in IV NS 0.9% 100 ML IV SCH (11:46)
[2018-11-19 16:00] VITALS: BP 135/67
--- NOTE | 2018-11-19 16:29 | NUR ---
RN NOTE PATIENT PASSED SWALLOW RE-EVAL FROM THE SPEECH THERAPIST. TALKED TO DR. BALDERAS, WILL START PUREED DIET CCHO FOR PATIENT. WILL CONT TO MONITOR
[2018-11-19] MEDS: CLOPIDOGREL BISULFATE 75 MG TABLET GT SCH (16:48)
[2018-11-19] MEDS: IV NS 0.9% 1,000 ML IV PRN (17:30)
--- NOTE | 2018-11-19 18:47 | NUR ---
RN CLOSING NOTE PATIENT IN BED AWAKE, WITH DAUGHTER ON BEDSIDE. FEEDING HER DINNER FROM HOME. PUREED FOOD. PATIENT PULLED OUT HER NGT. SPEECH THERAPIST SAW THE PATIENT AND CALLED DR. BALDERAS THAT THE PATIENT PASSED THE SWALLOW EVAL. WILL RE-EVALUATE FOR TOMORROW IF NGT IS STILL NEEDED. WOUND CARE DONE. PATIENT HAS A FERNANDEZ CATH WITH 300 OUTPUT FOR DAY SHIFT. HAD 2 BOWEL MOVEMENTS. HAS A RIGHT UPPER ARM PICC LINE WITH NS RUNNING AT 75 ML/HR. ALL MEDS ARE GIVEN. NO REGULAR INSULIN WAS GIVEN DUE TO BLOOD SUGAR LEVEL 124MG/DL FOR BOTH 1200 AND 1800 CHECKS. BED ON LOW POSITION. PATIENT STILL ON BILATERAL SOFT RESTRAINTS DUE TO PATIENT PULLING OUT IV SITE, WILL ENDORSE TO NOC SHIFT NURSE CONTINUITY OF CARE.
[2018-11-19 20:00] VITALS: BP 120/68
--- NOTE | 2018-11-19 20:00 | NUR ---
KELI RN NOTES REPORT GIVEN BEDSIDE BY AM SHIFT RN. PATIENT AWAKE IN BED NO SIGNS OR SYMPTOMS OF RESPIRATORY DISTRESS OR ACUTE PAIN . DAUGHTER AT THE BEDSIDE. BILATERAL SOFT WRIST RESTRAINTS FOR PULLING AT TUBES AND MERON PICC LINE PATENT . FERNANDEZ CATH DRAINING CLEAR YELLOW URINE. ASPIRATION AND SAFETY PRECAUTIONS IN PLACE BED IN LOW, LOCKED POSITION CALL LIGHT WITHIN REACH. WILL CONT TO MONITOR PATIENT CLOSELY.
[2018-11-19] MEDS: LATANOPROST EYE DROP 0.005% 2.5 ML BOTTLE EACHEYE SCH (21:06)
[2018-11-19] MEDS: GABAPENTIN 100 MG CAPSULE GT SCH (21:06)
[2018-11-20] MEDS: BLOOD SUGAR DIAGNOSTIC 1 EACH STRIP IN SCH ×4 (00:50→17:29)
[2018-11-20] MEDS: DEXTROSE 50%-WATER 50 ML DISP.SYRIN IV PRN (00:51)
--- NOTE | 2018-11-20 00:55 | NUR ---
RN NOTES PATIENT'S BLOOD SUGAR IS 58 RECHECKED OTHER FINGER 50. DEXTROSE INJ. 50% IV PUSH 50 ML HAS BEEN ADMINISTERED. WILL CONTINUE TO MONITOR PATIENT. WILL RECHECK BS IN ONE HOUR.
--- NOTE | 2018-11-20 02:00 | NUR ---
RN NOTES BLOOD SUGAR RECHECKED AND IT IS 151. WILL CONTINUE TO MONITOR PATIENT CLOSELY.
[2018-11-20 04:00] VITALS: BP 116/68
[2018-11-20 06:26] LABS: BASOPHILS % (AUTO) 0.2 % (0.0-2.0); HEMATOCRIT 32 % (33-45); HEMOGLOBIN 10.6 g/dL (11.5-14.8); LYMPHOCYTES # (AUTO) 0.9 /CMM (0.8-4.8); LYMPHOCYTES % (AUTO) 5.8 % (20.0-44.0); MEAN CORPUSCULAR HGB CONC 33 g/dl (31.0-36.0); MEAN CORPUSCULAR VOLUME 90 fL (82-100); MONOCYTES # (AUTO) 0.5 /CMM (0.1-1.30); MONOCYTES % (AUTO) 3.2 % (2.0-12.0); NEUTROPHILS # (AUTO) 14.3 /CMM (1.8-8.9); NEUTROPHILS % (AUTO) 90.8 % (43.0-81.0); PLATELET COUNT (AUTO) 140 /CMM (150-450); RED BLOOD CELL COUNT(AUTO) 3.61 MIL/uL (4.0-5.2); WHITE BLOOD COUNT (AUTO) 15.8 K/uL (4.3-11.0)
[2018-11-20 06:54] LABS: CALCIUM, SERUM 7.8 mg/dL (8.5-10.1); CARBON DIOXIDE 25 mmol/L (21-32); CHLORIDE 116 mmol/L (98-107); CREATININE 0.5 mg/dL (0.6-1.3); GLUCOSE 84 mg/dL (74-106); MAGNESIUM 2.3 mg/dL (1.8-2.4); POTASSIUM 3.9 mmol/L (3.5-5.1); SODIUM SERUM 148 mmol/L (136-145); UREA NITROGEN, BLOOD 25 mg/dL (7-18)
[2018-11-20 08:00] VITALS: BP 135/70
[2018-11-20] MEDS: ZINC SULFATE 220 MG CAPSULE GT SCH (08:52)
[2018-11-20] MEDS: PANTOPRAZOLE 40 MG/PACK PACK NG SCH (08:52)
[2018-11-20] MEDS: POTASSIUM CHLORIDE 20 MEQ POWDER PACKET GT SCH (08:52)
[2018-11-20] MEDS: METOCLOPRAMIDE HCL 10 MG/10 ML UDC GT SCH ×2 (08:52→17:21)
[2018-11-20] MEDS: DONEPEZIL 5 MG TABLET GT SCH ×2 (08:53→17:21)
[2018-11-20] MEDS: buPROPion 100 MG TABLET GT SCH ×2 (08:53→17:21)
[2018-11-20] MEDS: MULTIVIT W/MINERALS 1 TAB TABLET GT SCH (08:53)
[2018-11-20] MEDS: LACTOBACILLUS RHAMNOSUS GG 1 EACH CAP.SPRINK PO SCH ×2 (08:53→17:21)
[2018-11-20] MEDS: ASCORBIC ACID 500 MG TABLET GT SCH ×2 (08:53→17:21)
[2018-11-20] MEDS: CHOLECALCIFEROL 1,000 UNIT TABLET (VIT D3) GT SCH (08:53)
[2018-11-20] MEDS: HYDROCORTISONE SOD SUCCINATE 100 MG/2 ML VIAL IV SCH ×2 (08:53→17:21)
[2018-11-20] MEDS: TIMOLOL MAL/DORZOLAM HCL OPHTH 10 ML BOTTLE EACHEYE SCH ×2 (08:54→17:30)
[2018-11-20] MEDS: RAMIPRIL 1.25 MG CAPSULE GT SCH (08:54)
[2018-11-20] MEDS: BRIMONIDINE TARTRATE OPHT SOLN 5 ML BOTTLE EACHEYE SCH ×3 (08:55→17:30)
[2018-11-20] MEDS: prednisoLONE ACETATE 1% SUSP 5 ML BOTTLE LEFTEYE SCH (08:56)
[2018-11-20] MEDS: NYSTATIN/TRIAMCIN CREAM 15 GM TUBE TP SCH ×2 (08:57→17:32)
[2018-11-20] MEDS: Z GUARD REMEDY 2 OZ OINT TP SCH (08:57)
[2018-11-20] MEDS: INSULIN GLARGINE, 100 UNIT/ML CARTRIDGE SQ SCH ×2 (08:59→17:32)
[2018-11-20] MEDS: LEVOTHYROXINE SODIUM 75 MCG TABLET GT SCH (09:02)
[2018-11-20] MEDS: PROSOURCE / PROSTAT (PYXIS) 30 ML UDC GT SCH (09:02)
[2018-11-20] MEDS: IV D5/0.45 NACL 1,000 ML IV PRN (10:06)
--- NOTE | 2018-11-20 12:00 | NUR ---
MS RN NOTE SEEN BY .UPDATED ABOUT PATIENT CONDITION.GOT NEW ORDERS.WILL CONTINUE TO MONITOR.
[2018-11-20 16:00] VITALS: BP 122/73
[2018-11-20] MEDS: CLOPIDOGREL BISULFATE 75 MG TABLET GT SCH (17:21)
--- NOTE | 2018-11-20 19:21 | NUR ---
MS RN OPENING NOTE RECEIVED PATIENT IN BED ASLEEP BUT EASILY AROUSABLE TO TOUCH. PATIENT ON ROOM AIR .NO SOB NO DISTRESS NOTED. ON BILATERAL SOFT RESTRAINTS.HAS RIGHT UPPER ARM PICC . HAS FERNANDEZ ON GRAVITY WITH CLEAR AND YELLOW URINE. NO SIGNS OF ANY PAIN OR DISTRESS. BED LOCKED AND ON LOW POSITION. CALL LIGHT WITHIN REACH.SRX3.` WILL CONTINUE TO MONITOR Addendum: 11/20/18 at 1923 by ALBINA MARCOS RN [id number]
--- NOTE | 2018-11-20 19:24 | NUR ---
MS RN CLOSING NOTE PATIENT IN BED AWAKE. FAMILY AT BEDSIDE.PATIENT ON ROOM AIR .NO SOB NO DISTRESS NOTED. ON BILATERAL SOFT RESTRAINTS.HAS RIGHT UPPER ARM PICC . HAS FERNANDEZ ON GRAVITY WITH CLEAR AND YELLOW URINE. NO SIGNS OF ANY PAIN OR DISTRESS. BED LOCKED AND ON LOW POSITION. CALL LIGHT WITHIN REACH.SRX3.`SEEN BY ALTHEA RAMIREZ,PLANNING FOR PEG PLACEMENT.ENDORSED TO PM NURSE FOR FOLLOW UP.
[2018-11-20 20:00] VITALS: BP 104/60
--- NOTE | 2018-11-20 20:00 | NUR ---
MS/RN NOTES: RECEIVED PT. IN BED ALERT TO SELF W/ PERIODS OF CONFUSION. NOT IN ANY RESPIRATORY DISTRESS. DENIES ANY PAIN. W/ DAUGHTER BY BEDSIDE. PREET. SOFT WRIST RESTRAINTS ON DUE TO PT. PULLING OUT LINES AND TUBES. W/ MERON PICC LINE IN PLACE W/ DRESSING C/D/I W/ IVF GOING ON. CALL LIGHT W/ REACH. WILL CONTINUE TO MONITOR.
[2018-11-20] MEDS: GABAPENTIN 100 MG CAPSULE GT SCH (22:29)
[2018-11-20] MEDS: LATANOPROST EYE DROP 0.005% 2.5 ML BOTTLE EACHEYE SCH (22:30)
--- NOTE | 2018-11-20 22:45 | NUR ---
RN/MS NOTES: REPORT GIVEN TO MANDY CH FOR RUMA.
--- NOTE | 2018-11-20 22:46 | NUR ---
MS RN NOTES Assume care of patient. Patient comfortably on bed, no discomfort at this time. Will continue to monitor accordingly.
[2018-11-21] MEDS: BLOOD SUGAR DIAGNOSTIC 1 EACH STRIP IN SCH ×4 (00:46→18:56)
--- NOTE | 2018-11-21 03:08 | NUR ---
MS RN NOTES BS checked - 135 per family request.
[2018-11-21] MEDS: IV D5/0.45 NACL 1,000 ML IV PRN ×2 (03:54→23:40)
[2018-11-21 04:00] VITALS: BP 117/65
[2018-11-21] MEDS: INSULIN REGULAR, HUMAN 100 UNIT/ML 3 ML VIAL SQ PRN ×2 (05:44→23:55)
--- NOTE | 2018-11-21 06:31 | NUR ---
MS RN CLOSING NOTES Patient asleep on Esteves's position on bed, with patent MERON PICC line with D5 1/2NS @ 60ml/hr as ordered. On RA, no SOB/respiratory distress noted. On aspiration precaution at all times. Turned and repositioned per protocol. All nursing needs attended. No new unusualities noted. Endorsed to the next shift.
[2018-11-21 06:38] LABS: BASOPHILS % (AUTO) 0.1 % (0.0-2.0); HEMATOCRIT 33 % (33-45); HEMOGLOBIN 10.4 g/dL (11.5-14.8); LYMPHOCYTES # (AUTO) 0.8 /CMM (0.8-4.8); LYMPHOCYTES % (AUTO) 5.3 % (20.0-44.0); MEAN CORPUSCULAR HGB CONC 32 g/dl (31.0-36.0); MEAN CORPUSCULAR VOLUME 90 fL (82-100); MONOCYTES # (AUTO) 0.5 /CMM (0.1-1.30); NEUTROPHILS # (AUTO) 14.1 /CMM (1.8-8.9); NEUTROPHILS % (AUTO) 91.6 % (43.0-81.0); PLATELET COUNT (AUTO) 145 /CMM (150-450); RED BLOOD CELL COUNT(AUTO) 3.62 MIL/uL (4.0-5.2); WHITE BLOOD COUNT (AUTO) 15.4 K/uL (4.3-11.0)
[2018-11-21 06:40] LABS: CALCIUM, SERUM 7.8 mg/dL (8.5-10.1); CARBON DIOXIDE 26 mmol/L (21-32); CHLORIDE 114 mmol/L (98-107); CREATININE 0.5 mg/dL (0.6-1.3); GLUCOSE 134 mg/dL (74-106); POTASSIUM 3.7 mmol/L (3.5-5.1); SODIUM SERUM 145 mmol/L (136-145); UREA NITROGEN, BLOOD 22 mg/dL (7-18)
--- NOTE | 2018-11-21 07:05 | NUR ---
MS RN OPENING NOTES RECEIVED PT LYING ON BED.ALERT/ORIENTED X1 WITH CONFUSED.WITH B/L WRIST RESTRAINTS FOR SAFETY.ON ROOM AIR,SAT WELL.NO SOB AND ACUTE DISTRESS NOTED.FC IS IN PLACE.ON NPO FOR POSSIBLE PEG PLACEMENT.RIGHT UA PICC LINE IS PRESENT WITH IV FLUIDS,SITE IS CLEAN,DRY AND INTACT.NO INFILTRATION IS NOTED.SAFETY IS MAINTAINED AT ALL TIMES.CALL LIGHT IS WITHIN REACH.BED IS IN LOW POSITION AND LOCKED.WILL CONTINUE TO MONITOR THE PT.
[2018-11-21 08:00] VITALS: BP 114/57
--- NOTE | 2018-11-21 08:26 | NUR ---
MESSAGE LEFT TO AQUILINO OLVERA REGARDING CONSENT FOR PEG ,PT. SCHEDULE FOR 2PM ,AWAITS RESPONSE.
[2018-11-21] MEDS: LEVOTHYROXINE SODIUM 75 MCG TABLET GT SCH (08:40)
[2018-11-21] MEDS: RAMIPRIL 1.25 MG CAPSULE GT SCH (08:41)
[2018-11-21] MEDS: DONEPEZIL 5 MG TABLET GT SCH ×2 (08:42→17:07)
[2018-11-21] MEDS: ASCORBIC ACID 500 MG TABLET GT SCH ×2 (08:42→17:07)
[2018-11-21] MEDS: CHOLECALCIFEROL 1,000 UNIT TABLET (VIT D3) GT SCH (08:42)
[2018-11-21] MEDS: HYDROCORTISONE SOD SUCCINATE 100 MG/2 ML VIAL IV SCH ×2 (08:43→17:07)
[2018-11-21] MEDS: buPROPion 100 MG TABLET GT SCH ×2 (08:44→17:10)
[2018-11-21] MEDS: PROSOURCE / PROSTAT (PYXIS) 30 ML UDC GT SCH (08:45)
[2018-11-21] MEDS: TIMOLOL MAL/DORZOLAM HCL OPHTH 10 ML BOTTLE EACHEYE SCH ×2 (08:46→17:11)
[2018-11-21] MEDS: BRIMONIDINE TARTRATE OPHT SOLN 5 ML BOTTLE EACHEYE SCH ×3 (08:46→17:12)
[2018-11-21] MEDS: prednisoLONE ACETATE 1% SUSP 5 ML BOTTLE LEFTEYE SCH (08:47)
[2018-11-21] MEDS: PANTOPRAZOLE 40 MG/PACK PACK NG SCH (08:51)
[2018-11-21] MEDS: MULTIVIT W/MINERALS 1 TAB TABLET GT SCH (08:51)
[2018-11-21] MEDS: ZINC SULFATE 220 MG CAPSULE GT SCH (08:51)
[2018-11-21] MEDS: POTASSIUM CHLORIDE 20 MEQ POWDER PACKET GT SCH (08:51)
[2018-11-21] MEDS: INSULIN GLARGINE, 100 UNIT/ML CARTRIDGE SQ SCH ×2 (08:51→18:59)
[2018-11-21] MEDS: METOCLOPRAMIDE HCL 10 MG/10 ML UDC GT SCH ×2 (08:51→17:07)
[2018-11-21] MEDS: LACTOBACILLUS RHAMNOSUS GG 1 EACH CAP.SPRINK PO SCH ×2 (08:51→17:07)
[2018-11-21] MEDS: NYSTATIN/TRIAMCIN CREAM 15 GM TUBE TP SCH ×2 (08:52→17:12)
[2018-11-21] MEDS: Z GUARD REMEDY 2 OZ OINT TP SCH (08:53)
--- NOTE | 2018-11-21 09:30 | NUR ---
MS RN NOTES HUMAIRA ROLLE CALLED BACK AND GAVE THE TELEPHONE CONSENT FOR THE G TUBE PLACEMENT,ANESTHESIA AND BLOOD TRANSFUSION.
--- NOTE | 2018-11-21 12:00 | NUR ---
MS RN NOTES PT PICKED UP BY OR STAFF FOR PEG TUBE PLACEMENT.
[2018-11-21] MEDS ORDERED: CLINDAMYCIN 900 MG/6 ML VIAL ONE (12:11)
--- NOTE | 2018-11-21 13:00 | NUR ---
MS RN NOTES PT RETURN BACK FROM G TUBE PLACEMENT.INTACT AND PATENT.WITH NEW ORDER OF RESUME G TUBE FEEDING @1600 AND RESUME THE PREVIOUS ORDER.VITAL SIGNS CHECKED AND RECORDED.AND CAN HAVE SMALL BITE OF FOOD BY MOUTH PER BY OR STAFF.
--- NOTE | 2018-11-21 15:52 | NUR ---
MS RN NOTES REPORT GIVEN TO RACHEL CH FOR RUMA.
[2018-11-21 16:00] VITALS: BP 105/61
--- NOTE | 2018-11-21 16:00 | NUR ---
RECEIVED REPORT FROM DIRK CH FOR RUMA.
[2018-11-21] MEDS: GLUCERNA 1.2 1,000 ML BOTTLE GT SCH (16:44)
[2018-11-21] MEDS: CLOPIDOGREL BISULFATE 75 MG TABLET GT SCH (17:07)
[2018-11-21 20:00] VITALS: BP 104/54
--- NOTE | 2018-11-21 20:15 | NUR ---
RN OPENING NOTES RECEIVED REPORT FROM RACHEL CH. PATIENT A/A/O X1 W/ CONFUSION. BREATHING EVEN & UNLABORED, TOLERATING ROOM AIR. NO S/S OF RESPIRATORY DISTRESS NOTED. RADIAL PULSES PRESENT. LEFT UPPER ARM PICC LINE INTACT & PATENT W/ IVF D5 1/2 NS INFUSING WELL @ 60 ML/HR. G-TUBE PATENT & FLUSHING WELL W/ GTF RUNNING @ 30 ML/HR. NO RESIDUAL NOTED @ THIS TIME. FERNANDEZ CATH DRAINING YELLOW URINE. NO S/S OF PAIN OR DISCOMFORT @ THIS TIME. SAFETY MEASURES IN PLACE W/ SIDE RAILS UP & BED ALARM ON. WILL CONTINUE TO MONITOR.
[2018-11-21 21:00] VITALS: BP 104/54
[2018-11-21] MEDS: GABAPENTIN 100 MG CAPSULE GT SCH (21:04)
[2018-11-21] MEDS: LATANOPROST EYE DROP 0.005% 2.5 ML BOTTLE EACHEYE SCH (21:05)
[2018-11-22] MEDS: BLOOD SUGAR DIAGNOSTIC 1 EACH STRIP IN SCH ×6 (00:02→23:54)
[2018-11-22 05:00] VITALS: BP 108/73
[2018-11-22] MEDS: INSULIN REGULAR, HUMAN 100 UNIT/ML 3 ML VIAL SQ PRN ×2 (06:20→08:37)
[2018-11-22 06:33] LABS: BASOPHILS % (AUTO) 0.1 % (0.0-2.0); HEMATOCRIT 33 % (33-45); HEMOGLOBIN 10.8 g/dL (11.5-14.8); LYMPHOCYTES # (AUTO) 0.9 /CMM (0.8-4.8); LYMPHOCYTES % (AUTO) 5.1 % (20.0-44.0); MEAN CORPUSCULAR HGB CONC 32 g/dl (31.0-36.0); MEAN CORPUSCULAR VOLUME 90 fL (82-100); MONOCYTES # (AUTO) 0.7 /CMM (0.1-1.30); MONOCYTES % (AUTO) 3.8 % (2.0-12.0); NEUTROPHILS # (AUTO) 16.7 /CMM (1.8-8.9); PLATELET COUNT (AUTO) 157 /CMM (150-450); WHITE BLOOD COUNT (AUTO) 18.3 K/uL (4.3-11.0)
[2018-11-22 06:47] LABS: CALCIUM, SERUM 7.7 mg/dL (8.5-10.1); CARBON DIOXIDE 25 mmol/L (21-32); CHLORIDE 111 mmol/L (98-107); CREATININE 0.6 mg/dL (0.6-1.3); GLUCOSE 153 mg/dL (74-106); POTASSIUM 3.5 mmol/L (3.5-5.1); SODIUM SERUM 142 mmol/L (136-145); UREA NITROGEN, BLOOD 24 mg/dL (7-18)
[2018-11-22 08:00] VITALS: BP 115/62
[2018-11-22] MEDS: METOCLOPRAMIDE HCL 10 MG/10 ML UDC GT SCH ×2 (08:27→17:33)
[2018-11-22] MEDS: DONEPEZIL 5 MG TABLET GT SCH ×2 (08:27→17:33)
[2018-11-22] MEDS: PANTOPRAZOLE 40 MG/PACK PACK NG SCH (08:27)
[2018-11-22] MEDS: LEVOTHYROXINE SODIUM 75 MCG TABLET GT SCH (08:27)
[2018-11-22] MEDS: MULTIVIT W/MINERALS 1 TAB TABLET GT SCH (08:27)
[2018-11-22] MEDS: CHOLECALCIFEROL 1,000 UNIT TABLET (VIT D3) GT SCH (08:27)
[2018-11-22] MEDS: HYDROCORTISONE SOD SUCCINATE 100 MG/2 ML VIAL IV SCH ×2 (08:27→17:34)
[2018-11-22] MEDS: LACTOBACILLUS RHAMNOSUS GG 1 EACH CAP.SPRINK PO SCH ×2 (08:28→17:33)
[2018-11-22] MEDS: ZINC SULFATE 220 MG CAPSULE GT SCH (08:28)
[2018-11-22] MEDS: ASCORBIC ACID 500 MG TABLET GT SCH ×2 (08:28→17:34)
[2018-11-22] MEDS: buPROPion 100 MG TABLET GT SCH ×2 (08:28→17:34)
[2018-11-22] MEDS: RAMIPRIL 1.25 MG CAPSULE GT SCH (08:29)
[2018-11-22] MEDS: POLYVINYL ALCOHOL 15 ML BOTTLE EACHEYE PRN (08:30)
[2018-11-22] MEDS: prednisoLONE ACETATE 1% SUSP 5 ML BOTTLE LEFTEYE SCH (08:31)
[2018-11-22] MEDS: TIMOLOL MAL/DORZOLAM HCL OPHTH 10 ML BOTTLE EACHEYE SCH ×2 (08:31→17:35)
[2018-11-22] MEDS: BRIMONIDINE TARTRATE OPHT SOLN 5 ML BOTTLE EACHEYE SCH ×3 (08:32→17:36)
[2018-11-22] MEDS: INSULIN GLARGINE, 100 UNIT/ML CARTRIDGE SQ SCH ×2 (08:36→18:15)
[2018-11-22] MEDS: PROSOURCE / PROSTAT (PYXIS) 30 ML UDC GT SCH (08:38)
[2018-11-22] MEDS: Z GUARD REMEDY 2 OZ OINT TP SCH (08:48)
[2018-11-22] MEDS: NYSTATIN/TRIAMCIN CREAM 15 GM TUBE TP SCH ×2 (08:48→17:34)
[2018-11-22] MEDS: POTASSIUM CHLORIDE 20 MEQ POWDER PACKET GT SCH (09:29)
[2018-11-22 13:00] VITALS: BP 115/62
[2018-11-22 16:00] VITALS: BP 109/51
[2018-11-22] MEDS: CLOPIDOGREL BISULFATE 75 MG TABLET GT SCH (17:33)
[2018-11-22] MEDS: IV D5/0.45 NACL 1,000 ML IV PRN (17:42)
--- NOTE | 2018-11-22 19:15 | NUR ---
MS RN NOTE RECEIVED PT IN STABLE CONDITION A&O X1. NO SIGNS OF SOB OR DISTRESS. NO C/O PAIN. DAUGHTER CURRENTLY AT BEDSIDE. FERNANDEZ ADEQUATELY DRAINING SETH COLORED URINE. GTUBE PATENT AND INTACT WITH NO RESIDUAL. FEEDING INFUSING AT 30 ML/HR, TOLERATING WELL. PT ON RESTRAINTS FOR SAFETY AND ASSESSED ORDERED. MERON PICC PATENT AND INTACT. SAFETY MEASURES IN PLACE: BED LOW, LOCKED, UPPER RAILS UP, AND CALL LIGHT WITHIN REACH. WILL CONT TO MONITOR.
--- NOTE | 2018-11-22 19:46 | NUR ---
RN CLOSING NOTE PATIENT OUTPUT PAUL DRAIN 20ML, COLOSTOMY BAG CHANGED OUTPUT RED AND BROWN LIQUID, NO FORMED STOOL. COLOSTOMY BAG CHANGED. IV MEDICATION HUNG. SAW PATIENT AND D/C IV FLUIDS AND GAVE DOSE OF LASIX AND POTASSIUM. PATIENT WAS ABLE TO AMBULATE AND GET OUT OF BED. CONTINUE TO MONITOR. Addendum: 11/22/18 at 1948 by LOREE RICCI RN WRONG PATIENT NOTE
--- NOTE | 2018-11-22 19:49 | NUR ---
RN CLOSING NOTE PATIENT ON RESTRAINTS, ALERT X1. GTUBE FEEDING AT 30. TOLEARTING WELL NO RESIDUAL. RESTRAITNS IN PLACE AND ASSESED OFTEN. MEDICATION GIVEN PER MD ORDER. BED IN LOW POSITION DAUGHTER AT BEDSIDE. DAUGHTER DOES NOT WANT THE PATIETN D/C MD MADE AWARE, CONTACT FAMILY.
[2018-11-22 21:00] VITALS: BP 108/57
[2018-11-22] MEDS: LATANOPROST EYE DROP 0.005% 2.5 ML BOTTLE EACHEYE SCH (21:39)
[2018-11-22] MEDS: GABAPENTIN 100 MG CAPSULE GT SCH (21:40)
[2018-11-23 04:37] VITALS: BP 115/61
[2018-11-23] MEDS: BLOOD SUGAR DIAGNOSTIC 1 EACH STRIP IN SCH ×4 (05:46→22:03)
[2018-11-23] MEDS: INSULIN REGULAR, HUMAN 100 UNIT/ML 3 ML VIAL SQ PRN ×4 (05:51→22:03)
--- NOTE | 2018-11-23 06:17 | NUR ---
MS RN NOTE PT IN STABLE CONDITION A&O X1. NO SIGNS OF SOB OR DISTRESS. NO C/O PAIN. DAUGHTER CURRENTLY AT BEDSIDE. FERNANDEZ ADEQUATELY DRAINING SETH COLORED URINE. GTUBE PATENT AND INTACT WITH NO RESIDUAL. FEEDING INFUSING AT 30 ML/HR, TOLERATING WELL. PT ON RESTRAINTS FOR SAFETY AND ASSESSED AND REPOSITIONED ORDERED. MERON PICC PATENT AND INTACT INFUSING IVF. SAFETY MEASURES IN PLACE: BED LOW, LOCKED, UPPER RAILS UP, AND CALL LIGHT WITHIN REACH. WILL CONT TO MONITOR AND ENDORSE TO NEXT SHIFT FOR RUMA.
[2018-11-23 06:33] LABS: BASOPHILS % (AUTO) 0.2 % (0.0-2.0); HEMATOCRIT 31 % (33-45); HEMOGLOBIN 9.8 g/dL (11.5-14.8); LYMPHOCYTES % (AUTO) 3.7 % (20.0-44.0); MEAN CORPUSCULAR HGB CONC 32 g/dl (31.0-36.0); MEAN CORPUSCULAR VOLUME 91 fL (82-100); MONOCYTES # (AUTO) 0.7 /CMM (0.1-1.30); MONOCYTES % (AUTO) 2.6 % (2.0-12.0); NEUTROPHILS # (AUTO) 24.5 /CMM (1.8-8.9); NEUTROPHILS % (AUTO) 93.5 % (43.0-81.0); PLATELET COUNT (AUTO) 126 /CMM (150-450); RED BLOOD CELL COUNT(AUTO) 3.41 MIL/uL (4.0-5.2); WHITE BLOOD COUNT (AUTO) 26.2 K/uL (4.3-11.0)
[2018-11-23 06:51] LABS: CALCIUM, SERUM 7.4 mg/dL (8.5-10.1); CARBON DIOXIDE 23 mmol/L (21-32); CHLORIDE 112 mmol/L (98-107); CREATININE 0.5 mg/dL (0.6-1.3); GLUCOSE 212 mg/dL (74-106); POTASSIUM 3.8 mmol/L (3.5-5.1); SODIUM SERUM 141 mmol/L (136-145); UREA NITROGEN, BLOOD 21 mg/dL (7-18)
[2018-11-23 07:34] LABS: APPEARANCE,URINE CLEAR (CLEAR); BILIRUBIN,URINE NEGATIVE (NEGATIVE); BLOOD, URINE 3+ Ery/uL (NEGATIVE); COLOR,URINE YELLOW (YELLOW); KETONES,URINE NEGATIVE (NEGATIVE); LEUKOCYTE ESTERASE ,URINE 2+ (NEGATIVE); NITRITE, URINE NEGATIVE (NEGATIVE); PH,URINE 5.5 (5.0-8.0); PROTEIN,URINE 2+ mg/dl (NEGATIVE); UGLUCOSE NEGATIVE (NEGATIVE); UROBILINOGEN,URINE 0.2 EU/dL (0.2)
--- NOTE | 2018-11-23 07:43 | NUR ---
MS RN NOTES PATIENT RECEIVED RESTING INSIDE ROOM, SLEEPING, AROUSABLE THROUGH VERBAL AND TACTILE STIMULI. BREATHING EVEN AND UNLABORED. NO ACUTE DISTRESS AT THIS TIME. PATIENT ALERT AND ORIENTED TO SELF, REORIENTED NEEDED. PATIENT CALM AND RELAXED. DENIES ANY PAIN OR DISCOMFORT. ONGOING GTF OF GLUCERNA AT 30CC/HR. MAINTAINED ASPIRATION PRECAUTION. MERON PICCLINE INTACT AND PATENT. WILL CONTINUE TO MONITOR. BED LOCKED AND IN LOW POSITION. BILATERAL UPPER SIDE RAILS UP AND LOCKED. CALL LIGHT WITHIN EASY REACH
[2018-11-23 08:00] VITALS: BP 115/65
[2018-11-23 08:37] LABS: BACTERIA,URINE Few /HPF (None Seen); RBC,URINE 21-50 /HPF (0-2); SQUAMOUS EPITHELIAL CELL,UR Few /HPF (None Seen)
[2018-11-23 09:00] VITALS: BP 115/65
[2018-11-23] MEDS: TIMOLOL MAL/DORZOLAM HCL OPHTH 10 ML BOTTLE EACHEYE SCH ×2 (09:16→16:36)
[2018-11-23] MEDS: BRIMONIDINE TARTRATE OPHT SOLN 5 ML BOTTLE EACHEYE SCH ×3 (09:17→16:35)
[2018-11-23] MEDS: prednisoLONE ACETATE 1% SUSP 5 ML BOTTLE LEFTEYE SCH (09:17)
[2018-11-23] MEDS: RAMIPRIL 1.25 MG CAPSULE GT SCH (09:26)
[2018-11-23] MEDS: buPROPion 100 MG TABLET GT SCH ×2 (09:26→16:35)
[2018-11-23] MEDS: LACTOBACILLUS RHAMNOSUS GG 1 EACH CAP.SPRINK PO SCH ×2 (09:27→16:35)
[2018-11-23] MEDS: ASCORBIC ACID 500 MG TABLET GT SCH ×2 (09:27→16:35)
[2018-11-23] MEDS: PANTOPRAZOLE 40 MG/PACK PACK NG SCH (09:27)
[2018-11-23] MEDS: MULTIVIT W/MINERALS 1 TAB TABLET GT SCH (09:27)
[2018-11-23] MEDS: METOCLOPRAMIDE HCL 10 MG/10 ML UDC GT SCH ×2 (09:27→16:35)
[2018-11-23] MEDS: LEVOTHYROXINE SODIUM 75 MCG TABLET GT SCH (09:27)
[2018-11-23] MEDS: CHOLECALCIFEROL 1,000 UNIT TABLET (VIT D3) GT SCH (09:27)
[2018-11-23] MEDS: HYDROCORTISONE SOD SUCCINATE 100 MG/2 ML VIAL IV SCH ×2 (09:27→16:35)
[2018-11-23] MEDS: DONEPEZIL 5 MG TABLET GT SCH ×2 (09:27→16:35)
[2018-11-23] MEDS: ZINC SULFATE 220 MG CAPSULE GT SCH (09:27)
[2018-11-23] MEDS: POTASSIUM CHLORIDE 20 MEQ POWDER PACKET GT SCH (09:28)
[2018-11-23] MEDS: Z GUARD REMEDY 2 OZ OINT TP SCH (09:52)
[2018-11-23] MEDS: PROSOURCE / PROSTAT (PYXIS) 30 ML UDC GT SCH (09:52)
[2018-11-23] MEDS: NYSTATIN/TRIAMCIN CREAM 15 GM TUBE TP SCH ×2 (09:59→16:36)
[2018-11-23] MEDS: INSULIN GLARGINE, 100 UNIT/ML CARTRIDGE SQ SCH ×2 (10:00→17:55)
[2018-11-23] MEDS: IV D5/0.45 NACL 1,000 ML IV PRN (10:52)
[2018-11-23 16:00] VITALS: BP 115/55
[2018-11-23] MEDS: CLOPIDOGREL BISULFATE 75 MG TABLET GT SCH (16:35)
--- NOTE | 2018-11-23 18:57 | NUR ---
MS RN NOTES PATIENT RESTING INSIDE ROOM. AWAKE, ALERT AND ORIENTED X 1, REORIENTED NEEDED. BREATHING EVEN AND UNLABORED. NO ACUTE DISTRESS AT THIS TIME. DENIES ANY PAIN OR DISCOMFORT. CONTINUE GTF AND TOLERATING WELL. MAINTAINED ASPIRATION PRECAUTIONS. PATIENT KEPT CLEAN, DRY AND COMFORTABLE. PATIENT WITH EPISODE OF 2 BOWEL MOVEMENTS DURING THIS SHIFT, STOOL IS SOFT BUT FORMED. MD AWARE. FERNANDEZ CATHETER IN PLACE WITH YELLOW URINE OUTPUT NOTED. WILL ENDORSE TO INCOMING SHIFT FOR RUMA. BED LOCKED AND IN LOW POSITION. BILATERAL UPPER SIDE RAILS UP AND LOCKED. CALL LIGHT WITHIN EASY REACH
[2018-11-23 20:00] VITALS: BP 123/64
[2018-11-23 21:00] VITALS: BP 123/64
[2018-11-23] MEDS: GABAPENTIN 100 MG CAPSULE GT SCH (21:16)
[2018-11-23] MEDS: LATANOPROST EYE DROP 0.005% 2.5 ML BOTTLE EACHEYE SCH (21:55)
[2018-11-24 04:00] VITALS: BP 120/77
[2018-11-24] MEDS: INSULIN REGULAR, HUMAN 100 UNIT/ML 3 ML VIAL SQ PRN ×4 (05:17→21:48)
[2018-11-24] MEDS: BLOOD SUGAR DIAGNOSTIC 1 EACH STRIP IN SCH ×4 (05:18→21:49)
[2018-11-24 06:23] LABS: BASOPHILS % (AUTO) 0.1 % (0.0-2.0); HEMATOCRIT 31 % (33-45); HEMOGLOBIN 10.1 g/dL (11.5-14.8); LYMPHOCYTES # (AUTO) 0.8 /CMM (0.8-4.8); LYMPHOCYTES % (AUTO) 2.8 % (20.0-44.0); MEAN CORPUSCULAR HGB CONC 33 g/dl (31.0-36.0); MEAN CORPUSCULAR VOLUME 91 fL (82-100); MONOCYTES # (AUTO) 0.5 /CMM (0.1-1.30); MONOCYTES % (AUTO) 1.8 % (2.0-12.0); NEUTROPHILS # (AUTO) 27.2 /CMM (1.8-8.9); NEUTROPHILS % (AUTO) 95.3 % (43.0-81.0); PLATELET COUNT (AUTO) 110 /CMM (150-450); RED BLOOD CELL COUNT(AUTO) 3.43 MIL/uL (4.0-5.2); WHITE BLOOD COUNT (AUTO) 28.5 K/uL (4.3-11.0)
[2018-11-24 06:35] LABS: CALCIUM, SERUM 8.3 mg/dL (8.5-10.1); CARBON DIOXIDE 25 mmol/L (21-32); CHLORIDE 113 mmol/L (98-107); CREATININE 0.5 mg/dL (0.6-1.3); GLUCOSE 125 mg/dL (74-106); POTASSIUM 4.2 mmol/L (3.5-5.1); SODIUM SERUM 144 mmol/L (136-145); UREA NITROGEN, BLOOD 19 mg/dL (7-18)
[2018-11-24 08:00] VITALS: BP 121/66
[2018-11-24] MEDS ORDERED: HYDROCORTISONE SOD SUCCINATE 100 MG/2 ML VIAL IV SCH (09:00)
[2018-11-24] MEDS: INSULIN GLARGINE, 100 UNIT/ML CARTRIDGE SQ SCH ×2 (10:06→17:48)
[2018-11-24] MEDS: LACTOBACILLUS RHAMNOSUS GG 1 EACH CAP.SPRINK PO SCH ×2 (10:11→17:42)
[2018-11-24] MEDS: POTASSIUM CHLORIDE 20 MEQ POWDER PACKET GT SCH (10:11)
[2018-11-24] MEDS: DONEPEZIL 5 MG TABLET GT SCH ×2 (10:11→17:42)
[2018-11-24] MEDS: ZINC SULFATE 220 MG CAPSULE GT SCH (10:11)
[2018-11-24] MEDS: METOCLOPRAMIDE HCL 10 MG/10 ML UDC GT SCH ×2 (10:11→17:41)
[2018-11-24] MEDS: MULTIVIT W/MINERALS 1 TAB TABLET GT SCH (10:11)
[2018-11-24] MEDS: ASCORBIC ACID 500 MG TABLET GT SCH ×2 (10:12→17:42)
[2018-11-24] MEDS: CHOLECALCIFEROL 1,000 UNIT TABLET (VIT D3) GT SCH (10:12)
[2018-11-24] MEDS: RAMIPRIL 1.25 MG CAPSULE GT SCH (10:13)
[2018-11-24] MEDS: buPROPion 100 MG TABLET GT SCH ×2 (10:14→17:43)
[2018-11-24] MEDS: PANTOPRAZOLE 40 MG/PACK PACK NG SCH (10:14)
[2018-11-24] MEDS: prednisoLONE ACETATE 1% SUSP 5 ML BOTTLE LEFTEYE SCH (10:15)
[2018-11-24] MEDS: TIMOLOL MAL/DORZOLAM HCL OPHTH 10 ML BOTTLE EACHEYE SCH ×2 (10:16→17:41)
[2018-11-24] MEDS: BRIMONIDINE TARTRATE OPHT SOLN 5 ML BOTTLE EACHEYE SCH ×3 (10:17→17:41)
[2018-11-24] MEDS: PROSOURCE / PROSTAT (PYXIS) 30 ML UDC GT SCH (10:36)
[2018-11-24] MEDS: NYSTATIN/TRIAMCIN CREAM 15 GM TUBE TP SCH ×2 (10:36→17:57)
[2018-11-24] MEDS: LEVOTHYROXINE SODIUM 75 MCG TABLET GT SCH (10:36)
[2018-11-24] MEDS: GLUCERNA 1.2 1,000 ML BOTTLE GT SCH (10:37)
[2018-11-24] MEDS: Z GUARD REMEDY 2 OZ OINT TP SCH (10:37)
[2018-11-24 16:00] VITALS: BP 103/60
[2018-11-24] MEDS: CLOPIDOGREL BISULFATE 75 MG TABLET GT SCH (17:42)
--- NOTE | 2018-11-24 18:00 | NUR ---
FREQ. REPOSITIONING,ON PREET. WRIST RESTRAINTS F/C OUTPUT GOOD,KUSHA ID RN IN TO SEE PT.
[2018-11-24 20:00] VITALS: BP 106/62
[2018-11-24 21:00] VITALS: BP 106/62
[2018-11-24] MEDS: GABAPENTIN 100 MG CAPSULE GT SCH (21:32)
[2018-11-24] MEDS: LATANOPROST EYE DROP 0.005% 2.5 ML BOTTLE EACHEYE SCH (21:32)
[2018-11-25 04:00] VITALS: BP 115/53
[2018-11-25] MEDS: INSULIN REGULAR, HUMAN 100 UNIT/ML 3 ML VIAL SQ PRN ×2 (06:09→12:31)
[2018-11-25] MEDS: BLOOD SUGAR DIAGNOSTIC 1 EACH STRIP IN SCH ×3 (06:15→18:26)
[2018-11-25 06:46] LABS: BASOPHILS % (AUTO) 0.1 % (0.0-2.0); EOSINOPHILS % (AUTO) 0.3 % (0.0-6.0); HEMATOCRIT 28 % (33-45); HEMOGLOBIN 9.2 g/dL (11.5-14.8); LYMPHOCYTES # (AUTO) 0.5 /CMM (0.8-4.8); LYMPHOCYTES % (AUTO) 2.8 % (20.0-44.0); MEAN CORPUSCULAR HGB CONC 33 g/dl (31.0-36.0); MEAN CORPUSCULAR VOLUME 91 fL (82-100); MONOCYTES # (AUTO) 0.4 /CMM (0.1-1.30); MONOCYTES % (AUTO) 2.3 % (2.0-12.0); NEUTROPHILS # (AUTO) 17.8 /CMM (1.8-8.9); NEUTROPHILS % (AUTO) 94.5 % (43.0-81.0); PLATELET COUNT (AUTO) 103 /CMM (150-450); RED BLOOD CELL COUNT(AUTO) 3.05 MIL/uL (4.0-5.2); WHITE BLOOD COUNT (AUTO) 18.8 K/uL (4.3-11.0)
[2018-11-25 07:00] LABS: CALCIUM, SERUM 8.2 mg/dL (8.5-10.1); CARBON DIOXIDE 27 mmol/L (21-32); CHLORIDE 111 mmol/L (98-107); CREATININE 0.5 mg/dL (0.6-1.3); GLUCOSE 150 mg/dL (74-106); MAGNESIUM 1.8 mg/dL (1.8-2.4); POTASSIUM 4.6 mmol/L (3.5-5.1); SODIUM SERUM 143 mmol/L (136-145); UREA NITROGEN, BLOOD 19 mg/dL (7-18)
[2018-11-25 08:00] VITALS: BP 129/63
[2018-11-25] MEDS: LEVOTHYROXINE SODIUM 75 MCG TABLET GT SCH (08:01)
[2018-11-25] MEDS: MULTIVIT W/MINERALS 1 TAB TABLET GT SCH (09:38)
[2018-11-25] MEDS: LACTOBACILLUS RHAMNOSUS GG 1 EACH CAP.SPRINK PO SCH ×2 (09:38→17:18)
[2018-11-25] MEDS: PANTOPRAZOLE 40 MG/PACK PACK NG SCH (09:38)
[2018-11-25] MEDS: POTASSIUM CHLORIDE 20 MEQ POWDER PACKET GT SCH (09:38)
[2018-11-25] MEDS: CHOLECALCIFEROL 1,000 UNIT TABLET (VIT D3) GT SCH (09:38)
[2018-11-25] MEDS: METOCLOPRAMIDE HCL 10 MG/10 ML UDC GT SCH ×2 (09:38→17:18)
[2018-11-25] MEDS: DONEPEZIL 5 MG TABLET GT SCH ×2 (09:38→17:18)
[2018-11-25] MEDS: ASCORBIC ACID 500 MG TABLET GT SCH ×2 (09:38→17:19)
[2018-11-25] MEDS: prednisoLONE ACETATE 1% SUSP 5 ML BOTTLE LEFTEYE SCH (09:49)
[2018-11-25] MEDS: buPROPion 100 MG TABLET GT SCH ×2 (09:49→17:19)
[2018-11-25] MEDS: POLYVINYL ALCOHOL 15 ML BOTTLE EACHEYE PRN (09:50)
[2018-11-25] MEDS: RAMIPRIL 1.25 MG CAPSULE GT SCH (09:50)
[2018-11-25] MEDS: TIMOLOL MAL/DORZOLAM HCL OPHTH 10 ML BOTTLE EACHEYE SCH ×2 (09:51→17:21)
[2018-11-25] MEDS: BRIMONIDINE TARTRATE OPHT SOLN 5 ML BOTTLE EACHEYE SCH ×3 (09:51→17:19)
[2018-11-25] MEDS: PROSOURCE / PROSTAT (PYXIS) 30 ML UDC GT SCH (09:53)
[2018-11-25] MEDS: INSULIN GLARGINE, 100 UNIT/ML CARTRIDGE SQ SCH ×2 (10:16→17:32)
[2018-11-25] MEDS: NYSTATIN/TRIAMCIN CREAM 15 GM TUBE TP SCH ×2 (10:17→17:22)
[2018-11-25] MEDS: Z GUARD REMEDY 2 OZ OINT TP SCH (10:18)
[2018-11-25] MEDS: ZINC SULFATE 220 MG CAPSULE GT SCH (10:34)
[2018-11-25 16:00] VITALS: BP 102/54
[2018-11-25] MEDS: CLOPIDOGREL BISULFATE 75 MG TABLET GT SCH (17:19)
[2018-11-25 20:00] VITALS: BP 115/56
--- NOTE | 2018-11-25 20:09 | NUR ---
MS RN CLOSING NOTE PATIENT RESTING INSIDE ROOM. AWAKE, ALERT AND ORIENTED X 1, REORIENTED NEEDED. BREATHING EVEN AND UNLABORED. NO ACUTE DISTRESS AT THIS TIME. DENIES ANY PAIN OR DISCOMFORT. CONTINUE GTF AND TOLERATING WELL. MAINTAINED ASPIRATION PRECAUTIONS. PATIENT KEPT CLEAN, DRY AND COMFORTABLE. PATIENT WITH EPISODE OF 1 BOWEL MOVEMENTS DURING THIS SHIFT, STOOL IS SOFT BUT FORMED. MD AWARE. FERNANDEZ CATHETER IN PLACE WITH YELLOW URINE OUTPUT NOTED. WILL ENDORSE TO INCOMING SHIFT FOR RUMA. BED LOCKED AND IN LOW POSITION. BILATERAL UPPER SIDE RAILS UP AND LOCKED. CALL LIGHT WITHIN EASY REACH.
[2018-11-25] MEDS: GABAPENTIN 100 MG CAPSULE GT SCH (21:29)
[2018-11-25] MEDS: LATANOPROST EYE DROP 0.005% 2.5 ML BOTTLE EACHEYE SCH (21:29)
[2018-11-26] MEDS: DEXTROSE 50%-WATER 50 ML DISP.SYRIN IV PRN ×2 (00:08→05:34)
[2018-11-26] MEDS: BLOOD SUGAR DIAGNOSTIC 1 EACH STRIP IN SCH ×4 (00:08→18:00)
[2018-11-26 04:00] VITALS: BP 119/59
[2018-11-26 06:29] LABS: BASOPHILS % (AUTO) 0.3 % (0.0-2.0); EOSINOPHILS % (AUTO) 1.2 % (0.0-6.0); HEMATOCRIT 31 % (33-45); HEMOGLOBIN 9.7 g/dL (11.5-14.8); LYMPHOCYTES # (AUTO) 0.4 /CMM (0.8-4.8); LYMPHOCYTES % (AUTO) 3.2 % (20.0-44.0); MEAN CORPUSCULAR HGB CONC 32 g/dl (31.0-36.0); MEAN CORPUSCULAR VOLUME 92 fL (82-100); MONOCYTES # (AUTO) 0.4 /CMM (0.1-1.30); MONOCYTES % (AUTO) 2.9 % (2.0-12.0); NEUTROPHILS # (AUTO) 11.3 /CMM (1.8-8.9); NEUTROPHILS % (AUTO) 92.4 % (43.0-81.0); PLATELET COUNT (AUTO) 124 /CMM (150-450); RED BLOOD CELL COUNT(AUTO) 3.32 MIL/uL (4.0-5.2); WHITE BLOOD COUNT (AUTO) 12.2 K/uL (4.3-11.0)
[2018-11-26 06:50] LABS: CALCIUM, SERUM 8.3 mg/dL (8.5-10.1); CARBON DIOXIDE 31 mmol/L (21-32); CHLORIDE 109 mmol/L (98-107); CREATININE 0.5 mg/dL (0.6-1.3); POTASSIUM 4.4 mmol/L (3.5-5.1); SODIUM SERUM 144 mmol/L (136-145); UREA NITROGEN, BLOOD 16 mg/dL (7-18)
[2018-11-26 06:53] LABS: GLUCOSE 42 mg/dL (74-106)
[2018-11-26 08:00] VITALS: BP 142/72
--- NOTE | 2018-11-26 08:15 | NUR ---
MS RN OPENING NOTE PT RECEIVED IN BED, AWAKE AND STABLE. A&O X1-2. NO SIGNS OF SOB OR DISTRESS. NO C/O PAIN. FERNANDEZ ADEQUATELY DRAINING SETH COLORED URINE. GTUBE PATENT AND INTACT WITH NO RESIDUAL. FEEDING INFUSING AT 30 ML/HR, TOLERATING WELL. PT ON RESTRAINTS FOR SAFETY AND ASSESSED AND REPOSITIONED ORDERED. MERON PICC PATENT AND INTACT INFUSING IVF. SAFETY MEASURES IN PLACE: BED LOW, LOCKED, UPPER RAILS UP, AND CALL LIGHT WITHIN REACH. WILL CONT TO MONITOR.
[2018-11-26] MEDS: LEVOTHYROXINE SODIUM 75 MCG TABLET GT SCH (08:27)
[2018-11-26] MEDS: POTASSIUM CHLORIDE 20 MEQ POWDER PACKET GT SCH (08:49)
[2018-11-26] MEDS: CHOLECALCIFEROL 1,000 UNIT TABLET (VIT D3) GT SCH (08:49)
[2018-11-26] MEDS: METOCLOPRAMIDE HCL 10 MG/10 ML UDC GT SCH ×2 (08:49→16:55)
[2018-11-26] MEDS: LACTOBACILLUS RHAMNOSUS GG 1 EACH CAP.SPRINK PO SCH ×2 (08:49→16:55)
[2018-11-26] MEDS: RAMIPRIL 1.25 MG CAPSULE GT SCH (08:50)
[2018-11-26] MEDS: DONEPEZIL 5 MG TABLET GT SCH ×2 (08:50→16:55)
[2018-11-26] MEDS: buPROPion 100 MG TABLET GT SCH ×2 (08:50→16:56)
[2018-11-26] MEDS: MULTIVIT W/MINERALS 1 TAB TABLET GT SCH (08:51)
[2018-11-26] MEDS: PANTOPRAZOLE 40 MG/PACK PACK NG SCH (08:51)
[2018-11-26] MEDS: BRIMONIDINE TARTRATE OPHT SOLN 5 ML BOTTLE EACHEYE SCH ×3 (08:52→16:56)
[2018-11-26] MEDS: prednisoLONE ACETATE 1% SUSP 5 ML BOTTLE LEFTEYE SCH (08:52)
[2018-11-26] MEDS: TIMOLOL MAL/DORZOLAM HCL OPHTH 10 ML BOTTLE EACHEYE SCH ×2 (08:53→16:57)
[2018-11-26] MEDS: ASCORBIC ACID 500 MG TABLET GT SCH ×2 (08:59→16:55)
[2018-11-26] MEDS: ZINC SULFATE 220 MG CAPSULE GT SCH (08:59)
[2018-11-26] MEDS: PROSOURCE / PROSTAT (PYXIS) 30 ML UDC GT SCH (08:59)
[2018-11-26] MEDS: INSULIN GLARGINE, 100 UNIT/ML CARTRIDGE SQ SCH ×2 (09:00→18:30)
[2018-11-26] MEDS: NYSTATIN/TRIAMCIN CREAM 15 GM TUBE TP SCH ×2 (09:41→17:07)
[2018-11-26] MEDS: Z GUARD REMEDY 2 OZ OINT TP SCH (09:41)
--- NOTE | 2018-11-26 09:48 | NUR ---
MS RN NOTE LANTUS LONG ACTING INSULIN HELD D/T PATIENT BLOOD SUGAR LEVELS <50 OVERNIGHT. PATIENT REQUIRED ORANGE JUICE TO BRING SUGAR TO EXPECTED LEVEL. BLOOD SUGAR AT 0930 WAS 121. WILL RECHECK BS AT PRESCRIBED TIME.
[2018-11-26] MEDS ORDERED: GLUCERNA 1.2 1,000 ML BOTTLE GT SCH (11:40)
[2018-11-26 16:00] VITALS: BP 135/58
[2018-11-26] MEDS: INSULIN REGULAR, HUMAN 100 UNIT/ML 3 ML VIAL SQ PRN (16:12)
[2018-11-26] MEDS: CLOPIDOGREL BISULFATE 75 MG TABLET GT SCH (16:55)
--- NOTE | 2018-11-26 20:14 | NUR ---
MS RN NOTE PATIENT DISCHARGED TO SNF VIA EMT TRANSPORT. PICC LINE REMOVED. BELONGINGS LIST COMPLETE. PATIENT STABLE ON DISCHARGE. REPORT GIVEN TO SNF RN.
== END 2018-11-26 20:40 | DRG 853 ==
LOC: ER 18:38 → ICU 21:57 → TELE-TD 11-12 20:19 → TELE1 11-13 09:40 → MEDSG1 11-14 09:12
PROVIDERS: ADMIT Nurse Practitioner Acute Care; ATTEND Legal Medicine
PROC: 02HV33Z Insertion of Infusion Device into Superior Vena Cava, Percutaneous Approach (ICD-10-PCS; 2018-11-09)
PROC: B548ZZA Ultrasonography of Superior Vena Cava, Guidance (ICD-10-PCS; 2018-11-09)
PROC: 0JB70ZZ Excision of Back Subcutaneous Tissue and Fascia, Open Approach (ICD-10-PCS; principal; 2018-11-15)
PROC: 0DH63UZ Insertion of Feeding Device into Stomach, Percutaneous Approach (ICD-10-PCS; 2018-11-21)
DX: A41.9 Sepsis, unspecified organism (principal); L89.153 Pressure ulcer of sacral region, stage 3; E43 Unspecified severe protein-calorie malnutrition; N17.0 Acute kidney failure with tubular necrosis; G92 Toxic encephalopathy; R65.21 Severe sepsis with septic shock; J69.0 Pneumonitis due to inhalation of food and vomit; B37.49 Other urogenital candidiasis; E87.0 Hyperosmolality and hypernatremia; D68.59 Other primary thrombophilia; E87.2 Acidosis; E11.52 Type 2 diabetes mellitus with diabetic peripheral angiopathy with gangrene; Z68.1 Body mass index [BMI] 19.9 or less, adult; R64 Cachexia; E86.0 Dehydration; Z87.440 Personal history of urinary (tract) infections; E03.9 Hypothyroidism, unspecified; D63.8 Anemia in other chronic diseases classified elsewhere; R62.7 Adult failure to thrive; E11.65 Type 2 diabetes mellitus with hyperglycemia; F02.80 Dementia in other diseases classified elsewhere, unspecified severity, without behavioral disturbance, psychotic disturbance, mood disturbance, and anxiety; I11.0 Hypertensive heart disease with heart failure; R13.10 Dysphagia, unspecified; Z79.02 Long term (current) use of antithrombotics/antiplatelets; Z88.0 Allergy status to penicillin; G30.9 Alzheimer's disease, unspecified; I50.9 Heart failure, unspecified; Z79.4 Long term (current) use of insulin; Z79.899 Other long term (current) drug therapy; Z79.01 Long term (current) use of anticoagulants; Z74.09 Other reduced mobility; M62.84 Sarcopenia; T68.XXXA Hypothermia, initial encounter; E11.649 Type 2 diabetes mellitus with hypoglycemia without coma; I87.8 Other specified disorders of veins; L30.4 Erythema intertrigo; T38.0X5A Adverse effect of glucocorticoids and synthetic analogues, initial encounter; Y92.129 Unspecified place in nursing home as the place of occurrence of the external cause; D72.823 Leukemoid reaction; E86.1 Hypovolemia; R53.81 Other malaise
CPT/HCPCS: 36415; 36569; 70450-TC; 71045-TC; 74018; 80048-TC; 80076-TC; 81000-TC; 82140-TC; 82533; 82728-TC; 82947-TC; 82962-TC; 83540-TC; 83605-TC; 83735-TC; 83935-TC; 84100-TC; 84134-TC; 84300-TC; 84436-TC; 84439-TC; 84443-TC; 84484-TC; 85025-TC; 85730-TC; 87040-TC; 87081-TC; 87086-TC; 92526; 92611-TC; 93307-TC; 97110-TC; 97112-TC; 97116-TC; 97530-TC; A4216; A6402; A6403; C1751; C9113; G0378; J0461; J1450; J1720; J1815; J2060; J2185; J2248; J2543; J3370; J3480; J3490; J7030; J7040; J7060; J7070; J8597

== ENCOUNTER 2018-11-28 19:03 | Inpatient (IN) | payer OTHER ==
[~2018-11-28] VITALS: Ht 149.9 cm; Wt 49.0 kg
[~2018-11-28 19:03] MED LIST changes: -CHOL200026 PO; -FURO40TA5 PO; -HEPA0.5D3 SQ; -INSU100V7 SQ; -IPRA3AMP23 IH; -LEVO750T21 PO; +METO-295 GT; +ONDA4TAB5 PO; +PANT40TA2 PO; -PRED20TA PO; -PRED5TAB48 PO
--- NOTE | 2018-11-28 19:03 | NUR ---
BIBPA FROM SNF FOR MORE ALTERED THAN USUAL AND BLE EDEMA; PT AOX0, AROUSABLE, NOT IN DISTRESS, NO SOB AT BESIDE FOR EVAL
[2018-11-28] MEDS ORDERED: LEVOFLOXACIN 500 MG /D5W 100ML 500 MG in PREMIX 1 EA IV SCH (21:00)
[2018-11-28] MEDS ORDERED: IV NS 0.9% 1,000 ML BAG IV ONE (21:00)
[2018-11-28] MEDS: VANCOMYCIN 1 GM in IV D5W 250 ML IV ONE ×2 (21:00→23:34)
[2018-11-28] MEDS ORDERED: LEVOFLOXACIN 500 MG /D5W 100ML 100 ML IV ONE (21:22)
[2018-11-28] MEDS ORDERED: DEXTROSE 50%-WATER 50 ML DISP.SYRIN ONE (21:57)
[2018-11-28 22:00] LABS: BASOPHILS % (AUTO) 0.6 % (0.0-2.0); EOSINOPHILS % (AUTO) 1.5 % (0.0-6.0); HEMATOCRIT 29 % (33-45); HEMOGLOBIN 9.3 g/dL (11.5-14.8); LYMPHOCYTES % (AUTO) 13.7 % (20.0-44.0); MEAN CORPUSCULAR HGB CONC 32 g/dl (31.0-36.0); MEAN CORPUSCULAR VOLUME 91 fL (82-100); MONOCYTES # (AUTO) 0.4 /CMM (0.1-1.30); MONOCYTES % (AUTO) 5.5 % (2.0-12.0); NEUTROPHILS # (AUTO) 5.9 /CMM (1.8-8.9); NEUTROPHILS % (AUTO) 78.7 % (43.0-81.0); PLATELET COUNT (AUTO) 136 /CMM (150-450); RED BLOOD CELL COUNT(AUTO) 3.18 MIL/uL (4.0-5.2); WHITE BLOOD COUNT (AUTO) 7.4 K/uL (4.3-11.0)
[2018-11-28] MEDS ORDERED: GLUCAGON,HUMAN RECOMBINANT 1 MG/VIAL VIAL IV ONE (22:00)
[2018-11-28] MEDS ORDERED: TOBRAMYCIN 80 MG in IV NS 0.9% 100 ML IV SCH (22:00)
[2018-11-28] MEDS ORDERED: DEXTROSE 50%-WATER 50 ML DISP.SYRIN IVP ONE (22:00)
[2018-11-28 22:42] LABS: APPEARANCE,URINE CLEAR (CLEAR); BILIRUBIN,URINE NEGATIVE (NEGATIVE); BLOOD, URINE NEGATIVE Ery/uL (NEGATIVE); COLOR,URINE YELLOW (YELLOW); KETONES,URINE NEGATIVE (NEGATIVE); LEUKOCYTE ESTERASE ,URINE 2+ (NEGATIVE); NITRITE, URINE POSITIVE (NEGATIVE); PROTEIN,URINE TRACE mg/dl (NEGATIVE); UGLUCOSE NEGATIVE (NEGATIVE); UROBILINOGEN,URINE 0.2 EU/dL (0.2)
--- NOTE | 2018-11-28 22:45 | NUR ---
CALLED NURSING SUP. FOR [facility] BED
[2018-11-28] MEDS ORDERED: BRIM5DRO5 EACHEYE (22:46)
[2018-11-28 22:47] LABS: PH,URINE >8.5 (5.0-8.0)
[2018-11-28 22:48] LABS: BACTERIA,URINE Moderate /HPF (None Seen); RBC,URINE 0-2 /HPF (0-2); SQUAMOUS EPITHELIAL CELL,UR Few /HPF (None Seen)
--- NOTE | 2018-11-28 22:48 | NUR ---
BED 109
[2018-11-28 23:00] LABS: ALANINE AMINOTRANSFERASE 24 U/L (12-78); ALKALINE PHOSPHATASE 127 U/L (46-116); ASPARTATE AMINOTRANSFERASE 25 U/L (15-37); BILIRUBIN,TOTAL 0.2 mg/dL (0.2-1.0); CALCIUM, SERUM 8.2 mg/dL (8.5-10.1); CARBON DIOXIDE 32 mmol/L (21-32); CHLORIDE 107 mmol/L (98-107); CREATININE 0.5 mg/dL (0.6-1.3); SODIUM SERUM 141 mmol/L (136-145); TOTAL PROTEIN, SERUM 4.6 g/dL (6.4-8.2); UREA NITROGEN, BLOOD 14 mg/dL (7-18)
[2018-11-28 23:01] LABS: ALBUMIN 1.3 g/dL (3.4-5.0); GLUCOSE 40 mg/dL (74-106)
[2018-11-28] MEDS ORDERED: GLUCAGON,HUMAN RECOMBINANT 1 MG/VIAL VIAL ONE (23:15)
[2018-11-28] MEDS ORDERED: WATER FOR INJECTION,STERILE 10 ML ONE (23:15)
[2018-11-28] MEDS ORDERED: VANCOMYCIN 1 GM VIAL ONE (23:32)
--- NOTE | 2018-11-28 23:46 | NUR ---
CALLED DR. BALDERAS, VOICEMAIL LEFT. WAITING FOR CALL BACK
--- NOTE | 2018-11-28 23:54 | NUR ---
DR. BALDERAS SPEAKING TO DR. NORRIS REGARDING ADMISSION
[2018-11-29] VITALS (7 sets, daily range): BP systolic 99–122; BP diastolic 45–62
[2018-11-29] MEDS ORDERED: FLAGYL/NS RTU 500 MG/100 ML PIGGYBACK IV ONE
[2018-11-29] MEDS ORDERED: METRONIDAZOLE 500MG/ NS 100ML 100 ML IV ONE (00:07)
--- NOTE | 2018-11-29 00:18 | NUR ---
REPORT GIVEN TO DIMA GARCIA FOR RUMA
--- NOTE | 2018-11-29 00:43 | NUR ---
PT TRANSFERRED TO 1ST FLOOR TELE VIA ACLS PROTCOLL
[2018-11-29] MEDS ORDERED: PANTOPRAZOLE 40 MG VIAL IV SCH (01:00)
[2018-11-29] MEDS ORDERED: ONDANSETRON HCL/PF 4 MG/2 ML VIAL IV PRN (01:00)
[2018-11-29] MEDS ORDERED: DEXTROSE 50%-WATER 50 ML DISP.SYRIN IV PRN (01:00)
[2018-11-29] MEDS ORDERED: ACETAMINOPHEN 650 MG/20.3 ML UDC NG PRN (01:00)
[2018-11-29] MEDS: IV D5/ 0.9% NACL 1,000 ML IV PRN ×2 (01:13→20:59)
[2018-11-29] MEDS: GLUCERNA 1.2 1,000 ML BOTTLE NG PRN (01:13)
[2018-11-29] MEDS ORDERED: ENOXAPARIN SODIUM 30 MG/0.3 ML DISP.SYRIN SQ ONE (01:30)
--- NOTE | 2018-11-29 01:30 | NUR ---
RN NOTES 0035 AM - ADMITTED AN 83 Y/O FEMALE PATIENT ACCOMPANIED BY HER DAUGHTER AND ER STAFF VIA STRETCHER. TRANSFERRED TO A BED. PATIENT IS NOT COMMUNICATING AND NOT FOLLOWING COMMAND, RESPONSIVE TO PAIN VERY CONFUSED. NO ACUTE RESPIRATORY DISTRESS. AFEBRILE. VSS. PT DIAGNOSED WITH SEPSIS AND PNA BYDR. BADLERAS. ALLERGIC TO PCN, FULL CODE. TELE MONITOR PLACED REVEALS NSR IV SITE ON LFA G 18 INTACT AND PATENT FLUSHED WELL STARTED IVF AND ALL DUE MEDICINE GIVEN. GT GLUCERNA 1.2 @ 30 ML.HR STARTED PEG TUBE INTACT AND PATENCY CHECKED WITH ZERO RESIDUAL. KEPT PT CLEAN AND DRY. SKIN CARE PROVIDED PHOTO TAKEN FOR ALL SKIN ISSUES. OFFLOADED EXT WITH PILLOWS. REINFORCED DRESSING POSSIBLE. WILL CONTINUE TO MONITOR. ALL HISTORY AND ACTIVITY OF PATIENT RELAY BY DAUGHTER JADYN OLVERA AND THE CHART.
--- NOTE | 2018-11-29 02:00 | NUR ---
RN NOTES BILATERAL SOFT WRIST RESTRAINT PLACED PT TRYING TO PULL OUT TUBES AND LINES DAUGHTER JADYN AT BEDSIDE AWARE ABOUT HER MOMS BEHAVIOR AND ACKNOWLEDGE RESTRAINT. AWARE.
[2018-11-29] MEDS: BLOOD SUGAR DIAGNOSTIC 1 EACH STRIP IN SCH ×3 (06:26→18:29)
[2018-11-29 06:27] LABS: CALCIUM, SERUM 7.8 mg/dL (8.5-10.1); CARBON DIOXIDE 31 mmol/L (21-32); CHLORIDE 108 mmol/L (98-107); CREATININE 0.5 mg/dL (0.6-1.3); GLUCOSE 138 mg/dL (74-106); POTASSIUM 3.5 mmol/L (3.5-5.1); SODIUM SERUM 144 mmol/L (136-145); UREA NITROGEN, BLOOD 12 mg/dL (7-18)
[2018-11-29 06:28] LABS: BASOPHILS % (AUTO) 0.2 % (0.0-2.0); EOSINOPHILS % (AUTO) 1.5 % (0.0-6.0); HEMATOCRIT 29 % (33-45); HEMOGLOBIN 9.5 g/dL (11.5-14.8); LYMPHOCYTES # (AUTO) 0.9 /CMM (0.8-4.8); MEAN CORPUSCULAR HGB CONC 33 g/dl (31.0-36.0); MEAN CORPUSCULAR VOLUME 91 fL (82-100); MONOCYTES # (AUTO) 0.5 /CMM (0.1-1.30); MONOCYTES % (AUTO) 6.7 % (2.0-12.0); NEUTROPHILS # (AUTO) 5.9 /CMM (1.8-8.9); NEUTROPHILS % (AUTO) 79.6 % (43.0-81.0); PLATELET COUNT (AUTO) 114 /CMM (150-450); RED BLOOD CELL COUNT(AUTO) 3.19 MIL/uL (4.0-5.2); WHITE BLOOD COUNT (AUTO) 7.4 K/uL (4.3-11.0)
[2018-11-29] MEDS: INSULIN REGULAR, HUMAN 100 UNIT/ML 3 ML VIAL SQ PRN ×3 (06:28→18:33)
--- NOTE | 2018-11-29 07:04 | NUR ---
RN NOTES PATIENT ASLEEP WELL NO SIGNIFICANT CHANGES NO SOB OR ACUTE RESPIRATORY DISTRESS. AFEBRILE. VSS. CONTINUE ON IV ATB, GTF. NO ASE SHOWN. IV SITE REMAINED INTACT AND PATENT RUNNING WITH D5NS @ 50 ML/HR. TURNED AND REPOSITIONED Q2H AND PRN PT COMFORTABLE. KEPT PT CLEAN AND DRY. ZULEMA ENDORSED CONTINUITY OF CARE TO AM NURSE.
[2018-11-29] MEDS ORDERED: NUT.237L30 GT (08:51)
[2018-11-29] MEDS ORDERED: INSU100V28 SQ (08:51)
[2018-11-29] MEDS ORDERED: ACID1TAB12 GT (08:51)
[2018-11-29] MEDS ORDERED: POLY15DR40 EACHEYE (08:51)
[2018-11-29] MEDS ORDERED: PANT40SU2 GT (08:51)
[2018-11-29] MEDS ORDERED: MAG30ORA GT (08:51)
[2018-11-29] MEDS ORDERED: GLUCERNA 1.2 1,000 ML BOTTLE GT SCH (13:00)
[2018-11-29] MEDS ORDERED: MAG HYDROX/AL HYDROX/SIMETH 30 ML UDC GT PRN (13:00)
[2018-11-29] MEDS ORDERED: MAGNESIUM HYDROXIDE 30 ML UDC GT PRN (13:00)
[2018-11-29] MEDS ORDERED: BISACODYL SUPP (10 MG) 10 MG/SUPP.RECT SUPP.RECT RC PRN (13:00)
[2018-11-29] MEDS ORDERED: FUROSEMIDE 20 MG/2 ML VIAL IV ONE (13:00)
[2018-11-29] MEDS: ALBUTEROL FS 2.5 MG/0.5 ML VIAL.NEB NEB SCH ×3 (15:50→23:49)
[2018-11-29] MEDS: BRIMONIDINE TARTRATE OPHT SOLN 5 ML BOTTLE EACHEYE SCH (16:21)
[2018-11-29] MEDS: buPROPion 100 MG TABLET GT SCH (16:22)
[2018-11-29] MEDS: CLOPIDOGREL BISULFATE 75 MG TABLET GT SCH (16:22)
[2018-11-29] MEDS: ASCORBIC ACID 500 MG TABLET GT SCH (16:22)
[2018-11-29] MEDS: DONEPEZIL 5 MG TABLET GT SCH (16:22)
[2018-11-29] MEDS: ACIDOPHILUS/BULGARICUS 1 EACH TAB.CHEW GT SCH (16:22)
[2018-11-29] MEDS: METOCLOPRAMIDE HCL 10 MG TABLET GT SCH (16:22)
[2018-11-29] MEDS ORDERED: TIMOLOL MAL/DORZOLAM HCL OPHTH 10 ML BOTTLE EACHEYE SCH (17:00)
[2018-11-29] MEDS: TIMOLOL 0.5% SOLN OPHTH 5 ML BOTTLE EACHEYE SCH (18:29)
[2018-11-29] MEDS: DORZOLAMIDE OPTH 2% 10 ML BOTTLE EACHEYE SCH (18:30)
--- NOTE | 2018-11-29 20:00 | NUR ---
RN MS INITIAL NOTES PATIENT ASLEEP HOB ELEVATED, NO SIGNIFICANT CHANGES NO SOB OR ACUTE RESPIRATORY DISTRESS. AFEBRILE. VSS. CONTINUE ON IV ATB, GTF. NO ASE NOTED. IV SITE REMAINED INTACT AND PATENT RUNNING WITH D5NS @ 50 ML/HR. TURNED AND REPOSITIONED Q2H AND PRN PT COMFORTABLE. KEPT PT CLEAN AND DRY. ZULEMA ENDORSED CONTINUITY OF CARE TO AM NURSE.
[2018-11-29] MEDS: POLYVINYL ALCOHOL 15 ML BOTTLE EACHEYE SCH (21:34)
[2018-11-29] MEDS: LATANOPROST EYE DROP 0.005% 2.5 ML BOTTLE EACHEYE SCH (21:34)
[2018-11-29] MEDS: ENOXAPARIN SODIUM 30 MG/0.3 ML DISP.SYRIN SQ SCH (21:35)
[2018-11-29] MEDS: GABAPENTIN 100 MG CAPSULE GT SCH (21:35)
[2018-11-29] MEDS: INSULIN GLARGINE, 100 UNIT/ML CARTRIDGE SQ SCH (21:53)
[2018-11-30] MEDS ORDERED: BLOOD SUGAR DIAGNOSTIC 1 EACH STRIP IN SCH
[2018-11-30] MEDS: BLOOD SUGAR DIAGNOSTIC 1 EACH STRIP IN SCH ×4 (00:40→18:22)
[2018-11-30] MEDS: INSULIN REGULAR, HUMAN 100 UNIT/ML 3 ML VIAL SQ PRN (00:57)
[2018-11-30] MEDS: ALBUTEROL FS 2.5 MG/0.5 ML VIAL.NEB NEB SCH ×6 (03:07→22:31)
[2018-11-30 05:00] VITALS: BP 105/51
[2018-11-30] MEDS: POLYVINYL ALCOHOL 15 ML BOTTLE EACHEYE SCH ×3 (05:38→21:43)
--- NOTE | 2018-11-30 06:24 | NUR ---
RN MS CLOSING NOTES PATIENT ASLEEP HOB ELEVATED, NO SIGNIFICANT CHANGES NO SOB OR ACUTE RESPIRATORY DISTRESS. AFEBRILE. VSS. CONTINUE ON IV ATB, GTF WELL TOLERATED. NO ASE NOTED. IV SITE REMAINED INTACT AND PATENT RUNNING WITH D5NS @ 50 ML/HR. TURNED AND REPOSITIONED Q2H AND PRN PT COMFORTABLE. KEPT PT CLEAN AND DRY. WILL ENDORSED TO AM FOR RUMA.
--- NOTE | 2018-11-30 07:15 | NUR ---
RN OPENING NOTE RECEIVED PATIENT IN BED ASLEEP BUT EASILY AROUSABLE. HAS A GT FEEDING AT 30ML/HR. WITH 30ML RESIDUAL. HAS A FERNANDEZ CATH WITH CLEAR AND YELLOW URINE. HAS A SACRAL PRESSURE ULCER STAGE 3, WILL DO SKIN TX LATER TODAY. ON 2L NC WITH O2 SAT OF 96%. BED LOCKED AND IN LOW POSITION. HAS SOFT BILATERAL RESTRAINTS ON. NO SIGNS OF ANY PAIN OR DISTRESS. WILL CONTINUE TO MONITOR PATIENT
[2018-11-30] MEDS: LEVOTHYROXINE SODIUM 75 MCG TABLET GT SCH (07:58)
[2018-11-30 08:00] VITALS: BP 131/52
[2018-11-30] MEDS: buPROPion 100 MG TABLET GT SCH ×2 (08:03→17:43)
[2018-11-30] MEDS: PANTOPRAZOLE 40 MG/PACK PACK GT SCH (08:03)
[2018-11-30] MEDS: POTASSIUM CHLORIDE 10 MEQ TABLET.SA GT SCH (08:03)
[2018-11-30] MEDS: METOCLOPRAMIDE HCL 10 MG TABLET GT SCH ×2 (08:03→17:41)
[2018-11-30] MEDS: ACIDOPHILUS/BULGARICUS 1 EACH TAB.CHEW GT SCH ×2 (08:03→17:41)
[2018-11-30] MEDS: DONEPEZIL 5 MG TABLET GT SCH ×2 (08:03→17:41)
[2018-11-30] MEDS: ZINC SULFATE 220 MG CAPSULE GT SCH (08:03)
[2018-11-30] MEDS: ASCORBIC ACID 500 MG TABLET GT SCH ×2 (08:04→17:41)
[2018-11-30] MEDS: MULTIVITAMINS,THERAGRAN 1 UDTAB TABLET GT SCH (08:04)
[2018-11-30 08:07] LABS: BASOPHILS # (AUTO) 0.1 /CMM (0.0-0.2); BASOPHILS % (AUTO) 1.1 % (0.0-2.0); EOSINOPHILS % (AUTO) 3.3 % (0.0-6.0); HEMATOCRIT 33 % (33-45); HEMOGLOBIN 10.6 g/dL (11.5-14.8); LYMPHOCYTES # (AUTO) 0.9 /CMM (0.8-4.8); LYMPHOCYTES % (AUTO) 15.1 % (20.0-44.0); MEAN CORPUSCULAR HGB CONC 32 g/dl (31.0-36.0); MEAN CORPUSCULAR VOLUME 91 fL (82-100); MONOCYTES # (AUTO) 0.4 /CMM (0.1-1.30); MONOCYTES % (AUTO) 6.6 % (2.0-12.0); NEUTROPHILS # (AUTO) 4.5 /CMM (1.8-8.9); NEUTROPHILS % (AUTO) 73.9 % (43.0-81.0); PLATELET COUNT (AUTO) 96 /CMM (150-450); RED BLOOD CELL COUNT(AUTO) 3.67 MIL/uL (4.0-5.2); WHITE BLOOD COUNT (AUTO) 6.2 K/uL (4.3-11.0)
--- NOTE | 2018-11-30 08:07 | NUR ---
WOUND CARE CONSULT WOUND CARE RECEIVED CONSULT FOR SACRAL PRESSURE SORE. WOUND CARE WILL DEFER CONSULT AND ALL TREATMENT PLANS TO PLASTIC SURGICAL TEAM WELL DPM DR VILLEDA WHO ARE ALL CURRENTLY FOLLOWING THIS PATIENT. PATIENT WITH CARMINE AT 12, ALL PRESSURE ULCER PREVENTION MEASURES ARE NOTED TO BE IN PLACE. WILL SEE PRN.
[2018-11-30] MEDS: DORZOLAMIDE OPTH 2% 10 ML BOTTLE EACHEYE SCH ×2 (08:08→17:43)
[2018-11-30] MEDS: BRIMONIDINE TARTRATE OPHT SOLN 5 ML BOTTLE EACHEYE SCH ×3 (08:08→17:42)
[2018-11-30] MEDS: TIMOLOL 0.5% SOLN OPHTH 5 ML BOTTLE EACHEYE SCH ×2 (08:08→17:42)
[2018-11-30] MEDS: prednisoLONE ACETATE 1% SUSP 5 ML BOTTLE LEFTEYE SCH (08:08)
[2018-11-30] MEDS: CHOLECALCIFEROL 1,000 UNIT TABLET (VIT D3) GT SCH (08:09)
[2018-11-30] MEDS: INSULIN GLARGINE, 100 UNIT/ML CARTRIDGE SQ SCH ×2 (08:14→21:00)
[2018-11-30 08:27] LABS: CALCIUM, SERUM 7.9 mg/dL (8.5-10.1); CARBON DIOXIDE 30 mmol/L (21-32); CHLORIDE 110 mmol/L (98-107); CREATININE 0.5 mg/dL (0.6-1.3); GLUCOSE 93 mg/dL (74-106); MAGNESIUM 1.6 mg/dL (1.8-2.4); POTASSIUM 3.7 mmol/L (3.5-5.1); SODIUM SERUM 145 mmol/L (136-145); UREA NITROGEN, BLOOD 10 mg/dL (7-18)
[2018-11-30] MEDS ORDERED: PROSTAT (PYXIS) 30 ML UDC GT SCH (09:00)
[2018-11-30] MEDS ORDERED: LEVOFLOXACIN 750 MG /D5W 150ML 750 MG in PREMIX 1 EA IV SCH (09:00)
[2018-11-30] MEDS ORDERED: RAMIPRIL 5 MG CAPSULE GT SCH (09:00)
[2018-11-30 10:00] VITALS: BP 131/52
[2018-11-30] MEDS ORDERED: PROSOURCE / PROSTAT (PYXIS) 30 ML UDC GT SCH (10:00)
--- NOTE | 2018-11-30 10:00 | NUR ---
RN NOTE CALLED PHARMACY AND ASKED FOR ALTACE MEDICATION TO BE GIVEN AT 0900. TALKED TO AYLA, SHE SAID SHE WILL CHECK
[2018-11-30] MEDS ORDERED: MAGNESIUM OXIDE 400 MG TABLET GT ONE (11:00)
[2018-11-30] MEDS: RAMIPRIL 1.25 MG CAPSULE GT SCH (11:24)
[2018-11-30] MEDS: GLUCERNA 1.2 1,000 ML BOTTLE NG PRN (12:45)
--- NOTE | 2018-11-30 12:55 | NUR ---
RN NOTE REPLACED THE FEEDING. HAD A 30 ML RESIDUAL. WILL CONTINUE FEEDING RATE AT 40ML/HR. PATIENT MOANING AND OPENING EYES. ADMINISTERED 2 OF HER EYE DROPS. PATIENT AWARE AND IN COMFORTABLE STATE. NO SIGNS OF ANY PAIN OR DISTRESS.
[2018-11-30] MEDS: FUROSEMIDE 20 MG/2 ML VIAL IV SCH (14:10)
[2018-11-30 16:00] VITALS: BP 131/56
[2018-11-30] MEDS: CLOPIDOGREL BISULFATE 75 MG TABLET GT SCH (17:42)
[2018-11-30] MEDS: PROSOURCE / PROSTAT (PYXIS) 30 ML UDC GT SCH (17:42)
--- NOTE | 2018-11-30 18:12 | NUR ---
RN NOTE PATIENT SCREAMING LOUD, WHEN ASKED VIA PAPER AND PEN, PATIENT STATES SHE WANTS THE O2 NC REMOVED. EXPLAINED TO PATIENT VIA WRITING THAT O2 HELPS HER BREATHE BETTER. PATIENT STOPPED SCREAMING AFTER.
--- NOTE | 2018-11-30 19:19 | NUR ---
RN CLOSING NOTE PATIENT AWAKE AND TALKING. HAD ANOTHER LARGE BM BEFORE SHIFT CHANGE. DAUGHTER ON BEDSIDE AND WAS AWARE ABOUT THE RECENT CXR AND THE DISCHARGING OF FERNANDEZ TOMORROW MORNING. PATIENT ON GT FEEDING AT 40 ML/HR, WITH A SMALL AMOUNT OF RESIDUAL - 30 ML. ON FERNANDEZ CATH WITH 550 OUTPUT. CLEAR AND YELLOW URINE. ALL MEDS WERE GIVEN. ALL NEEDS ARE MET. ON O2 NC 2L, NO SOB NO DISTRESS NO SIGNS OF ANY PAIN. ENDORSED TO NOC SHIFT NURSE ABOUT CONTINUITY OF CARE
[2018-11-30] MEDS: IV D5/ 0.9% NACL 1,000 ML IV PRN (19:24)
--- NOTE | 2018-11-30 20:40 | NUR ---
RN MS INITIAL NOTES PATIENT ASLEEP HOB ELEVATED, NO SIGNIFICANT CHANGES NO SOB OR ACUTE RESPIRATORY DISTRESS. AFEBRILE. VSS. CONTINUE ON IV ATB, GTF. NO ASE NOTED. IV SITE REMAINED INTACT AND PATENT RUNNING WITH D5NS @ 50 ML/HR. TURNED AND REPOSITIONED Q2H AND PRN PT COMFORTABLE. KEPT PT CLEAN AND DRY, WILL CONT' TO MONITOR..
[2018-11-30] MEDS: GABAPENTIN 100 MG CAPSULE GT SCH (21:43)
[2018-11-30] MEDS: LATANOPROST EYE DROP 0.005% 2.5 ML BOTTLE EACHEYE SCH (21:43)
[2018-11-30] MEDS: ENOXAPARIN SODIUM 30 MG/0.3 ML DISP.SYRIN SQ SCH (21:45)
--- NOTE | 2018-11-30 22:07 | NUR ---
NATHALIE 6 UNITS HELD BS 85, ENDORSED BY RN AM PT TRENDING LOW.
[2018-12-01] VITALS: BP 122/68
[2018-12-01] MEDS: BLOOD SUGAR DIAGNOSTIC 1 EACH STRIP IN SCH ×4 (01:36→17:35)
[2018-12-01] MEDS: ALBUTEROL FS 2.5 MG/0.5 ML VIAL.NEB NEB SCH ×6 (02:37→22:49)
[2018-12-01] MEDS: POLYVINYL ALCOHOL 15 ML BOTTLE EACHEYE SCH ×3 (05:33→21:58)
[2018-12-01] MEDS: INSULIN REGULAR, HUMAN 100 UNIT/ML 3 ML VIAL SQ PRN ×2 (05:37→23:46)
--- NOTE | 2018-12-01 06:04 | NUR ---
RN MS CLOSING NOTES PATIENT ASLEEP HOB ELEVATED, NO SIGNIFICANT CHANGES NO SOB OR ACUTE RESPIRATORY DISTRESS. AFEBRILE. VSS. CONTINUE ON IV ATB, GTF @ 40 ML, WELL TOLERATED 5 CC RESIDUAL. IV SITE ON RAC # 22 G, INTACT AND PATENT RUNNING WITH D5NS @ 50 ML/HR. TURNED AND REPOSITIONED Q2H AND PRN PT COMFORTABLE. KEPT PT CLEAN AND DRY, WILL CONT' TO MONITOR..
[2018-12-01 07:31] LABS: BASOPHILS % (AUTO) 0.7 % (0.0-2.0); EOSINOPHILS % (AUTO) 3.1 % (0.0-6.0); HEMATOCRIT 31 % (33-45); LYMPHOCYTES # (AUTO) 0.9 /CMM (0.8-4.8); LYMPHOCYTES % (AUTO) 15.7 % (20.0-44.0); MEAN CORPUSCULAR HGB CONC 32 g/dl (31.0-36.0); MEAN CORPUSCULAR VOLUME 92 fL (82-100); MONOCYTES # (AUTO) 0.4 /CMM (0.1-1.30); MONOCYTES % (AUTO) 6.4 % (2.0-12.0); NEUTROPHILS # (AUTO) 4.5 /CMM (1.8-8.9); NEUTROPHILS % (AUTO) 74.1 % (43.0-81.0); PLATELET COUNT (AUTO) 135 /CMM (150-450); RED BLOOD CELL COUNT(AUTO) 3.36 MIL/uL (4.0-5.2)
[2018-12-01 07:36] LABS: CALCIUM, SERUM 7.9 mg/dL (8.5-10.1); CARBON DIOXIDE 29 mmol/L (21-32); CHLORIDE 108 mmol/L (98-107); CREATININE 0.6 mg/dL (0.6-1.3); GLUCOSE 156 mg/dL (74-106); MAGNESIUM 1.7 mg/dL (1.8-2.4); POTASSIUM 4.1 mmol/L (3.5-5.1); SODIUM SERUM 142 mmol/L (136-145); UREA NITROGEN, BLOOD 10 mg/dL (7-18)
[2018-12-01 08:00] VITALS: BP 122/62
[2018-12-01] MEDS: ZINC SULFATE 220 MG CAPSULE GT SCH (08:58)
[2018-12-01] MEDS: CHOLECALCIFEROL 1,000 UNIT TABLET (VIT D3) GT SCH (08:58)
[2018-12-01] MEDS: DONEPEZIL 5 MG TABLET GT SCH ×2 (08:59→17:24)
[2018-12-01] MEDS: MULTIVITAMINS,THERAGRAN 1 UDTAB TABLET GT SCH (08:59)
[2018-12-01] MEDS: PANTOPRAZOLE 40 MG/PACK PACK GT SCH (08:59)
[2018-12-01] MEDS: ACIDOPHILUS/BULGARICUS 1 EACH TAB.CHEW GT SCH ×2 (08:59→17:23)
[2018-12-01] MEDS: POTASSIUM CHLORIDE 10 MEQ TABLET.SA GT SCH (08:59)
[2018-12-01] MEDS: RAMIPRIL 1.25 MG CAPSULE GT SCH (08:59)
[2018-12-01] MEDS: buPROPion 100 MG TABLET GT SCH ×2 (08:59→17:34)
[2018-12-01] MEDS: METOCLOPRAMIDE HCL 10 MG TABLET GT SCH ×2 (09:00→17:23)
[2018-12-01] MEDS: FUROSEMIDE 20 MG/2 ML VIAL IV SCH (09:00)
[2018-12-01] MEDS: LEVOTHYROXINE SODIUM 75 MCG TABLET GT SCH (09:02)
[2018-12-01] MEDS: ASCORBIC ACID 500 MG TABLET GT SCH ×2 (09:02→17:23)
[2018-12-01] MEDS: INSULIN GLARGINE, 100 UNIT/ML CARTRIDGE SQ SCH (09:03)
[2018-12-01] MEDS: prednisoLONE ACETATE 1% SUSP 5 ML BOTTLE LEFTEYE SCH (09:17)
[2018-12-01] MEDS: BRIMONIDINE TARTRATE OPHT SOLN 5 ML BOTTLE EACHEYE SCH ×3 (09:17→17:34)
[2018-12-01] MEDS: TIMOLOL 0.5% SOLN OPHTH 5 ML BOTTLE EACHEYE SCH ×2 (09:17→17:35)
[2018-12-01] MEDS: DORZOLAMIDE OPTH 2% 10 ML BOTTLE EACHEYE SCH ×2 (09:18→17:34)
[2018-12-01] MEDS: PROSOURCE / PROSTAT (PYXIS) 30 ML UDC GT SCH ×3 (09:19→17:24)
[2018-12-01] MEDS: Magnesium 1GM/D5W 100ML PREMIX 100 ML IV SCH ×2 (12:20→13:44)
[2018-12-01] MEDS: GLUCERNA 1.2 1,000 ML BOTTLE NG PRN (14:41)
[2018-12-01 16:00] VITALS: BP_SYST 108; BP_SYST 112; BP_DIAS 50; BP_DIAS 58
[2018-12-01] MEDS: CLOPIDOGREL BISULFATE 75 MG TABLET GT SCH (17:24)
--- NOTE | 2018-12-01 19:45 | NUR ---
RN NOTES RECEIVED PATIENT AWAKE IN BED, ALL SAFETY MEASURES IN PLACED, DAUGHTER AT BEDSIDE, PATIENT IS NOT IN ANY ACUTE RESPIRATORY DISTRESS, IV ACCESS INTACT AND PATENT. WILL MONITOR ACCORDINGLY.
--- NOTE | 2018-12-01 19:47 | NUR ---
RN NOTE PATIENT ON RESTRAINTS, DICONSINTUED IV FLUID, MONITOR RESIDUAL LESS THAN 20. WATER FLUSH CHANGED TO Q8HRS 100ML PER MD. FAMILY WANTS FERNANDEZ TO REMAIN IN PLACE DUE TO RISK FOR INFECTION. NIGHT NURSE AWARE FAMILY REFUSES REMOVAL. MD DISCONTINUED LONG ACTING INSULIN, MONITOR BS EVERY 6 HRS. BED IN LOW POSITION, RESTRAINTS CHECKED EVERY 2 HOURS.
[2018-12-01] MEDS: MEROPENEM 1 G in IV NS 0.9% 100 ML IV SCH (21:00)
[2018-12-01] MEDS: GABAPENTIN 100 MG CAPSULE GT SCH (21:55)
[2018-12-01] MEDS: ENOXAPARIN SODIUM 30 MG/0.3 ML DISP.SYRIN SQ SCH (21:56)
[2018-12-01] MEDS ORDERED: MEROPENEM 1 G VIAL IV ONE (22:14)
[2018-12-01] MEDS: LATANOPROST EYE DROP 0.005% 2.5 ML BOTTLE EACHEYE SCH (22:22)
[2018-12-02] VITALS: BP 126/40
[2018-12-02] MEDS: BLOOD SUGAR DIAGNOSTIC 1 EACH STRIP IN SCH ×5 (00:02→23:12)
[2018-12-02] MEDS: ALBUTEROL FS 2.5 MG/0.5 ML VIAL.NEB NEB SCH ×6 (02:40→23:29)
[2018-12-02] MEDS: POLYVINYL ALCOHOL 15 ML BOTTLE EACHEYE SCH ×3 (04:26→21:44)
[2018-12-02 06:26] LABS: BASOPHILS % (AUTO) 0.4 % (0.0-2.0); EOSINOPHILS % (AUTO) 2.4 % (0.0-6.0); HEMATOCRIT 26 % (33-45); HEMOGLOBIN 8.4 g/dL (11.5-14.8); LYMPHOCYTES % (AUTO) 19.2 % (20.0-44.0); MEAN CORPUSCULAR HGB CONC 33 g/dl (31.0-36.0); MEAN CORPUSCULAR VOLUME 91 fL (82-100); MONOCYTES # (AUTO) 0.3 /CMM (0.1-1.30); MONOCYTES % (AUTO) 6.2 % (2.0-12.0); NEUTROPHILS # (AUTO) 3.8 /CMM (1.8-8.9); NEUTROPHILS % (AUTO) 71.8 % (43.0-81.0); PLATELET COUNT (AUTO) 126 /CMM (150-450); RED BLOOD CELL COUNT(AUTO) 2.84 MIL/uL (4.0-5.2); WHITE BLOOD COUNT (AUTO) 5.3 K/uL (4.3-11.0)
[2018-12-02] MEDS: INSULIN REGULAR, HUMAN 100 UNIT/ML 3 ML VIAL SQ PRN ×4 (06:37→23:12)
[2018-12-02 06:43] LABS: CALCIUM, SERUM 7.7 mg/dL (8.5-10.1); CARBON DIOXIDE 32 mmol/L (21-32); CHLORIDE 109 mmol/L (98-107); CREATININE 0.4 mg/dL (0.6-1.3); GLUCOSE 168 mg/dL (74-106); MAGNESIUM 1.9 mg/dL (1.8-2.4); POTASSIUM 3.8 mmol/L (3.5-5.1); SODIUM SERUM 143 mmol/L (136-145); UREA NITROGEN, BLOOD 11 mg/dL (7-18)
--- NOTE | 2018-12-02 07:26 | NUR ---
RN NOTES ABLE TO REST AND SLEEP COMFORTABLY, BILATERAL SOFT WRIST RESTRAINT ON, MONITORED FOR ADEQUATE CIRCULATION, ALL NEEDS ATTENDED AND MET, GT FEEDING TOLERATING WELL, ENDORSED TO AM NURSE FOR CONTINUITY OF CARE.
[2018-12-02 08:00] VITALS: BP 113/67
[2018-12-02] MEDS: LEVOTHYROXINE SODIUM 75 MCG TABLET GT SCH (08:12)
[2018-12-02] MEDS: ZINC SULFATE 220 MG CAPSULE GT SCH (08:12)
[2018-12-02] MEDS: DONEPEZIL 5 MG TABLET GT SCH ×2 (08:12→15:48)
[2018-12-02] MEDS: ASCORBIC ACID 500 MG TABLET GT SCH ×2 (08:12→15:48)
[2018-12-02] MEDS: METOCLOPRAMIDE HCL 10 MG TABLET GT SCH ×2 (08:12→15:48)
[2018-12-02] MEDS: PANTOPRAZOLE 40 MG/PACK PACK GT SCH (08:13)
[2018-12-02] MEDS: CHOLECALCIFEROL 1,000 UNIT TABLET (VIT D3) GT SCH (08:13)
[2018-12-02] MEDS: MULTIVITAMINS,THERAGRAN 1 UDTAB TABLET GT SCH (08:13)
[2018-12-02] MEDS: FUROSEMIDE 20 MG/2 ML VIAL IV SCH ×2 (08:13→17:53)
[2018-12-02] MEDS: POTASSIUM CHLORIDE 10 MEQ TABLET.SA GT SCH (08:13)
[2018-12-02] MEDS: ACIDOPHILUS/BULGARICUS 1 EACH TAB.CHEW GT SCH ×2 (08:13→15:48)
[2018-12-02] MEDS: TIMOLOL 0.5% SOLN OPHTH 5 ML BOTTLE EACHEYE SCH ×2 (08:23→15:49)
[2018-12-02] MEDS: prednisoLONE ACETATE 1% SUSP 5 ML BOTTLE LEFTEYE SCH (08:23)
[2018-12-02] MEDS: DORZOLAMIDE OPTH 2% 10 ML BOTTLE EACHEYE SCH ×2 (08:23→15:49)
[2018-12-02] MEDS: BRIMONIDINE TARTRATE OPHT SOLN 5 ML BOTTLE EACHEYE SCH ×3 (08:24→15:48)
[2018-12-02] MEDS: RAMIPRIL 1.25 MG CAPSULE GT SCH (08:25)
[2018-12-02] MEDS: buPROPion 100 MG TABLET GT SCH ×2 (08:25→15:47)
[2018-12-02] MEDS: PROSOURCE / PROSTAT (PYXIS) 30 ML UDC GT SCH ×3 (08:28→15:49)
[2018-12-02] MEDS: MEROPENEM 1 G in IV NS 0.9% 100 ML IV SCH (09:02)
[2018-12-02 12:00] VITALS: BP 125/76
[2018-12-02] MEDS: CEFTRIAXONE 1 G in IV D5W 50 ML IV SCH (12:27)
--- NOTE | 2018-12-02 12:48 | NUR ---
LEFT MESSAGE FOR MD BALDERAS REGARDING ROUTINE THORACENTESIS MONDAY PROVIDER AND U/S UTILITIES SERVICE INVESTIGATOR ARE METAL CUTTER TODAY.
[2018-12-02] MEDS: CLOPIDOGREL BISULFATE 75 MG TABLET GT SCH (15:47)
--- NOTE | 2018-12-02 15:51 | NUR ---
Spoke with family member of patient regarding procedure 12/03/18, ultrasound guided thoracentesis. Family member verbalizes understanding and agrees with procedure. Says she will visit this evening. Will endorse to night nurse to hold blood thinners for patient, plavix and lovenox.
[2018-12-02 16:00] VITALS: BP 120/80
--- NOTE | 2018-12-02 16:19 | NUR ---
DISCUSSED IF ROUTINE U/S GUIDED THORACENTESIS WAS NEEDED TODAY OR COULD BE DONE TOMORROW SINCE U/S TECH AND RADIOLOGIST ARE CAMP ATTENDANT WITH DIMA GREEN AT 1306. HE SAID HE LEFT MESSAGE FOR THE DR BUT NO ANSWER. WE CONCLUDED THAT THE PROCEDURE WOULD BE DONE TOMORROW SINCE DID NOT RESPOND.
--- NOTE | 2018-12-02 19:30 | NUR ---
RN MS OPENING NOTES RECEIVED PATIENT IN BED AWAKE. ALERT AND ORIENTED X1, VERBALLY RESPONSIVE. CONFUSED. BREATHING EVEN AND UNLABORED. NO SOB NOTED. ON 2LPM OXYGEN VIA NC. NO S/S OF PAIN OR DISCOMFORT. NO FACIAL GRIMACING. IV ON LEFT LEG G#22 INTACT AND PATENT. SKIN DRY AND WARM TO TOUCH. AFEBRILE. PATIENT NOTED WITH FERNANDEZ CATH - INTACT AND DRAINING YELLOW COLORED URINE. PATIENT ALSO ON GTUBE - INTACT AND INFUSING. TOLERATING WELL. NO RESIDUAL NOTED. ALL OTHER NEEDS ATTENDED TO. DAUGHTER AT BEDSIDE. SAFETY MEASURES IN PLACE. CALL LIGHT WITHIN REACH. WILL CONTINUE TO MONITOR.
--- NOTE | 2018-12-02 19:52 | NUR ---
HANDOFF TO NIGHT NURSE AMAYA Salas RN. NORMA LOPEZ RN
[2018-12-02 20:00] VITALS: BP 103/60
--- NOTE | 2018-12-02 20:17 | NUR ---
RN MS NOTES PER NORBERTO TAYLOR, HOLD Applaud FOR US GUIDED THORACENTESIS PROCEDURE IN AM. ORDER NOTED AND CARRIED OUT.
[2018-12-02] MEDS: ENOXAPARIN SODIUM 30 MG/0.3 ML DISP.SYRIN SQ SCH (20:20)
[2018-12-02] MEDS: GABAPENTIN 100 MG CAPSULE GT SCH (21:43)
[2018-12-02] MEDS: LATANOPROST EYE DROP 0.005% 2.5 ML BOTTLE EACHEYE SCH (21:44)
[2018-12-02] MEDS: GLUCERNA 1.2 1,000 ML BOTTLE NG PRN (23:00)
[2018-12-03] VITALS: BP 109/56
[2018-12-03] MEDS: ALBUTEROL FS 2.5 MG/0.5 ML VIAL.NEB NEB SCH ×6 (03:15→23:15)
[2018-12-03 04:00] VITALS: BP 122/55
[2018-12-03] MEDS: BLOOD SUGAR DIAGNOSTIC 1 EACH STRIP IN SCH ×4 (05:40→23:36)
[2018-12-03] MEDS: POLYVINYL ALCOHOL 15 ML BOTTLE EACHEYE SCH ×3 (05:49→21:10)
[2018-12-03] MEDS: INSULIN REGULAR, HUMAN 100 UNIT/ML 3 ML VIAL SQ PRN ×3 (05:55→18:02)
--- NOTE | 2018-12-03 06:32 | NUR ---
RN MS CLOSING NOTES PATIENT AWAKE AND RESTING. NO ACUTE CHANGES THROUGHOUT SHIFT. BREATHING EVEN AND UNLABORED. NO SOB NOTED. ON 2LPM OXYGEN VIA NC. NO S/S OF PAIN OR DISCOMFORT. NO FACIAL GRIMACING. IV ON LEFT LEG G#22 INTACT AND PATENT. SKIN DRY AND WARM TO TOUCH. AFEBRILE. FERNANDEZ CATH - INTACT AND DRAINING YELLOW COLORED URINE. GTUBE - INTACT AND INFUSING. TOLERATING WELL. NO RESIDUAL NOTED. ALL OTHER NEEDS ATTENDED TO. KEPT CLEAN DRY AND COMFORTABLE. SAFETY MEASURES IN PLACE. CALL LIGHT WITHIN REACH. WILL ENDORSE TO ONCOMING NURSE FOR RUMA.
[2018-12-03 07:40] LABS: BASOPHILS % (AUTO) 0.6 % (0.0-2.0); EOSINOPHILS % (AUTO) 1.9 % (0.0-6.0); HEMATOCRIT 28 % (33-45); HEMOGLOBIN 9.3 g/dL (11.5-14.8); LYMPHOCYTES # (AUTO) 1.2 /CMM (0.8-4.8); LYMPHOCYTES % (AUTO) 17.2 % (20.0-44.0); MEAN CORPUSCULAR HGB CONC 33 g/dl (31.0-36.0); MEAN CORPUSCULAR VOLUME 92 fL (82-100); MONOCYTES # (AUTO) 0.4 /CMM (0.1-1.30); MONOCYTES % (AUTO) 5.5 % (2.0-12.0); NEUTROPHILS % (AUTO) 74.8 % (43.0-81.0); PLATELET COUNT (AUTO) 136 /CMM (150-450); RED BLOOD CELL COUNT(AUTO) 3.09 MIL/uL (4.0-5.2); WHITE BLOOD COUNT (AUTO) 6.7 K/uL (4.3-11.0)
[2018-12-03 07:46] LABS: CALCIUM, SERUM 7.8 mg/dL (8.5-10.1); CARBON DIOXIDE 31 mmol/L (21-32); CHLORIDE 108 mmol/L (98-107); CREATININE 0.5 mg/dL (0.6-1.3); GLUCOSE 218 mg/dL (74-106); POTASSIUM 4.7 mmol/L (3.5-5.1); SODIUM SERUM 142 mmol/L (136-145); UREA NITROGEN, BLOOD 14 mg/dL (7-18)
[2018-12-03 08:00] VITALS: BP 104/54
[2018-12-03] MEDS: MULTIVITAMINS,THERAGRAN 1 UDTAB TABLET GT SCH (08:52)
[2018-12-03] MEDS: POTASSIUM CHLORIDE 10 MEQ TABLET.SA GT SCH (08:52)
[2018-12-03] MEDS: METOCLOPRAMIDE HCL 10 MG TABLET GT SCH ×2 (08:52→16:53)
[2018-12-03] MEDS: ACIDOPHILUS/BULGARICUS 1 EACH TAB.CHEW GT SCH ×2 (08:52→16:53)
[2018-12-03] MEDS: CHOLECALCIFEROL 1,000 UNIT TABLET (VIT D3) GT SCH (08:52)
[2018-12-03] MEDS: DONEPEZIL 5 MG TABLET GT SCH ×2 (08:53→16:53)
[2018-12-03] MEDS: ZINC SULFATE 220 MG CAPSULE GT SCH (08:53)
[2018-12-03] MEDS: FUROSEMIDE 20 MG/2 ML VIAL IV SCH ×2 (08:53→16:53)
[2018-12-03] MEDS: PANTOPRAZOLE 40 MG/PACK PACK GT SCH (08:53)
[2018-12-03] MEDS: RAMIPRIL 1.25 MG CAPSULE GT SCH (08:57)
[2018-12-03] MEDS: prednisoLONE ACETATE 1% SUSP 5 ML BOTTLE LEFTEYE SCH (08:58)
[2018-12-03] MEDS: buPROPion 100 MG TABLET GT SCH ×2 (08:58→16:54)
[2018-12-03] MEDS: BRIMONIDINE TARTRATE OPHT SOLN 5 ML BOTTLE EACHEYE SCH ×3 (08:59→16:55)
[2018-12-03] MEDS: DORZOLAMIDE OPTH 2% 10 ML BOTTLE EACHEYE SCH ×2 (08:59→16:56)
[2018-12-03] MEDS: TIMOLOL 0.5% SOLN OPHTH 5 ML BOTTLE EACHEYE SCH ×2 (08:59→16:56)
[2018-12-03] MEDS: ASCORBIC ACID 500 MG TABLET GT SCH ×2 (09:02→16:53)
[2018-12-03] MEDS: PROSOURCE / PROSTAT (PYXIS) 30 ML UDC GT SCH ×3 (09:02→17:24)
[2018-12-03] MEDS: LEVOTHYROXINE SODIUM 75 MCG TABLET GT SCH (09:02)
[2018-12-03] MEDS: CEFTRIAXONE 1 G in IV D5W 50 ML IV SCH (13:11)
[2018-12-03 16:00] VITALS: BP 105/39
[2018-12-03] MEDS: CLOPIDOGREL BISULFATE 75 MG TABLET GT SCH (16:53)
--- NOTE | 2018-12-03 19:47 | NUR ---
MS RN CLOSING NOTES PATIENT AWAKE IN BED IN SEMI-FOWLERS. NO ACUTE CHANGES THROUGHOUT SHIFT. BREATHING EVEN AND UNLABORED. NO SOB NOTED. ON 2LPM OXYGEN VIA NC. NO DISTRESS NOTED. PATIENT THORACENTESIS CANCELLED TODAY WHEN NO FLUID FOUND VIA X-RAY. IV ON LEFT LEG G#22 INTACT AND PATENT. SKIN DRY AND WARM TO TOUCH. AFEBRILE. FERNANDEZ CATH - INTACT AND DRAINING YELLOW COLORED URINE. GTUBE - INTACT AND INFUSING. TOLERATING WELL. NO RESIDUAL NOTED. SAFETY MEASURES IN PLACE. CALL LIGHT WITHIN REACH. CARE ENDORSED TO ONCOMING NURSE.
[2018-12-03 20:00] VITALS: BP 98/55
--- NOTE | 2018-12-03 20:00 | NUR ---
KELI RN NOTES RECEIVED PATIENT AWAKE IN BED IN SEMI-FOWLERS POSITION ON GTF @40ML/HR, BREATHING EVEN AND UNLABORED. NO SOB NOTED. ON 2LPM OXYGEN VIA NC WITH SPO2 OF 99%. IV ON LEFT LEG G#22 INTACT AND PATENT. SKIN DRY AND WARM TO TOUCH. AFEBRILE. FERNANDEZ CATH - INTACT AND DRAINING YELLOW COLOR URINE ON GRAVITY. GTF TOLERATING WELL, NO RESIDUAL NOTED. SAFETY MEASURES IN PLACE. CALL LIGHT WITHIN REACH. WILL CONTINUE PATIENT CARE AND MONITORING ACCORDINGLY.
[2018-12-03] MEDS: ENOXAPARIN SODIUM 30 MG/0.3 ML DISP.SYRIN SQ SCH (21:11)
[2018-12-03] MEDS: GABAPENTIN 100 MG CAPSULE GT SCH (23:36)
[2018-12-03] MEDS: LATANOPROST EYE DROP 0.005% 2.5 ML BOTTLE EACHEYE SCH (23:36)
--- NOTE | 2018-12-04 03:11 | NUR ---
RN NOTES PATIENT IS STABLE ,NO ACUTE CHANGES NOTED DURING MY SHIFT. PATIENT'S REPORT IS GIVEN TO DIMA RODARTE FOR NUTRITION SERVICES AIDE.
--- NOTE | 2018-12-04 03:15 | NUR ---
RN notes Received patient asleep, HOB slightly elevated with O2 inhalation at 2LPM via NC and tolerated well. No signs of distress and discomfort noted. IV access on left leg intact. GT intact with ongoing GT feeding and tolerated well. Chaves cath intact with clear urine output noted. Both lower leg elevated on a pillow. Will turn and reposition per protocol. Will continue to monitor patient.
[2018-12-04 04:00] VITALS: BP 108/87
[2018-12-04] MEDS: GLUCERNA 1.2 1,000 ML BOTTLE NG PRN (04:03)
[2018-12-04] MEDS: ALBUTEROL FS 2.5 MG/0.5 ML VIAL.NEB NEB SCH ×6 (04:05→22:58)
[2018-12-04] MEDS: POLYVINYL ALCOHOL 15 ML BOTTLE EACHEYE SCH ×3 (05:36→22:04)
[2018-12-04] MEDS: BLOOD SUGAR DIAGNOSTIC 1 EACH STRIP IN SCH ×4 (05:53→23:47)
[2018-12-04] MEDS: INSULIN REGULAR, HUMAN 100 UNIT/ML 3 ML VIAL SQ PRN ×4 (05:54→23:52)
--- NOTE | 2018-12-04 06:33 | NUR ---
RN Notes Patient awake at this time, HOB elevated, no signs of distress and discomfort noted. Noted with confusion, frequent reorientation given. Constantly moving in bed, safety measures and fall precaution observed. NGT intact, feeding tolerated well. Kept clean and dry. Turned and repositioned per protocol. Gandara cath intact, daughter refused gandara cath to be removed. All needs attended, will call light within reach. Will endorse to morning RN for continuity of care.
[2018-12-04 06:48] LABS: BASOPHILS % (AUTO) 0.7 % (0.0-2.0); EOSINOPHILS % (AUTO) 1.8 % (0.0-6.0); HEMATOCRIT 27 % (33-45); HEMOGLOBIN 8.9 g/dL (11.5-14.8); LYMPHOCYTES # (AUTO) 1.3 /CMM (0.8-4.8); LYMPHOCYTES % (AUTO) 19.7 % (20.0-44.0); MEAN CORPUSCULAR HGB CONC 33 g/dl (31.0-36.0); MEAN CORPUSCULAR VOLUME 92 fL (82-100); MONOCYTES # (AUTO) 0.4 /CMM (0.1-1.30); MONOCYTES % (AUTO) 6.4 % (2.0-12.0); NEUTROPHILS # (AUTO) 4.7 /CMM (1.8-8.9); NEUTROPHILS % (AUTO) 71.4 % (43.0-81.0); PLATELET COUNT (AUTO) 149 /CMM (150-450); RED BLOOD CELL COUNT(AUTO) 2.96 MIL/uL (4.0-5.2); WHITE BLOOD COUNT (AUTO) 6.6 K/uL (4.3-11.0)
[2018-12-04 06:56] LABS: CARBON DIOXIDE 30 mmol/L (21-32); CHLORIDE 106 mmol/L (98-107); CREATININE 0.6 mg/dL (0.6-1.3); GLUCOSE 276 mg/dL (74-106); MAGNESIUM 1.8 mg/dL (1.8-2.4); POTASSIUM 4.1 mmol/L (3.5-5.1); SODIUM SERUM 143 mmol/L (136-145); UREA NITROGEN, BLOOD 19 mg/dL (7-18)
--- NOTE | 2018-12-04 07:30 | NUR ---
RN OPENING NOTES RECEIVED REPORT FROM AUTOMOTIVE PARTS MANAGER RN. PT IS SLEEPING IN BED NO SIGNS OF RESPIRATORY DISTRESS OR PAIN NOTED. PT IS ON A G TUBE FEEDING RUNNING GLUCERNA AT 40ML/HR TOLERATING WELL. HOB IS ELEVATED. PT HAS A FERNANDEZ DRAINING TO GRAVITY WITH CLEAR YELLOW URINE. PT IS ON 2L NC. BED ALARM IS ON AND BED IS IN LOWEST LOCKED POSITION WITH CALL LIGHT WITH IN REACH. WILL CONTINUE TO MONITOR.
[2018-12-04 08:00] VITALS: BP 112/55
[2018-12-04] MEDS: LEVOTHYROXINE SODIUM 75 MCG TABLET GT SCH (09:04)
[2018-12-04] MEDS: buPROPion 100 MG TABLET GT SCH ×2 (09:05→17:23)
[2018-12-04] MEDS: POTASSIUM CHLORIDE 10 MEQ TABLET.SA GT SCH (09:05)
[2018-12-04] MEDS: CHOLECALCIFEROL 1,000 UNIT TABLET (VIT D3) GT SCH (09:05)
[2018-12-04] MEDS: ACIDOPHILUS/BULGARICUS 1 EACH TAB.CHEW GT SCH ×2 (09:06→17:22)
[2018-12-04] MEDS: DONEPEZIL 5 MG TABLET GT SCH ×2 (09:06→17:22)
[2018-12-04] MEDS: RAMIPRIL 1.25 MG CAPSULE GT SCH (09:06)
[2018-12-04] MEDS: METOCLOPRAMIDE HCL 10 MG TABLET GT SCH ×2 (09:07→17:23)
[2018-12-04] MEDS: ZINC SULFATE 220 MG CAPSULE GT SCH (09:07)
[2018-12-04] MEDS: prednisoLONE ACETATE 1% SUSP 5 ML BOTTLE LEFTEYE SCH (09:07)
[2018-12-04] MEDS: MULTIVITAMINS,THERAGRAN 1 UDTAB TABLET GT SCH (09:07)
[2018-12-04] MEDS: ASCORBIC ACID 500 MG TABLET GT SCH ×2 (09:07→17:23)
[2018-12-04] MEDS: FUROSEMIDE 20 MG/2 ML VIAL IV SCH ×2 (09:07→17:23)
[2018-12-04] MEDS: TIMOLOL 0.5% SOLN OPHTH 5 ML BOTTLE EACHEYE SCH ×2 (09:09→17:21)
[2018-12-04] MEDS: DORZOLAMIDE OPTH 2% 10 ML BOTTLE EACHEYE SCH ×2 (09:10→17:22)
[2018-12-04] MEDS: BRIMONIDINE TARTRATE OPHT SOLN 5 ML BOTTLE EACHEYE SCH ×3 (09:10→17:21)
[2018-12-04] MEDS: PROSOURCE / PROSTAT (PYXIS) 30 ML UDC GT SCH ×3 (09:15→17:24)
[2018-12-04] MEDS: PANTOPRAZOLE 40 MG/PACK PACK GT SCH (09:15)
[2018-12-04] MEDS: Magnesium 1GM/D5W 100ML PREMIX 100 ML IV SCH ×2 (11:44→12:57)
[2018-12-04] MEDS: CEFTRIAXONE 1 G in IV D5W 50 ML IV SCH (14:08)
[2018-12-04 16:00] VITALS: BP 95/66
[2018-12-04] MEDS: CLOPIDOGREL BISULFATE 75 MG TABLET GT SCH (17:22)
--- NOTE | 2018-12-04 19:33 | NUR ---
RN CLOSING NOTES GAVE REPORT TO FIELD SERVICER RN. PT IS SLEEPING IN BED NO SIGNS OF RESPIRATORY DISTRESS OR PAIN NOTED. PT IS ON A G TUBE FEEDING RUNNING GLUCERNA AT 40ML/HR TOLERATING WELL. HOB IS ELEVATED. PT HAS A FERNANDEZ DRAINING TO GRAVITY WITH CLEAR YELLOW URINE. PT IS ON 2L NC. BED ALARM IS ON AND BED IS IN LOWEST LOCKED POSITION WITH CALL LIGHT WITH IN REACH. CONTINUITY OF CARE ENDORSED TO FIELD SERVICER RN.
[2018-12-04 20:00] VITALS: BP 131/64
--- NOTE | 2018-12-04 20:00 | NUR ---
MS/RN NOTES RECEIVED REPORT FROM AM RN FOR RUMA, PATIENT, AWAKE, WITH DEMENTA RESPIRATIONS EVEN AND UNLABORED, REQUIRE EXTENSIVE ASSISTANCE. FERNANDEZ DRAINING YELLOW URINEE, SKIN WARM TO TOUCH, ON 2 LITER OXYGEN VIA NC , ON GTUBE FEEDING , RESIDUAL CHECK WITH MINIMAL RESIDUAL AT 20/ MONITOIRNG FOR ELEVATED BLOOD SUGAR LEVEL. BED LOCKED, SIDE RAILS UP, BED ALARM ON.
--- NOTE | 2018-12-04 20:10 | NUR ---
MS/RN NOTES RECEIVED CRITICAL GLUCOSE LEVEL FROM LAB RESULT AT 419 TO INFORM MD FOR THE LATEST RESULT.
--- NOTE | 2018-12-04 20:17 | NUR ---
MS/RN NOTES BLOOD SUGAR RECHECK AT 363 WILL CHECK AND MONITOR.
--- NOTE | 2018-12-04 20:29 | NUR ---
MS/RN NOTES AWAITING FOR MD ORDER REGARDING GLUCOSE RESULT THAT WAS CRITICAL LEVEL.
[2018-12-04] MEDS: GABAPENTIN 100 MG CAPSULE GT SCH (21:59)
[2018-12-04] MEDS: LATANOPROST EYE DROP 0.005% 2.5 ML BOTTLE EACHEYE SCH (22:00)
[2018-12-04] MEDS: ENOXAPARIN SODIUM 30 MG/0.3 ML DISP.SYRIN SQ SCH (22:02)
[2018-12-05] VITALS: BP 130/70
[2018-12-05] MEDS: ALBUTEROL FS 2.5 MG/0.5 ML VIAL.NEB NEB SCH ×6 (02:43→23:02)
[2018-12-05 04:00] VITALS: BP 102/49
[2018-12-05] MEDS: POLYVINYL ALCOHOL 15 ML BOTTLE EACHEYE SCH ×3 (04:15→21:58)
[2018-12-05] MEDS: GLUCERNA 1.2 1,000 ML BOTTLE NG PRN (04:15)
--- NOTE | 2018-12-05 05:00 | NUR ---
BS CHECK AT 154
[2018-12-05] MEDS: BLOOD SUGAR DIAGNOSTIC 1 EACH STRIP IN SCH ×4 (05:24→23:55)
[2018-12-05] MEDS: INSULIN REGULAR, HUMAN 100 UNIT/ML 3 ML VIAL SQ PRN ×3 (05:29→17:09)
[2018-12-05 06:30] LABS: BASOPHILS % (AUTO) 0.5 % (0.0-2.0); EOSINOPHILS % (AUTO) 1.4 % (0.0-6.0); HEMATOCRIT 27 % (33-45); HEMOGLOBIN 8.6 g/dL (11.5-14.8); LYMPHOCYTES # (AUTO) 1.4 /CMM (0.8-4.8); MEAN CORPUSCULAR HGB CONC 32 g/dl (31.0-36.0); MEAN CORPUSCULAR VOLUME 91 fL (82-100); MONOCYTES # (AUTO) 0.4 /CMM (0.1-1.30); MONOCYTES % (AUTO) 7.1 % (2.0-12.0); NEUTROPHILS # (AUTO) 4.2 /CMM (1.8-8.9); PLATELET COUNT (AUTO) 177 /CMM (150-450); RED BLOOD CELL COUNT(AUTO) 2.91 MIL/uL (4.0-5.2); WHITE BLOOD COUNT (AUTO) 6.1 K/uL (4.3-11.0)
--- NOTE | 2018-12-05 06:45 | NUR ---
109-1 MS/RN NOTES PATIENT ABLE TO SLEEP INTERMITENTLY, REQUIRE MONITOIRNG FOR SAFETY, REPOSITION FOR COMFORT, SKIN WARM TO TOUCH, VERONICA MONITOR.
--- NOTE | 2018-12-05 07:00 | NUR ---
RN OPENING NOTES PATIENT IN STABLE CONDITION. NOT IN ANY FORM OF DISTRESS. NO SOB. NO S/S OF PAIN OR DISCOMFORT. KEPT PATIENT SAFE AND COMFORTABLE. BED IN LOW/LOCKED POSITION, SIDERAILS UPX2, CALL LIGHT IN REACH. WILL MONIOTR ACCORDINGLY.
[2018-12-05 07:07] LABS: CALCIUM, SERUM 8.1 mg/dL (8.5-10.1); CARBON DIOXIDE 34 mmol/L (21-32); CHLORIDE 105 mmol/L (98-107); CREATININE 0.6 mg/dL (0.6-1.3); GLUCOSE 155 mg/dL (74-106); MAGNESIUM 2.1 mg/dL (1.8-2.4); POTASSIUM 3.8 mmol/L (3.5-5.1); SODIUM SERUM 144 mmol/L (136-145); UREA NITROGEN, BLOOD 20 mg/dL (7-18)
[2018-12-05 08:00] VITALS: BP 116/58
[2018-12-05] MEDS: MULTIVITAMINS,THERAGRAN 1 UDTAB TABLET GT SCH (08:27)
[2018-12-05] MEDS: ACIDOPHILUS/BULGARICUS 1 EACH TAB.CHEW GT SCH ×2 (08:27→16:35)
[2018-12-05] MEDS: POTASSIUM CHLORIDE 10 MEQ TABLET.SA GT SCH (08:28)
[2018-12-05] MEDS: ASCORBIC ACID 500 MG TABLET GT SCH ×2 (08:28→16:35)
[2018-12-05] MEDS: ZINC SULFATE 220 MG CAPSULE GT SCH (08:28)
[2018-12-05] MEDS: LEVOTHYROXINE SODIUM 75 MCG TABLET GT SCH (08:28)
[2018-12-05] MEDS: METOCLOPRAMIDE HCL 10 MG TABLET GT SCH ×2 (08:28→16:35)
[2018-12-05] MEDS: FUROSEMIDE 20 MG/2 ML VIAL IV SCH ×2 (08:29→16:43)
[2018-12-05] MEDS: DONEPEZIL 5 MG TABLET GT SCH ×2 (08:29→16:38)
[2018-12-05] MEDS: CHOLECALCIFEROL 1,000 UNIT TABLET (VIT D3) GT SCH (08:29)
[2018-12-05] MEDS: PANTOPRAZOLE 40 MG/PACK PACK GT SCH (08:29)
[2018-12-05] MEDS: prednisoLONE ACETATE 1% SUSP 5 ML BOTTLE LEFTEYE SCH (08:30)
[2018-12-05] MEDS: BRIMONIDINE TARTRATE OPHT SOLN 5 ML BOTTLE EACHEYE SCH ×3 (08:31→16:32)
[2018-12-05] MEDS: DORZOLAMIDE OPTH 2% 10 ML BOTTLE EACHEYE SCH ×2 (08:31→16:32)
[2018-12-05] MEDS: TIMOLOL 0.5% SOLN OPHTH 5 ML BOTTLE EACHEYE SCH ×2 (08:32→16:32)
[2018-12-05] MEDS: buPROPion 100 MG TABLET GT SCH ×2 (08:35→16:45)
[2018-12-05] MEDS: RAMIPRIL 1.25 MG CAPSULE GT SCH (08:35)
[2018-12-05] MEDS: PROSOURCE / PROSTAT (PYXIS) 30 ML UDC GT SCH ×3 (10:19→16:50)
--- NOTE | 2018-12-05 12:00 | NUR ---
PATIENT ASLEEP IN BED COMFORTABLY. WILL MONIOTR ACCORDINGLY
[2018-12-05] MEDS: CEFTRIAXONE 1 G in IV D5W 50 ML IV SCH (12:11)
[2018-12-05 16:00] VITALS: BP 117/55
[2018-12-05] MEDS: CLOPIDOGREL BISULFATE 75 MG TABLET GT SCH (16:35)
--- NOTE | 2018-12-05 19:30 | NUR ---
RN CLOSING NOTES PATIENT IN STABLE CONDITION. ALL NEEDS ATTENDED AND PROVIDED. TURNED AND REPOSITIONED PATIENT EVERY 2HRS NEEDED. KEPT PATIENT SAFE AND COMFORTABLE. BED IN LOW/LOCKED POSIITON, SIDERAILS UPX2, CALL LIGHT IN REACH. ENDORSED TO NIGHT RN FOR RUMA.
--- NOTE | 2018-12-05 19:53 | NUR ---
MS RN RECEIVE PT SITTING IN BED, A/O X1, RESPIRATIONS EVEN AND UNLABORED, NO SOB NOTED, NO DISTRESS, SAFETY MEASURES IN PLACE. WILL CONTINUE TO MONITOR.
[2018-12-05 20:00] VITALS: BP 100/52
[2018-12-05] MEDS: GABAPENTIN 100 MG CAPSULE GT SCH (21:45)
[2018-12-05] MEDS: ENOXAPARIN SODIUM 30 MG/0.3 ML DISP.SYRIN SQ SCH (21:47)
[2018-12-05] MEDS: LATANOPROST EYE DROP 0.005% 2.5 ML BOTTLE EACHEYE SCH (22:00)
[2018-12-06] MEDS: GLUCERNA 1.2 1,000 ML BOTTLE NG PRN (02:17)
[2018-12-06] MEDS: ALBUTEROL FS 2.5 MG/0.5 ML VIAL.NEB NEB SCH ×6 (03:45→23:05)
[2018-12-06 04:00] VITALS: BP 117/62
[2018-12-06] MEDS: POLYVINYL ALCOHOL 15 ML BOTTLE EACHEYE SCH ×3 (05:37→22:08)
[2018-12-06 05:43] LABS: BASOPHILS # (AUTO) 0.1 /CMM (0.0-0.2); EOSINOPHILS % (AUTO) 1.7 % (0.0-6.0); HEMATOCRIT 25 % (33-45); LYMPHOCYTES # (AUTO) 1.6 /CMM (0.8-4.8); MEAN CORPUSCULAR HGB CONC 32 g/dl (31.0-36.0); MEAN CORPUSCULAR VOLUME 91 fL (82-100); MONOCYTES # (AUTO) 0.5 /CMM (0.1-1.30); MONOCYTES % (AUTO) 7.9 % (2.0-12.0); NEUTROPHILS # (AUTO) 3.6 /CMM (1.8-8.9); NEUTROPHILS % (AUTO) 62.4 % (43.0-81.0); PLATELET COUNT (AUTO) 191 /CMM (150-450); RED BLOOD CELL COUNT(AUTO) 2.72 MIL/uL (4.0-5.2); WHITE BLOOD COUNT (AUTO) 5.7 K/uL (4.3-11.0)
[2018-12-06] MEDS: BLOOD SUGAR DIAGNOSTIC 1 EACH STRIP IN SCH ×3 (05:47→17:36)
[2018-12-06] MEDS: INSULIN REGULAR, HUMAN 100 UNIT/ML 3 ML VIAL SQ PRN ×4 (05:49→12:43)
[2018-12-06 05:54] LABS: CALCIUM, SERUM 7.8 mg/dL (8.5-10.1); CARBON DIOXIDE 32 mmol/L (21-32); CHLORIDE 106 mmol/L (98-107); CREATININE 0.6 mg/dL (0.6-1.3); GLUCOSE 171 mg/dL (74-106); POTASSIUM 3.6 mmol/L (3.5-5.1); SODIUM SERUM 142 mmol/L (136-145); UREA NITROGEN, BLOOD 18 mg/dL (7-18)
--- NOTE | 2018-12-06 06:00 | NUR ---
REMOVED FERNANDEZ PER ORDER TIP INTACT WILL CONT TO MTR.
--- NOTE | 2018-12-06 06:22 | NUR ---
RN CLOSING NOTE ASLEEP AND EASILY AWAKEN. NOT IN DISTRESS, STABLE. NEEDS ATTENDED AND ANTICIPATED, KEPT CLEAN AND DRY AND COMFORT. RESPIRATIONS EVEN AND UNLABORED. NURSING CARE RENDERED, REPOSIITONED EVERY [address] MEAS[address] PLACE, BED IN LOW LOCKED POSITION, CALL LIGHT WITHIN EASY REACH. ENDORSE TO NEXT SHIFT CONTINUITY OF CARE.
[2018-12-06 08:00] VITALS: BP 130/78
[2018-12-06] MEDS ORDERED: METHYLPHENIDATE HCL (5MG) 5 MG TABLET PO SCH (09:00)
[2018-12-06] MEDS: RITALIN PO SCH (09:00)
[2018-12-06] MEDS: ACIDOPHILUS/BULGARICUS 1 EACH TAB.CHEW GT SCH ×2 (09:08→16:52)
[2018-12-06] MEDS: ZINC SULFATE 220 MG CAPSULE GT SCH (09:08)
[2018-12-06] MEDS: LEVOTHYROXINE SODIUM 75 MCG TABLET GT SCH (09:08)
[2018-12-06] MEDS: FUROSEMIDE 20 MG/2 ML VIAL IV SCH ×2 (09:08→16:52)
[2018-12-06] MEDS: METOCLOPRAMIDE HCL 10 MG TABLET GT SCH ×2 (09:09→16:52)
[2018-12-06] MEDS: PANTOPRAZOLE 40 MG/PACK PACK GT SCH (09:09)
[2018-12-06] MEDS: MULTIVITAMINS,THERAGRAN 1 UDTAB TABLET GT SCH (09:09)
[2018-12-06] MEDS: ASCORBIC ACID 500 MG TABLET GT SCH ×2 (09:09→16:52)
[2018-12-06] MEDS: CHOLECALCIFEROL 1,000 UNIT TABLET (VIT D3) GT SCH (09:09)
[2018-12-06] MEDS: RAMIPRIL 1.25 MG CAPSULE GT SCH (09:09)
[2018-12-06] MEDS: prednisoLONE ACETATE 1% SUSP 5 ML BOTTLE LEFTEYE SCH (09:10)
[2018-12-06] MEDS: TIMOLOL 0.5% SOLN OPHTH 5 ML BOTTLE EACHEYE SCH ×2 (09:10→17:01)
[2018-12-06] MEDS: DORZOLAMIDE OPTH 2% 10 ML BOTTLE EACHEYE SCH ×2 (09:10→17:01)
[2018-12-06] MEDS: PROSOURCE / PROSTAT (PYXIS) 30 ML UDC GT SCH ×3 (09:10→16:59)
[2018-12-06] MEDS: BRIMONIDINE TARTRATE OPHT SOLN 5 ML BOTTLE EACHEYE SCH ×3 (09:10→17:01)
[2018-12-06] MEDS: POTASSIUM CHLORIDE 10 MEQ TABLET.SA GT SCH (10:10)
[2018-12-06] MEDS: DONEPEZIL 5 MG TABLET GT SCH ×2 (10:10→16:52)
[2018-12-06] MEDS ORDERED: KEY,NONCONTROL,TO KEEP IN PYXI 1 EA MC ONE (10:15)
[2018-12-06] MEDS: buPROPion 100 MG TABLET GT SCH ×2 (11:29→16:58)
[2018-12-06] MEDS ORDERED: Z GUARD REMEDY 2 OZ OINT TP PRN (11:30)
[2018-12-06 12:00] VITALS: BP 130/78
[2018-12-06] MEDS: CEFTRIAXONE 1 G in IV D5W 50 ML IV SCH (12:40)
[2018-12-06] MEDS: SOD FERRIC GLUC 125 MG in IV NS 0.9% 100 ML IV SCH (13:29)
[2018-12-06 16:00] VITALS: BP 128/80
[2018-12-06] MEDS: CLOPIDOGREL BISULFATE 75 MG TABLET GT SCH (16:52)
[2018-12-06] MEDS: NYSTATIN TOP POWDER 15 GM BOTTLE TP SCH (17:02)
[2018-12-06] MEDS: NYSTATIN/TRIAMCIN CREAM 15 GM TUBE TP SCH (17:02)
--- NOTE | 2018-12-06 18:54 | NUR ---
RN CLOSING NOTE PATIENT IN BED, IV PATENT LEFT FOOT, GTUBE PATENT NO RESIDUAL, FERNANDEZ D/C OUTPUT X4 DIAPERS. ONE BOWEL MOVEMENT, IV ATB AND FERLICCIT TOLERATED WELL. 100ML FLUSH Q8HRS. RESTRAINTS OK PER MD IF NEEDED FOR PULLING OUT TUBES AND IV. CONTINUE TO MONITOR PATIENT. DAUGHTER AT BEDSIDE.
[2018-12-06 20:00] VITALS: BP 106/61
--- NOTE | 2018-12-06 20:00 | NUR ---
RN NOTE RECEIVED PATIENT'S BEDSIDE REPORT FROM AM RN. PATIENT IN BED, A/OX1. IV PATENT ON LEFT FOOT, G TUBE PATENT NO RESIDUAL NOTED AT THIS TIME , 100ML WATER WILL BE FLUSHED Q8HRS. RESTRAINTS OK PER MD IF NEEDED FOR PULLING OUT TUBES AND IV. CONTINUE TO MONITOR PATIENT. DAUGHTER AT BEDSIDE. ALL SAFETY MEASURES ARE IN PLACE, BED IN LOW, LOCKED POSITION, CALL LIGHT IN REACH. WILL CONTINUE TO MONITOR PATIENT.
[2018-12-06] MEDS: LATANOPROST EYE DROP 0.005% 2.5 ML BOTTLE EACHEYE SCH (22:08)
[2018-12-06] MEDS: GABAPENTIN 100 MG CAPSULE GT SCH (22:10)
[2018-12-07] MEDS: BLOOD SUGAR DIAGNOSTIC 1 EACH STRIP IN SCH ×5 (01:02→23:50)
[2018-12-07] MEDS: INSULIN REGULAR, HUMAN 100 UNIT/ML 3 ML VIAL SQ PRN ×5 (01:06→23:56)
--- NOTE | 2018-12-07 02:00 | NUR ---
RN NOTES BLADDER SCAN HAS BEEN DONE AND PT HAS 245ML OF URINE IN BLADDER. NO CATHETERIZATION WILL BE DONE AT THIS TIME. WILL CONTINUE TO MONITOR PATIENT CLOSELY.
[2018-12-07] MEDS: ALBUTEROL FS 2.5 MG/0.5 ML VIAL.NEB NEB SCH ×6 (03:02→23:25)
[2018-12-07 04:00] VITALS: BP 102/51
[2018-12-07] MEDS: POLYVINYL ALCOHOL 15 ML BOTTLE EACHEYE SCH ×3 (05:57→21:54)
[2018-12-07 08:00] VITALS: BP 121/57
--- NOTE | 2018-12-07 08:09 | NUR ---
MS RN OPENING NOTE RECEIVED PATIENT FROM OD GRINDER OPERATOR RN, PATIENT IN BED, A/O X 1, NO S/S OF DISTRESS, NO SOB. L FOOT IV INTACT AND PATENT, GTUBE PATENT NO RESIDUAL, FERNANDEZ D/C, OVERNIGHT OUTPUT X4 DIAPERS. ONE BOWEL MOVEMENT, WOUND CARE REPORTED COMPLETED. RESTRAINTS OK PER MD IF NEEDED FOR PULLING OUT TUBES AND IV. PLAN TO CONTINUE AB'S, BLADDER SCAN Q8HR. WILL CONTINUE TO MONITOR PATIENT.
[2018-12-07] MEDS: CHOLECALCIFEROL 1,000 UNIT TABLET (VIT D3) GT SCH (08:43)
[2018-12-07] MEDS: ASCORBIC ACID 500 MG TABLET GT SCH ×2 (08:43→17:37)
[2018-12-07] MEDS: PANTOPRAZOLE 40 MG/PACK PACK GT SCH (08:43)
[2018-12-07] MEDS: FUROSEMIDE 20 MG/2 ML VIAL IV SCH ×2 (08:44→17:37)
[2018-12-07] MEDS: ACIDOPHILUS/BULGARICUS 1 EACH TAB.CHEW GT SCH ×2 (08:44→17:38)
[2018-12-07] MEDS: POTASSIUM CHLORIDE 10 MEQ TABLET.SA GT SCH (08:44)
[2018-12-07] MEDS: DONEPEZIL 5 MG TABLET GT SCH ×2 (08:44→17:38)
[2018-12-07] MEDS: MULTIVITAMINS,THERAGRAN 1 UDTAB TABLET GT SCH (08:44)
[2018-12-07] MEDS: LEVOTHYROXINE SODIUM 75 MCG TABLET GT SCH (08:44)
[2018-12-07] MEDS: METOCLOPRAMIDE HCL 10 MG TABLET GT SCH ×2 (08:44→17:38)
[2018-12-07] MEDS: buPROPion 100 MG TABLET GT SCH ×2 (08:46→17:39)
[2018-12-07] MEDS: DORZOLAMIDE OPTH 2% 10 ML BOTTLE EACHEYE SCH ×2 (08:48→17:40)
[2018-12-07] MEDS: TIMOLOL 0.5% SOLN OPHTH 5 ML BOTTLE EACHEYE SCH ×2 (08:48→17:40)
[2018-12-07] MEDS: prednisoLONE ACETATE 1% SUSP 5 ML BOTTLE LEFTEYE SCH (08:48)
[2018-12-07] MEDS: BRIMONIDINE TARTRATE OPHT SOLN 5 ML BOTTLE EACHEYE SCH ×3 (08:48→17:39)
[2018-12-07] MEDS: NYSTATIN/TRIAMCIN CREAM 15 GM TUBE TP SCH ×2 (08:55→18:31)
[2018-12-07] MEDS: ZINC SULFATE 220 MG CAPSULE GT SCH (08:55)
[2018-12-07] MEDS: PROSOURCE / PROSTAT (PYXIS) 30 ML UDC GT SCH ×3 (08:56→17:55)
[2018-12-07] MEDS: RAMIPRIL 1.25 MG CAPSULE GT SCH (08:58)
[2018-12-07] MEDS: RITALIN PO SCH (10:21)
[2018-12-07] MEDS ORDERED: KEY,NONCONTROL,TO KEEP IN PYXI 1 EA MC ONE (10:29)
[2018-12-07] MEDS: GLUCERNA 1.2 1,000 ML BOTTLE NG PRN (10:54)
[2018-12-07] MEDS: NYSTATIN TOP POWDER 15 GM BOTTLE TP SCH ×2 (12:54→18:31)
[2018-12-07] MEDS: CEFTRIAXONE 1 G in IV D5W 50 ML IV SCH (13:18)
[2018-12-07] MEDS: SOD FERRIC GLUC 125 MG in IV NS 0.9% 100 ML IV SCH (15:16)
[2018-12-07 16:00] VITALS: BP 92/41
[2018-12-07] MEDS: CLOPIDOGREL BISULFATE 75 MG TABLET GT SCH (17:38)
[2018-12-07 20:00] VITALS: BP 91/45
--- NOTE | 2018-12-07 20:06 | NUR ---
MS RN CLOSING NOTE PATIENT IN BED, A/O X 1, NO S/S OF DISTRESS, NO SOB. L FOOT IV INTACT AND PATENT, GTUBE PATENT NO RESIDUAL, URINE OUTPUT X3 DIAPERS. ONE BOWEL MOVEMENT, WOUND CARE COMPLETED. RESTRAINTS OK PER MD IF NEEDED FOR PULLING OUT TUBES AND IV. PLAN TO CONTINUE AB'S, BLADDER SCAN Q8HR. CARE ENDORSED TO JUNIOR UNDERWRITER RN.
--- NOTE | 2018-12-07 20:25 | NUR ---
MS RN NOTE PATIENT URINATED IN DIAPER X 4 THROUGHOUT DAY SHIFT. NO BLADDER DISTENSION OR DISCOMFORT NOTED. NO BLADDER SCAN COMPLETED. BLADDER SCAN ORDER D/C.
--- NOTE | 2018-12-07 20:25 | NUR ---
RN NOTE: DR. BALDERAS WAS INFORMED THAT THE PATIENT HAS BEEN URINATING ON THE DIAPER X 4 TIMES DURING THE DAY. PER , OK TO DC THE BLADDER SCAN ORDER. NOTED AND CARRIED OUT. AQUILINO, DAUGHTER MADE AWARE.
[2018-12-07] MEDS: GABAPENTIN 100 MG CAPSULE GT SCH (21:53)
[2018-12-07] MEDS: LATANOPROST EYE DROP 0.005% 2.5 ML BOTTLE EACHEYE SCH (21:54)
[2018-12-08] MEDS: ALBUTEROL FS 2.5 MG/0.5 ML VIAL.NEB NEB SCH ×6 (03:05→23:50)
[2018-12-08 04:00] VITALS: BP 108/33
[2018-12-08] MEDS: BLOOD SUGAR DIAGNOSTIC 1 EACH STRIP IN SCH ×3 (05:39→18:27)
[2018-12-08] MEDS: POLYVINYL ALCOHOL 15 ML BOTTLE EACHEYE SCH ×3 (05:41→23:08)
--- NOTE | 2018-12-08 07:00 | NUR ---
had uneventful night
[2018-12-08] MEDS: LEVOTHYROXINE SODIUM 75 MCG TABLET GT SCH (07:21)
--- NOTE | 2018-12-08 07:30 | NUR ---
RN OPENING NOTES RECEIVED REPORT FROM PARK SUPERINTENDENT RN. PT IS SLEEPING IN BED. PT HAS A G TUBE RUNNING AT 40ML/HR. PT HAS A DIAPER AND PER PARK SUPERINTENDENT RN HAS BEEN URINATING. PT HAS A IV ACCESS LEFT WRIST, INTACT AND NO REDNESS NOTED. BED IS IN LOCKED AND LOWEST POSITION. CALL LIGHT WITHIN REACH. WILL CONTINUE TO MONITOR.
[2018-12-08 08:00] VITALS: BP 124/37
[2018-12-08] MEDS: DONEPEZIL 5 MG TABLET GT SCH ×2 (09:48→16:59)
[2018-12-08] MEDS: METOCLOPRAMIDE HCL 10 MG TABLET GT SCH ×2 (09:50→16:59)
[2018-12-08] MEDS: CHOLECALCIFEROL 1,000 UNIT TABLET (VIT D3) GT SCH (09:51)
[2018-12-08] MEDS: POTASSIUM CHLORIDE 10 MEQ TABLET.SA GT SCH (09:51)
[2018-12-08] MEDS: ACIDOPHILUS/BULGARICUS 1 EACH TAB.CHEW GT SCH ×2 (09:51→16:59)
[2018-12-08] MEDS: MULTIVITAMINS,THERAGRAN 1 UDTAB TABLET GT SCH (09:51)
[2018-12-08] MEDS: FUROSEMIDE 20 MG/2 ML VIAL IV SCH ×2 (09:51→16:59)
[2018-12-08] MEDS: PANTOPRAZOLE 40 MG/PACK PACK GT SCH (09:51)
[2018-12-08] MEDS: ASCORBIC ACID 500 MG TABLET GT SCH ×2 (09:52→16:59)
[2018-12-08] MEDS: RAMIPRIL 1.25 MG CAPSULE GT SCH (10:00)
[2018-12-08] MEDS: ZINC SULFATE 220 MG CAPSULE GT SCH (10:03)
[2018-12-08] MEDS: buPROPion 100 MG TABLET GT SCH ×2 (10:04→16:58)
[2018-12-08] MEDS: prednisoLONE ACETATE 1% SUSP 5 ML BOTTLE LEFTEYE SCH (10:05)
[2018-12-08] MEDS: LATANOPROST EYE DROP 0.005% 2.5 ML BOTTLE EACHEYE SCH (10:05)
[2018-12-08] MEDS: RITALIN PO SCH (10:11)
[2018-12-08] MEDS: NYSTATIN TOP POWDER 15 GM BOTTLE TP SCH ×2 (10:12→17:06)
[2018-12-08] MEDS: NYSTATIN/TRIAMCIN CREAM 15 GM TUBE TP SCH ×2 (10:12→17:05)
[2018-12-08] MEDS: BRIMONIDINE TARTRATE OPHT SOLN 5 ML BOTTLE EACHEYE SCH ×3 (10:13→17:06)
[2018-12-08] MEDS: TIMOLOL 0.5% SOLN OPHTH 5 ML BOTTLE EACHEYE SCH ×2 (10:13→17:06)
[2018-12-08] MEDS: DORZOLAMIDE OPTH 2% 10 ML BOTTLE EACHEYE SCH ×2 (10:13→17:06)
[2018-12-08] MEDS: PROSOURCE / PROSTAT (PYXIS) 30 ML UDC GT SCH ×3 (10:15→17:04)
[2018-12-08] MEDS ORDERED: KEY,NONCONTROL,TO KEEP IN PYXI 1 EA MC ONE (10:43)
[2018-12-08 12:00] VITALS: BP 108/33
[2018-12-08] MEDS: CEFTRIAXONE 1 G in IV D5W 50 ML IV SCH (12:49)
[2018-12-08] MEDS: INSULIN REGULAR, HUMAN 100 UNIT/ML 3 ML VIAL SQ PRN ×2 (12:50→18:26)
[2018-12-08] MEDS: SOD FERRIC GLUC 125 MG in IV NS 0.9% 100 ML IV SCH (15:29)
[2018-12-08 16:00] VITALS: BP 118/52
[2018-12-08] MEDS: CLOPIDOGREL BISULFATE 75 MG TABLET GT SCH (17:00)
--- NOTE | 2018-12-08 19:19 | NUR ---
RN CLOSING NOTES GAVE REPORT TO RN INFORMATICS RN. PT IS AWAKE IN BED WITH DAUGHTER AT BEDSIDE. PT HAS A G TUBE RUNNING AT 40ML/HR. PT HAS A DIAPER AND HAS BEEN URINATING. PT HAS A IV ACCESS LEFT WRIST, INTACT AND NO REDNESS NOTED. BED IS IN LOCKED AND LOWEST POSITION. CALL LIGHT WITHIN REACH. WILL ENDORSE CONTINUITY OF CARE TO RN INFORMATICS RN.
--- NOTE | 2018-12-08 19:25 | NUR ---
RN NOTES RECEIVED REPORT FROM AM SHIFT RN. PATIENT IS SLEEPING IN BED, DAUGHTER AT BEDSIDE, BREATHING EVEN AND UNLABORED ON O2 AT 2LPM VIA NC SATING 100%, PATIENT HAS A G TUBE INTACT AND PATENT RUNNING AT 40ML/HR. PT HAS A IV ACCESS LEFT WRIST, INTACT AND NO REDNESS NOTED. BED IS IN LOCKED AND LOWEST POSITION. CALL LIGHT WITHIN REACH. WILL CONTINUE TO MONITOR ACCORDINGLY.
[2018-12-08 20:00] VITALS: BP 125/92
--- NOTE | 2018-12-08 22:48 | NUR ---
RN NOTES RECEIVED A PHONE CALL FROM [facility]ALLIE [facility] MAINTENANCE PLUMBER, TO FOLLOW UP DISCHARGE ORDER WITH MD IN AM, MAINTENANCE PLUMBER ALREADY HAS A PLACEMENT SNF AT [facility] BED 110-B UPON DISCHARGE PER KALLIE. CHARGE NURSE AWARE, WILL ENDORSE TO AM SHIFT TO FOLLOW UP DISCHARGE ORDER.
[2018-12-08] MEDS: GABAPENTIN 100 MG CAPSULE GT SCH (23:07)
[2018-12-09] MEDS: INSULIN REGULAR, HUMAN 100 UNIT/ML 3 ML VIAL SQ PRN ×4 (01:55→17:11)
[2018-12-09] MEDS: ALBUTEROL FS 2.5 MG/0.5 ML VIAL.NEB NEB SCH ×4 (03:51→15:52)
[2018-12-09 04:09] VITALS: BP 126/72
[2018-12-09] MEDS: POLYVINYL ALCOHOL 15 ML BOTTLE EACHEYE SCH ×2 (05:06→13:03)
[2018-12-09] MEDS: BLOOD SUGAR DIAGNOSTIC 1 EACH STRIP IN SCH ×4 (06:27→17:06)
[2018-12-09 06:41] LABS: CALCIUM, SERUM 8.2 mg/dL (8.5-10.1); CARBON DIOXIDE 31 mmol/L (21-32); CHLORIDE 105 mmol/L (98-107); CREATININE 0.5 mg/dL (0.6-1.3); GLUCOSE 282 mg/dL (74-106); POTASSIUM 3.6 mmol/L (3.5-5.1); SODIUM SERUM 141 mmol/L (136-145); UREA NITROGEN, BLOOD 19 mg/dL (7-18)
[2018-12-09 06:50] LABS: BASOPHILS % (AUTO) 0.5 % (0.0-2.0); EOSINOPHILS % (AUTO) 1.6 % (0.0-6.0); HEMATOCRIT 27 % (33-45); HEMOGLOBIN 8.7 g/dL (11.5-14.8); LYMPHOCYTES % (AUTO) 32.1 % (20.0-44.0); MEAN CORPUSCULAR HGB CONC 32 g/dl (31.0-36.0); MEAN CORPUSCULAR VOLUME 93 fL (82-100); MONOCYTES # (AUTO) 0.6 /CMM (0.1-1.30); MONOCYTES % (AUTO) 9.5 % (2.0-12.0); NEUTROPHILS # (AUTO) 3.5 /CMM (1.8-8.9); NEUTROPHILS % (AUTO) 56.3 % (43.0-81.0); PLATELET COUNT (AUTO) 285 /CMM (150-450); RED BLOOD CELL COUNT(AUTO) 2.89 MIL/uL (4.0-5.2); WHITE BLOOD COUNT (AUTO) 6.2 K/uL (4.3-11.0)
--- NOTE | 2018-12-09 07:02 | NUR ---
RN NOTES ALL NEEDS ATTENDED AND MET, KEPT CLEAN DRY AND COMFORTABLE, ABLE TO REST AND SLEEP AT INTERVALS, WILL ENDORSE TO AM NURSE FOR CONTINUITY OF CARE.
[2018-12-09 08:00] VITALS: BP 126/61
[2018-12-09] MEDS: LEVOTHYROXINE SODIUM 75 MCG TABLET GT SCH (10:01)
[2018-12-09] MEDS: ZINC SULFATE 220 MG CAPSULE GT SCH (10:02)
[2018-12-09] MEDS: POTASSIUM CHLORIDE 10 MEQ TABLET.SA GT SCH (10:02)
[2018-12-09] MEDS: METOCLOPRAMIDE HCL 10 MG TABLET GT SCH ×2 (10:02→16:03)
[2018-12-09] MEDS: ACIDOPHILUS/BULGARICUS 1 EACH TAB.CHEW GT SCH ×2 (10:02→16:04)
[2018-12-09] MEDS: DONEPEZIL 5 MG TABLET GT SCH ×2 (10:02→16:03)
[2018-12-09] MEDS: CHOLECALCIFEROL 1,000 UNIT TABLET (VIT D3) GT SCH (10:02)
[2018-12-09] MEDS: MULTIVITAMINS,THERAGRAN 1 UDTAB TABLET GT SCH (10:02)
[2018-12-09] MEDS: ASCORBIC ACID 500 MG TABLET GT SCH ×2 (10:03→16:03)
[2018-12-09] MEDS: PANTOPRAZOLE 40 MG/PACK PACK GT SCH (10:03)
[2018-12-09] MEDS: buPROPion 100 MG TABLET GT SCH ×2 (10:03→16:03)
[2018-12-09] MEDS: FUROSEMIDE 20 MG/2 ML VIAL IV SCH ×2 (10:03→16:04)
[2018-12-09] MEDS ORDERED: KEY,NONCONTROL,TO KEEP IN PYXI 1 EA MC ONE ×2 (10:06→17:18)
[2018-12-09] MEDS: RITALIN PO SCH (10:09)
[2018-12-09] MEDS: PROSOURCE / PROSTAT (PYXIS) 30 ML UDC GT SCH ×3 (10:13→16:08)
[2018-12-09] MEDS: prednisoLONE ACETATE 1% SUSP 5 ML BOTTLE LEFTEYE SCH (10:14)
[2018-12-09] MEDS: BRIMONIDINE TARTRATE OPHT SOLN 5 ML BOTTLE EACHEYE SCH ×3 (10:17→16:19)
[2018-12-09] MEDS: DORZOLAMIDE OPTH 2% 10 ML BOTTLE EACHEYE SCH ×2 (10:18→16:05)
[2018-12-09] MEDS: TIMOLOL 0.5% SOLN OPHTH 5 ML BOTTLE EACHEYE SCH ×2 (10:18→16:05)
[2018-12-09] MEDS: NYSTATIN/TRIAMCIN CREAM 15 GM TUBE TP SCH ×2 (10:19→16:05)
[2018-12-09] MEDS: RAMIPRIL 1.25 MG CAPSULE GT SCH (10:19)
[2018-12-09] MEDS: NYSTATIN TOP POWDER 15 GM BOTTLE TP SCH ×2 (10:20→16:05)
[2018-12-09] MEDS: GLUCERNA 1.2 1,000 ML BOTTLE NG PRN (10:41)
[2018-12-09] MEDS ORDERED: METH5TAB4 PO (10:54)
[2018-12-09] MEDS ORDERED: TIMO5DRO18 EACHEYE (10:54)
[2018-12-09] MEDS ORDERED: FURO10VI IV (10:54)
[2018-12-09] MEDS ORDERED: DORZ10DR EACHEYE (10:54)
[2018-12-09 16:00] VITALS: BP 104/40
[2018-12-09] MEDS: CLOPIDOGREL BISULFATE 75 MG TABLET GT SCH (16:04)
[2018-12-09] MEDS: SOD FERRIC GLUC 125 MG in IV NS 0.9% 100 ML IV SCH (16:16)
--- NOTE | 2018-12-09 18:30 | NUR ---
RN NOTE PT DISCHARGED TO [facility] IN STABLE CONDITION, REPORT GIVEN TO DIMA DUCKWORTH. DISCHARGE INSTRUCTIONS PROVIDED TO PT'S DAUGHTER AND EMT, EXIT CARE DONE, TEACHINGS DONE TO PT AND DAUGHTER, VERBALIZED UNDERSTANDING. IV AND ID BAND REMOVED. GTUBE CLAMPED. PAPERS SIGNED AND COPIES LEFT IN CHART. PICTURES TAKEN, PT KEPT CLEAN AND DRY. PT'S DAUGHTER PICKED UP PT'S UPPER DENTURE AND RITALIN MEDICATION COUNT OF 5 TABLETS. VACCINATION UP TO DATE.
== END 2018-12-09 18:25 | DRG 871 ==
LOC: ER 19:05 → TELE-TD 11-29 00:03 → MEDSG1 11-29 12:02
PROVIDERS: ADMIT Legal Medicine; ATTEND Legal Medicine
DX: A41.9 Sepsis, unspecified organism (principal); L89.153 Pressure ulcer of sacral region, stage 3; J18.9 Pneumonia, unspecified organism; G93.41 Metabolic encephalopathy; I50.33 Acute on chronic diastolic (congestive) heart failure; N39.0 Urinary tract infection, site not specified; D68.59 Other primary thrombophilia; E11.649 Type 2 diabetes mellitus with hypoglycemia without coma; F02.80 Dementia in other diseases classified elsewhere, unspecified severity, without behavioral disturbance, psychotic disturbance, mood disturbance, and anxiety; G30.9 Alzheimer's disease, unspecified; E11.51 Type 2 diabetes mellitus with diabetic peripheral angiopathy without gangrene; Z88.0 Allergy status to penicillin; Z79.4 Long term (current) use of insulin; Z79.899 Other long term (current) drug therapy; S91.312A Laceration without foreign body, left foot, initial encounter; X58.XXXA Exposure to other specified factors, initial encounter; Y92.9 Unspecified place or not applicable; L30.4 Erythema intertrigo; L89.320 Pressure ulcer of left buttock, unstageable; L89.310 Pressure ulcer of right buttock, unstageable; E83.42 Hypomagnesemia; E03.9 Hypothyroidism, unspecified; D63.8 Anemia in other chronic diseases classified elsewhere; M62.50 Muscle wasting and atrophy, not elsewhere classified, unspecified site; Z87.440 Personal history of urinary (tract) infections; R13.10 Dysphagia, unspecified; R62.7 Adult failure to thrive; Z79.02 Long term (current) use of antithrombotics/antiplatelets; H40.9 Unspecified glaucoma; I11.0 Hypertensive heart disease with heart failure; B96.1 Klebsiella pneumoniae [K. pneumoniae] as the cause of diseases classified elsewhere; B96.89 Other specified bacterial agents as the cause of diseases classified elsewhere; Z93.1 Gastrostomy status; Z74.09 Other reduced mobility
CPT/HCPCS: 36415; 71045-TC; 76604-TC; 80048-TC; 80076-TC; 81000-TC; 82945-TC; 82962-TC; 83605-TC; 83735-TC; 84484-TC; 85025-TC; 85730-TC; 87040-TC; 87081-TC; 87086-TC; 87186-TC; 94799-TC; A4216; A6402; C9113; G0378; J0696; J1610; J1650; J1815; J1940; J1956; J2185; J2916; J3260; J3370; J3475; J3490; J7030; J7042; J7050; J7060; J8597

== ENCOUNTER 2018-12-14 09:37 | Emergency (ER) | payer OTHER ==
[~2018-12-14] VITALS: Ht 149.9 cm; Wt 54.4 kg
[~2018-12-14 09:37] MED LIST changes: +ACID1TAB12 GT; -ARGI1POW13 PO; -BRIM5DRO11 EACHEYE; +BRIM5DRO5 EACHEYE; -CRAN3875 PO; +DORZ10DR EACHEYE; +FURO10VI IV; -INSU100V27 SQ; +INSU100V28 SQ; +MAG30ORA GT; -METH5TAB16 PO; +METH5TAB4 PO; +NUT.237L30 GT; -ONDA4TAB5 PO; +PANT40SU2 GT; -PANT40TA2 PO; +POLY15DR40 EACHEYE; +TIMO5DRO18 EACHEYE
--- NOTE | 2018-12-14 09:37 | NUR ---
ROSEMARY MEDINA FROM [facility] FOR G-TUBE REPLACEMENT, UNKNOWN SIZE AND TIME IT GOT PULLED OUT. TO ER BED 4, HOOKED TO MONITOR, PROVIDED W WARM BLANKET, AWAITING MD TRAN
[2018-12-14] MEDS ORDERED: FURO-145 GT (10:06)
[2018-12-14] MEDS ORDERED: DORZ10DR18 EACHEYE (10:06)
[2018-12-14] MEDS ORDERED: METH5TAB4 GT (10:06)
[2018-12-14] MEDS ORDERED: BUPR100T13 PO (10:06)
[2018-12-14] MEDS ORDERED: TIMO5SOL11 EACHEYE (10:06)
--- NOTE | 2018-12-14 10:30 | NUR ---
DR HOPKINS AT BEDSIDE, UNSUCCESSFUL ATTEMPT OF RE-INSERTING GTUBE, STOMA CLOSED.
--- NOTE | 2018-12-14 10:35 | NUR ---
SPOKE TO JEAN-CLAUDE CH OF [facility], PT WAS SEEN AT 0515 THIS MORNING WITHOUT THE G-TUBE. MADE AWARE
--- NOTE | 2018-12-14 10:36 | NUR ---
CALLED [facility] FOR MED SURG BED
[2018-12-14 10:42] LABS: BASOPHILS % (AUTO) 0.6 % (0.0-2.0); EOSINOPHILS % (AUTO) 0.3 % (0.0-6.0); HEMATOCRIT 31 % (33-45); MEAN CORPUSCULAR HGB CONC 32 g/dl (31.0-36.0); MEAN CORPUSCULAR VOLUME 94 fL (82-100); MONOCYTES # (AUTO) 0.6 /CMM (0.1-1.30); MONOCYTES % (AUTO) 8.5 % (2.0-12.0); NEUTROPHILS # (AUTO) 4.2 /CMM (1.8-8.9); NEUTROPHILS % (AUTO) 61.6 % (43.0-81.0); PLATELET COUNT (AUTO) 482 /CMM (150-450); RED BLOOD CELL COUNT(AUTO) 3.33 MIL/uL (4.0-5.2); WHITE BLOOD COUNT (AUTO) 6.7 K/uL (4.3-11.0)
[2018-12-14 10:49] LABS: CALCIUM, SERUM 8.6 mg/dL (8.5-10.1); CARBON DIOXIDE 33 mmol/L (21-32); CHLORIDE 107 mmol/L (98-107); CREATININE 0.6 mg/dL (0.6-1.3); GLUCOSE 240 mg/dL (74-106); SODIUM SERUM 144 mmol/L (136-145); UREA NITROGEN, BLOOD 13 mg/dL (7-18)
--- NOTE | 2018-12-14 11:00 | NUR ---
israel was called. was paged
--- NOTE | 2018-12-14 11:11 | NUR ---
BED 324-2 MS GIVEN
--- NOTE | 2018-12-14 11:45 | NUR ---
DAUGHTER CALLED. STATED SHE WOULD ARRIVE WITH IN 30 MIN. SHE LEFT HER NUMBER [phone] AND REQUESTED A "BELLY BAND"
--- NOTE | 2018-12-14 11:48 | NUR ---
DR MENDOZA AT BEDSIDE FOR RE-INSERTION OF G-TUBE.
[2018-12-14] MEDS ORDERED: DIATR MEGLU/DIATRIZOATE SODIUM 30 ML BOTTLE (GASTROGRAPHIN) ONE (12:01)
--- NOTE | 2018-12-14 12:20 | NUR ---
HADOOP ADMIN AT BEDSIDE FOR KUB
--- NOTE | 2018-12-14 13:07 | NUR ---
CALLED [facility] FOR S TRANSPORT. TRIP # [phone] ETA IS 1400
--- NOTE | 2018-12-14 13:19 | NUR ---
CHANGED [facility] DAIRY CONSULTANT TO A "WILL CALL"
--- NOTE | 2018-12-14 13:31 | NUR ---
URINE SAMPLE SENT TO LAB
[2018-12-14 13:32] LABS: APPEARANCE,URINE Slightly Cloudy (CLEAR); BILIRUBIN,URINE SMALL (NEGATIVE); BLOOD, URINE Negative Ery/uL (NEGATIVE); COLOR,URINE Yellow (YELLOW); KETONES,URINE 80 (NEGATIVE); LEUKOCYTE ESTERASE ,URINE Negative (NEGATIVE); NITRITE, URINE Negative (NEGATIVE); PROTEIN,URINE 30 mg/dl (NEGATIVE); UGLUCOSE 500 MG/DL mg/dL (NEGATIVE); UROBILINOGEN,URINE 0.2 EU/dL (0.2)
[2018-12-14 13:46] LABS: BACTERIA,URINE Few /HPF (None Seen); RBC,URINE 0-2 /HPF (0-2); SQUAMOUS EPITHELIAL CELL,UR Few /HPF (None Seen)
--- NOTE | 2018-12-14 14:14 | NUR ---
CALLED [facility] NEW ETA IS 1500 TRIP #[id number]
--- NOTE | 2018-12-14 15:21 | NUR ---
Patient discharged to [facility] in stable condition. Pt will be brought back to [facility]. Report given to Suzi Chandler RN and aware pt is going back to facility. Written and verbal after care instructions given. Daughter verbalizes understanding of instruction.
[2018-12-14 15:24] VITALS: BP 122/67
== END 2018-12-14 15:26 ==
LOC: ER 09:39
DX: K94.23 Gastrostomy malfunction (principal); I11.0 Hypertensive heart disease with heart failure; I50.9 Heart failure, unspecified; G93.41 Metabolic encephalopathy; R47.02 Dysphasia; R62.7 Adult failure to thrive; E03.9 Hypothyroidism, unspecified; G30.9 Alzheimer's disease, unspecified; F02.80 Dementia in other diseases classified elsewhere, unspecified severity, without behavioral disturbance, psychotic disturbance, mood disturbance, and anxiety; E11.40 Type 2 diabetes mellitus with diabetic neuropathy, unspecified; Z98.890 Other specified postprocedural states; Z88.0 Allergy status to penicillin; Z79.4 Long term (current) use of insulin
CPT/HCPCS: 36415; 43762; 74018; 80048; 81001; 85025; 85730; 87081; 99285; Q9963; 81000-TC

== ENCOUNTER 2019-01-26 21:58 | Emergency (ER) | payer OTHER, MEDICAID ==
[~2019-01-26] VITALS: Ht 152.4 cm; Wt 43.1 kg
[~2019-01-26 21:58] MED LIST changes: -BRIM5DRO5 EACHEYE; +BUPR100T13 PO; -BUPR200T31 GT; -DORZ10DR EACHEYE; -DORZ10DR11 EACHEYE; +DORZ10DR18 EACHEYE; +FURO-145 GT; -FURO10VI IV; +METH5TAB4 GT; -METH5TAB4 PO; -TIMO5DRO18 EACHEYE; +TIMO5SOL11 EACHEYE
--- NOTE | 2019-01-26 22:00 | NUR ---
IV INITIATED L HAND 20G. LABS DRAWN FROM SITE. EVENT SPECIALIST FOOD DEMONSTRATOR AT BEDSIDE FOR COLLECTION. IV INTACT AND PATENT, PLACED ON SALINE LOCK
--- NOTE | 2019-01-26 22:00 | NUR ---
PT BIBPA FROM HOME. PT RECENTLY DISCHARGED FROM [facility] EN ROUTE TO HOME PT BECAME UNRESPONSIVE. PER EMT, ACCUCHECK READING "LOW" AND PT'S DAUGHTER ADMINISTERED "SUGAR WATER" VIA GTUBE. ON ARRIVAL PT APPEARED LETHARGIC, BS 27. 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 FAMILY AT BEDSIDE. WILL CONTINUE TO MONITOR
[2019-01-26] MEDS ORDERED: DEXTROSE 50%-WATER 50 ML DISP.SYRIN ONE (22:06)
--- NOTE | 2019-01-26 22:07 | NUR ---
MD AT BEDSIDE FOR EVALUATION
--- NOTE | 2019-01-26 22:09 | NUR ---
PT BS 27 ON ARRIVAL. MD AWARE. PER VERBAL MD ORDER, ADMINISTERED D 50 IV PUSH X1 NOW R HAND 20G
[2019-01-26 22:19] LABS: MONOCYTES # (AUTO) 0.6 /CMM (0.1-1.30); NEUTROPHILS # (AUTO) 5.8 /CMM (1.8-8.9)
[2019-01-26] MEDS ORDERED: GLUCERNA 1.2 1,000 ML BOTTLE NG ONE (22:30)
[2019-01-26] MEDS ORDERED: DEXTROSE 50%-WATER 50 ML DISP.SYRIN IV ONE (22:30)
[2019-01-26 22:35] LABS: CARBON DIOXIDE 26 mmol/L (21-32); CHLORIDE 104 mmol/L (98-107); CREATININE 0.5 mg/dL (0.6-1.3); SODIUM SERUM 138 mmol/L (136-145); UREA NITROGEN, BLOOD 18 mg/dL (7-18)
[2019-01-26 22:41] LABS: BASOPHILS % (AUTO) 0.5 % (0.0-2.0); EOSINOPHILS % (AUTO) 2.1 % (0.0-6.0); HEMATOCRIT 37 % (33-45); LYMPHOCYTES # (AUTO) 2.4 /CMM (0.8-4.8); LYMPHOCYTES % (AUTO) 26.1 % (20.0-44.0); MEAN CORPUSCULAR HGB CONC 33 g/dl (31.0-36.0); MEAN CORPUSCULAR VOLUME 90 fL (82-100); MONOCYTES % (AUTO) 6.6 % (2.0-12.0); NEUTROPHILS % (AUTO) 64.7 % (43.0-81.0); PLATELET COUNT (AUTO) 217 /CMM (150-450)
[2019-01-26 22:51] LABS: GLUCOSE 47 mg/dL (74-106)
--- NOTE | 2019-01-26 23:33 | NUR ---
PT RESTING COMFORTABLY IN BED. VITAL SIGNS STABLE. NO ACUTE DISTRESS NOTED AT THIS TIME. BS 110, MD AWARE. DAUGHTER AT BEDSIDE. WILL CONTINUE TO MONITOR
--- NOTE | 2019-01-26 23:56 | NUR ---
CALLED [facility] FOR TRANSPORTATION, ETA 0030. TRIP #[id number]
--- NOTE | 2019-01-27 00:37 | NUR ---
GAVE REPORT TO [facility]BUL FOR TRANSPORTATION RUMA. Patient discharged to home in stable condition. Written and verbal after care instructions given. Patient verbalizes understanding of instruction. IV removed. Catheter intact and site benign. Pressure and 4x4 applied to site. No bleeding noted.
[2019-01-27 00:42] VITALS: BP 124/66
== END 2019-01-27 00:43 | disposition home or self-care (01) ==
LOC: ER 22:02
DX: E11.649 Type 2 diabetes mellitus with hypoglycemia without coma (principal); T38.3X5A Adverse effect of insulin and oral hypoglycemic [antidiabetic] drugs, initial encounter; G30.9 Alzheimer's disease, unspecified; I10 Essential (primary) hypertension; R00.1 Bradycardia, unspecified; Z98.890 Other specified postprocedural states; Z88.0 Allergy status to penicillin; Z79.4 Long term (current) use of insulin; Y92.89 Other specified places as the place of occurrence of the external cause
CPT/HCPCS: 36415; 80048-TC; 82962-TC; 85025-TC